=== PATIENT | female | born 1985 | race Caucasian/White ===

== ENCOUNTER 2019-03-12 14:49 | Emergency (ER) | payer SELFPAY ==
[2019-03-12 14:51] VITALS: BP 143/76; PULSE 92; RESP 12; TEMP 36.8; O2SAT 99
--- NOTE | 2019-03-12 15:39 | DI.RAD_ITS ---
EXAM: XR FOOT RT COMPLETE INDICATION: pain, injury. COMPARISON: No exams were available for comparison TECHNIQUE: 2D digital imaging was performed. FINDINGS: There is a comminuted intra-articular fracture at the base of the proximal phalanx of the 5th toe. T here is no significant displacement. There is adjacent soft tissue swelling. No additional fracture s are seen. IMPRESSION: Fracture of the proximal phalanx of the 5th toe.
--- NOTE | 2019-03-12 15:56 | DI.VRAD_ITS ---
PROCEDURE INFORMATION: Exam: XR Right Foot Complete Exam date and time: 03/12/2019 3:39 PM Age: 33 years old Clinical history: Right foot pain / injury TECHNIQUE: Imaging protocol: XR Right foot. Views: 3 or more views. COMPARISON: No relevant prior studies available. FINDINGS: Bones/joints: Closed, acute, essentially non-displaced fracture involving the base / proximal metadiaphyseal region of the right fifth proximal phalanx. Fracture extends into the right fifth MTP joint. No dislocation. No focal osseous lesion. Soft tissues: Soft tissue swelling of the right fifth toe and distal lateral right metatarsal region. No soft tissue radiopaque foreign body. IMPRESSION: 1. Closed, acute, essentially non-displaced fracture involving the base / proximal metadiaphyseal region of the right fifth proximal phalanx. Fracture extends into the right fifth MTP joint. 2. Soft tissue swelling of the right fifth toe and distal lateral right metatarsal region. Dictated and Authenticated by: Walt López MD. Ordering:EIVE Lemus MD
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
== END 2019-03-12 16:22 | disposition home or self-care (01) ==
PROVIDERS: Emergency Provider Physician Assistant; PCP Family Medicine
DX: S92.511A Displaced fracture of proximal phalanx of right lesser toe(s), initial encounter for closed fracture (principal); W50.0XXA Accidental hit or strike by another person, initial encounter
CPT/HCPCS: 28510; 73630; E0114

== ENCOUNTER 2019-06-08 13:29 | Emergency (ER) | payer SELFPAY ==
[2019-06-08 13:33] VITALS: BP 121/71; PULSE 88; RESP 18; TEMP 36.8; O2SAT 99
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
== END 2019-06-08 14:03 | disposition home or self-care (01) ==
PROVIDERS: Emergency Provider Registered Nurse Emergency; PCP Family Medicine
DX: S09.8XXA Other specified injuries of head, initial encounter (principal); Y04.2XXA Assault by strike against or bumped into by another person, initial encounter; R68.84 Jaw pain; Y99.0 Civilian activity done for income or pay
CPT/HCPCS: 99283

== ENCOUNTER 2019-11-10 02:21 | Outpatient (CLI) | payer SELFPAY ==
[2019-11-10 09:18] LABS: Calculated LDL 118 mg/dL (<100); Cholesterol 195 mg/dL (<200); HDL Cholesterol 37 mg/dL (40-60); Triglyceride 203 mg/dL (<150)
== END 2019-11-10 02:41 ==
PROVIDERS: PCP Family Medicine; Visit Provider Nurse Practitioner Family
DX: E87.2 Acidosis (principal); F41.9 Anxiety disorder, unspecified
CPT/HCPCS: 36415; 80061; 84443

== ENCOUNTER 2020-12-10 02:36 | Emergency (ER) | payer BC, SELFPAY ==
[2020-12-10] VITALS (29 sets, daily range): BP systolic 95–105; BP diastolic 50–66; PULSE 80–106; RESP 14–25; TEMP 36.6–37.3; O2SAT 97–98
--- NOTE | 2020-12-10 02:30 | RT.EKG_ITS ---
APPROVED REPORT Exam: Resting ECG Reason for Exam: nikita zaldivar Patient Location: E HR:82 bpm ECG Measurements Heart Rate 82 AXIS KS 171 P 41 QRSd 99 QRS 118 QT 367 T 24 QTc 429 Conclusion Sinus rhythm...normal P axis, V-rate 60- 99 Right axis deviation...QRS axis (111,269) Physician: no stemi, q wave in lead 3, no sinificant st elevation or depression
[2020-12-10] MEDS: Normal Saline 1,000 ML 1000 ML IV (02:59)
[2020-12-10] MEDS: Lactated Ringers 1,000 ML 1000 ML IV (03:10)
[2020-12-10 03:14] LABS: Abs Immature Grans 0.04 10^3/uL (0.0-0.06); Absolute Eosinophil Count 0.01 10^3/uL (0.0-0.7); Absolute Lymphocyte Count 1.28 10^3/uL (1.2-3.4); Absolute Monocyte Count 0.12 10^3/uL (0.1-0.8); Absolute Neutrophil Count 2.46 10^3/uL (1.2-6.7); Eosinophils % 0.3; HCT 34.7 % (36.0-46.0); HGB 11.7 g/dL (11.2-15.7); Lymphocytes % 32.7; MCH 31.6 pg (27.0-33.0); MCHC 33.7 % (32.0-36.0); MCV 93.8 fL (80-95); MPV 9.3 fL (8.0-11.0); Monocytes % 3.1; Neutrophils % 62.9; Nucleated RBC 0 %; Platelet Count 120 10^3/uL (130-400); RDW 11.5 % (11.7-14.6); RDW-SD 39.5 fL; WBC 3.91 10^3/uL (4.4-10.8)
[2020-12-10 03:30] LABS: INR 1.1 (0.9-1.1); PTT Activated 25.9 sec (21.0-27.5); Prothrombin Time 10.8 sec (9.3-11.0)
[2020-12-10 03:44] LABS: ALT 36 U/L (14-59); AST 28 U/L (15-37); Albumin 3.8 g/dL (3.4-5.0); Alkaline Phosphatase 62 U/L (46-116); Anion Gap 11.1 mmol/L (3-11); BUN 9 mg/dL (7-18); Bilirubin, Total 0.4 mg/dL (0.2-1.0); CO2 23.9 mmol/L (21.0-32.0); CREATININE 0.8 mg/dL (0.55-1.02); Calcium 8.3 mg/dL (8.5-10.1); Chloride 105 mmol/L (98-107); Glucose 148 mg/dL (74-106); Lipase 133 U/L (73-393); NT-proBNP 10 pg/mL (<300); Potassium 3.6 mmol/L (3.5-5.1); Sodium 140 mmol/L (136-145); TSH (W/Ref FT4) 0.63 uIU/mL (0.36-3.74); Total Protein 7.4 g/dL (6.4-8.2)
[2020-12-10 03:45] LABS: Troponin I < 0.05 ng/mL (<0.06)
--- NOTE | 2020-12-10 03:45 | DI.CT_ITS ---
Exam(s) CT HEAD WO EXAM: CT HEAD WO CLINICAL HISTORY: syncope, covid. TECHNIQUE: Imaging Protocol: Axial computed tomography images with coronal and sagittal reformatted images were created and reviewed COMPARISON: No exams were available for comparison FINDINGS: Ventricles and Extra axial spaces: Normal in size and morphology for the patient's age. Hemorrhage: None. Cerebral parenchyma: Normal. Midline shift: None. Brainstem/Cerebellum: Normal. Calvarium: Normal. Visualized Paranasal sinuses/Mastoids: Clear. Soft Tissues: Unremarkable. IMPRESSION: No acute intracranial process. RADIATION DOSE DELIVERED: 726.79mGy.cm Total DLP DATA REPOSITORY: All CT scans at this facility are submitted to the National Radiology Data Registry (NRDR) Dose Index Registry (DIR) with the [employer] ([employer]). RADIATION OPTIMIZATION: All CT scans at this facility use at least one of these dose optimization te chniques: automated exposure control; mA and/or kV adjustment per patient size (includes targeted exa ms where dose is matched to clinical indication); or iterative reconstruction.
[2020-12-10 03:53] LABS: D-Dimer 290 ng/mlFEU (<500)
[2020-12-10 03:56] LABS: Bilirubin Negative (Negative); Blood Negative (Negative); Clarity Sl Cloudy (Clear); Glucose Negative (Negative); Ketones 80 mg/dL (Negative); Leukocyte Esterase Negative (Negative); Nitrite Negative (Negative); Specific Gravity 1.025 (1.005-1.025); Urobilinogen 0.2 EU/dL (Up TO 0.2); pH 6.5 (5-8)
--- NOTE | 2020-12-10 04:00 | DI.RAD_ITS ---
Exam(s) XR PORTABLE CHEST AP EXAM: XR PORTABLE CHEST AP CLINICAL HISTORY: syncope, covid. TECHNIQUE: 2D digital imaging was performed. COMPARISON: No exams were available for comparison FINDINGS: Heart size is normal. The mediastinum is not widened. Right lung is clear. Small nodular infiltrate is evident in the lateral left lung base. No pleural effusions. IMPRESSION: Noncalcified nodular infiltrate in the left lung base. Appropriate follow-up recommended. DATA REPOSITORY: RADIATION DOSE DELIVERED: All CT scans at this facility use at least one of these dose optimization techniques: automated exposure control; mA and/or kV adjustment per patient size (includes targeted e xams where dose is matched to clinical indication); or iterative reconstruction.
--- NOTE | 2020-12-10 04:00 | ED.GENADUL_ITS ---
Discharge Plan Disposition Patient Disposition: HOME Condition: Improving Discharge Details Clinical Impression: COVID-19, Acute dehydration, Dizziness Primary Care Provider: Hoemro Dean ED Provider: Christopher Patel Home Meds and New Rx's Prescriptions: New ondansetron HCl [Zofran] 4 mg tablet 4 mg PO Q8H Qty: 12 RF: 0 meclizine 25 mg tablet 25 mg PO BID Qty: 20 RF: 0 Discharge Instructions Instructions: Dehydration (ED), Dizziness (ED) Additional Instructions: At this time your CAT scan is reassuring. There is no evidence of stroke. Your chest x-ray shows no evidence of pneumonia. Minimal bronchitis is noted from the COVID-19. You were severely dehydrated. Please continue to drink 10 to 12 cups of water, Gatorade, or Powerade daily. Please take the Zofran as needed for nausea. Please take the meclizine 1 pill twice daily as directed to help with the dizziness. Both of these prescriptions [facility] If you notice any worsening of your symptoms, or any new symptoms such as vomiting, diarrhea, fever, chills, shortness of breath, chest pain, numbness, weakness, or fainting , please return immediately to the emergency department for reevaluation. Please follow up with your primary care provider as soon as possible for reassessment and reevaluation. As always, it was a pleasure participating in your medical care today. Referrals: Homero Dean [Primary Care Provider] - Discharge Data Discharge Date/Time-TO BE ENTERED AT DEPARTURE: 12/10/20 05:45 Medical Decision Making This is a 35-year-old female with no significant past medical history who presents today for evaluation of syncope, lightheadedness, and feeling ill. Patient has been symptomatic with fever, chills, for the last week, she tested positive for Covid. All the other family members in her house are also sick. She denies any excessive vomiting or diarrhea but does admit to nausea. She states that she has been drinking fluids at home. She denies any chest pain, cough, or shortness of breath. She denies any vision changes, room spinning sensation, or neck pain. She denies any family history of PE or blood clots, cardiac problems, or cardiac dysrhythmias. No other complaints at this time. No other modifying factors. This evening when she did fall/syncopized, she did not hit her head. Her significant other was able to catch her. She came to moments after. No seizure history. She has not received a Covid vaccine. Physical exam demonstrates notable dry mucous membranes. No signs of trauma. Nontender abdomen. Lung sounds are clear. Initial blood pressure was in the 60s to 70s systolic. Neurologic exam normal. Patient symptoms concerning for notable dehydration causing her syncope. However because of her current active Covid infection I am concerned for potential PE, or intercranial abnormality causing the syncope in addition to the dehydration. We will get a proBNP to evaluate for heart strain, D-dimer to help in the differentiation/rule out of PE. Day EKG, hydrate with a liter of normal saline a liter of lactated Ringer's, monitor closely and reassess. 4:17 AM D-dimer negative, EKG stable/unremarkable. proBNP normal suggesting no signs of heart strain. Patient has been rehydrated with 2 L and blood pressure has normalized. Still waiting on imaging results this time. 6 AM On reassessment patient is feeling much better. Dizziness is notably improved. Patient feels well. Vital signs stabilized. No signs of significant hemodynamic instability, focal neurologic deficit. CT scan of the head is negative for acute process, chest x-ray shows mild bronchitis. Suspect continued dehydration with mild peripheral vertigo as a cause of her symptoms secondary to COVID-19. Will discharge with Zofran and meclizine for home use. Discussed red flags which to return. At this time no clinical evidence of stroke. I have extensively reviewed the treatment plan and discharge instructions with the patient. I have addressed all patient concerns at this time. The patient was made aware of what symptoms to monitor for that would warrant a return to the emergency department. Discussed the plan with the patient, they demonstrate verbal understanding and agreement with our assessment and plan at this time. The documentation in this chart was dictated using [employer] dictation software. Please excuse any dictation errors. FINDINGS: Brain: Mild volume loss No hemorrhage. Unremarkable white matter. No mass effect. Cerebral ventricles: No ventriculomegaly. Paranasal sinuses: Minimal mucosal thickening in the left maxillary sinus. No f luid levels. Mastoid air cells: Visualized mastoid air cells are well aerated. Bones/joints: Unremarkable. No acute fracture. Soft tissues: Unremarkable. IMPRESSION: No acute intracranial hemorrhage noted Thank you for allowing us to participate in the care of your patient. Dictated and Authenticated by: Migel Lawson MD 12/10/2020 4:59 AM Eastern Time ([place] & [place]) FINDINGS: Lungs: Mild chronic interstitial prominence. Mild peribronchial thickening in the lower lobes cannot be completely excluded. No consolidation. Pleural spaces: Unremarkable. No pleural effusion. No pneumothorax. Heart/Mediastinum: Unremarkable. No cardiomegaly. Bones/joints: Unremarkable. IMPRESSION: Mild bronchitis cannot be completely excluded. No focal consolidation Thank you for allowing us to participate in the care of your patient. Dictated and Authenticated by: Migel Lawson MD 12/10/2020 5:00 AM Eastern Time ([place] & [place] HPI General Date/Time Provider Initiated Documentation: 12/10/20 02:42 . HPI Narrative: This is a 35-year-old female with no significant past medical history who presents today for evaluation of syncope, lightheadedness, and feeling ill. Patient has been symptomatic with fever, chills, for the last week, she tested positive for Covid. All the other family members in her house are also sick. She denies any excessive vomiting or diarrhea but does admit to nausea. She states that she has been drinking fluids at home. She denies any chest pain, cough, or shortness of breath. She denies any vision changes, room spinning sensation, or neck pain. She denies any family history of PE or blood clots, cardiac problems, or cardiac dysrhythmias. No other complaints at this time. No other modifying factors. This evening when she did fall/syncopized, she did not hit her head. Her significant other was able to catch her. She came to moments after. No seizure history. She has not received a Covid vaccine. Related Data Home Medications Medication Instructions Recorded Confirmed meclizine 25 mg PO BID #20 tab 12/10/20 ondansetron HCl [Zofran] 4 mg PO Q8H #12 tab 12/10/20 Previous Rx's Medication Instructions Recorded meclizine 25 mg PO BID #20 tab 12/10/20 ondansetron HCl [Zofran] 4 mg PO Q8H #12 tab 12/10/20 Allergies Allergy/AdvReac Type Severity Reaction Status Date / Time Penicillins Allergy Hives Unverified 12/10/20 02:56 Sulfa (Sulfonamide AdvReac Severe Diarrhea Unverified 12/10/20 02:56 Antibiotics) General Stated Complaint: Dizzy/Sync NEENA: 3 Review of Systems All systems reviewed & are unremarkable except as noted in HPI and below [facility] Medical History COVID-19 pos at [facility] Social History Smoking/Tobacco Use Status: Never Smoking risk assessment performed?: Yes Alcohol Intake: never Substance use type: does not use Current gender identity: female Do you feel safe at home: Yes Do you feel safe in your relationship?: Yes Exam Narrative Exam Narrative: 1.Const: Well-nourished, Well-developed, appearing stated age 2.Eyes: PERRL, no conjunctival injection, and symmetrical lids. Mild unidirectional horizontal nystagmus. No vertical or rotatory 3.ENT: Atraumatic external nose and ears. Notably dry MM. Neck: Symmetric, trachea midline, No thyromegaly. 4.CVS: +S1/S2, No murmurs or gallops. Peripheral pulses 2+ and equal in all extremities. Brisk capillary refill in all extremities. 5.RESP: Unlabored respiratory effort. Clear to auscultation bilaterally. No wheezes rales or rhonchi 6.GI: Soft, Nontender/Nondistended, No hepatosplenomegaly. No guarding or rebound. 7.MSK: Normocephalic/Atraumatic, Extremities w/o deformity or ttp No cyanosis or clubbing, Normal movement of all extremities 8.Skin: Warm, Dry. No rashes or lesions. 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 Sensation grossly intact, no focal neurologic deficits. All 6 cardinal planes of vision are fully intact. No evidence of rotatory or vertical nystagmus. The patient demonstrated a normal [id number]-[id number]-[id number], good dexterity. There was no evidence of dysdiadochokinesia. Patient was able to ambulate without difficulty. There was no wide-based gait. Sensation was intact bilaterally as well as muscle strength bilaterally for all extremities. Patient was able to verbalize butter cup with no slurring, or m iss pronunciation. 10.Psych: (AAO) x3. Appropriate mood and affect Course Vital Signs Vital signs: Vital Signs Temperature 36.6 C 12/10/20 02:40 Pulse 82 12/10/20 02:40 Respiratory Rate 16 12/10/20 02:40 Blood Pressure 95/54 L 12/10/20 02:40 Pulse Oximetry 98 12/10/20 02:40 Temperature 36.6 C 12/10/20 02:40 Pulse 86 12/10/20 03:31 Pulse 106 H 12/10/20 03:40 Respiratory Rate 22 12/10/20 03:40 Respiratory Effort Non-Labored 12/10/20 03:13 Respiratory Depth Normal 12/10/20 03:13 Respiratory Pattern Normal 12/10/20 03:13 Blood Pressure 96/60 L 12/10/20 03:31 Blood Pressure Mean 68 12/10/20 03:31 Pulse Oximetry 98 12/10/20 02:40 Pain Level 0 12/10/20 02:40 Lab/Test Results Lab/Test Results: Laboratory Tests Range/Units 12/10/20 12/10/20 12/10/20 03:00 03:00 03:00 WBC (4.4-10.8) 10^3/uL 3.91 L RBC (3.93-5.22) 10^6/uL 3.70 L Hgb (11.2-15.7) g/dL 11.7 Hct (36.0-46.0) % 34.7 L MCV (80-95) fL 93.8 MCH (27.0-33.0) pg 31.6 MCHC (32.0-36.0) % 33.7 RDW (11.7-14.6) % 11.5 L Plt Count (130-400) 10^3/uL 120 L MPV (8.0-11.0) fL 9.3 Immature Gran % 1.0 Neutrophils % 62.9 Lymphocytes % 32.7 Monocytes % 3.1 Eosinophils % 0.3 Basophils % 0.0 Nucleated RBC % % 0 Absolute Neutrophils (1.2-6.7) 10^3/uL 2.46 Absolute Lymphocytes (1.2-3.4) 10^3/uL 1.28 Absolute Monocytes (0.1-0.8) 10^3/uL 0.12 Absolute Eosinophils (0.0-0.7) 10^3/uL 0.01 Absolute Basophils (0.0-0.2) 10^3/uL 0.00 PT (9.3-11.0) sec 10.8 INR (0.9-1.1) 1.1 APTT (21.0-27.5) sec 25.9 D-Dimer (<500) ng/mlFEU 290 Sodium (136-145) mmol/L 140 Potassium (3.5-5.1) mmol/L 3.6 Chloride (98-107) mmol/L 105 Carbon Dioxide (21.0-32.0) mmol/L 23.9 Anion Gap (3-11) mmol/L 11.1 H BUN (7-18) mg/dL 9 Creatinine (0.55-1.02) mg/dL 0.8 Estimated GFR/1.73 m2 (mL/min/1.73m2) >= 60.00 Glucose (74-106) mg/dL 148 H Calcium (8.5-10.1) mg/dL 8.3 L Total Bilirubin (0.2-1.0) mg/dL 0.4 AST (15-37) U/L 28 ALT (14-59) U/L 36 Alkaline Phosphatase (46-116) U/L 62 Troponin I (<0.06) ng/mL < 0.05 NT-Pro-B Natriuret Pep (<300) pg/mL 10 Total Protein (6.4-8.2) g/dL 7.4 Albumin (3.4-5.0) g/dL 3.8 Lipase (73-393) U/L 133 TSH (0.36-3.74) uIU/mL 0.63 POC- Test(urine) Negative
[2020-12-10 04:07] LABS: Bacteria Moderate HPF (Negative); C & S Indicated? No/Sq. Contamination; Casts Negative LPF (Negative); Crystals Negative HPF (Negative); Epithelial Cells Many HPF (Negative); Mucus Trace (Negative); RBC 0-2 HPF (0-2)
--- NOTE | 2020-12-10 04:59 | DI.VRAD_ITS ---
PROCEDURE INFORMATION: Exam: CT Head Without Contrast Exam date and time: 12/10/2020 4:01 AM Age: 35 years old Clinical indication: Syncope and collapse; Patient HX: Syncope, covid TECHNIQUE: Imaging protocol: Computed tomography of the head without contrast. Radiation optimization: All CT scans at this facility use at least one of these dose optimization techniques: automated exposure control; mA and/or kV adjustment per patient size (includes targeted exams where dose is matched to clinical indication); or iterative reconstruction. COMPARISON: No relevant prior studies available. FINDINGS: Brain: Mild volume loss No hemorrhage. Unremarkable white matter. No mass effect. Cerebral ventricles: No ventriculomegaly. Paranasal sinuses: Minimal mucosal thickening in the left maxillary sinus. No fluid levels. Mastoid air cells: Visualized mastoid air cells are well aerated. Bones/joints: Unremarkable. No acute fracture. Soft tissues: Unremarkable. IMPRESSION: No acute intracranial hemorrhage noted Dictated and Authenticated by: Migel Lawson MD. Ordering:BRAD White MD
--- NOTE | 2020-12-10 05:00 | DI.VRAD_ITS ---
PROCEDURE INFORMATION: Exam: XR Chest Exam date and time: 12/10/2020 4:01 AM Age: 35 years old Clinical indication: Cough and other: Syncope, covid TECHNIQUE: Imaging protocol: XR of the chest. Views: 1 view. COMPARISON: No relevant prior studies available. FINDINGS: Lungs: Mild chronic interstitial prominence. Mild peribronchial thickening in the lower lobes cannot be completely excluded. No consolidation. Pleural spaces: Unremarkable. No pleural effusion. No pneumothorax. Heart/Mediastinum: Unremarkable. No cardiomegaly. Bones/joints: Unremarkable. IMPRESSION: Mild bronchitis cannot be completely excluded. No focal consolidation Dictated and Authenticated by: Migel Lawson MD. Ordering:BRAD White MD
[2020-12-10] MEDS: Meclizine 25 MG TAB PO (05:26)
== END 2020-12-10 05:45 | disposition home or self-care (01) ==
PROVIDERS: Emergency Provider Student in an Organized Health Care Education/Training Program; PCP Family Medicine
DX: U07.1 COVID-19 (principal); E86.0 Dehydration; R55 Syncope and collapse; I95.9 Hypotension, unspecified; J20.8 Acute bronchitis due to other specified organisms; R06.9 Unspecified abnormalities of breathing
CPT/HCPCS: 36415; 80053; 81025; 83690; 93005; 96360; 99285; 70450; 71045; 81003; 81015; 83880; 84443; 84484; 85025; 85379; 85610; 85730; 93010

== ENCOUNTER 2020-12-10 19:00 | Emergency (ER) | payer BC, SELFPAY ==
[2020-12-10 19:05] VITALS: BP 116/72; PULSE 86; RESP 18; TEMP 37.7; O2SAT 97
[2020-12-10 19:11] VITALS: RESP 16
[2020-12-10 19:13] VITALS: BP 100/68; BP 110/63; BP 94/64; PULSE 87; PULSE 90; PULSE 95
--- NOTE | 2020-12-10 19:43 | ED.GENADUL_ITS ---
Discharge Plan Disposition Patient Disposition: HOME Condition: Stable Discharge Details Clinical Impression: COVID-19 Primary Care Provider: Homero Dean ED Provider: Gissel Gómez Home Meds and New Rx's Prescriptions: Continued ondansetron HCl [Zofran] 4 mg tablet 4 mg PO Q8H Qty: 12 RF: 0 meclizine 25 mg tablet 25 mg PO BID Qty: 20 RF: 0 Discharge Instructions Instructions: Viral Syndrome (ED) Additional Instructions: continue supportive care, push fluids to stay well hydrated. acetaminophen and or ibuprofen as directed for pain or fever continue meclizine as directed continue zofran as directed continue to monitor oxygen saturation and return for sats maintained less than 94% Referrals: Homero Dean [Primary Care Provider] - Medical Decision Making patient presents for evaluation of ongoing dizziness having taken one dose of meclizine prior to arrival. hemodynamically stable and oxygenating in high 90's on room air. orthostatic vital signs checked and unremarkable. she is tolerating good po fluids. she is stable for discharge to home to continue supportive care Medical Records Medical records reviewed: Yes I reviewed the patient's medical records. HPI General Mode of arrival: ambulatory . Limitations to Documentation: no limitations . Information obtained by: patient . HPI Narrative: patient returns for evaluation of ongoing dizziness, did not take a meclizine until just prior to arrival. states she been drinking fluids well, still with dry cough, no shortness of breath worsening Related Data Home Medications Medication Instructions Recorded Confirmed meclizine 25 mg PO BID #20 tab 12/10/20 12/10/20 ondansetron HCl [Zofran] 4 mg PO Q8H #12 tab 12/10/20 12/10/20 Previous Rx's Medication Instructions Recorded meclizine 25 mg PO BID #20 tab 12/10/20 ondansetron HCl [Zofran] 4 mg PO Q8H #12 tab 12/10/20 Allergies Allergy/AdvReac Type Severity Reaction Status Date / Time Penicillins Allergy Hives Unverified 12/10/20 19:09 Sulfa (Sulfonamide AdvReac Severe Diarrhea Unverified 12/10/20 19:09 Antibiotics) General Stated Complaint: Dizzy/Sync NEENA: 3 PFSH Medical History COVID-19 pos at [facility] Social History Smoking/Tobacco Use Status: Never Smoking risk assessment performed?: Yes Alcohol Intake: never Substance use type: does not use Current gender identity: female Do you feel safe at home: Yes Do you feel safe in your relationship?: Yes Exam Const General: cooperative, healthy appearing, comfortable and ill appearing acutely (mildly) Nutritional Appearance: average body habitus Orientation: alert, awake and oriented x3 HENMT Head: normal to inspection, normocephalic and atraumatic Mouth: oral mucosae normal Eyes EOM: No nystagmus Resp Effort & Inspection: normal respiratory effort and able to speak in complete sentences Cardio Rate: regular rate Rhythm: regular rhythm GI Inspection: normal to inspection Skin General skin exam: no rashes or lesions noted and other (pink warm dry and well perfused) Neuro General: patient alert and patient awake Cranial Nerves: no nystagmus Cognition: normal cognition Speech: speech normal Gait: normal gait Course Vital Signs Vital signs: Vital Signs Temperature 37.7 C H 12/10/20 19:05 Pulse 86 12/10/20 19:05 Respiratory Rate 18 12/10/20 19:05 Blood Pressure 116/72 12/10/20 19:05 Pulse Oximetry 97 12/10/20 19:05 Temperature 37.7 C H 12/10/20 19:05 Temperature Source Oral 12/10/20 19:05 Pulse 87 12/10/20 19:13 Respiratory Rate 16 12/10/20 19:11 Respiratory Effort Non-Labored 12/10/20 19:11 Respiratory Pattern Normal 12/10/20 19:11 Blood Pressure 110/63 12/10/20 19:13 Pulse Oximetry 97 12/10/20 19:05 Pain Level 0 12/10/20 19:05
[2020-12-10 19:56] VITALS: BP 101/65; PULSE 863; RESP 18; O2SAT 98
== END 2020-12-10 20:00 | disposition home or self-care (01) ==
PROVIDERS: Emergency Provider Nurse Practitioner Acute Care; PCP Family Medicine
DX: U07.1 COVID-19 (principal); R42 Dizziness and giddiness
CPT/HCPCS: 99281; 99283

== ENCOUNTER 2022-02-28 16:56 | Outpatient (REF) | payer BC, SELFPAY ==
[2022-03-02 15:14] LABS: COVID-19 RT-PCR UVMMC Result Negative (Negative)
== END 2022-02-28 16:57 | disposition home or self-care (01) ==
LOC: LBN 16:56
PROVIDERS: PCP Family Medicine; Visit Provider Physician Assistant Medical
DX: Z20.822 Contact with and (suspected) exposure to COVID-19 (principal)
CPT/HCPCS: U0003

== ENCOUNTER 2022-07-17 03:06 | Outpatient (CLI) | payer BC, SELFPAY ==
[2022-07-17 07:30] LABS: Abs Immature Grans 0.02 10^3/uL (0.0-0.06); Absolute Basophil Count 0.02 10^3/uL (0.0-0.2); Absolute Eosinophil Count 0.18 10^3/uL (0.0-0.7); Absolute Lymphocyte Count 2.75 10^3/uL (1.2-3.4); Absolute Neutrophil Count 2.82 10^3/uL (1.2-6.7); Basophils % 0.3; Eosinophils % 2.9; HGB 12.8 g/dL (11.2-15.7); Immature Grans % 0.3; Lymphocytes % 44.4; MCH 31.4 pg (27.0-33.0); MCHC 34.6 % (32.0-36.0); MCV 91 fL (80-95); MPV 9.1 fL (8.0-11.0); Monocytes % 6.5; Neutrophils % 45.6; Platelet Count 220 10^3/uL (130-400); RBC 4.08 10^6/uL (3.93-5.22); RDW 12.1 % (11.7-14.6); RDW-SD 39.9 fL; WBC 6.19 10^3/uL (4.4-10.8)
[2022-07-17 07:33] LABS: ESR 5 mm/hr (0-20)
[2022-07-17 07:46] LABS: Hemoglobin A1C 5.3 % (<5.7)
[2022-07-17 08:41] LABS: Anion Gap 11.4 mmol/L (3-11); BUN 13 mg/dL (7-18); CO2 25.6 mmol/L (21.0-32.0); CREATININE 0.8 mg/dL (0.55-1.02); Calcium 9.2 mg/dL (8.5-10.1); Calculated LDL 149 mg/dL (<100); Chloride 104 mmol/L (98-107); Cholesterol 251 mg/dL (<200); Estimated GFR 96.66 (mL/min/1.73m2); Glucose 102 mg/dL (74-106); HDL Cholesterol 51 mg/dL (40-60); Potassium 3.7 mmol/L (3.5-5.1); Sodium 141 mmol/L (136-145); TSH (W/Ref FT4) 0.69 uIU/mL (0.36-3.74); Triglyceride 257 mg/dL (<150)
[2022-07-17 20:56] LABS: Thyroglobulin Antibody <15 U/mL (<=60); Thyroperoxidase Antibody <28 U/mL (<=60)
[2022-07-20 11:31] LABS: Lyme Ab w Rflx to Lyme Confirm Negative (Negative)
[2022-07-20 14:01] LABS: ANA Interpretation Negative (Negative)
[2022-07-20 15:34] LABS: Anaplasma phagocytophilum Negative (Negative); B. miyamotoi PCR Negative (Negative); Babesia divergens/MO-1 Negative (Negative); Babesia duncani Negative (Negative); Babesia microti Negative (Negative); Ehrlichia chaffeensis Negative (Negative); Ehrlichia ewingii/canis Negative (Negative); Ehrlichia muris eauclairensis Negative (Negative)
== END 2022-07-17 03:07 | disposition home or self-care (01) ==
PROVIDERS: PCP Nurse Practitioner Family; Visit Provider Nurse Practitioner Family
DX: E03.9 Hypothyroidism, unspecified (principal); E78.5 Hyperlipidemia, unspecified; F41.1 Generalized anxiety disorder; M25.50 Pain in unspecified joint; Z13.1 Encounter for screening for diabetes mellitus
CPT/HCPCS: 36415; 80048; 80061; 85652; 86141; 86376; 87798; 83036; 84443; 85025; 86038; 86618

== ENCOUNTER 2022-12-04 02:46 | Outpatient (CLI) | payer BC, SELFPAY ==
[2022-12-04 08:49] LABS: Abs Immature Grans 0.02 10^3/uL (0.0-0.06); Absolute Basophil Count 0.02 10^3/uL (0.0-0.2); Absolute Eosinophil Count 0.11 10^3/uL (0.0-0.7); Absolute Lymphocyte Count 2.99 10^3/uL (1.2-3.4); Absolute Monocyte Count 0.38 10^3/uL (0.1-0.8); Absolute Neutrophil Count 2.64 10^3/uL (1.2-6.7); Basophils % 0.3; Eosinophils % 1.8; Immature Grans % 0.3; Lymphocytes % 48.5; MCH 31.8 pg (27.0-33.0); MCHC 35.1 % (32.0-36.0); MCV 91 fL (80-95); MPV 8.8 fL (8.0-11.0); Monocytes % 6.2; Neutrophils % 42.9; Platelet Count 229 10^3/uL (130-400); RBC 4.09 10^6/uL (3.93-5.22); RDW 11.9 % (11.7-14.6); RDW-SD 38.7 fL; WBC 6.16 10^3/uL (4.4-10.8)
[2022-12-04 09:31] LABS: ALT 19 U/L (14-59); AST 12 U/L (15-37); Albumin 4.2 g/dL (3.4-5.0); Alkaline Phosphatase 69 U/L (46-116); Amylase 61 U/L (25-115); Anion Gap 11.3 mmol/L (3-11); BUN 10 mg/dL (7-18); Bilirubin, Total 0.5 mg/dL (0.2-1.0); CO2 23.7 mmol/L (21.0-32.0); CREATININE 0.9 mg/dL (0.55-1.02); Calcium 9.5 mg/dL (8.5-10.1); Chloride 106 mmol/L (98-107); Estimated GFR 83.92 (mL/min/1.73m2); Glucose 121 mg/dL (74-106); Lipase 28 U/L (16-77); Potassium 3.9 mmol/L (3.5-5.1); Sodium 141 mmol/L (136-145); Total Protein 7.8 g/dL (6.4-8.2)
== END 2022-12-04 02:47 | disposition home or self-care (01) ==
PROVIDERS: PCP Nurse Practitioner Family; Visit Provider Nurse Practitioner Family
DX: R10.13 Epigastric pain (principal); F41.1 Generalized anxiety disorder; G47.00 Insomnia, unspecified; E66.8 Other obesity; E78.5 Hyperlipidemia, unspecified
CPT/HCPCS: 36415; 80053; 83690; 82150; 85025

== ENCOUNTER 2023-04-01 15:24 | Emergency (ER) | payer BC, SELFPAY ==
[2023-04-01] VITALS (55 sets, daily range): BP systolic 107–159; BP diastolic 64–95; PULSE 74–133; RESP 8–24; TEMP 36.8; O2SAT 96–100
--- NOTE | 2023-04-01 15:15 | RT.EKG_ITS ---
APPROVED REPORT Exam: Resting ECG Reason for Exam: irregular heart rate Patient Location: E HR:116 bpm ECG Measurements Heart Rate 116 AXIS MO 157 P 28 QRSd 96 QRS 117 QT 336 T 4 QTc 468 Conclusion Sinus tachycardia 116 right axis no acute changes
--- NOTE | 2023-04-01 15:43 | ED.GENADUL_ITS ---
Discharge Plan Discharge Details Chief Complaint: Palpitatns Clinical Impression: Heart palpitations, Hypokalemia Primary Care Provider: Harmony Cortez ED Provider: Winifred Olmstead Home Meds and New Rx's Prescriptions: No Action triamcinolone acetonide 0.1 % cream 1 applic topical BID Qty: 80 0RF escitalopram oxalate [Lexapro] 10 mg tablet 10 mg PO DAILY Qty: 90 0RF Mirena 21 mcg/24 hours (8 yrs) 52 mg intrauterine device 1 device intrauterine ONCE Rx Instructions: as a single dose lorazepam 1 mg tablet 1 mg PO DAILY PRN (Reason: anxiety) Qty: 20 0RF Linzess 290 mcg capsule 290 mcg PO DAILY Qty: 90 0RF omeprazole 20 mg capsule,delayed release(DR/EC) 20 mg PO BID Qty: 180 3RF Medical Decision Making Emergent evaluation of palpitations. Initial differential includes dehydration, anemia, tacky dysrhythmia, electrolyte derangement. Patient does have a history of anxiety attacks, but states that this does not feel like her typical attack. She took lorazepam yesterday without relief. Her EKG demonstrates sinus tachycardia. She has no risk factors for DVT or PE. Will get a D-dimer and additional blood work. Will give IV fluids and reassess. 1640: Labwork reviewed. CBC unremarkable. No leukocytosis, or anemia. She has some mild hypokalemia on her CMP. She was given a dose of oral KCl. Thyroid function within normal limits. Cardiac enzymes and D-dimer are all negative. 1645: Observing the patient on telemetry monitoring, her heart rate went up into the 150s. By looking at the monitor, it was concerning for possible SVT. We attempted to quickly get an EKG. The EKG is being read by the computer as sinus tachycardia, however there are no apparent P waves, there may be P waves hidden within the QRS. This is increases my suspicion for SVT or AVNRT. Possible flutter with block. Definitely tachy dysrhythmia patient became highly symptomatic at that time. [place] dizzy, nauseated and lightheaded. Briefly discussed with the hospitalist here. We have no cardiology coverage at this time. He is requesting transfer for cardiology evaluation. At this time I will send the EKGs to [facility] for review by their malt specifications control assistant and recommendations. Final disposition pending cardiology evaluation, signed out to oncoming provider. Medical Records Medical records reviewed: Yes I reviewed the patient's medical records. Lab Data Lab results reviewed: Yes I reviewed the patient's lab results. ECG Data Attestation: I personally reviewed and interpreted this ECG (s) as follows: Prior ECG tracings: not available for review Interpretation: Sinus tachycardia, 116, right axis, no acute ST segment changes HPI General Date/Time Provider Initiated Documentation: 04/01/23 15:42 . Limitations to Documentation: no limitations . Information obtained by: patient . HPI Narrative: 38-year-old female with past medical history of panic disorder, PTSD, presents for evaluation of palpitations. She reports onset yesterday. She states that she has been feeling very fatigued, tired. Feeling off. She states that yesterday her heart was racing. She states that it did not feel like a typical panic attack. She did take a lorazepam without significant improvement in her symptoms. She reports that today she felt so tired that she had to go home from work. She denies any fever, cough, chest pain or shortness of breath. She has a Mirena IUD, but no other hormonal therapy, does not smoke. Mom had a pulmonary embolism without diagnosed etiology. She denies any alcohol use. Reports 5 mg THC at bedtime. Related Data Home Medications Medication Instructions Recorded Confirmed levonorgestrel 21 mcg/24 hours (8 1 device intrauterine ONCE 06/26/22 04/01/23 yrs) 52 mg intrauterine device (Mirena) lorazepam 1 mg tablet 1 mg PO DAILY PRN anxiety #20 tabs 11/30/22 04/01/23 linaclotide 290 mcg capsule 290 mcg PO DAILY #90 caps 01/22/23 04/01/23 (Linzess) omeprazole 20 mg capsule,delayed 20 mg PO BID #180 caps 02/03/23 04/01/23 release escitalopram oxalate 10 mg tablet 10 mg PO DAILY #90 tabs 03/25/23 04/01/23 (Lexapro) triamcinolone acetonide 0.1 % 1 applic topical BID rash #80 grams 03/25/23 04/01/23 topical cream Previous Rx's Medication Instructions Recorded lorazepam 1 mg tablet 1 mg PO DAILY PRN anxiety #20 tabs 11/30/22 linaclotide 290 mcg capsule 290 mcg PO DAILY #90 caps 01/22/23 (Linzess) omeprazole 20 mg capsule,delayed 20 mg PO BID #180 caps 02/03/23 release escitalopram oxalate 10 mg tablet 10 mg PO DAILY #90 tabs 03/25/23 (Lexapro) triamcinolone acetonide 0.1 % 1 applic topical BID rash #80 grams 03/25/23 topical cream Allergies Allergy/AdvReac Type Severity Reaction Status Date / Time Cephalosporins Allergy Unknown Unverified 04/01/23 15:29 ciprofloxacin [From Cipro] Allergy Unknown Unverified 04/01/23 15:29 Penicillins Allergy Hives Unverified 04/01/23 15:29 Sulfa (Sulfonamide AdvReac Severe Diarrhea Unverified 04/01/23 15:29 Antibiotics) General Stated Complaint: Palpitatns NEENA: 3 PFSH All Active Problems (Updated 04/01/23 @ 16:39 by Winifred Olmstead MD) Hypokalemia (Acute) Heart palpitations (Acute) BRCA2 positive (Chronic) Generalized anxiety disorder with panic attacks (Chronic) PTSD (post-traumatic stress disorder) (Chronic) Insomnia (Chronic) Hyperlipidemia (Chronic) IBS (irritable bowel syndrome) (Chronic) GERD (gastroesophageal reflux disease) (Chronic) Hiatal hernia (Chronic) IUD surveillance (Chronic) Mirena IUD 03/15/23 Polyarthralgia (Chronic) Obesity (BMI 30-39.9) (Chronic) Medical History Bochdalek hernia Herpes Abnormal uterine bleeding COVID-19 Surgical History History of bilateral tubal ligation Hx laparoscopic cholecystectomy Hx of esophagogastroduodenoscopy Hx of section Hx of colonoscopy (~06/03/20) H/O bilateral mastectomy (06/23/21) Family History Mother Depression Father , 58 Diabetes Pancreatic cancer Maternal Grandfather , 72 Diabetes Paternal Grandfather Prostate cancer Maternal Grandmother , 84 No problems noted. Paternal Grandmother , 54 Heart disease Myocardial infarction Lupus (systemic lupus erythematosus) Sister BRCA2 positive Daughter No problems noted. Daughter No problems noted. Daughter No problems noted. Son No problems noted. Social History Smoking/Tobacco Use Status: Never Second Hand Exposure: Yes Smoking risk assessment performed?: Yes Alcohol Intake: current Alcohol Intake frequency: a few times a month Alcohol type: beer Drug use: Daily Substance use type: marijuana Caregiver/Support person: No Household members: spouse and children Housing: house Communication Needs: None Do you need help understanding health information?: Rarely Pets and animals: Yes Pets and animals: dog(s) Sexually active: Yes Do you think of yourself as: straight/heterosexual Current gender identity: female What is your relationship status?: How often do you talk on the phone with friends or family?: three or more times per week How often do you get together with friends or relatives?: once per week How often do you attend religion or restorationist services?: decline to answer Do you belong to any clubs or organized social groups?: no Panel score (0-1 are the most socially isolated patients): 2 What type of physical activity do you participate in: none Frequency: does not exercise Ericka/Rastafari: None Special ericka needs: No Seatbelt use: sometimes Helmet use: Yes Helmet use: sometimes Do you feel safe at home: Yes Do you feel safe in your relationship?: Yes Female Reproductive History Menstrual control method: progestin IUCD Exam Narrative Exam Narrative: Review of Systems: All systems reviewed & are unremarkable except as noted in HPI and below: CONSTITUTIONAL: Alert and oriented Well-developed, mildly anxious HEENT: NCAT EYES: PERRL, no conjunctival injection EARS: no external abnormality NOSE nares patent MOUTH Moist MM NECK: Symmetric, trachea midline, No thyromegaly THROAT oropharynx clear CVS: Tachycardic , No murmurs or gallops. Peripheral pulses 2+ and equal in all extremities Brisk capillary refill in all extremities. No peripheral edema RESP: Unlabored respiratory effort, Clear to auscultation bilaterally No wheezes rales or rhonchi GI: Soft, Nontender, Nondistended, No organomegaly MSK: Extremities with full range of motion, no deformity or TTP SKIN: Warm, Dry. No rashes or lesions. NEURO: No focal neurologic deficits. museum technician II-XII grossly intact Sensation grossly intact Normal strength throughout PSYCH: Tearful tearful Course Vital Signs Vital signs: Vital Signs Temperature 36.8 C 04/01/23 15:27 Pulse 121 H 04/01/23 15:27 Respiratory Rate 18 04/01/23 15:27 Blood Pressure 159/73 H 04/01/23 15:27 Pulse Oximetry 100 04/01/23 15:27 Temperature 36.8 C 04/01/23 15:27 Temperature Source Skin 04/01/23 15:27 Pulse 121 H 04/01/23 15:27 Respiratory Rate 18 04/01/23 15:27 Respiratory Effort Normal, Non-Labored 04/01/23 15:30 Blood Pressure 159/73 H 04/01/23 15:27 Blood Pressure Position Sitting 04/01/23 15:27 Pulse Oximetry 100 04/01/23 15:27 Oxygen Delivery Method Room Air 04/01/23 15:27 Oxygen Flow Rate 0 04/01/23 15:27 Pain Level 0 04/01/23 15:27 Sign Out Sign Out Data: Sign Out Comment: Otherwise healthy 38-year-old female presenting with palpitations. Onset of symptoms yesterday. Palpitations associated with lightheadedness, dizziness and nausea. Not consistent with prior panic attacks. Did not improve with oral lorazepam taken at home. Lab work concerning for mild hypokalemia, oral dose given. Heart rate keeps elevating into the 150s. Concern for tacky dysrhythmia of AVNRT or SVT. Pending plan: - cardi[place] consult with [facility] [place] likely transfer unless cards has solid recs and hospitalist here feels comfortable Last updated by Winifred Olmstead MD at 04/01/23 17:11
[2023-04-01] MEDS: Normal Saline 1,000 ML 1000 ML IV (15:50)
[2023-04-01 16:03] LABS: Abs Immature Grans 0.02 10^3/uL (0.0-0.06); Absolute Basophil Count 0.03 10^3/uL (0.0-0.2); Absolute Eosinophil Count 0.14 10^3/uL (0.0-0.7); Absolute Lymphocyte Count 3.82 10^3/uL (1.2-3.4); Absolute Monocyte Count 0.46 10^3/uL (0.1-0.8); Absolute Neutrophil Count 3.41 10^3/uL (1.2-6.7); Basophils % 0.4; Eosinophils % 1.8; HGB 13.5 g/dL (11.2-15.7); Immature Grans % 0.3; Lymphocytes % 48.5; MCHC 34.6 % (32.0-36.0); MCV 90 fL (80-95); MPV 9.1 fL (8.0-11.0); Monocytes % 5.8; Neutrophils % 43.2; Platelet Count 283 10^3/uL (130-400); RBC 4.35 10^6/uL (3.93-5.22); RDW 11.7 % (11.7-14.6); RDW-SD 38.1 fL; WBC 7.88 10^3/uL (4.4-10.8)
[2023-04-01 16:30] LABS: ALT 20 U/L (14-59); AST 14 U/L (15-37); Albumin 4.2 g/dL (3.4-5.0); Alkaline Phosphatase 63 U/L (46-116); Anion Gap 10.3 mmol/L (3-11); BUN 15 mg/dL (7-18); Bilirubin, Total 0.4 mg/dL (0.2-1.0); CO2 25.7 mmol/L (21.0-32.0); CREATININE 0.8 mg/dL (0.55-1.02); Calcium 9.3 mg/dL (8.5-10.1); Chloride 104 mmol/L (98-107); Estimated GFR 96.06 (mL/min/1.73m2); Glucose 126 mg/dL (74-106); NT-proBNP 14 pg/mL (<300); Potassium 3.3 mmol/L (3.5-5.1); Sodium 140 mmol/L (136-145); TSH (W/Ref FT4) 0.53 uIU/mL (0.36-3.74); Total Protein 8.2 g/dL (6.4-8.2); Troponin I < 50 ng/L (<or=60)
[2023-04-01] MEDS: Potassium Chloride 20 MEQ TABCR PO (16:38)
[2023-04-01 16:40] LABS: D-Dimer 286 ng/mlFEU (<500)
--- NOTE | 2023-04-01 16:45 | RT.EKG_ITS ---
APPROVED REPORT Exam: Resting ECG Reason for Exam: tachy Patient Location: E HR:103 bpm ECG Measurements Heart Rate 103 AXIS GA 186 P 35 QRSd 93 QRS 104 QT 354 T 9 QTc 463 Conclusion Sinus tachycardia 103
--- NOTE | 2023-04-01 16:45 | RT.EKG_ITS ---
APPROVED REPORT Exam: Resting ECG Reason for Exam: tachy Patient Location: E HR:137 bpm ECG Measurements Heart Rate 137 AXIS MA 122 P 58 QRSd 100 QRS 121 QT 295 T -6 QTc 447 Conclusion tachy 137 narrow complex AVNRT v SVT? changed from prior
[2023-04-01 17:22] LABS: *AMPHETAMINES SCREEN URINE Negative (Negative); *BARBITURATES SCREEN URINE Negative (Negative); *BENZODIAZEPINES SCREEN URINE Negative (Negative); Cannabinoids THC Positive (Negative); Cocaine Screen,Urine Negative (Negative); METHADONE URINE SCREEN Negative (Negative); OPIATES URINE SCREEN Negative (Negative)
[2023-04-01 17:23] LABS: Tricyclic Antidepressants Negative (Negative)
--- NOTE | 2023-04-01 17:30 | W.EDPROG ---
Date of service: 04/01/23 Time of Service: 17:31 Medical Decision Making 38-year-old female signed out to me who presented with symptomatic tachycardia as high as 150s, failure to resolve with anxiolytic. Feels dizzy and nauseous and just lethargic while her heart is pounding. She is intermittently increasing to the 150s, persistently in the 120s here in the emergency department. Discussed with attending who signed out to me while [facility] cardiology consult and possible transfer is pending-likely at minimum needs overnight observation on telemetry for possible unstable tachycardia of AVNRT versus SVT, we do not have cardiology capability currently and have no way of getting her heart monitor. If there is no capacity at any facilities with the EP and cardiology and they have solid recommendations for disposition I will speak with our hospitalist for possible overnight ops on telemetry as long as they can get EP monitoring in the next 24 to 48 hours. Reviewed labs which shows negative troponin, negative D-dimer, no elevation of BNP only a mild hypokalemia which was repleted by oral supplements by prior provider. There is no leukocytosis and no pneumonia-no clear secondary cause for this tachycardia at this time. Spoke with [facility] Industrial Ecology Technician Dr. Castro @ 1935 - sees sinus tachycardia on faxed EKGs, recommends tele OBS, 5mg IV push metoprolol and starting outpatient on lowest dose with PCP follow-up, recommends against EP consult for this. I discussed this with the patient and her , re-assured that this was sinus tach- she responded very well to a 5mg bolus of IV metoprolol with rate control to 70s- it was noted that when provider began talking about cardiac rhythms etc- the patient was getting visibly anxious and her heart rate would rise nearly in sync with discussion over high heart rates and possible diagnoses- likely anxiety playing a factor. Patient preferred not to be observed overnight, and was observed after metoprolol administration for ~60 mins with no arrhythmia and no symptoms. Patients preference was to go home with strict return criteria for any uncontrolled tachycardia- patient has not had chest pain throughout the stay- [place]. Patient will diligently seek Holter monitor by contacting PCP tomorrow, I did discuss option of propanolol to treat anxiety & heart rate to talk to her doctor about and provided 2 weeks of 2.5mg metoprolol PO by outpatient Rx. Medical Records Medical records reviewed: Yes I reviewed the patient's medical records. Lab Data Lab results reviewed: Yes I reviewed the patient's lab results. Labs: Laboratory Tests Range/Units 04/01/23 04/01/23 15:38 16:30 WBC (4.4-10.8) 10^3/uL 7.88 RBC (3.93-5.22) 10^6/uL 4.35 Hgb (11.2-15.7) g/dL 13.5 Hct (36.0-46.0) % 39.0 MCV (80-95) fL 90 MCH (27.0-33.0) pg 31.0 MCHC (32.0-36.0) % 34.6 RDW (11.7-14.6) % 11.7 Plt Count (130-400) 10^3/uL 283 MPV (8.0-11.0) fL 9.1 Immature Gran % 0.3 Neutrophils % 43.2 Lymphocytes % 48.5 Monocytes % 5.8 Eosinophils % 1.8 Basophils % 0.4 Nucleated RBC % (0.0-0.3) % 0.0 Absolute Neutrophils (1.2-6.7) 10^3/uL 3.41 Absolute Lymphocytes (1.2-3.4) 10^3/uL 3.82 H Absolute Monocytes (0.1-0.8) 10^3/uL 0.46 Absolute Eosinophils (0.0-0.7) 10^3/uL 0.14 Absolute Basophils (0.0-0.2) 10^3/uL 0.03 D-Dimer (<500) ng/mlFEU 286 Sodium (136-145) mmol/L 140 Potassium (3.5-5.1) mmol/L 3.3 L Chloride (98-107) mmol/L 104 Carbon Dioxide (21.0-32.0) mmol/L 25.7 Anion Gap (3-11) mmol/L 10.3 BUN (7-18) mg/dL 15 Creatinine (0.55-1.02) mg/dL 0.8 Est GFR (CKD-EPI 2020) (mL/min/1.73m2) 96.06 Glucose (74-106) mg/dL 126 H Calcium (8.5-10.1) mg/dL 9.3 Total Bilirubin (0.2-1.0) mg/dL 0.4 AST (15-37) U/L 14 L ALT (14-59) U/L 20 Alkaline Phosphatase (46-116) U/L 63 Troponin I (<or=60) ng/L < 50 NT-Pro-B Natriuret Pep (<300) pg/mL 14 Total Protein (6.4-8.2) g/dL 8.2 Albumin (3.4-5.0) g/dL 4.2 TSH (0.36-3.74) uIU/mL 0.53 Urine Opiates Screen (Negative) Negative Urine Methadone Screen (Negative) Negative Ur Barbiturates Screen (Negative) Negative Ur Tricyclics Screen (Negative) Negative Ur Amphetamines Screen (Negative) Negative U Benzodiazepines Scrn (Negative) Negative Urine Cocaine Screen (Negative) Negative Ur THC Screen (Negative) Positive A Sign Out Sign Out Data: Sign Out Comment: Otherwise healthy 38-year-old female presenting with palpitations. Onset of symptoms yesterday. Palpitations associated with lightheadedness, dizziness and nausea. Not consistent with prior panic attacks. Did not improve with oral lorazepam taken at home. Lab work concerning for mild hypokalemia, oral dose given. Heart rate keeps elevating into the 150s. Concern for tacky dysrhythmia of AVNRT or SVT. Pending plan: - cardiology consult with [facility] - likely transfer unless cards has solid recs and hospitalist here feels comfortable Last updated by Winifred Olmstead MD at 04/01/23 17:11 Discharge Plan Disposition Patient Disposition: Home Condition: Stable Discharge Details Clinical Impression: Heart palpitations, Hypokalemia Primary Care Provider: Harmony Cortez ED Provider: Christopher Aggarwal Home Meds and New Rx's Prescriptions: New metoprolol succinate 25 mg tablet extended release 24 hr 12.5 mg PO DAILY 14 Days Qty: 7 0RF Continued triamcinolone acetonide 0.1 % cream 1 applic topical BID Qty: 80 0RF escitalopram oxalate [Lexapro] 10 mg tablet 10 mg PO DAILY Qty: 90 0RF Mirena 21 mcg/24 hours (8 yrs) 52 mg intrauterine device 1 device intrauterine ONCE Rx Instructions: as a single dose lorazepam 1 mg tablet 1 mg PO DAILY PRN (Reason: anxiety) Qty: 20 0RF Linzess 290 mcg capsule 290 mcg PO DAILY Qty: 90 0RF omeprazole 20 mg capsule,delayed release(DR/EC) 20 mg PO BID Qty: 180 3RF Discharge Instructions Instructions: Metoprolol (By mouth), Heart Palpitations (ED), Hypokalemia (ED) Additional Instructions: You were seen in the emergency department for your dizziness and tachycardia, I think this is related to your anxiety, your cardiac workup is negative, your blood work shows no likely blood clot in your lungs, there was a mild hypokalemia, research a high potassium diet and this should normalize with normal nutrition. Your heart rate was almost in sync with discussing medical terminology and possibility of observation and I think this is likely anxiety related. You responded well to metoprolol, I have sent a prescription for extended release metoprolol 1/2 tablet/day for 14 days while you arrange follow-up with your primary care provider, I recommend that you call them in the morning to discuss getting a Holter monitor, please discuss with them the possibility of treating your anxiety with propranolol which should help with tachycardia as well. Please return to the ER at once for any symptomatic tachycardia, dizziness, feelings of near fainting, chest pain, shortness of breath, sweating. Referrals: [facility] [Provider Group] Harmony Cortez NP [Primary Care Provider] -
[2023-04-01] MEDS: Metoprolol 5 MG/5 ML VIAL IVP (20:05)
[2023-04-01] MEDS: Metoprolol 12.5 MG TAB PO (21:14)
== END 2023-04-01 21:17 | disposition home or self-care (01) ==
PROVIDERS: Emergency Medicine; Emergency Provider Physician Assistant; PCP Nurse Practitioner Family
DX: F41.9 Anxiety disorder, unspecified (principal); E87.6 Hypokalemia; Z79.899 Other long term (current) drug therapy; R00.0 Tachycardia, unspecified; Z88.0 Allergy status to penicillin; Z88.2 Allergy status to sulfonamides; Z88.1 Allergy status to other antibiotic agents
CPT/HCPCS: 00123; 36415; 80053; 80307; 93005; 96361; 96374; 99284; 83880; 84443; 84484; 85025; 85379; 93010; 99285; J3490

== ENCOUNTER 2023-04-16 08:29 | Outpatient (RCR) | payer BC, SELFPAY ==
--- NOTE | 2023-04-16 08:30 | HOLTER_ITS ---
APPROVED REPORT Exam Type: HOLTER MONITOR APPLICATION Reason for Test: Palpitations, abnl EKG Patient Location: O Conclusion 1.The underlying rhythm is sinus, rate range 61-116,average 82 bpm. 2.Few unifocal PVC's,no Vtach 3.Few PAC's,no SVT 4.No pauces.
== END 2023-04-18 23:59 | disposition home or self-care (01) ==
LOC: CARDOPNVT 08:29
PROVIDERS: PCP Nurse Practitioner Family; Visit Provider Family Medicine
DX: R00.2 Palpitations (principal)
CPT/HCPCS: 93225

== ENCOUNTER 2023-04-21 17:16 | Outpatient (RCR) | payer SELFPAY | END 2023-05-19 23:59 | disposition home or self-care (01) | LOC: CARDOPNVT 17:16 | PROVIDERS: PCP Nurse Practitioner Family; Visit Provider Internal Medicine Cardiovascular Disease | DX: R00.2 Palpitations (principal) | CPT/HCPCS: 93226 ==

== ENCOUNTER 2023-08-08 14:25 | Emergency (ER) | payer BC, SELFPAY ==
[2023-08-08 14:31] VITALS: BP 123/81; PULSE 100; RESP 16; TEMP 37.1; O2SAT 99
--- NOTE | 2023-08-08 14:45 | W.ED.GENAD ---
Discharge Plan Disposition Patient Disposition: Home Condition: Stable Discharge Details Chief Complaint: RashLesion Clinical Impression: Rash Primary Care Provider: Harmony Cortez ED Provider: Maurizio Finch Home Meds and New Rx's Prescriptions: No Action triamcinolone acetonide 0.1 % cream 1 applic topical BID Qty: 80 0RF bupropion HCl 150 mg tablet extended release 24 hr 150 mg PO DAILY Qty: 30 0RF Patient Comments: started 1 week ago Mirena 21 mcg/24 hours (8 yrs) 52 mg intrauterine device 1 device intrauterine ONCE Rx Instructions: as a single dose hydroxyzine HCl 25 mg tablet 25 mg PO TID PRN (Reason: panic attack(s)) Qty: 60 0RF omeprazole 20 mg capsule,delayed release(DR/EC) 20 mg PO BID Qty: 180 3RF lorazepam 1 mg tablet 1 mg PO DAILY PRN (Reason: anxiety) Qty: 20 0RF paroxetine HCl 20 mg tablet 20 mg PO DAILY Qty: 90 3RF Discharge Instructions Instructions: Acute Rash (ED) HPI General Date/Time Provider Initiated Documentation: 08/08/23 14:28. HPI Narrative: 38-year-old female presents with 1 day of total body rash maculopapular no involvement of mouth or genitalia. Of note patient believes she has influenza as her son tested positive recently, and she has been feeling tired and feverish. Denies headache neck pain nausea vomiting or other systemic signs of illness. Started Wellbutrin within the last week. Related Data Home Medications Medication Instructions Recorded Confirmed levonorgestrel 21 mcg/24 hours (8 1 device intrauterine ONCE 06/26/22 08/08/23 yrs) 52 mg intrauterine device (Mirena) omeprazole 20 mg capsule,delayed 20 mg PO BID #180 caps 02/03/23 08/08/23 release triamcinolone acetonide 0.1 % 1 applic topical BID rash #80 grams 03/25/23 08/08/23 topical cream hydroxyzine HCl 25 mg tablet 25 mg PO TID PRN panic attack(s) 05/28/23 08/08/23 #60 tabs lorazepam 1 mg tablet 1 mg PO DAILY PRN anxiety #20 tabs 06/18/23 08/08/23 paroxetine HCl 20 mg tablet 20 mg PO DAILY #90 tabs 07/21/23 08/08/23 bupropion HCl 150 mg 24 hr tablet, 150 mg PO DAILY #30 tabs 07/28/23 08/08/23 extended release Previous Rx's Medication Instructions Recorded omeprazole 20 mg capsule,delayed 20 mg PO BID #180 caps 02/03/23 release triamcinolone acetonide 0.1 % 1 applic topical BID rash #80 grams 03/25/23 topical cream hydroxyzine HCl 25 mg tablet 25 mg PO TID PRN panic attack(s) 05/28/23 #60 tabs lorazepam 1 mg tablet 1 mg PO DAILY PRN anxiety #20 tabs 06/18/23 paroxetine HCl 20 mg tablet 20 mg PO DAILY #90 tabs 07/21/23 bupropion HCl 150 mg 24 hr tablet, 150 mg PO DAILY #30 tabs 07/28/23 extended release Allergies Allergy/AdvReac Type Severity Reaction Status Date / Time Cephalosporins Allergy Unknown GI Verified 08/08/23 14:29 ciprofloxacin [From Cipro] Allergy Unknown GI Verified 08/08/23 14:29 Penicillins Allergy Hives Verified 08/08/23 14:29 Sulfa (Sulfonamide AdvReac Severe Diarrhea Verified 08/08/23 14:29 Antibiotics) General Stated Complaint: RashLesion NEENA: 3 Review of Systems Narrative: Review of Systems Constitutional: negative Eyes: negative ENT: negative Cardiovascular: negative Respiratory: negative Gastrointestinal: negative : negative Musculoskeletal: negative Skin: Rash Neurologic: negative Psych: negative Exam Narrative Exam Narrative: Physical Examination General: alert, awake, cooperative, resting comfortably, no acute distress HEENT: normocephalic, atraumatic; PERRL, EOM intact, conjunctiva normal; no nasal discharge; moist mucous membranes, oral and pharyngeal mucosa normal, tolerating secretions Neck: supple, trachea midline; full ROM Chest: normal to inspection Respiratory: normal respiratory effort, speaking in full sentences, clear to auscultation, no wheezing, rales or rhonchi Cardiac: regular rate, regular rhythm, S1S2 intact, no murmurs rubs or gallops GI: abdomen soft, non-tender, non-distended; no palpable mass or hepatosplenomegaly Skin: Diffuse maculopapular rash involving neck chest back arms and legs as well as abdomen, no vesicles no pustules, no petechia no purpura no mucosal involvement Neuro: AAOx3, normal speech, moving all extremities Psych: Appropriate mood and affect Course Vital Signs Vital signs: Vital Signs Temperature 37.1 C 08/08/23 14:31 Pulse 100 H 08/08/23 14:31 Respiratory Rate 16 08/08/23 14:31 Blood Pressure 123/81 08/08/23 14:31 Pulse Oximetry 99 08/08/23 14:31 Temperature 37.1 C 08/08/23 14:31 Temperature Source Temporal Artery Scan 08/08/23 14:31 Pulse 100 H 08/08/23 14:31 Respiratory Rate 16 08/08/23 14:31 Respiratory Effort Normal, Non-Labored 08/08/23 14:33 Blood Pressure 123/81 08/08/23 14:31 Blood Pressure Position Sitting 08/08/23 14:31 Pulse Oximetry 99 08/08/23 14:31 Oxygen Delivery Method Room Air 08/08/23 14:31 Oxygen Flow Rate 0 08/08/23 14:31 Pain Level 0 08/08/23 14:31 Medical Decision Making 38-year-old female presents with diffuse maculopapular rash over the last day in the setting of likely influenza exposure and new medication initiated over the last week. No mucosal involvement. Patient hemodynamically stable. Consider viral exanthem versus mild drug reaction. No evidence of Patel-Farooq's or TEN. Trial of dexamethasone. Home care instructions and return precautions given Quality:SDOH Health Related Social Needs: No Data to Display PFSH All Active Problems (Updated 08/08/23 @ 14:54 by Maurizio Finch MD) Rash (Acute) Palpitations (Acute) BRCA2 positive (Chronic) bilatateral mastectomy with implants RH Generalized anxiety disorder with panic attacks (Chronic) PTSD (post-traumatic stress disorder) (Chronic) Insomnia (Chronic) Hyperlipidemia (Chronic) IBS (irritable bowel syndrome) (Chronic) GERD (gastroesophageal reflux disease) (Chronic) Hiatal hernia (Chronic) IUD surveillance (Chronic) Mirena IUD 03/15/23 Polyarthralgia (Chronic) Obesity (BMI 30-39.9) (Chronic) Medical History Bochdalek hernia Herpes Abnormal uterine bleeding COVID-19 Surgical History History of bilateral tubal ligation Hx laparoscopic cholecystectomy Hx of esophagogastroduodenoscopy Hx of section Hx of colonoscopy (~06/03/20) H/O bilateral mastectomy (06/23/21) Family History Mother Depression Father , 58 Diabetes Pancreatic cancer Maternal Grandfather , 72 Diabetes Paternal Grandfather Prostate cancer Atrial fibrillation Maternal Grandmother , 84 No problems noted. Paternal Grandmother , 54 Heart disease Myocardial infarction Lupus (systemic lupus erythematosus) Sister BRCA2 positive Daughter No problems noted. Daughter No problems noted. Daughter No problems noted. Son No problems noted. Social History Smoking/Tobacco Use Status: Never Second Hand Exposure: Yes Smoking risk assessment performed?: Yes Alcohol Intake: current Alcohol Intake frequency: a few times a month Alcohol type: beer Drug use: Daily Substance use type: marijuana Caregiver/Support person: No Household members: spouse and children Housing: house Communication Needs: None Do you need help understanding health information?: Rarely Pets and animals: Yes Pets and animals: dog(s) Sexually active: Yes Do you think of yourself as: straight/heterosexual Current gender identity: female What is your relationship status?: How often do you talk on the phone with friends or family?: three or more times per week How often do you get together with friends or relatives?: once per week How often do you attend pentecostal or buddhist services?: decline to answer Do you belong to any clubs or organized social groups?: no Panel score (0-1 are the most socially isolated patients): 2 What type of physical activity do you participate in: none Frequency: does not exercise Ericka/Synagogue: None Special ericka needs: No Seatbelt use: sometimes Helmet use: Yes Helmet use: sometimes Do you feel safe at home: Yes Do you feel safe in your relationship?: Yes Female Reproductive History Menstrual control method: progestin IUCD
[2023-08-08] MEDS: Dexamethasone 10 MG/ML VIAL PO (14:55)
== END 2023-08-08 15:09 | disposition home or self-care (01) ==
LOC: ER 15:16
PROVIDERS: Emergency Provider Emergency Medicine; PCP Nurse Practitioner Family
DX: R21 Rash and other nonspecific skin eruption (principal)
CPT/HCPCS: 99283; J1100

== ENCOUNTER 2023-11-08 14:05 | Outpatient (CLI) | payer BC, SELFPAY ==
--- NOTE | 2023-11-08 14:00 | RT.EKG_ITS ---
APPROVED REPORT Exam: Resting ECG Reason for Exam: left chest pressure Patient Location: O HR:95 bpm ECG Measurements Heart Rate 95 AXIS WI 184 P 21 QRSd 103 QRS 102 QT 373 T 12 QTc 469 Conclusion Sinus rhythm...normal P axis, V-rate 50- 99 Vertical axis
== END 2023-11-08 14:06 | disposition home or self-care (01) ==
LOC: DI.CM 14:06
PROVIDERS: PCP Nurse Practitioner Family; Visit Provider Nurse Practitioner Family
DX: R07.89 Other chest pain (principal); M25.512 Pain in left shoulder; R00.2 Palpitations; R10.13 Epigastric pain
CPT/HCPCS: 93010

== ENCOUNTER → 2023-11-12 00:37 | Outpatient (CLI) | payer BC, SELFPAY ==
--- OUTSIDE RECORDS SUMMARY | 2023-11-12 00:39 | XMS_ITS | Clinical Summary ---
Author Organization [place] [address] Care Team Providers Care Metal Patternmaker Apprentice Name Role Phone Lizbethstacey Harmony GOLD Primary Care Provider Allergies Active Allergy Reactions Criticality Noted Date Comments Penicillins Rash Promethazine 10/09/2010 Sulfa (Sulfonamide Antibiotics) Nausea Only Medications Medication Sig Dispensed Refills Start Date End Date Status polyethylene glycol (MIRALAX) 17 gram packet 17 GRAM = 1 Packet(s), PO, Once daily 06/26/2009 Active linaclotide (Linzess) 145 mcg Capsule Take 145 mcg by mouth daily. Active levonorgestreL (MIRENA) 20 mcg/24 hours (6 yrs) 52 mg IUD 1 each by Intrauterine route Continuous (Device). . Active sertraline (Zoloft) 50 mg Tablet TAKE ONE TABLET BY MOUTH EVERY DAY 07/04/2020 Active diphenhydrAMINE HCL (ZzzQuiL) 50 mg/30 mL Liquid Take by mouth. Active UNABLE TO FIND Med Name: CBD capsule Active Active Problems Problem Noted Date Diagnosed Date Family history of pulmonary embolism 08/11/2020 BRCA2 gene mutation positive in female Overview (06/19/2020): Added automatically from request for surgery [id number] Family history of BRCA2 gene positive 05/16/2020 Overview (05/16/2020): Father Family history of pancreatic cancer 05/16/2020 Overview (05/16/2020): Father (BRCA2+) Paternal aunt BRCA2 gene mutation positive 05/15/2020 Abdominal pain 10/09/2010 Hiatal hernia 10/08/2010 Encounters Date Type Department Care Team Description 11/09/2023 8:01 AM EDT - 11/09/2023 11:47 AM EDT Emergency Emergency Department [facility] [place] [address] Chest pain, unspecified type Discharge Disposition: Home 11/09/2023 Travel from Last 3 Months Family History Medical History Relation Comments Pancreatic Cancer Father BRCA2 mutation Pancreatic Cancer Paternal Aunt Prostate Cancer Paternal Grandfather Breast Cancer Neg Hx Relation Status Comments Father Paternal Aunt Paternal Grandfather Social History Tobacco Use Types Packs/Day Years Used Date Smoking Tobacco: Never Smokeless Tobacco: Never Alcohol Use Standard Drinks/Week Comments Not Currently 0 (1 standard drink = 0.6 oz pur e alcohol) DH IPV Inpatient Questions Answer Date Recorded Does Anyone Try to Keep You From Having Contact with Others or Doing Things Outside Your Home? no 11/09/2023 Feels Threatened by Someone no 10/18 Feels Unsafe at Home or Work/School no 11/09/2023 Physical Signs of Abuse Present Not on file 11/09/2023 Sex and Gender Information Value Date Recorded Sex Assigned at Not on file Gender Identity Not on file Sexual Orientation Not on file Last Filed Vital Signs Vital Sign Reading Time Taken Comments Blood Pressure 111/78 11/09/2023 11:45 AM EDT Pulse 84 11/09/2023 11:45 AM EDT Temperature 37.5 ??C (99.5 ??F) 11/09/2023 8:09 AM ED T Respiratory Rate 17 11/09/2023 11:45 AM EDT Oxygen Saturation 99% 11/09/2023 11:45 AM EDT Inhaled Oxygen Concentration - - Weight 81.6 kg (180 lb) 11/09/2023 8:09 AM EDT Height 157.5 cm (5' 2) 11/09/2023 8:09 AM EDT Body Mass Index 32.92 11/09/2023 8:09 AM EDT Plan of Treatment Upcoming Encounters Date Type Department Care Team (Late st Contact Info) Description 11/30/2023 1:40 PM EDT Office Visit Dermatology at [facility] [address] [place] [id number] Francisca Chandler MD [facility] [address] SAS[place] [address] Health Maintenance Due Date Last Done Comments HIV screen 2002 Hepatitis C Screening 2002 Lipid Screening 2002 Hepatitis B vaccine (0-59 yrs) (1) 2003 Tdap adult 2003 Tetanus vaccine 2003 HPV test 2014 PAP Smear 2014 Covid-19 Vaccine ( season) 2022 Influenza (Flu) vaccine (1 o f 1 - Influenza standard series) 12/19/2023 Procedures Procedure Name Priority Date/Time Associated Diagnosis Comments URINALYSIS WITH REFLEX CULTURE STAT 11/09/2023 9:35 AM EDT HC TROPONIN T STAT 11/09/2023 9:28 AM EDT GOLD TUBE HOLD STAT 11/09/2023 8:30 AM EDT BLUE TUBE HOLD STAT 11/09/2023 8:30 AM EDT DIFFERENTIAL, AUTOMATED STAT 11/09/2023 8:30 AM EDT HEMOGRAM STAT 11/09/2023 8:30 AM EDT HC TROPONIN T STAT 11/09/2023 8:30 AM EDT HC LIPASE STAT 11/09/2023 8:30 AM EDT COMPREHENSIVE METABOLIC PANEL (NON-FASTING) STAT 11/09/2023 8:30 AM EDT HC CBC,PLT & AUTO DIFF STAT 8:30 AM EDT EKG 12-LEAD STAT 11/09/2023 8:10 AM EDT from Last 3 Months Results * (ABNORMAL) Urinalysis with reflex Culture (11/09/2023 9:35 AM EDT) Glucose UA Negative Negative mg/dL [facility] Protein UA Negative Negative mg/dL [facility] Bilirubin UA Negative Negative mg/dL [facility] Comment: Clinical correlation required for positive Urine Bilirubin results as false positive may occur with some drugs and drug related products. If a false positive is suspected a serum total bilirubin should be considered if clinically indicated. Urobilinogen UA Normal Normal mg/dL [facility] pH UA 8.5(H) 5.0 - 8.0 [facility] Blood UA Negative Negative mg/dL [facility] Ketones UA Negative Negative mg/dL [facility] Nitrite UA Negative Negative [facility] Leukocytes UA Negative Negative [facility] Appearance UA Clear Clear [facility] Spec Reddick UA 1.013 1.005 - 1.030 [facility] Color UA Yellow Yellow [facility] Culture Reflexed No [facility] Clean Catch Urine 11/09/2023 9:35 AM EDT 11/09/2023 9:46 AM EDT Narrative Resulting Agency Comment Spec In Lab Nazanin Ruano DO URINE ORDER KANNAN [facility] [place] [address] * Troponin (11/09/2023 9:28 AM EDT) Only the most recent of2 resultswithin the time period is included. Troponin-T HS <6 <=14 ng/L [facility] Comment: This patient's troponin T concentration was determined using the Reema 5th Generation troponin T assay. The 99th percentile for Troponin T for this test is 14 ng/L for females, and 22 ng/L for males. According to the fourth universal definition of myocardial infarction, the term acute myocardial infarction should be used when there is acute myocardial injury with clinical evidence of acute myocardial ischemia and with detection of a rise and/or fall of cardiac troponin values with at least one value above the 99th percentile and at least one of the following: - Symptoms of myocardial ischemia; - New ischemic ECG changes; - Development of pathological Q waves; - Imaging evidence of new loss of viable myocardium or new regional wall motion abnormality in a pattern consistent with an ischemic etiology; - Identification of a coronary thrombus by angiography or autopsy (not for type 2 or 3 MIs) Serial measurement of troponin and the change in troponin concentration over time (delta) is crucial for the diagnosis of acute myocardial infarction. Guidance on the interpretation of the new 5th Generation Troponin T values and the delta troponin value can be found in the [facility] Test Catalog Troponin - [facility] Test Catalog Reference: Fourth [place] Definition of Myocardial Infarction. Journal of the [place] College [employer] 2018;72:9649-7403 Blood 11/09/2023 9:28 AM EDT 11/09/2023 9:47 AM EDT Narrative Resulting Agency Comment Spec In Lab Nazanin Ruano DO CHEMISTRY O RDERABLES [facility] [place] [address] * (ABNORMAL) Hemogram (11/09/2023 8:30 AM EDT) WBC 4.9 4.0 - 9.5 x10(3)/[facility] RBC 4.07 4.00 - 5.21 x10(6)/[facility] Hemoglobin 13.1 11.7 - 15.5 g/dL [facility] Hematocrit 37.2 35.7 - 45.8 % [facility] MCV 91.4 82.6 - 94.4 fL [facility] MCH 32.2(H) 27.1 - 32.0 pg [facility] MCHC 35.2(H) 31.7 - 35.0 g/dL [facility] Platelets 247 145 - 357 x10(3)/[facility] RDWSD 39.9 37.0 - 46.0 [facility] RDWCV 11.9 11.5 - 14.1 % [facility] MPV 9.2 7.6 - 12.9 [facility] nRBC % Auto 0.0 % [facility] nRBC Abs Auto 0.000 0.000 - 0.000 x10(3)/[facility] Blood 11/09/2023 8:30 AM EDT 11/09/2023 8:41 AM EDT Narrative Resulting Agency Comment Spec In Lab Juan Jose SIMON HEMATOLOGY ORDERABLE S Performing Organization Address City/State/[facility] Co de Phone Number [facility] [place] [address] * Differential, Automated (11/09/2023 8:30 AM EDT) Neutrophils % 55.3 % [facility] Neutr Abs (ANC) 2.70 1.70 - 6.10 x10(3)/[facility] Lymphocytes % 35.7 % [facility] Lymphocytes Abs 1.7 0.9 - 3.2 x10(3)/[facility] Monocytes % 6.8 % [facility] Monocyte Abs 0.3 0.3 - 0.9 x10(3)/[facility] Eosinophils % 1.4 % [facility] Eosinophils Abs 0.1 0.0 - 0.4 x10(3)/[facility] Basophils % 0.4 % [facility] Basophils Abs 0.0 0.0 - 0.1 x10(3)/[facility] Immature Gran % 0.40 % [facility] Comment: Immature granulocytes(IG's)percentage and absolute count will include metamyelocytes, myelocytes, and promyelocytes. Blood smears from CBCs yielding IG's will be scanned manually for concordance. If this scan disagrees with the automated IG or if promyelocytes are noted, a manual differential will be performed. Darcy Gran Abs 0.02 0.00 - 0.04 x10(3)/mcL [facility] Blood 11/09/2023 8:30 AM EDT 11/09/2023 8:41 AM EDT Narrative Resulting Agency Comment Spec In Lab Juan Jose SIMON HEMATOLOGY ORDERABLE S Performing Organization Address City/[facility]/ZIP Co de Phone Number [facility] [place] [address] * Gold Tube HOLD (11/09/2023 8:30 AM EDT) Gold Hold Sample in lab. [facility] Blood Venous Draw / Unknown 11/09/2023 8:30 AM EDT 11/09/2023 8:45 AM EDT Juan Jose SIMON CHEMISTRY ORDERABLES Performing Organization Address City/[facility]/ZIP Co de Phone Number [facility] [place] [address] * Blue Tube HOLD (11/09/2023 8:30 AM EDT) Blue Hold Sample in lab. [facility] Blood Venous Draw / Unknown 11/09/2023 8:30 AM EDT 11/09/2023 8:45 AM EDT Juan Jose SIMON HEMATOLOGY ORDERABLE S Performing Organization Address City/[facility]/ZIP Co de Phone Number [facility] [place] [address] * Lipase (11/09/2023 8:30 AM EDT) Lipase 26 0 - 60 unit/L [facility] Blood 11/09/2023 8:30 AM EDT 11/09/2023 8:41 AM EDT Narrative Resulting Agency Comment Spec In Lab Nazanin Ruano DO CHEMISTRY O RDERABLES [facility] [place] [address] * Comprehensive metabolic panel (non-fasting) (11/09/2023 8:30 AM EDT) Glucose Lvl 104 65 - 199 mg/dL [facility] Comment:Diabetes: >=200 mg/d L plus symptoms BUN 10 8 - 18 mg/dL [facility] Creatinine 0.80 0.70 - 1.20 mg/dL [facility] Sodium 142 135 - 145 mmol/L [facility] Potassium 4.0 3.5 - 5.0 mmol/L [facility] Comment: Please note: ??Patients with WBC >100,000 may have falsely elevated Potassium levels. ??For accurate Potassium quantification in these patients send serum separator tube (gold top) for subsequent determinations. ??Contact the Clinical Chemistry Laboratory if there are any questions. Chloride 107 98 - 107 mmol/L [facility] CO2 22 22 - 31 mmol/L [facility] Anion Gap 13 5 - 15 mmol/L [facility] Calcium 9.7 8.5 - 10.5 mg/dL [facility] Total Protein 7.6 6.1 - 8.0 g/dL [facility] Albumin 4.7 3.2 - 5.2 g/dL [facility] AST 16 0 - 30 unit/L [facility] ALT 12 0 - 30 unit/L [facility] Alk Phos 64 35 - 105 unit/L [facility] Total Bilirubin 0.3 0.2 - 1.3 mg/dL [facility] Estimated GFR 96 >=60 mL/min/1. 73 m?? [facility] Comment: This patient's estimated GFR was calculated using the 2020 CKD-EPI equation. The estimated GFR can vary from the measured GFR by up to 30% in the absence of rapidly changing kidney function. Assessment of the estimated GFR is not appropriate when creatinine concentrations are rapidly changing. For clinical situations in which a more precise estimate of GFR is necessary, consider alternative methods of GFR estimation such as a 24-hour urine creatinine clearance. Assignment of CKD stage 1-5 for patients with an eGFR near the transition point between stages may be based on clinical assessment of muscle mass and symptoms in addition to eGFR. Blood 11/09/2023 8:30 AM EDT 11/09/2023 8:41 AM EDT Narrative Resulting Agency Comment Spec In Lab Nazanin Ruano DO CHEMISTRY O RDERABLES Performing Organization Address City/[facility]/ZIP Co de Phone Number [facility] [place] [phone] * EKG 12 Lead (11/09/2023 8:10 AM EDT) Ventricular rate 101 BPM MUSE SYSTEM Atrial Rate 101 BPM MUSE SYSTEM P-R Interval 162 ms MUSE SYSTEM QRS Duration 92 ms MUSE SYSTEM Q-T Interval 366 ms MUSE SYSTEM QTC Calculated (Bezet) 474 ms MUSE SYSTEM Calculated P [place] 34 degrees MUSE SYSTEM Calculated R [place] 141 degrees MUSE SYSTEM Calculated T [place] 42 degrees MUSE SYSTEM INTERPRETATION Sinus tachycardia Right axis deviation Abnormal ECG When compared with ECG of 04-JAN-2023 19:16, No significant change was found Confirmed by MD Charlie, Jensen ([id number]) on 11/09/2023 2:17:37 PM MUSE SYSTEM 11/09/2023 8:10 AM EDT 11/09/2023 2:17 PM EDT Nazanin Ruano DO ECG ORDERAB LES Performing Organization Address City/[facility]/ZIP Co de Phone Number MUSE SYSTEM from Last 3 Months Care Teams Metal Patternmaker Apprentice Relationship Specialty Start Date End Date Harmony Cortez APRN [address] [place], [place] [phone] PCP - General Family Medicine 06/29/22
--- OUTSIDE RECORDS SUMMARY | 2023-11-12 00:39 | XMS_ITS | Encounter Summary ---
Author Organization [facility] Address [facility] Janiya [place] [address] Care Team Providers Care Control Systems Designer Name Role Phone Harmony Cortez APRN Primary Care Provider [phone] Encounter Details Date Type Department Care Team (Late st Contact Info) Description 01/04/2023 [place] [address] Denzel Fisher, [facility] [place] [place] [address] Social History Tobacco Use Types Packs/Day Years Used Date Smoking Tobacco: Never Smokeless Tobacco: Never Alcohol Use Standard Drinks/Week Comments Not Currently 0 (1 standard drink = 0.6 oz pur e alcohol) Sex and Gender Information Value Date Recorded Sex Assigned at Not on file Gender Identity Not on file Sexual Orientation Not on file documented as of this encounter Plan of Treatment Upcoming Encounters Date Type Department Care Team (Late st Contact Info) Description 11/30/2023 1:40 PM EDT Office Visit Dermatology at [facility] [address] [place] [address] [facility] [place] [address] documented as of this encounter Visit Diagnoses Not on filedocumented in this encounter Care Teams Control Systems Designer Relationship Specialty Start Date End Date Harmony Cortez APRN [facility] [address] [place] [address] PCP - General Family Medicine 06/29/22 documented as of this encounter
--- OUTSIDE RECORDS SUMMARY | 2023-11-12 00:39 | XMS_ITS | Encounter Summary ---
Author Organization Replaced By [facility] [place] [address] Care Team Providers Care Improvement Auditor Name Role Phone Harmony Cortez APRN Primary Care Provider [phone] Reason for Referral * Consultation (Routine) - Closed Specialty Diagnoses / Procedures Referred By Contcaleb t Referred To Contact Dermatology Diagnoses Genetic susceptibility to other malignant neoplasm Harmony Cortez APRN [address] [place] [address] [facility] Dermatology [address] [place] [address] Referral ID Status Reason Start Date Expiration Date V isits Requested Visits Authorized [id number] Closed Consult, Test & Treat PCP Updated and/or Approved 06/29/2022 06/29/2023 6 6 Encounter Details Date Type Department Care Team (Late st Contact Info) Description 06/29/2022 Transcribe Orders eDH Incoming Referrals [phone] Harmony Cortez APRN [address] [place] [address] Genetic susceptibility to other malignant neoplasm Social History Tobacco Use Types Packs/Day Years [...] 1:40 PM EDT Office Visit Dermatology at [facility] [address] [place] [address] Francisca Chandler MD [facility] [address] [address] Scheduled Referrals Name Type Priority Associated Diagnoses Orde r Schedule Referral to Dermatology Outpatient Referral Routine Genetic susceptibility to other malignant neoplasm Ordered: 06/29/2022 documented as of this encounter Visit Diagnoses Diagnosis Genetic susceptibility to other malignant neoplasm documented in this encounter Care Teams Improvement Auditor Relationship Specialty Start Date End Date Harmony Cortez APRN [address] [place] [address] PCP - General Family Medicine 06/29/22 documented as of this encounter
--- OUTSIDE RECORDS SUMMARY | 2023-11-12 00:39 | XMS_ITS | Encounter Summary ---
[place] [address] Care Team Providers Care Bead Wire Insulator Name Role Phone Harmony Cortez APRN Primary Care Provider [phone] Reason for Visit * Reason Comments Abdominal Pain Encounter Details Date Type Department Care Team (Late st Contact Info) Description 01/04/2023 3:59 PM EDT - 01/04/2023 8:02 PM EDT Emergency [place] [address] Epigastric pain Discharge Disposition: Home Social History Tobacco Use Types Packs/Day Years Used Date Smoking Tobacco: Never Smokeless Tobacco: Never Alcohol Use Standard Drinks/Week Comments Not Currently 0 (1 standard drink = 0.6 oz pur e alcohol) Sex and Gender Information Value Date Recorded Sex Assigned at Not on file Gender Identity Not on file Sexual Orientation Not on file documented as of this encounter Last Filed Vital Signs Vital Sign Reading Time Taken Comments Blood Pressure 122/84 01/04/2023 5:30 PM EDT Pulse 93 01/04/2023 1:57 PM EDT Temperature 36.6 ??C (97.9 ??F) 01/04/2023 1:55 PM ED T Respiratory Rate 16 01/04/2023 1:55 PM EDT Oxygen Saturation 100% 01/04/2023 1:55 PM EDT Inhaled Oxygen Concentration - - Weight 78.5 kg (173 lb) 01/04/2023 1:55 PM EDT Height - - Body Mass Index 31.36 08/14/2020 8:39 AM EDT documented in this encounter Discharge Instructions * Discharge Instructions* Ino Rodriguez APRN - 01/04/2023 7:31 PM EDT You were seen in the emergency room for evaluation of your abdominal pain. Lab work and CT imaging of your abdomen and pelvis was unremarkable. EKG was normal. Please follow-up with your primary careprovider and data officer for further evaluation and management. Please return to the ED immediately for any new or worsening symptoms * Attachments The following attachments cannot be sent through Care Everywhere. * Abdominal Pain (Nicaraguan) documented in this encounter Medications at Time of Discharge Medication Sig Dispensed Refills Start Date End Date diphenhydrAMINE HCL (ZzzQuiL) 50 mg/30 mL Liquid Take by mouth. UNABLE TO FIND Med Name: CBD capsule sertraline (Zoloft) 50 mg Tablet TAKE ONE TABLET BY MOUTH EVERY DAY 07/04/2020 linaclotide (Linzess) 145 mcg Capsule Take 145 mcg by mouth daily. levonorgestreL (MIRENA) 20 mcg/24 hours (6 yrs) 52 mg IUD 1 each by Intrauterine route Continuous (Device). . polyethylene glycol (MIRALAX) 17 gram packet 17 GRAM = 1 Packet(s), PO, Once daily 06/26/2009 documented as of this encounter ED Notes * Salena Dumas RN - 01/04/2023 8:02 PM EDT Pt alert and oriented. Pt discharge instructions read and pt verbalizes understanding, pt questionsanswered. Pt denies any further needs. IV taken out, intact. Pt declined d/c vitals. Pt ambulated to waiting room with steady gait. * Ino Rodriguez APRN - 01/04/2023 4:23 PM EDT ED Provider Note HPI: Tori Escobar is a 37 y.o. female with no significant medical history presents ED AOx4 and ambulatory complaining of right upper quadrant/epigastric abdominal pain that has been intermittent over the past month. Patient does have a strong family history of pancreatic cancer and was advised tocome to the emergency room for further evaluation and management. Patient describes her pain as dull without any aggravating or alleviating factors. Patient denies any fevers, chills, body aches, nausea, vomiting, etc. The patient states she was seen by her primary care provider started her on episode which she has been taking without relief. History obtained from patient ROS as per HPI Vitals: ED Triage Vitals [01/04/23 1355] BP: (!) 160/98 Heart Rate: (!) 110 Resp: 16 Temp: 36.6 ??C (97.9 ??F) Temp src: Temporal SpO2: 100 % O2 Device: RA O2 Flow Rate (L/min): n/a Physical Exam Vitals and nursing note reviewed. Constitutional: General: She is not in acute distress. Appearance: Normal appearance. She is normal weight. She is not ill-appearing, toxic-appearing or diaphoretic. HENT: Head: Normocephalic and atraumatic. Right Ear: External ear normal. Left Ear: External ear normal. Nose: Nose normal. No congestion or rhinorrhea. Mouth/Throat: Mouth: Mucous membranes are moist. Pharynx: Oropharynx is clear. Eyes: Extraocular Movements: Extraocular movements intact. Conjunctiva/sclera: Conjunctivae normal. Pupils: Pupils are equal, round, and reactive to light. Cardiovascular: Rate and Rhythm: Normal rate and regular rhythm. Pulses: Normal pulses. Radial pulses are 2+ on the right side and 2+ on the left side. Heart sounds: Normal heart sounds. No murmur heard. No friction rub. No gallop. Pulmonary: Effort: Pulmonary effort is normal. No respiratory distress. Breath sounds: Normal breath sounds. No wheezing or rhonchi. Abdominal: General: Abdomen is protuberant. There is no distension or abdominal bruit. Palpations: Abdomen is soft. There is no hepatomegaly or splenomegaly. Tenderness: There is no abdominal tenderness. There is no right CVA tenderness, left CVA tenderness, guarding or rebound. Musculoskeletal: General: No swelling, tenderness, deformity or signs of injury. Normal range of motion. Cervical back: Normal range of motion. Skin: General: Skin is warm and dry. Capillary Refill: Capillary refill takes less than 2 seconds. Neurological: General: No focal deficit present. Mental Status: She is alert and oriented to person, place, and time. GCS: GCS eye subscore is 4. GCS verbal subscore is 5. GCS motor subscore is 6. Psychiatric: Mood and Affect: Mood normal. Behavior: Behavior normal. Thought Content: Thought content normal. Judgment: Judgment normal. CT Abdomen & Pelvis w Contrast (Results Pending) ED Course as of 01/04/231931Jan 04, 2023 162 CBC unremarkable 163 CMP unremarkable Lipase unremarkable 1900 CT abdomen pelvis shows 1. No CT evidence of acute pancreatitis. No pancreatic mass or ductal dilation identified. 2. No acute intra-abdominal process. 1928 Indication for EKG is epigastric pain EKG shows normal sinus rhythm at a rate of [address] elevations or depression seen. All levels normal. Normal axis. 1929 Discussed all findings in detail with patient. Emphasized the importance of patient following up with her primary care provider and data officer for further outpatient evaluation and management. Instructed the patient to return to the ED immediately for any new or worsening symptoms. Patient verbalized understanding of all discharge instructions and follow up information. Patient has no questions at this time and agrees with discharge plan home. Patient will be discharged home ambulatory in stable condition. Procedures Assessment and Plan: 37 y.o. female with no significant medical history presents ED AOx4 and ambulatory complaining of right upper quadrant/epigastric abdominal pain that has been intermittent over the past month. Patient does have a strong family history of pancreatic cancer and was advised to come to the emergency room for further evaluation and management. Patient describes her pain as dull without any aggravatingor alleviating factors. Patient denies any fevers, chills, body aches, nausea, vomiting, etc. The patient states she was seen by her primary care provider started her on episode which she has been taking without relief. Physical exam benign Lab work benign CT abdomen pelvis shows 1. No CT evidence of acute pancreatitis. No pancreatic mass or ductal dilation identified. 2. No acute intra-abdominal process. EKG unremarkable Discussed all findings in detail with patient. Emphasized the importance of patient following up with her primary care provider and data officer for further outpatient evaluation and management. Instructed the patient to return to the ED immediately for any new or worsening symptoms. Patient verbalized understanding of all discharge instructions and follow up information. Patient has no questions at this time and agrees with discharge plan home. Patient will be discharged home ambulatory in stable condition. Did this case involve critical care? No The visit findings, diagnosis, and care plan were discussed with the patient. The diagnosis and care plans discussions were outlined in the discharge instructions. The patient expressed understanding of the details of the visit, the return precautions and that she should return to the ER at any time for worsening symptoms, new symptoms, or other concerns. she agrees with thefollow- up plan. Disclaimer: Parts of this note has been produced using voice recognition software and may inherently contain errors in manager product management. Some sounds may be transcribed incorrectly by the voice recognition software and therefore the reader is urged to use caution when interpreting this document. Ino Rodriguez APRN 01/04/231931 * Mike Sanford PA - 01/04/2023 1:55 PM EDT Emergency department triage note - Patient is a 37-year-old female who comes to the emergency department with right upper quadrant abdominal pain intermittently for the past month. Has been screened for pancreatic cancer by the [facility] because of significant family history. Was in contact with them and they recommend she come the emergency department for evaluation. Has some intermittent nausea but no vomiting. Middle-age female in no distress in triage Afeb 110-93 160/98 100% Resp nad Neuro a&o Psych anxious Patient 37-year-old female comes emerged part with intermittent episodes of right upper quadrant pain for the past month. She has a significant family history of pancreatic cancer. We will get some basic blood work, urinalysis, test, CT of the abdomen and evaluation in the main ED Mike Sanford PA 01/04/23 1400 documented in this encounter Plan of Treatment Upcoming Encounters Date Type Department Care Team (Late st Contact Info) Description 11/30/2023 1:40 PM EDT Office Visit Dermatology at [facility] [address] [facility] [place] [address] Francisca Chandler MD [facility] [address] [place] [address] documented as of this encounter Procedures Procedure Name Priority Date/Time Associated Diagnosis Comments EKG 12-LEAD STAT 01/04/2023 7:[address] ABDOMEN AND PELVIS W CONTRAST STAT 01/04/2023 6:35 PM EDT POCT URINE STAT 01/04/2023 6:13 PM EDT URINALYSIS WITH REFLEX CULTURE STAT 01/04/2023 6:06 PM EDT HEMOGRAM STAT 01/04/2023 3:20 PM EDT DIFFERENTIAL, AUTOMATED STAT 01/04/2023 3:20 PM EDT GOLD TUBE HOLD STAT 01/04/2023 3:20 PM EDT HC CBC,PLT & AUTO DIFF STAT 3:20 PM EDT HC LIPASE STAT 01/04/2023 3:20 PM EDT COMPREHENSIVE METABOLIC PANEL (NON-FASTING) STAT 01/04/2023 3:20 PM EDT documented in this encounter Results * EKG 12 Lead (01/04/2023 7:16 PM EDT) Ventricular rate 92 BPM MUSE SYSTEM Atrial Rate 92 BPM MUSE SYSTEM P-R Interval 168 ms MUSE SYSTEM QRS Duration 94 ms MUSE SYSTEM Q-T Interval 366 ms MUSE SYSTEM QTC Calculated (Bezet) 452 ms MUSE SYSTEM Calculated P [place] 26 degrees MUSE SYSTEM Calculated R [place] 85 degrees MUSE SYSTEM Calculated T [place] 14 degrees MUSE SYSTEM INTERPRETATION Normal sinus rhythm Normal ECG No previous ECGs available Confirmed by MD Charlie, Jensen ([id number]) on 01/05/2023 7:56:22 AM MUSE SYSTEM 01/04/2023 7:16 PM EDT 01/05/2023 7:56 AM EDT Ino Rodriguez PARK RANGER ECG ORDERABLES MUSE SYSTEM * CT Abdomen & Pelvis w Contrast (01/04/2023 6:35 PM EDT) Anatomical Region Laterality Modality Abdomen, Pelvis Computed Tomogra phy Impressions 01/04/2023 6:55 PM EDT 1. ??No CT evidence of acute pancreatitis. No pancreatic mass or ductal dilation identified. 2. ??No acute intra-abdominal process. Thank you for letting us participate in the care of this patient. ??If you are a health care provider and have any questions regarding this report, please contact the number below. ??For patients who have questions please contact the health daycare manager that requested your imaging first. ? Electronically signed by: Blu Dalal MD, [facility] ??([phone]), at 01/04/2023 6:55 PM Narrative 01/04/2023 6:55 PM EDT EXAMINATION: CT ABDOMEN AND PELVIS W CONTRAST CLINICAL HISTORY: Abdominal pain, acute, nonlocalized Upper abdominal pain, intermittent nausea, significant family history of pancreatic cancer TECHNIQUE: Helical CT of the abdomen and pelvis following the intravenous administration of contrast. Administered 100.0 ml of OMNIPAQUE 350.00 mg/ml. Oral contrast was administered. COMPARISON: CT abdomen pelvis 08/23/2020 FINDINGS: Lower chest: Tiny fat-containing right-sided Bochdalek hernia. Lung bases otherwise clear. Evidence of bilateral mastectomies and breast reconstruction. Liver: Normal size and attenuation without lesions. Bile ducts: Nondilated. Gallbladder: No calcified gallstones. Normal caliber wall. Pancreas: Normal attenuation. No lesion or ductal dilation. No peripancreatic inflammatory change. Spleen: Normal. Adrenals: Normal. Kidneys: Normal. Urinary Bladder: Normal. Vasculature: No abdominal aortic aneurysm. Lymph Nodes: No enlarged lymph nodes. Bowel: Nondilated, no wall thickening. ??Normal appendix. Peritoneum and retroperitoneum: No free fluid. No pneumoperitoneum. No loculated fluid collection or mesenteric inflammation. Abdominal wall: No hernia. Numerous surgical clips in the ventral abdominal wall consistent with prior surgery. Reproductive organs: IUD appears appropriately positioned within the uterus. No adnexal cyst/mass. Osseous structures: T11 vertebral body hemangioma. Smaller lucency in the left aspect of T10, unchanged also likely small hemangioma. No fracture or suspicious appearing osseous lesion. Procedure Note Blu Dalal MD - 01/04/2023 EXAMINATION: CT ABDOMEN AND PELVIS W CONTRAST CLINICAL HISTORY: Abdominal pain, acute, nonlocalized Upper abdominal pain, intermittent nausea, significant family history of pancreatic cancer TECHNIQUE: Helical CT of the abdomen and pelvis following theintravenous administration of contrast. Administered 100.0 ml of OMNIPAQUE 350.00mg/ml. Oral contrast was administered. COMPARISON: CT abdomen pelvis 08/23/2020 FINDINGS: Lower chest: Tiny fat-containing right-sided Bochdalek hernia. Lungbases otherwise clear. Evidence of bilateral mastectomies and breastreconstruction. Liver: Normal size and attenuation without lesions. Bile ducts: Nondilated. Gallbladder: No calcified gallstones. Normal caliber wall. Pancreas: Normal attenuation. No lesion or ductal dilation. Noperipancreatic inflammatory change. Spleen: Normal. Adrenals: Normal. Kidneys: Normal. Urinary Bladder: Normal. Vasculature: No abdominal aortic aneurysm. Lymph Nodes: No enlarged lymph nodes. Bowel: Nondilated, no wall thickening. Normal appendix. Peritoneum and retroperitoneum: No free fluid. No pneumoperitoneum. Noloculated fluid collection or mesenteric inflammation. Abdominal wall: No hernia. Numerous surgical clips in the ventralabdominal wall consistent with prior surgery. Reproductive organs: IUD appears appropriately positioned within theuterus. No adnexal cyst/mass. Osseous structures: T11 vertebral body hemangioma. Smaller lucency in theleft aspect of T10, unchanged also likely small hemangioma. No fracture orsuspicious appearing osseous lesion. IMPRESSION 1. No CT evidence of acute pancreatitis. No pancreatic mass or ductaldilation identified. 2. No acute intra-abdominal process. Thank you for letting us participate in the care of this patient. If youare a health care provider and have any questions regarding this report,please contact the number below. For patients who have questions please contactthe health daycare manager that requested your imaging first. Jensen Arroyo MD IMG CT ORDERABLES * POCT urine (01/04/2023 6:13 PM EDT) POC Urine HCG Negative Negative - Negative POC Control Internal Controls Acceptable Jensen Arroyo MD POINT OF CARE TEST O RDERABLES * (ABNORMAL) Urinalysis with reflex Culture (01/04/2023 6:06 PM EDT) Glucose UA Negative Negative mg/dL [facility] Protein UA Negative Negative mg/dL [facility] Bilirubin UA Negative Negative mg/dL [facility] Comment: Clinical correlation required for positive Urine Bilirubin results as false positive may occur with some drugs and drug related products. If a false positive is suspected a serum total bilirubin should be considered if clinically indicated. Urobilinogen UA Normal Normal mg/dL [facility] pH UA 6.0 5.0 - 8.0 [facility] Blood UA Negative Negative mg/dL [facility] Ketones UA 15(A) Negative mg/dL [facility] Nitrite UA Negative Negative [facility] Leukocytes UA Negative Negative [facility] Appearance UA Clear Clear [facility] Spec [place] UA 1.006 1.005 - 1.030 [facility] Color UA Yellow Yellow [facility] Culture Reflexed No [facility] Clean Catch Urine 01/04/2023 6:06 PM EDT 01/04/2023 6:25 PM EDT Narrative Resulting Agency Comment Spec In Lab Jensen Arroyo MD URINE ORDERABLES Performing Organization Address City/[facility]/ZIP Co de Phone Number [facility] [place] [address] * Gold Tube HOLD (01/04/2023 3:20 PM EDT) Gold Hold Sample in lab. [facility] Blood Venous Draw / Unknown 01/04/2023 3:20 PM EDT 01/04/2023 3:56 PM EDT Mike SIMON CHEMISTRY ORDERABLE S Performing Organization Address [facility] Co de Phone Number [facility] [place] [address] * Differential, Automated (01/04/2023 3:20 PM EDT) [facility] Neutrophils % 61.0 % [facility] Neutr Abs (ANC) 4.23 1.70 - 6.10 x10(3)/[facility] [place] [facility] Lymphocytes % 33.0 % [facility] Lymphocytes Abs 2.3 0.9 - 3.2 x10(3)/[facility] Monocytes % 5.0 % [facility] Monocyte Abs 0.4 0.3 - 0.9 x10(3)/[facility] Eosinophils % 0.6 % [facility] Eosinophils Abs 0.0 0.0 - 0.4 x10(3)/[facility] Basophils % 0.1 % [facility] Basophils Abs 0.0 0.0 - 0.1 x10(3)/[facility] Immature Gran % 0.30 % [facility] Comment: Immature granulocytes(IG's)percentage and absolute count will include metamyelocytes, myelocytes, and promyelocytes. Blood smears from CBCs yielding IG's will be scanned manually for concordance. If this scan disagrees with the automated IG or if promyelocytes are noted, a manual differential will be performed. Darcy Gran Abs 0.02 0.00 - 0.04 x10(3)/[facility] Blood 01/04/2023 3:20 PM EDT 01/04/2023 3:56 PM EDT Narrative Resulting Agency Comment Spec In Lab Mike SIMON HEMATOLOGY ORDERABL ES [facility] [place] [address] * Hemogram (01/04/2023 3:20 PM EDT) WBC 6.9 4.0 - 9.5 x10(3)/[facility] RBC 4.07 4.00 - 5.21 x10(6)/[facility] Hemoglobin 12.8 11.7 - 15.5 g/dL [facility] Hematocrit 36.7 35.7 - 45.8 % [facility] MCV 90.2 82.6 - 94.4 [facility] MCH 31.4 27.1 - 32.0 pg [facility] MCHC 34.9 31.7 - 35.0 g/dL [facility] Platelets 255 145 - 357 x10(3)/[facility] RDWSD 39.6 37.0 - 46.0 [facility] RDWCV 12.1 11.5 - 14.1 % [facility] MPV 9.5 7.6 - 12.9 [facility] nRBC % Auto 0.0 % [facility] nRBC Abs Auto 0.000 0.000 - 0.000 x10(3)/[facility] Blood 01/04/2023 3:20 PM EDT 01/04/2023 3:56 PM EDT Narrative Resulting Agency Comment Spec In Lab Mike SIMON HEMATOLOGY ORDERABL ES Performing Organization Address City/[facility]/ZIP Co de Phone Number [facility] [place] [address] * Lipase (01/04/2023 3:20 PM EDT) Lipase 32 0 - 60 unit/L [facility] Blood 01/04/2023 3:20 PM EDT 01/04/2023 3:56 PM EDT Narrative Resulting Agency Comment Spec In Lab Jensen Arroyo MD CHEMISTRY ORDERABLES Performing Organization Address [facility] Co de Phone Number [facility] [place] [address] * Comprehensive metabolic panel (non-fasting) (01/04/2023 3:20 PM EDT) Glucose Lvl 91 65 - 199 mg/dL [facility] Comment:Diabetes: >=200 mg/d L plus symptoms BUN 11 8 - 18 mg/dL [facility] Creatinine 0.74 0.70 - 1.20 mg/dL [facility] Sodium 138 135 - 145 mmol/L [facility] Potassium 3.6 3.5 - 5.0 mmol/L [facility] Comment: Please note: ??Patients with WBC >100,000 may have falsely elevated Potassium levels. ??For accurate Potassium quantification in these patients send serum separator tube (gold top) for subsequent determinations. ??Contact the Clinical Chemistry Laboratory if there are any questions. Chloride 102 98 - 107 mmol/L [facility] CO2 23 22 - 31 mmol/L [facility] Anion Gap 13 5 - 15 mmol/L [facility] Calcium 9.8 8.5 - 10.5 mg/dL [facility] Total Protein 8.0 6.1 - 8.0 g/dL [facility] Albumin 4.9 3.2 - 5.2 g/dL [facility] AST 11 0 - 30 unit/L [facility] ALT 10 0 - 30 unit/L [facility] Alk Phos 63 35 - 105 unit/L [facility] Total Bilirubin 0.6 0.2 - 1.3 mg/dL [facility] Estimated GFR 106 >=60 mL/min/1. 73 m?? [facility] Comment: This patient's estimated GFR was [...] and symptoms in addition to eGFR. Blood 01/04/2023 3:20 PM EDT 01/04/2023 3:56 PM EDT Narrative Resulting Agency Comment Spec In Lab Jensen Arroyo MD CHEMISTRY ORDERABLES [facility] [place] [address] documented in this encounter Visit Diagnoses Diagnosis Epigastric pain Abdominal pain, epigastric documented in this encounter Administered Medications Inactive Administered Medications - up to 3 most recent administrations Medication Order MAR Action Action Date Dose Rate Site iohexoL (Omnipaque) (350 mg/mL) solution 0-200 mL 0-200 mL, Intravenous, ONCE PRN, 1 dose, Starting on Wed01/04/23 at 1832, Until Wed01/04/23 at 1832, Per Protocol, Warning Vesicant/Irritant Medication , Radiology Contrast, Routine Given 01/04/2023 6:32 PM EDT 100 mLs iohexoL (Omnipaque) (350 mg/mL) solution 0-50 mL 0-50 mL, Oral, ONCE PRN, 1 dose, Starting on Wed01/04/23 at 1832, Until Wed01/04/23 at 1832, Per Protocol, Warning Vesicant/Irritant Medication , Radiology Contrast, Routine Given 01/04/2023 6:32 PM EDT 50 mLs ondansetron (pf) (Zofran) (2 mg/mL) injection 4 mg 4 mg, Intravenous, ONCE, 1 dose, On Wed01/04/23 at 1610, STAT Given 01/04/2023 6:16 PM EDT 4 mg documented in this encounter Active and Recently Administered Medications Times are shown in EDT. Scheduled Medication Order 01/02/2023 01/03/2023 01/04/2023 ondansetron (pf) (Zofran) (2 mg/mL) injection 4 mg (COMPLETED) 4 mg, Intravenous, ONCE, 1 dose, On Wed01/04/23 at 1610, STAT 1610 (Hold - Provide r: Chana Huston RN - Reason: Patient/family refused - Comment: Pt resquesting med to be given closer to CT.)1815 (Given - Provider: Chana Huston RN) PRN Medication Order 01/02/2023 01/03/2023 01/04/2023 iohexoL (Omnipaque) (350 mg/mL) solution 0-200 mL (COMPLETED) 0-200 mL, Intravenous, ONCE PRN, 1 dose, Starting on Wed01/04/23 at 1832, Until Wed01/04/23 at 1832, Per Protocol, Warning Vesicant/Irritant Medication , Radiology Contrast, Routine 1831 (Given - Provid er: Rosita Rahman) iohexoL (Omnipaque) (350 mg/mL) solution 0-50 mL (COMPLETED) 0-50 mL, Oral, ONCE PRN, 1 dose, Starting on Wed01/04/23 at 1832, Until Wed01/04/23 at 1832, Per Protocol, Warning Vesicant/Irritant Medication , Radiology Contrast, Routine 1831 (Given - Provid er: Rosita Rahman) documented in this encounter Care Teams Bead Wire Insulator Relationship Specialty Start Date End Date Diego GOLD Antunez [address] [place] [address] 1 [place] [address] PCP - General Family Medicine 06/29/22 documented as of this encounter
--- OUTSIDE RECORDS SUMMARY | 2023-11-12 00:39 | XMS_ITS | Encounter Summary ---
[place] [address] Care Team Providers Care Analytic Programmer Name Role Phone Lizbethstacey Harmony GOLD Primary Care Provider Reason for Visit * Reason Comments Chest Pain Encounter Details Date Type Department Care Team (Late st Contact Info) Description 11/09/2023 8:01 AM EDT - 11/09/2023 11:47 AM EDT [place] [address] Chest pain, unspecified type Discharge Disposition: Home Social History Tobacco Use Types Packs/Day Years Used Date Smoking Tobacco: Never Smokeless Tobacco: Never Alcohol Use Standard Drinks/Week Comments Not Currently 0 (1 standard drink = 0.6 oz pur e alcohol) [facility] Inpatient Questions Answer Date Recorded Does Anyone [...] Mass Index 32.92 11/09/2023 8:09 AM EDT documented in this encounter Discharge Instructions * Discharge Instructions* Juan Jose Kat PA - 11/09/2023 11:38 AM EDT You were seen in the emergency department for chest pain. Your evaluation here in the emergency department was overall reassuring. Your lab work and EKG did not show any obvious causes of your discomfort. Please follow-up with your primary care provider for further evaluation and care. Please have your stress test and echocardiogram as previously ordered. Return to the emergency department if you have worsening pain or any other questions or concerns. * Attachments The following attachments cannot be sent through Care Everywhere. * Chest Pain (Bermudian) documented in this encounter Medications at Time [...] as of this encounter ED Notes * Angela Davis RN - 11/09/2023 11:46 AM EDT Verbalized understanding of discharge instructions. Steady gait while leaving. IV removed. VSS. * Juan Jose Kat PA - 11/09/2023 8:05 AM EDT ED Provider Note HPI: Tori Escobar is a 38 y.o. female who presents to the Emergency Department with chest pain. Chest pain started 4 to 5 days ago. Chest discomfort is intermittent in nature and lasts 10 to 20 seconds. She describes it as a sharp, pressure that was initially in her left shoulder and is now midsternal and on the left side. Admits to some tingling in the tips of her left fingers. She also had some epigastric pain last week that radiating to her left shoulder blade with associated nausea. This pain was not relieved by antacids, but has since resolved. Denies any associated vomiting, fevers, chills, shortness of breath, difficulty breathing, lower extremity swelling. Patient reports being seen by her primary care provider yesterday and had an EKG that reportedly showed a fascicular block. ROS as per HPI Vitals: ED Triage Vitals BP: n/a Pulse: n/a Resp: n/a Temp: n/a Temp src: n/a SpO2: n/a O2 Device: n/a O2 Flow Rate (L/min): n/a Physical Exam Constitutional: Appears well-developed and well-nourished. No distress. Head: Normocephalic and atraumatic. Neck: Normal range of motion. Cardiovascular: Normal rate Pulmonary/Chest: Effort normal Musculoskeletal: Exhibits no edema or tenderness. Abd: mild epigastric pain with palpation Neurological: Alert and oriented Skin: Skin is warm and dry. ED Course: I have reviewed labs and imaging, images and available reports, and they are significant for: EKG independently reviewed: Sinus with no ischemic changes or significant arrhythmias unchanged from previous tracing. CBC: Unremarkable BMP: Unremarkable Troponin less than 6 x 2 LFTs: Unremarkable Lipase within normal limits UA unremarkable No orders to display Procedures MEDICAL DECISION MAKING: Chest pain of unclear etiology. Strongly considered acute coronary syndrome (ACS), however, the patient had atypical pain, a low risk factor profile, and no objective evidence of ischemia (non-ischemic EKG and normal cardiac biomarkers). As a result, ACS was felt to be veryunlikely. PE was thought to be highly unlikely given atypical symptoms, no risk factors, no lower extremity edema, no shortness of breath and oxygen saturation remained high throughout the visit. We also considered other life threatening causes of chest pain including, aortic dissection, pericarditis, pneumonia, and pneumothorax and also felt these were very unlikely due to the patients clinical presentation and thus did not warrant further investigation. As the patient is currently pain free without life threatening etiology identified despite careful consideration, discharge with close outpatient follow-up was deemed appropriate. ASSESSMENT: acute chest pain of uncertain etiology PLAN: I discussed the plan with the patient who expressed understanding and agreed to to comply. Advised her to follow-up with their primary care provider within 4-5 days. Also strongly advised to return to the ED immediately for recurrent/worsening chest pain, difficulty breathing, lightheadedness, syncope, or any other concerning acute medical complaint. The visit findings, diagnosis, and care plan were discussed with the patient. The diagnosis and care plans discussions were outlined in the discharge instructions. The patient expressed understanding of the details of the visit, the return precautions and that she should return to the ER at any time for worsening symptoms, new symptoms, or other concerns. she agrees with thefollow- up plan. Juan Jose Kat PA 11/09/23 1415 documented in this encounter Plan of Treatment Upcoming Encounters Date Type Department Care Team (Late st Contact Info) Description 11/30/2023 1:40 PM EDT Office Visit Dermatology at [address] [address] Francisca Chandler MD [facility] [place] [address] documented as of this encounter Procedures Procedure Name Priority Date/Time Associated Diagnosis Comments URINALYSIS WITH REFLEX CULTURE STAT 11/09/2023 9:35 AM EDT HC TROPONIN T STAT 11/09/2023 9:28 AM EDT HC TROPONIN T STAT 11/09/2023 8:30 AM EDT HEMOGRAM STAT 11/09/2023 8:30 AM EDT DIFFERENTIAL, AUTOMATED STAT 11/09/2023 8:30 AM EDT GOLD TUBE HOLD STAT 11/09/2023 8:30 AM EDT BLUE TUBE HOLD STAT 11/09/2023 8:30 AM EDT HC CBC,PLT & AUTO DIFF STAT 8:30 AM EDT HC LIPASE STAT 11/09/2023 8:30 AM EDT COMPREHENSIVE METABOLIC PANEL (NON-FASTING) STAT 11/09/2023 8:30 AM EDT EKG 12-LEAD STAT 11/09/2023 8:10 AM EDT documented in this encounter Results * (ABNORMAL) Urinalysis with reflex Culture (11/09/2023 9:35 AM EDT) Glucose UA Negative Negative mg/dL WHITE [...] indicated. Urobilinogen UA Normal Normal mg/dL [facility] pH UA 8.5(H) 5.0 - 8.0 [facility] Blood UA Negative Negative mg/dL [facility] Ketones UA Negative Negative mg/dL [facility] Nitrite UA Negative Negative [facility] Leukocytes UA Negative Negative [facility] Appearance UA Clear Clear [facility] Spec Brinson UA 1.013 1.005 - 1.030 [facility] Color UA Yellow Yellow [facility] Culture Reflexed No [facility] Clean Catch Urine 11/09/2023 9:35 AM EDT 11/09/2023 9:46 AM EDT Narrative Resulting Agency Comment Spec In Lab Nazanin Mcdonaldnson DO URINE ORDER KANNAN [facility] [place] [address] * Troponin (11/09/2023 9:28 AM EDT) Troponin-T HS <6 <=14 ng/L [facility] Comment: This patient's troponin T [...] troponin value can be found in the [facility] Test Catalog Troponin - [facility] Test Catalog Reference: Fourth [place] Definition of Myocardial Infarction. Journal of the [place] College [employer] 2018;72:9124-3047 Blood 11/09/2023 9:28 AM EDT 11/09/2023 9:47 AM EDT Narrative Resulting Agency Comment Spec In Lab Nazanin Ronna Ruano DO CHEMISTRY O RDERABLES Performing Organization Address City/[facility]/ZIP Co de Phone Number [facility] [place] [address] * Gold Tube HOLD (11/09/2023 8:30 AM EDT) Gold Hold Sample in lab. [facility] Blood Venous Draw / Unknown 11/09/2023 8:30 AM EDT 11/09/2023 8:45 AM EDT Juan Jose SIMON CHEMISTRY ORDERABLES Performing Organization Address City/[facility]/ZIP Co de Phone Number [facility] [place] [address] * Blue Tube HOLD (11/09/2023 8:30 AM EDT) Blue Hold Sample in lab. [facility] Blood Venous Draw / Unknown 11/09/2023 8:30 AM EDT 11/09/2023 8:45 AM EDT Juan Jose SIMON HEMATOLOGY ORDERABLE S Performing Organization Address City/[facility] Co de Phone Number [facility] [address] * Differential, Automated (11/09/2023 8:30 AM EDT) Neutrophils % 55.3 % [facility] Neutr Abs (ANC) 2.70 1.70 - 6.10 x10(3)/[facility] Lymphocytes % 35.7 % [facility] Lymphocytes Abs 1.7 0.9 - 3.2 x10(3)/[facility] Monocytes % 6.8 % [facility] Monocyte Abs 0.3 0.3 - 0.9 x10(3)/[facility] Eosinophils % 1.4 % [facility] Eosinophils Abs 0.1 0.0 - 0.4 x10(3)/[facility] Basophils % 0.4 % [facility] Basophils Abs 0.0 0.0 - 0.1 x10(3)/[facility] Immature Gran % 0.40 % [facility] Comment: Immature granulocytes(IG's)percentage and absolute count will include metamyelocytes, myelocytes, and promyelocytes. Blood smears from CBCs yielding IG's will be scanned manually for concordance. If this scan disagrees with the automated IG or if promyelocytes are noted, a manual differential will be performed. Darcy Gran Abs 0.02 0.00 - 0.04 x10(3)/[facility] Blood 11/09/2023 8:30 AM EDT 11/09/2023 8:41 AM EDT Narrative Resulting Agency Comment Spec In Lab Juan Jose SIMON HEMATOLOGY ORDERABLE S [facility] [place] [place] [address] * (ABNORMAL) Hemogram (11/09/2023 8:30 AM EDT) WBC 4.9 4.0 - 9.5 x10(3)/[facility] RBC 4.07 4.00 - 5.21 x10(6)/[facility] Hemoglobin 13.1 11.7 - 15.5 g/dL [facility] Hematocrit 37.2 35.7 - 45.8 % [facility] MCV 91.4 82.6 - 94.4 fL [facility] MCH 32.2(H) 27.1 - 32.0 pg [facility] MCHC 35.2(H) 31.7 - 35.0 g/dL [facility] Platelets 247 145 - 357 x10(3)/[facility] RDWSD 39.9 37.0 - 46.0 [facility] RDWCV 11.9 11.5 - 14.1 % [facility] MPV 9.2 7.6 - 12.9 [facility] nRBC % Auto 0.0 % [facility] nRBC Abs Auto 0.000 0.000 - 0.000 x10(3)/mcL [facility] Blood 11/09/2023 8:30 AM EDT 11/09/2023 8:41 AM EDT Narrative Resulting Agency Comment Spec In Lab Juan Jose SIMON HEMATOLOGY ORDERABLE S [facility] [place] [address] * Troponin (11/09/2023 8:30 AM EDT) Troponin-T HS <6 <=14 ng/L [facility] Comment: This patient's troponin T [...] troponin value can be found in the [facility] Test Catalog Troponin - [facility] Test Catalog Reference: Fourth [place] Definition of Myocardial Infarction. Journal of the [place] College [employer]iology 2018;72:9136-2477 Blood 11/09/2023 8:30 AM EDT 11/09/2023 8:41 AM EDT Narrative Resulting Agency Comment Spec In Lab Nazanin Ronna A Atchinson DO CHEMISTRY O RDERABLES [facility] [place] [address] * Lipase (11/09/2023 8:30 AM EDT) Lipase 26 0 - 60 unit/L [facility] Blood 11/09/2023 8:30 AM EDT 11/09/2023 8:41 AM EDT Narrative Resulting Agency Comment Spec In Lab Nazanin Ramirez Alden DO CHEMISTRY O RDERABLES Performing Organization Address [facility]/ZIP Co de Phone Number [facility] [place] [address] * Comprehensive metabolic panel (non-fasting) (11/09/2023 8:30 AM EDT) Pathologist [facility] Glucose Lvl 104 65 - 199 mg/dL [facility] Comment:Diabetes: >=200 mg/d L plus symptoms BUN 10 8 - 18 mg/dL [facility] Creatinine 0.80 0.70 - 1.20 mg/dL [facility] Sodium 142 135 - 145 mmol/L [facility] Potassium 4.0 3.5 - 5.0 mmol/L [facility] Comment: Please note: ??Patients with WBC >100,000 may have falsely elevated Potassium levels. ??For accurate Potassium quantification in these patients send serum separator tube (gold top) for subsequent determinations. ??Contact the Clinical Chemistry Laboratory if there are any questions. Chloride 107 98 - 107 mmol/L [facility] CO2 22 22 - 31 mmol/L [facility] Anion Gap 13 5 - 15 mmol/L [facility] Calcium 9.7 8.5 - 10.5 mg/dL [facility] Total Protein 7.6 6.1 - 8.0 g/dL [facility] Albumin 4.7 3.2 - 5.2 g/dL [facility] AST 16 0 - 30 unit/L [facility] ALT 12 0 - 30 unit/L [facility] Alk Phos 64 35 - 105 unit/L [facility] Total Bilirubin 0.3 0.2 - 1.3 mg/dL [facility] Estimated GFR 96 >=60 mL/min/1. 73 m?? [facility] [...] Lab Nazanin Ruano DO CHEMISTRY O RDERABLES [facility] [place] [address] * EKG 12 Lead (11/09/2023 8:10 AM EDT) Ventricular rate 101 BPM MUSE SYSTEM Atrial Rate 101 BPM MUSE SYSTEM P-R Interval 162 ms MUSE SYSTEM QRS Duration 92 ms MUSE SYSTEM Q-T Interval 366 ms MUSE SYSTEM QTC Calculated (Bezet) 474 ms MUSE SYSTEM Calculated P [place] 34 degrees MUSE SYSTEM Calculated R [place] 141 degrees MUSE SYSTEM Calculated T [place] 42 degrees MUSE SYSTEM INTERPRETATION Sinus tachycardia Right axis deviation Abnormal ECG When compared with ECG of 04-JAN-2023 19:16, No significant change was found Confirmed by MD Charlie, Jensen ([id number]) on 11/09/2023 2:17:37 PM MUSE SYSTEM 11/09/2023 8:10 AM EDT 11/09/2023 2:17 PM EDT Nazanin Ruano DO ECG ORDERAB LES [employer] SYSTEM documented in this encounter Visit Diagnoses Diagnosis Chest pain, unspecified type documented in this encounter Care Teams Analytic Programmer Relationship Specialty Start Date End Date Indy CortezGOLD soto [address] [place] [address] PCP - General Family Medicine 06/29/22 documented as of this encounter
--- OUTSIDE RECORDS SUMMARY | 2023-11-12 00:39 | XMS_ITS | Encounter Summary ---
Author Organization [facility] Address [facility] [place] [address] Care Team Providers Care Neuropsychology Service Director Name Role Phone Harmony Cortez APRN Primary Care Provider [phone] Encounter Details Date Type Department Care Team (Latest Contact Info) Description 11/09/2023 Travel Social History Tobacco Use Types Packs/Day Years Used Date Smoking Tobacco: Never Smokeless Tobacco: Never Alcohol Use Standard Drinks/Week Comments Not Currently 0 (1 standard drink = 0.6 oz pur e alcohol) IPV Inpatient Questions Answer Date Recorded Does [...] 1:40 PM EDT Office Visit Dermatology at [facility] [address] [place] [address] Francisca Chandler MD [facility] [address] [place] [address] documented as of this encounter Visit Diagnoses Not on filedocumented in this encounter Care Teams Neuropsychology Service Director Relationship Specialty Start Date End Date Harmony Cortez APRN [address] [place] [address] PCP - General Family Medicine 06/29/22 documented as of this encounter
--- OUTSIDE RECORDS SUMMARY | 2023-11-12 00:39 | XMS_ITS | Encounter Summary ---
Author Organization [facility] Address [facility] [place] [address] Care Team Providers Care Superintendent Construction Name Role Phone Harmony Cortez APRN Primary Care Provider [phone] Encounter Details Date Type Department Care Team (Late st Contact Info) Description 04/01/2023 External [place] [id number] Social History Tobacco Use Types Packs/Day Years [...] 1:40 PM EDT Office Visit Dermatology at [facility] [address] [place] [address] Francisca Chandler MD [facility] [address] [place] [address] documented as of this encounter Procedures Procedure Name Priority Date/Time Associated Diagnosis Comments ECG SCAN Routine 04/01/2023 5:16 PM EST documented in this encounter Results * Scan Doc: ECG (04/01/2023 5:16 PM EST) Historical Provider MD GAFFNEY MGR SCAN EX T ORDR/RSLT documented in this encounter Visit Diagnoses Not on filedocumented in this encounter Care Teams Superintendent Construction Relationship Specialty Start Date End Date Harmony Cortez APRN [address] [place], [place] [address]Y [facility] [address] [place] [address] PCP - General Family Medicine 06/29/22 documented as of this encounter
--- OUTSIDE RECORDS SUMMARY | 2023-11-12 00:39 | XMS_ITS | Encounter Summary ---
Author Organization [facility] Address [facility] [place] [address] Care Team Providers Care Stockroom Helper Name Role Phone Harmony Cortez TRAILER SECTIONS ASSEMBLER Primary Care Provider [phone] Encounter Details Date Type Department Care Team (Late st Contact Info) Description 04/01/2023 [place] [id number] Susana Castro MD [facility] [place] [address] Social History Tobacco Use Types Packs/Day Years Used Date Smoking Tobacco: Never Smokeless Tobacco: Never Alcohol Use Standard Drinks/Week Comments Not Currently 0 (1 standard drink = 0.6 oz pur e alcohol) Sex and Gender Information Value Date Recorded Sex Assigned at Not on file Gender Identity Not on file Sexual Orientation Not on file documented as of this encounter Miscellaneous Notes * Telephone Encounter - Susana Castro MD - 04/01/2023 5:44 PM EST Images from the original note were not included. Initial Contact Date: 04/01/23 Referring Provider: Leonidas Arredondo Patient Location: [facility] HPI: 38 F w/ no known medical history presents anxious with palpitations Presented in HR 130's now in 150's. Ddimer is neg, troponin normal, no pneumonia or white count, no UTI. Patient is feeling anxious. HR's are now in the 100's following benzodiazepine. EKG's show sinus tachycardia. Assessment: Recommend ongoing evaluation of underlying causes of sinus tachycardia. - consider giving IV fluids if appearing dehydrated - consider 5 mg IV Metoprolol push followed by Metoprolol tartrate 12.5 mg BID. Monitor on telemetry for rate and symptoms improvement. - if rate or rhythm changes please feel free to reach back out for further recommendations. Above recommendations were based on my discussion with OSH; I have not personally interviewed or examined this patient. Advised to call the transfer center back with any changes in the patient condition. Susana Castro MD [employer] documented in this encounter Plan of Treatment Upcoming Encounters Date Type Department Care Team (Late st Contact Info) Description 11/30/2023 1:40 PM EDT Office Visit Dermatology at [facility] [address] [place] [address] Francisca Chandler MD [facility] [place] [address] documented as of this encounter Visit Diagnoses Not on filedocumented in this encounter Care Teams Stockroom Helper Relationship Specialty Start Date End Date Harmony Cortez APRN [address] [place] [address] [address] [facility] [address] [place] [address] PCP - General Family Medicine 06/29/22 documented as of this encounter
--- OUTSIDE RECORDS SUMMARY | 2023-11-12 00:39 | XMS_ITS | Encounter Summary ---
Author Organization [facility] [place] [address] Care Team Providers Care Maintenance Associate Name Role Phone Anisha Neal MD Primary Care Provider [phone] Reason for Referral * Diagnostic Test (Routine) - Closed Specialty Diagnoses / Procedures Referred By Contac t Referred To Contact Radiology Diagnoses Encounter to discuss breast reconstruction Pre-op exam Procedures CT Angiogram Abdomen & Pelvis w Contrast (Generic) CT Angiogram Abdomen w Contrast Brady Freedman MD [facility] [place] [address] [facility] [place] [address] Referral ID Status Reason Start Date Expiration Date V isits Requested Visits Authorized [id number] Closed Specialty Service Requested 08/20/2020 11/18/2020 1 1 Encounter Details Date Type Department Care Team (Late st Contact Info) Description 08/14/2020 Orders [place] [address] Brady Freedman MD [facility] [place] [address] Encounter to discuss breast reconstruction; Pre-op exam Social History Tobacco Use Types Packs/Day Years [...] 1:40 PM EDT Office Visit Dermatology at [facility] [address] [place] [address] Francisca Chandler MD [facility] [place] [address] documented as of this encounter Results * CT Angiogram Abdomen & Pelvis w Contrast (Generic) (08/23/2020 4:40 PM EDT) Anatomical Region Laterality Modality Abdomen, Pelvis Computed Tomogra phy Addenda Addendum by Maria Teresa Crain MD on 09/02/2020 3:28 PM EDT --------ADDENDUM #1-------- I have been asked to create an addendum to this study for vascular findings of the abdominal wall. Fat-containing mildly distended umbilicus protrudes to the abdominal wall. The grid was created on the basis of the tiny fat diastases at the linea alba at the fascial abdominal wall. At the level of the skin, this corresponds to the umbilicus 1.3 cm to the right of the left fold of the fact that bulges at the umbilicus. Inferior epigastric artery origins are patent bilaterally. Right inferior epigastric artery penetrates the rectus sheath 0.6 cm caudal and 5.9 cm to the right of the umbilicus. Short branch pierces the fascia 0.6 cm caudal and 5.9 cm to the right of the umbilicus at the level of the artery penetration into the sheath. This has a 1.3 cm subfascial segment and penetrates the fascia extending into the subcutaneous right abdominal wall 0.6 cm caudal and 7.1 cm to the right of the umbilicus. The inferior epigastric artery bifurcates 1.9 cm cranial and 6.3 cm to the right of the umbilicus. Medial branch gas station manager penetrates the fascia 0.8 cm cranial and 4.1 cm to the right of the umbilicus. Lateral branch gas station manager penetrates the fascia 2.3 cm cranial and 7.1 cm to the right of the umbilicus. Left inferior epigastric artery penetrates the rectus sheath 0.4 cm caudal and 5.7 cm to the left of the umbilicus. The intramuscular segment bifurcates 1.3 cm cranial and 5.7 cm to the left of the umbilicus. The medial branch has a long intramuscular segment and gives rise to medial and lateral perforators. Medial gas station manager of the medial branch penetrates the fascia 4.9 cm cranial and 2.9 cm to the left of the umbilicus. Lateral gas station manager of the medial branch penetrates the fascia 2.5 cm cranial and 5.2 cm the left of the umbilicus. Lateral branch of the left inferior epigastric artery penetrates the fascia 2.7 cm cranial and 6.6 cm the left of the umbilicus. This is a 1.4 cm subfascial segment and subsequently penetrates the fascia 2.8 cm cranial and 8 cm the left of the umbilicus. Thank you for letting us participate in the care of this patient. ??If you are a health care provider and have any questions regarding this report, please contact the number below. ??For patients who have questions please contact the health cardiac care unit nurse that requested your imaging first. ? Electronically signed by: Maria Teresa Crain MD, [facility] ([phone]), at 09/02/2020 3:09 PM --------ORIGINAL REPORT -------- EXAMINATION: CT ANGIOGRAM ABDOMEN AND PELVIS W CONTRAST (GENERIC) CLINICAL HISTORY: Evaluate blood vessels of abdomen for NOE reconstuction TECHNIQUE: Helical CT angiogram of the abdomen and pelvis was performed following the intravenous administration of contrast. Administered 110.0 ml of OMNIPAQUE 350.00 mg/ml. Maximum intensity projection (MIP) were reformatted. Multiplanar images were reviewed and 3-D images were generated on an independent workstation. COMPARISON: None FINDINGS: VASCULAR FINDINGS Abdominal aorta: No stenosis or aneurysm. Normal Celiac: Widely patent. SMA: Widely patent. Right renal artery: Widely patent. Left renal artery: Widely patent. ANDRE: Widely patent. Right: Common iliac artery: Widely patent. External iliac artery: Widely patent. Internal iliac artery: Widely patent. Common femoral artery: Widely patent. Superficial femoral artery: The visualized aspects are widely patent. Profundus femoral artery: The visualized aspects are widely patent. Left: Common iliac artery: Widely patent. External iliac artery: Widely patent. Internal iliac artery: Widely patent. Common femoral artery: Widely patent. Superficial femoral artery: The visualized aspects are widely patent. Profundus femoral artery: The visualized aspects are widely patent. NON-VASCULAR FINDINGS Lower chest: Normal. Liver: Normal. Bile ducts: Nondilated. Gallbladder: Postcholecystectomy Pancreas: Normal attenuation without ductal dilatation. Spleen: Normal. Adrenals: Normal. Kidneys: Normal. Urinary Bladder: Normal. Lymph Nodes: No enlarged lymph nodes. Bowel: Nondilated, no wall thickening. ?? Peritoneum and mesentery: No ascites, free air, or loculated fluid collection. No mesenteric inflammation. Reproductive Organs: An IUD is noted Abdominal Wall: No hernia Osseous structures: No suspicious findings. IMPRESSION: Normal study Thank you for letting us participate in the care of this patient. ??If you are a health care provider and have any questions regarding this report, please contact the number below. ??For patients who have questions please contact the health cardiac care unit nurse that requested your imaging first. ? Impressions 08/24/2020 3:06 PM EDT Normal study Thank you for letting us participate in the care of this patient. ??If you are a health care provider and have any questions regarding this report, please contact the number below. ??For patients who have questions please contact the health cardiac care unit nurse that requested your imaging first. ? Narrative 08/24/2020 3:06 PM EDT EXAMINATION: CT ANGIOGRAM ABDOMEN AND PELVIS W CONTRAST (GENERIC) CLINICAL HISTORY: Evaluate blood vessels of abdomen for NOE reconstuction TECHNIQUE: Helical CT angiogram of the abdomen and pelvis was performed following the intravenous administration of contrast. Administered 110.0 ml of OMNIPAQUE 350.00 mg/ml. Maximum intensity projection (MIP) were reformatted. Multiplanar images were reviewed and 3-D images were generated on an independent workstation. COMPARISON: None FINDINGS: VASCULAR FINDINGS Abdominal aorta: No stenosis or aneurysm. Normal Celiac: Widely patent. SMA: Widely patent. Right renal artery: Widely patent. Left renal artery: Widely patent. ANDRE: Widely patent. Right: Common iliac artery: Widely patent. External iliac artery: Widely patent. Internal iliac artery: Widely patent. Common femoral artery: Widely patent. Superficial femoral artery: The visualized aspects are widely patent. Profundus femoral artery: The visualized aspects are widely patent. Left: Common iliac artery: Widely patent. External iliac artery: Widely patent. Internal iliac artery: Widely patent. Common femoral artery: Widely patent. Superficial femoral artery: The visualized aspects are widely patent. Profundus femoral artery: The visualized aspects are widely patent. NON-VASCULAR FINDINGS Lower chest: Normal. Liver: Normal. Bile ducts: Nondilated. Gallbladder: Postcholecystectomy Pancreas: Normal attenuation without ductal dilatation. Spleen: Normal. Adrenals: Normal. Kidneys: Normal. Urinary Bladder: Normal. Lymph Nodes: No enlarged lymph nodes. Bowel: Nondilated, no wall thickening. ?? Peritoneum and mesentery: No ascites, free air, or loculated fluid collection. No mesenteric inflammation. Reproductive Organs: An IUD is noted Abdominal Wall: No hernia Osseous structures: No suspicious findings. Procedure Note Fawad Gar MD / Maria Teresa Crain MD - 08/24/2020 EXAMINATION: CT ANGIOGRAM ABDOMEN AND PELVIS W CONTRAST (GENERIC) CLINICAL HISTORY: Evaluate blood vessels of abdomen for DIEPreconstuction TECHNIQUE: Helical CT angiogram of the abdomen and pelvis was performed following the intravenous administration of contrast. Administered 110.0ml of OMNIPAQUE 350.00 mg/ml. Maximum intensity projection (MIP) werereformatted. Multiplanar images were reviewed and 3-D images were generated on an[employer] workstation. COMPARISON: None FINDINGS: VASCULAR FINDINGS Abdominal aorta: No stenosis or aneurysm. Normal Celiac: Widely patent. SMA: Widely patent. Right renal artery: Widely patent. Left renal artery: Widely patent. ANDRE: Widely patent. Right: Common iliac artery: Widely patent. External iliac artery: Widely patent. Internal iliac artery: Widely patent. Common femoral artery: Widely patent. Superficial femoral artery: The visualized aspects are widely patent. Profundus femoral artery: The visualized aspects are widely patent. Left: Common iliac artery: Widely patent. External iliac artery: Widely patent. Internal iliac artery: Widely patent. Common femoral artery: Widely patent. Superficial femoral artery: The visualized aspects are widely patent. Profundus femoral artery: The visualized aspects are widely patent. NON-VASCULAR FINDINGS Lower chest: Normal. Liver: Normal. Bile ducts: Nondilated. Gallbladder: Postcholecystectomy Pancreas: Normal attenuation without ductal dilatation. Spleen: Normal. Adrenals: Normal. Kidneys: Normal. Urinary Bladder: Normal. Lymph Nodes: No enlarged lymph nodes. Bowel: Nondilated, no wall thickening. Peritoneum and mesentery: No ascites, free air, or loculated fluidcollection. No mesenteric inflammation. Reproductive Organs: An IUD is noted Abdominal Wall: No hernia Osseous structures: No suspicious findings. IMPRESSION Normal study Thank you for letting us participate in the care of this patient. If youare a health care provider and have any questions regarding this report,please contact the number below. For patients who have questions please contactthe health cardiac care unit nurse that requested your imaging first. Brady Freedman MD IMG CT ORDERABLES documented in this encounter Visit Diagnoses Diagnosis Encounter to discuss breast reconstruction Other specified counseling Pre-op exam Preoperative examination, unspecified Encounter to discuss breast reconstruction Other specified counseling Pre-op exam Preoperative examination, unspecified documented in this encounter Care Teams Maintenance Associate Relationship Specialty Start Date End Date Anisha Neal MD PCP - General Family Medicine 07/10/20 06/28/22 documented as of this encounter
--- OUTSIDE RECORDS SUMMARY | 2023-11-12 00:39 | XMS_ITS | Encounter Summary ---
Author Organization [facility] [place] [address] Care Team Providers Care Relay Repairer Name Role Phone Anisha Neal MD Primary Care Provider [phone] Reason for Referral * Diagnostic Test (Routine) - Closed Specialty Diagnoses / Procedures Referred By Jonny perez Referred To Contact Radiology Diagnoses Encounter to discuss breast reconstruction Pre-op exam Procedures CT Angiogram Abdomen & Pelvis w Contrast (Generic) CT Angiogram Abdomen w Contrast Brady Freedman MD [facility] [place] [address] [facility] [place] [address] Referral ID Status Reason Start Date Expiration Date V isits Requested Visits Authorized [id number] Closed Specialty Service Requested 08/20/2020 11/18/2020 1 1 Reason for Visit * Diagnostic Test (Routine) - Closed Specialty Diagnoses / Procedures Referred By Jonny perez Referred To Contact Radiology Diagnoses Encounter to discuss breast reconstruction Pre-op exam Procedures CT Angiogram Abdomen & Pelvis w Contrast (Generic) CT Angiogram Abdomen w Contrast Brady Freedman MD [facility] [place] [address] [facility] [place] [address] Referral ID Status Reason Start Date Expiration Date V isits Requested Visits Authorized [id number] Closed Specialty Service Requested 08/20/2020 11/18/2020 1 1 Encounter Details Date Type Department Care Team (Latest Contact Info) Description 08/23/2020 3:45 PM EDT - 08/23/2020 11:59 PM EDT Hospital [place] [address] Brady Freedman MD [facility] [place] [address] Encounter to discuss breast reconstruction; Pre-op exam Discharge Disposition: Home Social History Tobacco Use Types Packs/Day Years Used Date Smoking Tobacco: Never Smokeless Tobacco: Never Alcohol Use Standard Drinks/Week Comments Not Currently 0 (1 standard drink = 0.6 oz pur e alcohol) Sex and Gender Information Value Date Recorded Sex Assigned at Not on file Gender Identity Not on file Sexual Orientation Not on file documented as of this encounter Medications at Time of Discharge [...] daily 06/26/2009 documented as of this encounter Plan of Treatment Upcoming Encounters Date Type Department Care Team (Late st Contact Info) Description 11/30/2023 1:40 PM EDT Office Visit Dermatology at [facility] [address] [place] [address] Francisca Chandler MD [facility] DR [address] [place] [address] documented as of this encounter Procedures Procedure Name Priority Date/Time Associated Diagnosis Comments CT ANGIOGRAM ABDOMEN AND PELVIS W CONTRAST Routine 08/23/2020 4:40 PM EDT Encounter to discuss breast reconstruction Pre-op exam documented in this encounter Results * CT Angiogram Abdomen [...] the right of the umbilicus. Medial branch landscape manager penetrates the fascia 0.8 cm cranial and 4.1 cm to the right of the umbilicus. Lateral branch landscape manager penetrates the fascia 2.3 cm cranial [...] rise to medial and lateral perforators. Medial landscape manager of the medial branch penetrates the fascia 4.9 cm cranial and 2.9 cm to the left of the umbilicus. Lateral landscape manager of the medial branch penetrates the [...] who have questions please contact the health rn palliative care that requested your imaging first. ? --------ORIGINAL REPORT -------- EXAMINATION: CT ANGIOGRAM ABDOMEN [...] who have questions please contact the health rn palliative care that requested your imaging first. ? Impressions 08/24/2020 3:06 PM EDT Normal study Thank you for letting us participate in the care of this patient. ??If you are a health care provider and have any questions regarding this report, please contact the number below. ??For patients who have questions please contact the health rn palliative care that requested your imaging first. ? Narrative [...] reviewed and 3-D images were generated on anindependent workstation. COMPARISON: None FINDINGS: VASCULAR FINDINGS Abdominal [...] patients who have questions please contactthe health rn palliative care that requested your imaging first. Brady Freedman MD IMG CT ORDERABLES documented in this encounter Visit Diagnoses Diagnosis Encounter to discuss breast reconstruction Other specified counseling Pre-op exam Preoperative examination, unspecified documented in this encounter Administered Medications Inactive Administered Medications - up to 3 most recent administrations Medication Order MAR Action Action Date Dose Rate Site iohexoL (Omnipaque) (350 mg/mL) injection solution 0-200 mL 0-200 mL, Intravenous, ONCE PRN, 1 dose, Starting on Wed08/23/20 at 1617, Until Wed08/23/20 at 1617, Per Protocol, Warning Vesicant/Irritant Medication , Radiology Contrast, Routine Given 08/23/2020 4:17 PM EDT 110 mLs documented in this encounter Care Teams Relay Repairer Relationship Specialty Start Date End Date Anisha Neal MD PCP - General Family Medicine 07/10/20 06/28/22 documented as of this encounter
--- OUTSIDE RECORDS SUMMARY | 2023-11-12 00:40 | XMS_ITS | Encounter Summary ---
Author Organization [facility] Address [address] [place] [address] Care Team Providers Care Rope Coiling Machine Operator Name Role Phone None, Provider Primary Care Provider Unavailabl e Encounter Details Date Type Department Care Team (Late st Contact Info) Description 06/03/2020 Lab Requisition [facility] Pathology & Laboratory Medicine - [facility] [address] [place] [address] Nathan Wise MD [address] [place] [phone] Encounter for screening for malignant neoplasm of colon; Epigastric pain; Family history of malignant neoplasm of digestive organs; Irritable bowel syndrome with constipation Social History Tobacco Use Types Packs/Day Years Used Date Smoking Tobacco: Never Assessed Sex and Gender Information Value Date Recorded Sex Assigned at Not on file Gender Identity Not on file Sexual Orientation Not on file documented as of this encounter Plan of Treatment Not on file documented as of this encounter Procedures Procedure Name Priority Date/Time Associated Diagnosis Comments SURGICAL PATHOLOGY Today 06/03/2020 11 :53 EST Encounter for screening for malignant neoplasm of colon Epigastric pain Family history of malignant neoplasm of digestive organs Irritable bowel syndrome with constipation documented in this encounter Results * SURGICAL PATHOLOGY (06/03/2020 11:53 EST) Final Diagnosis A. COLON, RANDOM, BIOPSY: - Colonic mucosa with no significant diagnostic abnormalities. 06/04/2020 15:16 EST [facility] Attestation By the signature below, the attending physician certifies that they have 1) personally conducted a gross and/or microscopic examination of the described specimen(s), and/or personally interpreted the results of laboratory testing of the described specimen(s), and 2) personally rendered or confirmed the above diagnosis. 06/04/2020 15:16 [facility] at 1516 Clinical History Normal colon; clinical diagnosis code: Z12.11, K58.1, R10.13, Z80.0 06/04/2020 15:16 [facility] Gross Description A. Received in formalin labelled with proper patient identification (initials G, D) and random colon Bx are 4 whitaker-brown tissues (0.1 x 0.1 x 0.1 cm to 0.5 x 0.2 x 0.1 cm). Entirely submitted in A1. Please note the smallest tissue may not survive processing. ALFRED GOMEZ(ASCP) 06/04/2020 8:09 06/04/2020 15:16 [facility] Performing Lab [facility] 06/04/2020 15:16 [facility] Scanned Images 06/04/2020 15:16 [facility] Tissue ENTIRE COLON / Unknown 06/03/2020 11:53 EST 06/03/2020 22:19 EST Nathan Wise MD PATHOLOGY ORD ERABLES [facility] [address] [place] [phone] documented in this encounter Visit Diagnoses Diagnosis Encounter for screening for malignant neoplasm of colon Special screening for malignant neoplasms, colon Epigastric pain Abdominal pain, epigastric Family history of malignant neoplasm of digestive organs Irritable bowel syndrome with constipation Irritable bowel syndrome documented in this encounter Care Teams Rope Coiling Machine Operator Relationship Specialty Start Date End Date None, Provider PCP - General 06/03/20 documented as of this encounter
--- OUTSIDE RECORDS SUMMARY | 2023-11-12 00:40 | XMS_ITS | Encounter Summary ---
Author Organization [facility] [place] [address] Care Team Providers Care Black Top Spreader Machine Operator Name Role Phone Anisha Neal MD Primary Care Provider [phone] Encounter Details Date Type Department Care Team (Late st Contact Info) Description 07/16/2020 [place] [address] Brady Freedman MD [facility] [place] [address] Social History Tobacco Use Types Packs/Day Years [...] 1:40 PM EDT Office Visit Dermatology at [place] [address] [place] [address] Francisca Chandler MD [facility] [place] [address] documented as of this encounter Visit Diagnoses Not on filedocumented in this encounter Care Teams Black Top Spreader Machine Operator Relationship Specialty Start Date End Date Anisha Neal MD PCP - General Family Medicine 07/10/20 06/28/22 documented as of this encounter
--- OUTSIDE RECORDS SUMMARY | 2023-11-12 00:40 | XMS_ITS | Clinical Summary ---
Author Organization [facility] Address [address] [place] [address] Care Team Providers Care Air Valve Mechanic Name Role Phone None, Provider Primary Care Provider Unavailabl e Social History Tobacco Use Types Packs/Day Years Used Date Smoking Tobacco: Never Assessed Sex and Gender Information Value Date Recorded Sex Assigned at Not on file Gender Identity Not on file Sexual Orientation Not on file Plan of Treatment Health Maintenance Due Date Last Done Comments Hepatitis C Screen 1984 Hepatitis B Vaccine (1 of 3 - 19+ 3-dose series) 03/16 COVID-19 Vaccine ( season) 2022 Care Teams Air Valve Mechanic Relationship Specialty Start Date End Date None, Provider PCP - General 06/03/20
--- OUTSIDE RECORDS SUMMARY | 2023-11-12 00:40 | XMS_ITS | Encounter Summary ---
Author Organization [facility] Address [facility] [place] [address] Care Team Providers Care Liquid Natural Gas Plant Operator Name Role Phone Harriett Goldsmith APRN Primary Care Provid er Reason for Visit * Reason Comments Genetic Evaluation * Consultation (Routine) - Specialty Diagnoses / Procedures Referred By Jonny perez Referred To Contact Hematology and Oncology Diagnoses FATHER HAD PANCREATIC CANCER AND WAS GENE TESTED Sloan Hurd MD [address] [address] [place] [address] St Hem Onc Office [address] [place] [phone] Referral ID Status Reason Start Date Expiration Date V isits Requested Visits Authorized [id number] Consult, Test & Treat Connection Center PCP Updated and/or Approved 11/21/2019 11/20/2020 10 10 Encounter Details Date Type Department Care Team (Latest Contact Info) Description 03/07/2020 2:00 PM EST TH Visit (TeleHealth) [place] [address] Susi Mooney, [facility] HEMATOLOGY/[place] [address] FHx: BRCA2 gene positive; Family history of pancreatic cancer Social History Tobacco Use Types Packs/Day Years Used Date Smoking Tobacco: Never Alcohol Use Standard Drinks/Week Comments Not Asked 0 (1 standard drink = 0.6 oz pur e alcohol) Sex and Gender Information Value Date Recorded Sex Assigned at Not on file Gender Identity Not on file Sexual Orientation Not on file documented as of this encounter Progress Notes * Susi Mooney LGC - 03/07/2020 2:00 PM EST Tori Escobar was seen by HELEN Johnson in consultation at the request of Sloan Hurd to advise regarding possible heritable predisposition to cancer. I spent 30 minutes of this telehealth face to face video encounter with the patient gathering medical and family history and discussing the likelihood of a genetic predisposition to cancer and the option of genetic testing. Reason for referral/Chief complaint Family history of pancreatic cancers and BRCA2 mutation Medical history Cancer hx and treatment: no personal history of cancer. Has been having stomach issues and has a CTscan scheduled for next week. Current cancer screening: Had a mammogram in her 20's when she felt a lump in her armpit. This study was normal. Has not had any subsequent mammograms. Family History Problem Relation Age of Onset ??? Pancreatic Cancer Father 57 BRCA2 mutation ??? Pancreatic Cancer Paternal Aunt 43 ??? Prostate Cancer Paternal Grandfather Maternal ethnic background is not known. Paternal ethnic background is Urdu, , Moroccan, Guamanian. Genetic risk assessment Based on the known BRCA2 mutation in Tori's father, Tori has a 50% chance of also being a carrier. Genetic testing for the known c.7988A>T mutation is recommended. I was able to review the report from Tori's father's testing in 2018. He was tested with [employer]'s multi-Cancer and pancreatic cancer panels. In addition to the BRCA2 pathogenic mutation, he was also found to have variants of uncertain significance (VUS) in his CDH1 and RECQL4 genes. No other changes were detected in the other 80 genes analyzed. We briefly reviewed that mutations in the BRCA2 gene lead to an increased risk for breast, ovarian and prostate cancer, melanoma and in some families for pancreatic cancer. I was able to confirm that the specific variants found CDH1 c.2644G>A and RECQL4 c.971C>T arestill considered to be VUS. Tori would like to be tested for these as well so that if a reclassification is made she will be informed. She is aware that most VUS are eventually reclassified as benign variants. We discussed the Genetic Information Nondiscrimination Act (ARIS), a federal law prohibiting discrimination by health insurance companies and employers based on genetic information. ARIS does not apply to life insurance, disability insurance or long-term care insurance. More information about ARIS may be found at www.GinaHelp.org. We also discussed the option of broader panel testing although there is no indication of an increased risk for other cancer predispositions based on the family history. To avoid incidental findings, findings with limited knowledge, and to limit uncertain results, Tori opted for testing for the only the BRCA2 mutation and the variants of uncertain significance found in her father. Her blood sample was drawn and sent to [employer] [facility] [employer]. Testing will take up to 3 weeks. Tori will be contacted via telephone once her test results become available. If positive, we will offer a follow-up appointment. At that time, we will discuss withTori the implications that this test result may have for her, as well as her family members. We will also provide Tori with screening guidelines for cancer prevention and early detection, as well as answer any questions she may have. documented in this encounter Plan of Treatment Upcoming Encounters Date Type Department Care Team (Late st Contact Info) Description 11/30/2023 1:40 PM EDT Office Visit Dermatology at [facility] [address] [place] [address] Francisca Chandler MD [facility] [address] [place] [address] documented as of this encounter Visit Diagnoses Diagnosis FHx: BRCA2 gene positive Family history of genetic disease carrier Family history of pancreatic cancer Family history of malignant neoplasm of gastrointestinal tract documented in this encounter Care Teams Liquid Natural Gas Plant Operator Relationship Specialty Start Date End Date Harriett Goldsmith APRN [address] [place] [id number] PCP - General Family Medicine 11/23/19 07/09/20 documented as of this encounter
--- OUTSIDE RECORDS SUMMARY | 2023-11-12 00:40 | XMS_ITS | Encounter Summary ---
Author Organization [facility] Address [address] [place] [address] Care Team Providers Care Instrument And Control Technician Name Role Phone Unavailable Primary Care Provider Unavailabl e Encounter Details Date Type Department Care Team (Late st Contact Info) Description 07/21/[address] [facility] ([facility]) [address] [place], [place] [phone] Fawad Siddiqui MD [address] [place], [place] [phone] Social History Tobacco Use Types Packs/Day Years Used Date Smoking Tobacco: Never Assessed Sex and Gender Information Value Date Recorded Sex Assigned at Not on file Gender Identity Not on file Sexual Orientation Not on file documented as of this encounter Plan of Treatment Not on file documented as of this encounter Procedures Procedure Name Priority Date/Time Associated Diagnosis Comments SURGICAL PATHOLOGY Routine 07/21/2011 0:00 EDT documented in this encounter Results * SURGICAL PATHOLOGY (07/21/2011 0:00 EDT) Pathology Report: SURGICAL PATHOLOGY REPORT Reports generated via electronic interface contain original data; however they are lacking the format of the original report. Caution should be taken when reading/interpreti ng unformatted reports. Name: ? TORI ESCOBAR ? Accession #: ? [id number] ? : ? 1985 (Age: 26) ??F ? Collect Date: ? 07/21/2011 ? Location: ? [facility] ? Receive Date: ? 07/21/2011 ? Provider: FAWAD SIDDIQUI MD Copy to: ? Final Pathologic Diagnosis: A. ?Duodenum, 2nd portion, biopsy: 1. ?No specific pathologic features. B. ?Stomach, antrum, biopsy: 1. ?Gastric antral mucosa with mild chronic inflammation. C. ?Gastroesophageal junction, biopsy: ? 1. ?? Gastric antral-type mucosa with mild chronic inflammation. Document reviewed and electronically signed by: SADA CASTANO MD Report ??Date: 07/23/2011 16:34 By the signature above, the attending physician certifies that he/she has personally conducted a gross and/or microscopic examination of the described specimens and rendered or confirmed the above diagnosis. Specimen(s) Received: A. ?2nd portion B. ? Antrum C. ? EG junction Clinical History: ? Epigastric pain; clinical diagnosis code: 789.07 Gross Description: ? Received in formalin labelled Tori Escobar and 2nd portion is a light whitaker biopsy measuring 0.4 x 0.3 x 0.1 cm. ??The specimen is submitted intact as (A). Received in formalin labelled Tori Escobar and antrum is a 0.4 x 0.2 x 0.1 cm, light whitaker biopsy. ??The specimen is submitted intact as (B). Received in formalin labelled Tori Escobar and EG junction is a 0.6 x 0.1 x 0.1 cm, whitaker-brown biopsy. ??The specimen is submitted intact as (C). ??(Patrick Novak)/kassandra ?? End of Report [facility] 07/21/2011 07/21/2011 16: 43 EDT Fawad Siddiqui MD PATHOLOGY ORDERABLE S Performing Organization Address City/State/[facility] Co de Phone Number [facility] [address] [place] [address] documented in this encounter Visit Diagnoses Not on filedocumented in this encounter
--- OUTSIDE RECORDS SUMMARY | 2023-11-12 00:40 | XMS_ITS | Encounter Summary ---
Author Organization [facility] [place] [address] Care Team Providers Care Manufacturing Controller Name Role Phone Harriett Goldsmith APRN Primary Care Provid er Reason for Referral * Consultation (Urgent) - Closed Specialty Diagnoses / Procedures Referred By Contac t Referred To Contact Hematology and Oncology Diagnoses clotting Haley Wheeler MD [facility] [place] [address] [facility] Hem Onc [address] [place] [address] Referral ID Status Reason Start Date Expiration Date V isits Requested Visits Authorized [id number] Closed Consult, Test & Treat 07/08/2020 07/08/2021 1 1 Encounter Details Date Type Department Care Team (Latest Contact Info) Description 07/02/2020 4:15 PM EDT TH Visit (TeleHealth) [place] [address] Haley Wheeler MD [facility] [place] [address] BRCA2 gene mutation positive; Encounter to discuss breast reconstruction Social History Tobacco Use Types Packs/Day Years Used Date Smoking Tobacco: Never Smokeless Tobacco: Never Alcohol Use Standard Drinks/Week Comments Not Currently 0 (1 standard drink = 0.6 oz pur e alcohol) Sex and Gender Information Value Date Recorded Sex Assigned at Not on file Gender Identity Not on file Sexual Orientation Not on file documented as of this encounter Progress Notes * Haley Wheeler MD - 07/02/2020 4:15 PM EDT Plastic Surgery Telehealth Follow-up Note Haley Wheeler MD. PCP: Harriett Goldsmith APRN Requesting surgeon: Bhavna Mckeon APRN. CC: To discuss breast reconstruction HPI: Tori Escobar presents via telehealth today to finalize surgical planning. She is unaccompanied for today's visit. She reports that she is doing well. She has had a chance to think about things and is still torn whether she wants to proceed with implants or a NOE flap. She states that Dr. Miguel connected her with a couple of patients who previously had breast reconstruction surgery. She states that she spoke to two patients, one who had implant based reconstruction and another who had a NOE flap, however, both of the patients did not have surgery with Dr. Wheeler which was not very helpful to her. Examination: There were no vitals taken for this visit. General: On my examination today, Ms. Tori Escobar appears to be in good health. Her emotional outlook is positive and she asked appropriate questions throughout the visit. B-C cup breasts with Grade II ptosis bilaterally. Widened areola borders at approximately 6 cm bilaterally. Striae bilaterally extending onto the mid chest. No obvious masses in either breast or axilla. No nipple retraction or discharge. Patient has a Grade I-II abdominal pannus with enough soft tissue to construct breasts of a similarsize. Abdominal striae with extend to costal margins bilaterally. Slight bulging at base of umbilicus but no obvious hernia. Well-healed laparoscopic port incisions. Well healed pfannenstiel incision from prior . Patient has absence of sensation below the umbilical remnant. Exam not changed since last visit. Anatomic Breast Measurements: Right Left Ptosis Grade II Grade II Notch-nipple (cm) 25 cm 24 cm IMF to nipple (cm) 8 cm 8 cm Base Diameter (cm) 13 cm 13 cm Impression: Tori Escobar is a 35 y.o. patient who is BRCA positive and opting to pursue prophylactic mastectomies and reconstruction. She presents today via telehealth to finalize surgical planning. I informed the patient that she is a good candidate for either position and we discussed the pro's and con's of both approaches. After re-discussing the options in depth, she would like to proceed with NOE reconstruction. We re-discussed potential risks and complications which include but are not limited to: pain, bleeding, infection, scarring, asymmetry, hematoma, seroma, wound healing problems, poor cosmetic outcome, failure of procedure, change in sensation, possible DVT or PE, possible need for revision, damage to adjacent structures. Following this procedure she will need to anticipate a 3-4 day stay in the hospital, where she will be monitored in the ICU. Risks of a autologous reconstruction were re-explained in detail, that includes possible flap loss, in the instance that aclot is to form in the flap vessels there is possibility to correct this but may not be successful.Drains will be placed at the breasts and abdomen for 2-3 weeks or until meeting criteria for removal. Restrictions will be in place for 6-8 weeks that includes no vigorous exercise, no heavy lifting,no pushing, pulling, lifting more than 5 pounds, no chest engaging activities, moderate walking is e ncouraged. Tori is understanding of this plan and would like to move forward with coordinated surgery. Plan: Proceed with scheduled surgery on 07/24/2020. Surgical Grid: Surgeon: Jasmina Duration: 8-10 hours Timeframe: Coordinated Anticipate 3-5 overnight admission, including ICU stay Coordinated with: Dr. Miguel Procedure: Bilateral NOE flap, possible muscle sparing TRAM flap, possible FNG, possible partial rib resection, possible placement of mesh. CPT: NOE: 92398, 79181 Rib resection: 45082 FNG 89802 Mesh placement: 29720, 80568, 13287 Surgical site: Breast Side: Bilateral Anesthesia: General Follow up: 2 weeks after discharge with AEE Pre-auth needed for 2 weeks of post-op Lovenox PAT: Lab panel for blood clotting Covid Testing: Yes I, Marisol Gleason, have performed the documentation for this encounter in the presence of and acting as a scribe for HALEY WHEELER MD. I performed the services which were documented by the scribe, and I agree with the accuracy of the documentation in this encounter. HALEY WHEELER MD. DOCUMENTATION FOR TELEMEDICINE FOLLOW-UP This patient is under my care. I had a face to face encounter that meets the physician face to faceencounter requirements with this patient today, I performed the services in this encounter. HALEY PENNINGTON MD documented in this encounter Plan of Treatment Upcoming Encounters Date Type Department Care Team (Late st Contact Info) Description 11/30/2023 1:40 PM EDT Office Visit Dermatology at [address] [phone] Francisca Chandler MD [facility] [address] [place] [address] Scheduled Referrals Name Type Priority Associated Diagnoses Order Schedule Referral to Hematology and Oncology Outpatient Referral Routine BRCA2 gene mutation positive Ordered: 07/08/2020 documented as of this encounter Visit Diagnoses Diagnosis BRCA2 gene mutation positive Encounter to discuss breast reconstruction Other specified counseling documented in this encounter Care Teams Manufacturing Controller Relationship Specialty Start Date End Date Harriett Goldsmith APRN [address] [facility] [address] [place] [address] PCP - General Family Medicine 11/23/19 07/09/20 documented as of this encounter
--- OUTSIDE RECORDS SUMMARY | 2023-11-12 00:40 | XMS_ITS | Encounter Summary ---
Author Organization [facility] Address [address] [place] [address] Care Team Providers Care Ballet Dancer Name Role Phone Unavailable Primary Care Provider Unavailabl e Encounter Details Date Type Department Care Team (Late st Contact Info) Description 09/18/2009 Results Only [facility] ([facility]) [address], [place] [phone] Sloan Houston MD [address] [place] [address] Social History Tobacco Use Types Packs/Day Years Used Date Smoking Tobacco: Never Assessed Sex and Gender Information Value Date Recorded Sex Assigned at Not on file Gender Identity Not on file Sexual Orientation Not on file documented as of this encounter Plan of Treatment Not on file documented as of this encounter Procedures Procedure Name Priority Date/Time Associated Diagnosis Comments CYTOPATHOLOGY Routine 09/18/2009 0:00 EDT documented in this encounter Results * CYTOPATHOLOGY (09/18/2009 0:00 EDT) Pathology Report: CYTOPATHOLOGY REPORT ? Reports generated via electronic interface contain original data; ? however they are lacking the format of the original report. ? Caution should be taken when reading/interpreti ng unformatted reports. ? Name: ? TORI ESCOBAR ? Accession #: ? [id number] ? : ? 1985 (Age: 24) ??F ?Collect Date: ? 09/18/2009 ? Location: ? [facility] ? Receive Date: ? 09/20/2009 ? Provider: ?SLOAN HOUSTON MD ? Copy to: ? Specimen/Source: ?Pap Test, Cervix/Endocervix, ThinPrep Imaging System ? with manual evaluation ? Last Menstrual Period: ? 3/17/10 ? Menstrual/Pregnanc y Status: ? Other: ? HPVA - HPV testing requested if ASC-US on the current ThinPrep Pap test. ? SPECIMEN ADEQUACY ? Satisfactory for Evaluation ? - transformation zone component present ? GENERAL CATEGORIZATION ? Negative for Intraepithelial Lesion or Malignancy ? Document reviewed and electronically signed by: ? Caren Quintero, CT(ASCP)(IAC) ? Report Date: ??09/24/2009 16:08 ? End of Report ? [facility] 09/18/2009 09/20/2009 Sloan Houston MD PATHOLOGY ORDERABLES [facility] [address] [place] [address] documented in this encounter Visit Diagnoses Not on filedocumented in this encounter
--- OUTSIDE RECORDS SUMMARY | 2023-11-12 00:40 | XMS_ITS | Encounter Summary ---
Author Organization [facility] Address [facility] [place] [address] Care Team Providers Care Child Care Cook Name Role Phone SauravtiffanyHarriett barnett APRN Primary Care Provid er Reason for Visit * Reason Onset Date Comments Other 04/18/2020 Encounter Details Date Type Department Care Team (Late st Contact Info) Description 04/18/2020 Telephone Obstetrics [place] [address] Priyanka Brito MD [facility] OBSTETRICS [place] [address] Other Social History Tobacco Use Types Packs/Day Years [...] encounter Miscellaneous Notes * Telephone Encounter - Zora Whyte - 04/18/2020 10:24 AM EST Please sign. Going to local [facility] [place] documented in this encounter Plan of Treatment Upcoming Encounters Date Type Department Care Team (Late st Contact Info) Description 11/30/2023 1:40 PM EDT Office Visit Dermatology at [facility] [address] [place] [address] Francisca Chandler MD [facility] [place] [address] documented as of this encounter Visit Diagnoses Diagnosis BRCA2 positive- Primary Genetic susceptibility to malignant neoplasm of breast documented in this encounter Care Teams Child Care Cook Relationship Specialty Start Date End Date Harriett Goldsmith APRN [address] [facility] [address] [phone] PCP - General Family Medicine 11/23/19 07/09/20 documented as of this encounter
--- OUTSIDE RECORDS SUMMARY | 2023-11-12 00:40 | XMS_ITS | Encounter Summary ---
Author Organization [facility] Address [address] [place] [address] Care Team Providers Care Optical Fabricator Name Role Phone Denzel Mandel MD Primary Care Provider Unavailabl e Encounter Details Date Type Department Care Team (Late st Contact Info) Description 09/18/2011 Results Only [facility] ([facility]) [address] [place], [place] [phone] Fawad Siddiqui MD [address] [place] [phone] Social History Tobacco Use Types Packs/Day Years Used Date Smoking Tobacco: Never Assessed Sex and Gender Information Value Date Recorded Sex Assigned at Not on file Gender Identity Not on file Sexual Orientation Not on file documented as of this encounter Plan of Treatment Not on file documented as of this encounter Procedures Procedure Name Priority Date/Time Associated Diagnosis Comments SURGICAL PATHOLOGY Routine 09/18/2011 0:00 EDT documented in this encounter Results * SURGICAL PATHOLOGY (09/18/2011 0:00 EDT) Pathology Report: SURGICAL PATHOLOGY REPORT Reports generated via electronic interface contain original data; however they are lacking the format of the original report. Caution should be taken when reading/interpreti ng unformatted reports. Name: ? TORI ESCOBAR ? Accession #: ? [id number] ? : ? 1985 (Age: 26) ??F ? Collect Date: ? 09/18/2011 ? Location: ? [facility] ? Receive Date: ? 09/18/2011 ? Provider: FAWAD SIDDIQUI MD Copy to: [employer] FEED MIXER ? Final Pathologic Diagnosis: ? Gallbladder, cholecystectomy: - Mild chronic cholecystitis. Document reviewed and electronically signed by: ANGELIKA HAYES MD Report ??Date: 09/23/2011 10:21 By the signature above, the attending physician certifies that he/she has personally conducted a gross and/or microscopic examination of the described specimens and rendered or confirmed the above diagnosis. Specimen(s) Received: ? Gallbladder Clinical History: ? Biliary dyskinesia; clinical diagnosis code: 575.8 Gross Description: ? Received in formalin labelled Tori Escobar and James ??gallbladder is a clear plastic sleeve containing the product of a cholecystectomy, previously disrupted. ??The external surface is farley-whitaker and shiny. ??The specimen measures 4.8 cm in length by an average diameter of 1.6 cm. ??The cystic duct measures 0.3 cm in length by 0.4 cm in diameter. ??The cystic duct margin is inked black. There is no identified cystic duct lymph node. ??Upon removal of a surgical staple, the cystic duct is probe patent. ??The gallbladder wall is whitaker-pink and measures between 0.1 to 0.2 cm. ??The mucosa is green-whitaker and velvety. ??The gallbladder lumen contains a scant amount of green viscous bile, with no choleliths seen, either in the lumen or in the plastic sleeve. ??Chef'S Assistant sections are submitted in one cassette, including the cystic duct margin, inked black and en face, and two sections of gallbladder wall. ??(Dr. Shepherd)/dione End of Report [facility] 09/18/2011 09/18/2011 15: 20 EDT Fawad Siddiqui MD PATHOLOGY ORDERABLE S Performing Organization Address City/State/[facility] Co de Phone Number [facility] [address] [place] [address] documented in this encounter Visit Diagnoses Not on filedocumented in this encounter Care Teams Optical Fabricator Relationship Specialty Start Date End Date Denzel Mandel MD PCP - General 07/23/11 06/12/14 documented as of this encounter
--- OUTSIDE RECORDS SUMMARY | 2023-11-12 00:40 | XMS_ITS | Encounter Summary ---
Author Organization [facility] [place] [address] Care Team Providers Care Radio Station Engineer Name Role Phone Kristine Daily APRN Primary Care Provider + Encounter Details Date Type Department Care Team (Late st Contact Info) Description 10/08/2010 Abstract [place] [address] Veronika Thomas RN Social History Tobacco Use Types Packs/Day Years [...] 1:40 PM EDT Office Visit Dermatology at [facility] [address] [place] [address] Francisca Chandler MD [facility] DR [address] [place] [address] documented as of this encounter Visit Diagnoses Not on filedocumented in this encounter Care Teams Radio Station Engineer Relationship Specialty Start Date End Date Kristine Daily APRN PCP - General 03/11/10 11/22/19 documented as of this encounter
--- OUTSIDE RECORDS SUMMARY | 2023-11-12 00:40 | XMS_ITS | Encounter Summary ---
Author Organization [facility] Address [facility] [place] [address] Care Team Providers Care Child Care Associate Name Role Phone Harriett Goldsmith APRN Primary Care Provid er Reason for Visit * Consultation (Routine) - Closed Specialty Diagnoses / Procedures Referred By Contac t Referred To Contact Gastroenterology Diagnoses BRCA2 gene mutation positive in female Family history of pancreatic cancer Justin Vela MD [facility] [address] HEMATOLOGY/[place] [address] Danya Diez MD [facility] [place] [address] Referral ID Status Reason Start Date Expiration Date V isits Requested Visits Authorized [id number] Closed Consult, Test & Treat 04/17/2020 04/17/2021 1 1 Encounter Details Date Type Department Care Team (Late st Contact Info) Description 06/19/2020 1:00 PM EST Office Visit [place] [address] Danya Diez MD [facility] [place] [address] BRCA2 gene mutation positive in female; Family history of pancreatic cancer Social History [...] Sign Reading Time Taken Comments Blood Pressure 114/67 06/19/2020 1:00 PM EST Pulse 87 06/19/2020 1:00 PM EST Temperature - - Respiratory Rate - - Oxygen Saturation - - Inhaled Oxygen Concentration - - Weight 81 kg (178 lb 9.6 oz) 06/19/2020 1:00 PM EST Height 157.5 cm (5' 2) 06/19/2020 1:00 PM EST Body Mass Index 32.67 06/19/2020 1:00 PM EST documented in this encounter Progress Notes * Danya Diez MD - 06/19/2020 1:00 PM EST [facility] Ms. Tori Escobar is a 35 y.o. female who presents to the [facility] for consultation at the request of Dr. Justin Vela to discuss recent genetictesting that was positive for BRCA2 mutation. Here PCP was Harriett Goldsmith APRN but she hasleft the practice and the patient with transition to another provider in the same office. Patient Active Problem List Diagnosis Code ??? Hiatal hernia K44.9 ??? Abdominal pain R10.9 ??? BRCA2 gene mutation positive Z15.01, Z15.09 ??? Family history of BRCA2 gene positive Z84.81 ??? Family history of pancreatic cancer Z80.0 HISTORY OF PRESENT ILLNESS Tori was originally referred by lumber loader for genetic testing based on FH of pancreatic cancer. [employer]'s??BRCA2??analysis showed that??Tori??carries??the??pathogenic variant (mutation) in BRCA2, s pecifically??[id number] ([id number]). Her family history is notable for: Father diagnosed with pancreatic cancer age 57, age 58. Paternal aunt of pancreatic cancer age 45. Paternal uncles (3): two negative for BRCA2, 1 lost contact Paternal grandfather with prostate cancer, living. One sister, age 31. She has 4 children, age 16, 12, 10, and 6. Since receiving her diagnosis of BRCA2 mutation, she has been seen by sales clerk onc for screening and maymeet sooner to discuss prophylactic surgery. She has also met with breast oncology and plastic surgery for planning of prophylactic double mastecomtecy. Has had transvaginal US. She has had stomach issues most of her life. Previously would concepcion between constipation and diarrhea without a happy medium. Now, has mostly constipation and only diarrhea when anxious. Also epigastric pain. Had two episodes of intense abdominal pain for which she went to urgent care without any specific diagnosis. Colonoscopy 05/20/2020 due to change in bowel caliber (appeared square) - eliazar Had been seen by May Reilly for functional dyspepsia (FD) and IBS many years ago. FD used to beworse with caffeine, dairy, greasy foods. Now most foods can intermittently cause dyspepsia. S/p cholecystectomy due to chronic inflammation, symptoms did not change after. Passes a BM every few weeks. Sees Dr. Hi (GI) in [place]. She is currently on a trial of Miralax awaiting PA for Flori. Medication trials Antacids - no help Omprazole, Prilosec - helped a bit Stool softeners Miralax - no help Linzess - worked the best, felt the best, relieved epigastric pain Testing EGD x 2- can't remember date, thinks they were fine Colonoscopy 05/20/2020 due to change in bowel caliber (appeared square) - eliazar CT scan 2019 - ok Abdominal US - ok REVIEW OF SYSTEMS Notable for the gastrointestinal symptoms as described above. There has been no anorexia, fever, orunintended weight change; no red or painful eyes; no oral ulcers, chronic oral lesions, or chronic sore throat. There is no cough, shortness of breath, palpitations, or chest pain. There is no dysuria, urinary incontinence. No chronic joint pains or history of inflammatory arthritis. There is no recent skin rash. The patient denies psychiatric problems. There are no neurologic symptoms or easy bruising or bleeding. +lots of pancreatic cancer worry, worry about and dying since she was young PAST MEDICAL HISTORY: History reviewed. No pertinent past medical history. PAST SURGICAL HISTORY: Past Surgical History: Procedure Laterality Date ??? SECTION x 4 ??? CHOLECYSTECTOMY MEDICATIONS: Current Outpatient Medications Medication Sig Dispense Refill ??? levonorgestreL (MIRENA) 20 mcg/24 hours (6 yrs) 52 mg IUD 1 each by Intrauterine route Continuous (Device). . ??? linaclotide (Linzess) 145 mcg Capsule Take 145 mcg by mouth daily. ??? polyethylene glycol (MIRALAX) 17 gram packet 17 GRAM = 1 Packet(s), PO, Once daily (Patient nottaking: No sig reported) No current facility-administered medications for this visit. ALLERGIES/ADR Allergies Allergen Reactions ??? Penicillins Rash ??? Phenergan [Promethazine] ??? 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 Recently re-. Social History Tobacco Use ??? Smoking status: Never Smoker ??? Smokeless tobacco: Never Used Substance Use Topics ??? Alcohol use: Not Currently FAMILY HISTORY: family history includes Pancreatic Cancer (age of onset: 43) in her paternal aunt; Pancreatic Cancer (age of onset: 57) in her father; Prostate Cancer in her paternal grandfather. There is no family history of inflammatory bowel disease, celiac disease, or colorectal cancer. There is no history of liver disease. PHYSICAL EXAMINATION: Patient Vitals for the past 24 hrs: Pulse BP 06/19/20 1300 87 114/67 Wt Readings from Last 3 Encounters: 06/19/20 81 kg (178 lb 9.6 oz) 06/19/20 81 kg (178 lb 9.6 oz) 04/18/20 79 kg (174 lb 2.6 oz) Body mass index is 32.67 kg/m??. GEN: Healthy-appearing in no acute distress. Appears stated age. Cooperate and answers questions appropriately. Intermittently tearful and crying. SKIN: No rashes or abnormal lesions. NECK: No adenopathy and no thyromegaly. HEENT: PERRL, EOMI, CARD LACER and OP clear without ulceration or lesions. LUNGS: Clear to auscultation bilaterally. COR: Regular, normal S1 and S2 without murmurs ABD: Normal active bowel sounds. Soft and non-distended. No tenderness to deep palpation in all 4 quadrants. No organomegaly. EXT: No cyanosis, clubbing or edema. PSYCH: Appropriately anxious, good eye contact, normal interaction ADDITIONAL TESTING: Reviewed available labs, imaging and endoscopy results in [facility] as well as Scan Docs tab. IMPRESSION: Tori is a 35 y.o. female with no personal cancer history and 1 FDR and 1 SDR w/pancreatitic cancer and newly diagnosed BRCA2 mutation consistent with hereditary breast ovarian syndrome who I am seeing regarding pancreatic cancer screening. The lifetime risk of pancreatic cancer with BRCA2 mutation is estimated to be about 5-fold that over the population risk (5-6% absolute lifetime risk) and whether this risk increases dramatically by # of family members with pancreatic cancer is not well defined. We discussed that pancreatic cancer is rare and even with her potential elevated risk with her genetic mutation, her risk of pacnreatic cancer is still very low. We discussed that several modalities for pancreatic cancer have been studied with EUS and MRI having the highest sensitivity (84%) and specificity (97%). We also discussed lack of data supporting any screening approach in terms of frequency of intervals and data on changing clinical outcomes due to short preclinical window for pancreatic cancer as well as the CAPS screening protocol. I recommend EUS for screening now as well as yearly glucose testing to look for insulin resistance as an early sign of pancreatic malignancy. If thereis elevated glucose, this would prompt more immediate direct pancreatic visualization with EUS at that time. We discussed alternating yearly EUS and MRI. Patient is very anxious and would like more frequent screening every 6 months. I am happy to review results of EUS and order MRI for sometime later this year. After that, I would recommend spacing testing out to every 12 months or so based on current available guidance. Tori also indicated she would like to follow-up with me for management of her FD and IBS-C, which I am happy to do. RECOMMENDATIONS: 1. I would like you to come back for an endoscopic ultrasound to evaluate your pancreas. I have putin an order for this. 2. I will make recommendations to your primary care provider regarding future screening including the following: A) Yearly fasting blood glucose B) MRI pancreas within 1 year after EUS. C) Repeat EUS 1 year after MRI. D) Alternative MRI/EUS thereafter. 3. Low threshold for testing if non-specific GI symptoms develop outside of baseline FD and IBS-C, though may be difficult to decipher. Certainly new back pain or unexplained weight loss would be reasons for sooner testing. 4. Continue to avoid tobacco, excessive alcohol and maintain a healthy weight. 5. Return to see me in 6 months to discuss management of FD, IBS-C and plan next steps for panc cancer screening. If patient remains under my care for her other GI issues, I am happy to order her panc cancer screening tests. The patient was given my contact information and will call me with concerns or questions. Thank youvery much for allowing us to participate in Tori's care. We went 55 minutes of this 60 minutes visit in counseling around risks of pancreatic cancer and options for screening as well as limitations of available evidence. Danya Diez MD, MS Director, [facility] international broadcast music librarian Section of Gastroenterology [place] [address] documented in this encounter Plan of Treatment Upcoming Encounters Date Type Department Care Team (Late st Contact Info) Description 11/30/2023 1:40 PM EDT Office Visit Dermatology at [facility] [address] [place] [address] Francisca Chandler MD [facility] [address] [place] [address] Scheduled Orders Name Type Priority Associated Diagnoses Orde r Schedule ENDOSCOPY CASE REQUEST: UPPER EUS- ENDOSCOPIC ULTRASOUND Procedures Routine BRCA2 gene mutation positive in female Family history of pancreatic cancer Ordered: 06/19/2020 documented as of this encounter Visit Diagnoses Diagnosis BRCA2 gene mutation positive in female Family history of pancreatic cancer Family history of malignant neoplasm of gastrointestinal tract documented in this encounter Care Teams Child Care Associate Relationship Specialty Start Date End Date Harriett Goldsmith APRN [address] [facility] [address] [place] [address] PCP - General Family Medicine 11/23/19 07/09/20 documented as of this encounter
--- OUTSIDE RECORDS SUMMARY | 2023-11-12 00:40 | XMS_ITS | Encounter Summary ---
Author Organization [facility] Address [address] [place] [address] Care Team Providers Care Electrical Electronics Engineers Name Role Phone Denzel Mandel MD Primary Care Provider Unavailabl e Encounter Details Date Type Department Care Team (Late st Contact Info) Description 11/17/2011 Results Only [facility] - [facility] [address] [place], [place] [id number] Fawad Siddiqui MD [address] [place] [phone] Social History Tobacco Use Types Packs/Day [...] Date/Time Associated Diagnosis Comments SURGICAL PATHOLOGY Routine 11/17/2011 0:00 EDT documented in this encounter Results * SURGICAL PATHOLOGY (11/17/2011 0:00 EDT) Pathology Report: SURGICAL PATHOLOGY REPORT Reports generated via electronic interface contain original data; however they are lacking the format of the original report. Caution should be taken when reading/interpreti ng unformatted reports. Name: ? TORI ESCOBAR ? Accession #: ? [id number] ? : ? 1985 (Age: 26) ??F ? Collect Date: ? 11/17/2011 ? Location: ? [facility] ? Receive Date: ? 11/18/2011 ? Provider: FAWAD SIDDIQUI MD Copy to: [employer] ? Final Pathologic Diagnosis: A. ?Terminal ileum, biopsy: 1. ?Intestinal mucosa with no specific histopathologic diagnosis. 2. ? No characteristic features of active ileitis, inflammatory bowel disease, or dysplasia. B. ?Colon, hepatic flexure, biopsy: 1. ?Colonic mucosa with no specific histopathologic diagnosis. 2. ? No characteristic features of active colitis, inflammatory bowel disease, lymphocytic colitis, collagenous colitis, or dysplasia. C. ?Colon, splenic flexure, biopsy: 1. ?Colonic mucosa with no specific histopathologic diagnosis. 2. ? No characteristic features of active colitis, inflammatory bowel disease, lymphocytic colitis, collagenous colitis, or dysplasia. Document reviewed and electronically signed by: Gabo Ritter MD Report ??Date: 11/20/2011 15:36 By the signature above, the attending physician certifies that he/she has personally conducted a gross and/or microscopic examination of the described specimens and rendered or confirmed the above diagnosis. Specimen(s) Received: A. ?Terminal ileum B. ? Hepatic flexure C. ? Splenic flexure Clinical History: ? Change in bowels; clinical diagnosis code: ??787.99 Gross Description: ? Received in formalin labelled Tori Escobar and A ??terminal ileum is a light whitaker biopsy measuring 0.7 x 0.2 x 0.1 cm. ??The specimen is submitted intact as (A). ?? Received in formalin labelled Walsh, Tori and B ??hepatic flexure is a light whitaker biopsy measuring 0.2 x 0.2 x 0.1 cm. ??The specimen is entirely submitted as (B). Received in formalin labelled Walsh, Tori and C ??splenic flexure is a whitaker-white cylindrical biopsy measuring 0.6 x 0.1 x 0.1 cm. ??The specimen is entirely submitted as (C). ??(Lauren Novak)/mpl End of Report ROSIO FORTE 11/17/2011 11/18/2011 16: 18 EDT Fawad Siddiqui MD PATHOLOGY ORDERABLE S ROSIO FORTE [address] [place] [address] documented in this encounter Visit Diagnoses Not on filedocumented in this encounter Care Teams Electrical Electronics Engineers Relationship Specialty Start Date End Date Denzel Mandel MD PCP - General 07/23/11 06/12/14 documented as of this encounter
--- OUTSIDE RECORDS SUMMARY | 2023-11-12 00:40 | XMS_ITS | Encounter Summary ---
Author Organization [facility] [place] [address] Care Team Providers Care Chain Person Name Role Phone Anisha Neal MD Primary Care Provider [phone] Reason for Referral * Consultation (Routine) - Duplicate Referral Specialty Diagnoses / Procedures Referred By Contac t Referred To Contact Hematology and Oncology Diagnoses Family history of clotting disorder Brady Freedman MD [facility] [place] [address] [facility] On[facility] [address] [place] [address] Referral ID Status Reason Start Date Expiration Date Visits Requested Visits Authorized [id number] Duplicate Referral Consult, Test & Treat 07/18/2020 07/18/2021 1 1 Encounter Details Date Type Department Care Team (Late st Contact Info) Description 07/18/2020 Orders [place] [phone] Brady Freedman MD [facility] [place] [address] Pre-op testing; Blood clotting disorder; Family history of clotting disorder Social History Tobacco Use Types Packs/Day Years [...] 1:40 PM EDT Office Visit Dermatology at [facility] [address] [place] [address] Francisca Chandler MD [facility] [address] [place] [address] Scheduled Referrals Name Type Priority Associated Diagnoses Order Schedule Referral to Hematology and Oncology Outpatient Referral Routine Family history of clotting disorder Ordered: 07/18/2020 documented as of this encounter Visit Diagnoses Diagnosis Pre-op testing Preoperative examination, unspecified Blood clotting disorder Other and unspecified coagulation defects Family history of clotting disorder Family history of other blood disorders documented in this encounter Care Teams Chain Person Relationship Specialty Start Date End Date Anisha Neal MD PCP - General Family Medicine 07/10/20 06/28/22 documented as of this encounter
--- OUTSIDE RECORDS SUMMARY | 2023-11-12 00:40 | XMS_ITS | Encounter Summary ---
Author Organization [facility] Address [facility] Janiya [facility] [place] [address] Care Team Providers Care Elephant Tamer Name Role Phone Harriett Goldsmith APRN Primary Care Provid er Reason for Visit * Consultation (Routine) - Closed Specialty Diagnoses / Procedures Referred By Contac t Referred To Contact Hematology and Oncology Diagnoses BRCA2 gene mutation positive Family history of BRCA2 gene positive Bhavna Mckeon APRN [facility] [place] [address] Aminta Miguel MD [facility] [place] [address] Referral ID Status Reason Start Date Expiration Date V isits Requested Visits Authorized [id number] Closed Consult, Test & Treat 05/21/2020 05/21/2021 1 1 Encounter Details Date Type Department Care Team (Latest Contact Info) Description 06/26/2020 3:45 PM EST TH Visit (TeleHealth) [place] [address] Aminta Miguel MD [facility] [address] [facility] [place] [phone] At high risk for breast cancer Social History Tobacco Use Types Packs/Day [...] as of this encounter Progress Notes * Aminta Miguel MD - 06/26/2020 3:45 PM EST Patient ID: [email or web address] Escobar is a 35 y.o. female who is seen at the request of Rafael Vela MD to discuss possible prophylactic mastectomy in the setting of known high risk for breast cancer development. She is seen today via videotelehealth. Her and mother accompany her. ?? HPI: Tori underwent genetic testing after her father was diagnosed with pancreatic cancer and was found to have a brca mutation. This prompted Tori to test and her genetics confirmed a BRCA2 mutation. ?? Desree denies any skin changes, new breast masses, breast trauma, or prior breast surgery. No nipple discharge or pain in either breast. ??She denies any headaches or significant weight changes. ??Nonew chest pain or difficulty breathing. ??No new bony pain or tenderness.?? She has no new or concerning complaints of fatigue, cardiovascular, or respiratory symptoms. All other ROS are negative. She is struggling with the BRCA 2 diagnosis as she did not expect it. She has resigned herself to prophylactic mastectomy as she would like to reduce her risk of cancer development as much as possible ?? Breast Cancer Risk Factors: History Age at delivery of first child 19 yo Breast fed Yes Oral contraceptive use Yes Menarche Age 11-12 yo LMP IUD Hormone replacement therapy?? N/A Family history of breast cancer No Family history of ovarian cancer No Known genetic mutation 03/07/20 - Isabelle's BRCA2 Analysis showed a pathogenic variant (mutation) in BRCA2 Previous breast biopsy No Previous radiation to chest No ?? Family History ?? Problem (# of Occurrences) Relation (Name,Age of Onset) ?? Pancreatic Cancer (2) Father (57): BRCA2 mutation, Paternal Aunt (43) ?? Prostate Cancer (1) Paternal Grandfather ?? 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 She and her have decided theydo not wish to have any children. She has never smoked; ETOH - occasional. ?? Past Medical Hx: Generally well Past Surgical Hx: no personal or family issues with bleeding, or issues with anesthesia ?? Mother does have a clotting disorder- Tori is working to get more information on this. Physical Exam: General appearance: Alert, well-developed, well-nourished female in no acute distress. Deferred due to telehealth nature of the visit. Results: Last mammogram- , BIRADS Category 1 with heterogeneously dense breasts.?MRI pending. ?? Assessment: Tori is a 35 yo female with a known risk of breast cancer development. She has decided to pursue prophylactic mastectomy. We discussed skin and NAC sparing approach. From risk reduction perspective, she is a candidate for nipple preservation but given ptosis, she will discuss cosmetic outcome with Dr. Freedman if she opts to preserve the nipples. We then reviewed her options of implant based vs suzy reconstruction. Tori is struggling with this choice and I have offered to have her connect with women who have undergone each surgery. She is interested in speaking with them. I will ask BRITTANIE Sanchez, to connect her in a HIPAA compliant way. We spent 35 minutes discussing options, expected risk reduction (with low but finite risk of futurebreast cancer development), risks of surgery, expected recovery from each surgery. Tesfaye will consider her options and will call with any questions if they arise and/or to schedule. documented in this encounter Plan of Treatment Upcoming Encounters Date Type Department Care Team (Late st Contact Info) Description 11/30/2023 1:40 PM EDT Office Visit Dermatology at [facility] [address] [facility] [place] [address] Francisca Chandler MD [facility] [address] [place] [address] Scheduled Referrals Name Type Priority Associated Diagnoses Orde r Schedule Referral to General Surgery Outpatient Referral Routine BRCA2 gene mutation positive Family history of BRCA2 gene positive Ordered: 05/21/2020 documented as of this encounter Visit Diagnoses Diagnosis At high risk for breast cancer documented in this encounter Care Teams Elephant Tamer Relationship Specialty Start Date End Date Harriett Goldsmith APRN [address] [place] [address] [address] [place] [address] PCP - General Family Medicine 11/23/19 07/09/20 documented as of this encounter
--- OUTSIDE RECORDS SUMMARY | 2023-11-12 00:40 | XMS_ITS | Encounter Summary ---
Author Organization [facility] Address [facility] [place] [address] Care Team Providers Care District Ranger Name Role Phone SauravtiffanyMiranda barnettly James MALCOLM Primary Care Provid er Reason for Visit * Reason Onset Date Comments Results 04/01/2020 Encounter Details Date Type Department Care Team (Late st Contact Info) Description 04/01/2020 Telephone [place]emat[place] [address] Susi Mooney LGC [facility] HEMATOLOGY/[place] [address] Results Social History Tobacco Use Types Packs/Day Years Used Date Smoking Tobacco: Never Alcohol Use Standard Drinks/Week Comments Not Asked 0 (1 standard drink = 0.6 oz pur e alcohol) Sex and Gender Information Value Date Recorded Sex Assigned at Not on file Gender Identity Not on file Sexual Orientation Not on file documented as of this encounter Miscellaneous Notes * Telephone Encounter - Susi Mooney LGC - 04/01/2020 11:15 AM EST I left a message asking Tori to call me to review the results of her genetic testing. documented in this encounter Plan of Treatment Upcoming Encounters Date Type Department Care Team (Late st Contact Info) Description 11/30/2023 1:40 PM EDT Office Visit Dermatology at [facility] [address] [place] [address] Francisca Chandler MD [facility] [place] [address] documented as of this encounter Visit Diagnoses Not on filedocumented in this encounter Care Teams District Ranger Relationship Specialty Start Date End Date Harriett Goldsmith APRN [address] [facility] [address] [address] PCP - General Family Medicine 11/23/19 07/09/20 documented as of this encounter
--- OUTSIDE RECORDS SUMMARY | 2023-11-12 00:40 | XMS_ITS | Encounter Summary ---
Author Organization [facility] [place] [address] Care Team Providers Care Customer Program Specialist Name Role Phone Harriett Goldsmith APRN Primary Care Provid er Encounter Details Date Type Department Care Team (Late st Contact Info) Description 04/18/2020 Orders [place] [address] Bhavna Mckeon APRN [facility] [place] [address] BRCA positive Social History Tobacco Use Types Packs/Day Years [...] 1:40 PM EDT Office Visit Dermatology at [facility] [address] [place] [address] Francisca Chandler MD [facility] [place] [address] documented as of this encounter Results * Mammo Screening Cad and Mark Bilateral (05/20/2020 1:25 PM EST) Anatomical Region Laterality Modality Breast Bilateral Mammography Narrative 05/20/2020 1:35 PM EST BILATERAL MAMMOGRAPHY REASON FOR EXAM: Screening TECHNIQUE: CC and MLO views were obtained of each breast using standard 2-D mammography as well as 3-D tomosynthesis. Computer aided detection was used. There are no prior images for comparison. FINDINGS: ??The breasts are heterogeneously dense, which may obscure small masses. There are no suspicious microcalcifications, masses, or areas of distortion. CONCLUSION: No mammographic evidence of malignancy. RECOMMENDATION: Regular screening mammograms starting between age 40 and 50 reduces the risk of from breast cancer. All screening tests have both risks and benefits. These risks and benefits should be assessed for each individual patient through discussion with their provider to determine their preferred breast cancer screening schedule. Women should report any breast changes to a health care provider right away. Some women, because of their family history, a genetic tendency, or other factors, should be screened with annual breast MRI as well as with mammograms. (The number of women who fall into this category is very small). Patients and health care providers should discuss each patient? s history to decide if earlier screening and/or breast MRI are appropriate. Screening should continue as long as a woman is in good health and is expected to live 10 years or longer. Screening mammography may not detect 10-15% of breast cancers. A result letter has been sent to this patient by the [facility]. BIRADS CATEGORY 1: NEGATIVE Electronically signed by: ??FLORENCIO PLEITEZ MD Bhavna Mckeon APRN IMG MAMMO ORD ERABLES documented in this encounter Visit Diagnoses Diagnosis BRCA positive Genetic susceptibility to malignant neoplasm of breast BRCA positive Genetic susceptibility to malignant neoplasm of breast documented in this encounter Care Teams Customer Program Specialist Relationship Specialty Start Date End Date Harriett Goldsmith APRN [address] [address] PCP - General Family Medicine 11/23/19 07/09/20 documented as of this encounter
--- OUTSIDE RECORDS SUMMARY | 2023-11-12 00:40 | XMS_ITS | Encounter Summary ---
Author Organization [facility] Address [facility] [place] [address] Care Team Providers Care Media Sales Representative Name Role Phone KushaljeromeMiranda barnettly James MALCOLM Primary Care Provid er Encounter Details Date Type Department Care Team (Late st Contact Info) Description 05/22/2020 Telephone [place] [phone] Val Duran Social History Tobacco Use Types Packs/Day Years [...] encounter Miscellaneous Notes * Telephone Encounter - Val Duran - 05/22/2020 11:50 AM EST L/m for p/t to call back and schedule from referral. ? of who she should see in gen surg before plastics documented in this encounter Plan of Treatment Upcoming Encounters Date Type Department Care Team (Late st Contact Info) Description 11/30/2023 1:40 PM EDT Office Visit Dermatology at [facility] [address] [place] [address] Francisca Chandler MD [facility] [place] [address] documented as of this encounter Visit Diagnoses Not on filedocumented in this encounter Care Teams Media Sales Representative Relationship Specialty Start Date End Date Harriett Goldsmith APRN [address] [facility] [address] [place] [address] PCP - General Family Medicine 11/23/19 07/09/20 documented as of this encounter
--- OUTSIDE RECORDS SUMMARY | 2023-11-12 00:40 | XMS_ITS | Encounter Summary ---
Author Organization [facility] Address [facility] [place] [address] Care Team Providers Care Wood Scrap Handler Name Role Phone Harriett Goldsmith APRN Primary Care Provid er Encounter Details Date Type Department Care Team (Late st Contact Info) Description 03/02/2020 Notes Only [place] [address] Justin Vela MD [facility] DR HEMATOLOGY/[place] [address] Social History Tobacco Use Types Packs/Day Years Used Date Smoking Tobacco: Never Alcohol Use Standard Drinks/Week Comments Not Asked 0 (1 standard drink = 0.6 oz pur e alcohol) Sex and Gender Information Value Date Recorded Sex Assigned at Not on file Gender Identity Not on file Sexual Orientation Not on file documented as of this encounter Progress Notes * Justin Vela MD - 03/02/2020 1:32 PM EST I have reviewed the patient's record and given personal and/or family history of cancer she should be seen by genetic counselor. This is scheduled for next week. documented in this encounter Plan of Treatment Upcoming Encounters Date Type Department Care Team (Late st Contact Info) Description 11/30/2023 1:40 PM EDT Office Visit Dermatology at [facility] [address] [place] [address] Francisca Chandler MD [facility] [address] [address] documented as of this encounter Visit Diagnoses Not on filedocumented in this encounter Care Teams Wood Scrap Handler Relationship Specialty Start Date End Date Harriett Goldsmith APRN [address] [facility] [address] [address] PCP - General Family Medicine 11/23/19 07/09/20 documented as of this encounter
--- OUTSIDE RECORDS SUMMARY | 2023-11-12 00:40 | XMS_ITS | Encounter Summary ---
Author Organization [facility] [place] [address] Care Team Providers Care Field Reviewer Name Role Phone Anisha Neal MD Primary Care Provider [phone] Reason for Visit * Auth/Cert Specialty Diagnoses / Procedures Referred By Jonny perez Referred To Contact Diagnoses 35 yo F with BRCA2 gene mutation and two family members with pancreatic cancer (father age 57, aunt age 45) for pancreatic cancer screening Procedures PRO ENDOSCOPIC US EXAM, ESOPH UPPER EUS- ENDOSCOPIC ULTRASOUND Referral ID Status Reason Start Date Expiration Date Visits Re quested Visits Authorized [id number] 1 1 Encounter Details Date Type Department Care Team (Late st Contact Info) Description 07/24/2020 10:00 AM EDT - 07/24/2020 11:15 AM EDT [place] [address] Malik Sanders MD [facility] DR [place] [address] UPPER EUS- ENDOSCOPIC ULTRASOUND (WRVU 3.47) Social History Tobacco Use Types Packs/Day Years [...] Sign Reading Time Taken Comments Blood Pressure 123/87 07/24/2020 11:10 AM EDT Pulse 77 07/24/2020 9:22 AM EDT Temperature 36.5 ??C (97.7 ??F) 07/24/2020 9:22 AM ED T Respiratory Rate 16 07/24/2020 11:10 AM EDT Oxygen Saturation 98% 07/24/2020 11:10 AM EDT Inhaled Oxygen Concentration - - Weight 81 kg (178 lb 9.2 oz) 07/24/2020 9:22 AM EDT Height - - Body Mass Index 32.66 06/19/2020 1:00 PM EST documented in this encounter Discharge Instructions * Patient Instructions* Malik Sanders MD - 07/24/2020 11:07 AM EDT Please see Recommendations in the Provation procedure report which is documented in the procedural note in E-DH. * Attachments The following attachments cannot be sent through Care Everywhere. * Ultrasound: Endoscopic (Rectal): Post-op ([place] Citizen) documented in this encounter Medications at Time [...] daily 06/26/2009 documented as of this encounter H&P Notes * Malik Sanders MD - 07/24/2020 10:15 AM EDT Patient Name: Tori Escobar Patient Age: 35 y.o. Birthdate: 1985 Admit date: 07/24/2020 Attending Physician: Malik Sanders MD Gastroenterology and Hepatology Pre-Procedure History and Physical Exam Procedure: EUS: Indication: BRCA+, FHx of pancreatic cancer Patient Active Problem List Diagnosis Code ??? Hiatal hernia K44.9 ??? Abdominal pain R10.9 ??? BRCA2 gene mutation positive Z15.01, Z15.09 ??? Family history of BRCA2 gene positive Z84.81 ??? Family history of pancreatic cancer Z80.0 ??? BRCA2 gene mutation positive in female Z15.01, Z15.02, Z15.09 EXAM: HEENT: Airway examined, oropharynx clear Mallampati Score: III (soft palate, base of uvula visible) LUNGS: breathing comfortably on RA ABDOMEN: soft, NT/ND A/P Proceed with the planned endoscopic procedure. ASA 1 - Normal health patient Sedation Plan: anesthesia Risks and benefits of the procedure explained to the patient. Consent signed. documented in this encounter Miscellaneous Notes * Op Note - Malik Sanders MD - 07/24/2020 10:20 AM EDT [facility] Operative Note Patient Name: Tori Escobar : [id number] MR#: [id number] Case Date: 07/24/2020 Surgeon: Surgeon(s) and Role: * Malik Sanders MD - Primary * Pricila Murphy MD - Fellow Preoperative diagnosis: 35 yo F with BRCA2 gene mutation and two family members with pancreatic cancer (father age 57, aunt age 45) for pancreatic cancer screening Postoperative diagnosis: * No post-op diagnosis entered * Procedure(s) (LRB): UPPER EUS- ENDOSCOPIC ULTRASOUND (N/A) Anesthesia: MAC Full procedure note is documented under the Procedure section of eDH. documented in this encounter Plan of Treatment Upcoming Encounters Date Type Department Care Team (Late st Contact Info) Description 11/30/2023 1:40 PM EDT Office Visit Dermatology at [facility] [address] [place] [address] Francisca Chandler MD [facility] [address] [address] documented as of this encounter Procedures Procedure Name Priority Date/Time Associated Diagnosis Comments Endoscopic Us Exam, Tarik ([id number]) 07/24/2020 10:05 AM EDT BRCA2 gene mutation positive in female Family history of pancreatic cancer UPPER EUS-ENDOSCOPIC ULTRASOUND Routine 07/24/2020 9:55 AM EDT documented in this encounter Results * UPPER EUS-ENDOSCOPIC ULTRASOUND (07/24/2020 9:55 AM EDT) UPPER ENDOSCOPIC ULTRASOUND [facility] Endoscopy Procedure Date: 07/24/2020 9:55 AM ? Patient Name: Tori Escobar ? N: [id number] ? Date of : 1985 ? Age: 35 ? Order #: [id number] ? Instrument Name: GF-[id number] ? Procedure: ? Upper EUS Indications: ? BRCA +, Family history of pancreas ? cancer Providers: ? Malik Sanders MD, Pricila Murphy, ? India Crawley RN, Blu Keller ? Nash Referring : ?Harriett Goldsmith, Anisha Livingston Requesting Provider: Danya Diez MD Medicines: ? Monitored Anesthesia Care Complications: ? No immediate complications. Procedure: ? Pre-Anesthesia Assessment: ? - [place] Protocol: ? - Pre-procedure Verification: Prior ? to the procedure, the patient's ? identity was verified by full name, ? date of and medical record ? number. The patient's identity was ? verified on all pertinent medical ? records, including History and ? Physical, nursing assessment and ? pre-anesthesia assessment. Also prior ? to the procedure, a History and ? Physical was performed, and patient ? medications, allergies and ? sensitivities were reviewed. The ? patient's tolerance of previous ? anesthesia was reviewed. The risks ? and benefits of the procedure and the ? sedation options and risks were ? discussed with the patient. All ? questions were answered and informed ? consent was obtained. ? - Marking: The endoscopic procedure ? was visually marked on a patient ? wrist band delineating the patient ? name, proposed procedure and ? endoscopist's initials. ? - Time-Out: Prior to the start of the ? procedure, the patient's ? identification, proposed procedure, ? accurate signed consent, correctly ? labeled images and records, and need ? for prophylactic antibiotics were ? verified by the physician, the nurse, ? the perfect binder operator and the community service technician in ? the procedure room. ? The procedure, indications, benefits, ? risks and alternatives were explained ? to the patient. Specifically ? discussed were potential ? complications including, but not ? limited to, bleeding, perforation, ? infection, missing a cancer, and ? adverse medication reactions.The ? Endosonoscope was introduced through ? the mouth, and advanced to the second ? part of duodenum. The upper EUS was ? accomplished without difficulty. The ? patient tolerated the procedure well. ? Findings: ? ENDOSCOPIC FINDING: : ? The examined esophagus was normal. ? The entire examined stomach was normal. ? The examined duodenum was normal. ? ENDOSONOGRAPHIC FINDING: : ? The esophagus, stomach and duodenum were visualized ? endosonographically and were unremarkable. ? There was no sign of significant endosonographic ? abnormality in the entire pancreas. The pancreas was ? well visualized, no masses, no cysts, the pancreatic ? duct was well visualized from ampulla to tail, the ? pancreatic duct was thin in caliber, the pancreatic ? duct was regular in contour. ? There was no sign of significant endosonographic ? abnormality in the visualized portion of the liver. ? No masses and no cysts were identified. ? No lymphadenopathy seen. ? Moderate Sedation: ? Not applicable - See Anesthesia documentation Impression: ?- Normal endoscopic exam. ? - Normal endosonographic exam; ? specifically the pancreas was normal ? without ductal dilatation or mass. Recommendation: ?- Observe patient's clinical course. ? - Perform magnetic resonance imaging ? (MRI) with gadolinium in 1 year and ? consider repeat EUS in 2 years. ? - Follow-up in clinic with ? Rg. ? - The attending physician listed ? above was present for the entire ? procedure. ? Procedure Code(s): ?? --- Professional --- ? 17585, Esophagogastroduodenos copy, ? flexible, transoral; with endoscopic ? ultrasound examination, including the ? esophagus, stomach, and either the ? duodenum or a surgically altered ? stomach where the jejunum is examined ? distal to the anastomosis CPT copyright 2019 [employer]. All rights reserved. The codes documented in this report are preliminary and upon density control puncher review may be revised to meet current compliance requirements. Attending Participation: ? I was present and participated during the entire ? procedure, including non-laird portions. ? Malik Sanders MD 07/24/2020 10:59:59 AM This report has been signed electronically. Number of Addenda: 0 Note Initiated On: 07/24/2020 9:55 AM PROVATION 07/24/2020 9:55 AM EDT Harriett Goldsmith APRN GENERAL SURG ICAL ORDERABLES PROVATION documented in this encounter Visit Diagnoses Diagnosis BRCA2 gene mutation positive in female Family history of pancreatic cancer Family history of malignant neoplasm of gastrointestinal tract BRCA2 gene mutation positive in female Family history of pancreatic cancer Family history of malignant neoplasm of gastrointestinal tract documented in this encounter Admitting Diagnoses Diagnosis Family history of pancreatic cancer Family history of malignant neoplasm of gastrointestinal tract BRCA2 gene mutation positive in female documented in this encounter Administered Medications Inactive Administered Medications - up to 3 most recent administrations Medication Order MAR Action Action Date Dose Rate Site lactated ringers infusion 100 mL/hr, Intravenous, CONTINUOUS, Starting on Wed07/24/20 at 0945, Until Wed07/24/20 at 1110, Endoscopy (Day of Procedure) New Bag 07/24/2020 9:29 AM EDT 100 mL/hr 100 mL/hr documented in this encounter Active and Recently Administered Medications Times are shown in EDT. Continuous Medication Order 07/22/2020 07/23/2020 07/24/2020 lactated ringers infusion (CANCELED) 100 mL/hr, Intravenous, CONTINUOUS, Starting on Wed07/24/20 at 0945, Until Wed07/24/20 at 1110, Endoscopy (Day of Procedure) 0929 ([facility] ider: Jarad Scott RN) documented in this encounter Care Teams Field Reviewer Relationship Specialty Start Date End Date Anisha Neal MD PCP - General Family Medicine 07/10/20 06/28/22 documented as of this encounter
--- OUTSIDE RECORDS SUMMARY | 2023-11-12 00:40 | XMS_ITS | Encounter Summary ---
Author Organization [facility] Address [address] [place] [address] Care Team Providers Care Home Appliances Mechanic Name Role Phone Denzel Mandel MD Primary Care Provider Unavailabl e Encounter Details Date Type Department Care Team (Late st Contact Info) Description 08/17/2012 Results Only [facility] Laboratory Services - [facility] ([facility]) [address] [place], [place] [address] Sloan Houston MD [address] [place] [address] Social History Tobacco Use Types Packs/Day Years Used Date Smoking Tobacco: Never Assessed Sex and Gender Information Value Date Recorded Sex Assigned at Not on file Gender Identity Not on file Sexual Orientation Not on file documented as of this encounter Plan of Treatment Not on file documented as of this encounter Procedures Procedure Name Priority Date/Time Associated Diagnosis Comments PAP TEST- RESULT ONLY Routine 08/17/2012 0:00 EDT documented in this encounter Results * PAP TEST- RESULT ONLY (08/17/2012 0:00 EDT) Pathology Report: CYTOPATHOLOGY REPORT Reports generated via electronic interface contain original data; however they are lacking the format of the original report. Caution should be taken when reading/interpreti ng unformatted reports. Name: ? TORI ESCOBAR ? Accession #: ? [id number] : ? 1985 (Age: 27) ??F ?Collect Date: ? 08/17/2012 Location: ? [facility] ? Receive Date: ? 08/19/2012 Provider: ?SLOAN HOUSTON MD Copy to: ? Specimen/Source: ?Pap Test, Cervix/Endocervix, ThinPrep Imaging System with manual evaluation Last Menstrual Period: ? Hormonal/Contracep tive Status: ? Intrauterine device: Mirena ? SPECIMEN ADEQUACY ? Satisfactory for Evaluation - transformation zone component present GENERAL CATEGORIZATION ? Negative for Intraepithelial Lesion or Malignancy ? Document reviewed and electronically signed by: ? PRERNA oBnilla(ASCP) ? Report Date: ??08/24/2012 10:26 End of Report [facility] 08/17/2012 08/19/2012 Sloan Houston MD PATHOLOGY ORDERABLES Performing Organization Address City/State/[facility] Co de Phone Number [facility] [address] [place] [address] documented in this encounter Visit Diagnoses Not on filedocumented in this encounter Care Teams Home Appliances Mechanic Relationship Specialty Start Date End Date Denzel Mandel MD PCP - General 07/23/11 06/12/14 documented as of this encounter
--- OUTSIDE RECORDS SUMMARY | 2023-11-12 00:40 | XMS_ITS | Encounter Summary ---
Author Organization [facility] [place] [address] Care Team Providers Care Septic Tank Setter Name Role Phone Anisha Neal MD Primary Care Provider [phone] Reason for Visit * Reason Onset Date Comments Prior Authorization 07/16/2020 BRCA Outpati ent surgery coverage and auth - Pending scheduling Encounter Details Date Type Department Care Team (Late st Contact Info) Description 07/16/2020 Telephone [place] [address] Nany Dao Prior Authorization (BRCA Outpatient surgery coverage and auth - Pending scheduling) Social History Tobacco Use Types Packs/Day Years [...] encounter Miscellaneous Notes * Telephone Encounter - Nany Dao - 07/16/2020 2:33 PM EDT BRCA outpatient surgery coverage and authorization - Pending scheduling: I received a voicemail from Caren Hsu asking that I review coverage and authorization for outpatient surgery for double breast mastectomy and reconstruction for this BRCA patient. I called the patient and left voicemail that the only way to get an accurate review of the procedures and what needs authorization is to schedule the procedure at least 2 weeks out to allow for [employer] make a determination. I also e-mailed Caren to let her know I called the patient and asked that she schedule the surgery. I will follow the case to see if I receive call back from the patient or if the surgery is scheduled. * Telephone Encounter - Nany Dao Daria - 07/16/2020 2:32 PM EDT BRCA outpatient surgery coverage and authorization - Closed followup: Since it has been 30 days andBRCA surgery has not been scheduled, I am no longer following this case for authorization. When surgery is scheduled, I will allow the case to be processed by the traditional arrangement. documented in this encounter Plan of Treatment Upcoming Encounters Date Type Department Care Team (Late st Contact Info) Description 11/30/2023 1:40 PM EDT Office Visit Dermatology at [place] [address] [place] [address] Francisca Chandler MD [facility] [place] [address] documented as of this encounter Visit Diagnoses Not on filedocumented in this encounter Care Teams Septic Tank Setter Relationship Specialty Start Date End Date Anisha Neal MD PCP - General Family Medicine 07/10/20 06/28/22 documented as of this encounter
--- OUTSIDE RECORDS SUMMARY | 2023-11-12 00:40 | XMS_ITS | Encounter Summary ---
Author Organization [facility] Address [address] [facility] [place] [address] Care Team Providers Care Gear Hobber Set Up Operator Name Role Phone KushalHarriett luek GOLD Primary Care Provid er Encounter Details Date Type Department Care Team (Late st Contact Info) Description 07/01/2020 Notes [place] [address] Caren Hsu MSW Social History Tobacco Use Types Packs/Day Years Used Date Smoking Tobacco: Never Smokeless Tobacco: Never Alcohol Use Standard Drinks/Week Comments Not Currently 0 (1 standard drink = 0.6 oz pur e alcohol) Sex and Gender Information Value Date Recorded Sex Assigned at Not on file Gender Identity Not on file Sexual Orientation Not on file documented as of this encounter Progress Notes * Caren Hsu MSW - 07/01/2020 11:56 AM EDT CCM/SW contacted pt to give her the names and contact information for two pts who had breast reconstruction. Pt requested this information to help her with her plastic surgery decision making. I encouraged her to call me with any additional questions. P- CCM will be available to address pt's questions. documented in this encounter Plan of Treatment Upcoming Encounters Date Type Department Care Team (Late st Contact Info) Description 11/30/2023 1:40 PM EDT Office Visit Dermatology at [facility] [place] [address] [place] [address] Francisca Chandler MD [facility] [place] [address] documented as of this encounter Visit Diagnoses Not on filedocumented in this encounter Care Teams Gear Hobber Set Up Operator Relationship Specialty Start Date End Date Harriett Goldsmith APRN [address] [facility] [address] [place] [address] PCP - General Family Medicine 11/23/19 07/09/20 documented as of this encounter
--- OUTSIDE RECORDS SUMMARY | 2023-11-12 00:40 | XMS_ITS | Encounter Summary ---
Author Organization [facility] Address [address] [place] [address] Care Team Providers Care Flatlock Sewing Machine Operator Name Role Phone Unavailable Primary Care Provider Unavailabl e Encounter Details Date Type Department Care Team (Late st Contact Info) Description 09/19/2007 Results Only [facility] - [facility] [address] [place] [address] Sloan Houston MD [address] [place] [address] Social History Tobacco Use Types Packs/Day Years Used Date Smoking Tobacco: Never Assessed Sex and Gender Information Value Date Recorded Sex Assigned at Not on file Gender Identity Not on file Sexual Orientation Not on file documented as of this encounter Plan of Treatment Not on file documented as of this encounter Procedures Procedure Name Priority Date/Time Associated Diagnosis Comments CYTOPATHOLOGY Routine 09/19/2007 0:00 EDT documented in this encounter Results * CYTOPATHOLOGY (09/19/2007 0:00 EDT) Pathology Report: CYTOPATHOLOGY REPORT Reports generated via electronic interface contain original data; however they are lacking the format of the original report. Caution should be taken when reading/interpreti ng unformatted reports. Name: ? TORI ESCOBAR ? Accession #: ? [id number] : ? 1985 (Age: 22) ??F ?Collect Date: ? 09/19/2007 Location: ? [facility] ? Receive Date: ? 09/21/2007 Provider: ?SLOAN HOUSTON MD Copy to: ? Specimen/Source: ?ThinPrep Pap Test, Cervix/Endocervix, processed on [employer] ThinPrep Imaging System, with manual evaluation Last Menstrual Period: ? 08/12/07 Menstrual/Pregnanc y Status: ? Other: ? HPVA - HPV testing requested if ASC-US on the current ThinPrep Pap test. ? SPECIMEN ADEQUACY ? Satisfactory for Evaluation - transformation zone component present GENERAL CATEGORIZATION ? Negative for Intraepithelial Lesion or Malignancy ? Document reviewed and electronically signed by: ? PRERNA Zimmerman(ASCP) ? Report Date: ??09/22/2007 09:15 End of Report [facility]IO [facility] 09/19/2007 09/21/2007 Sloan Houston MD PATHOLOGY ORDERABLES Performing Organization Address City/State/[facility] Co de Phone Number [facility] [address] [place] [address] documented in this encounter Visit Diagnoses Not on filedocumented in this encounter
--- OUTSIDE RECORDS SUMMARY | 2023-11-12 00:40 | XMS_ITS | Encounter Summary ---
Author Organization [facility] Address [address] [place] [address] Care Team Providers Care It Security Analyst Name Role Phone Unavailable Primary Care Provider Unavailabl e Encounter Details Date Type Department Care Team (Late st Contact Info) Description 09/13/2007 Results Only [facility] [place] - [place] [address] [place] [address] Bobby Daily, TINA [address] [place] [address] Social History Tobacco Use Types Packs/Day Years Used Date Smoking Tobacco: Never Assessed Sex and Gender Information Value Date Recorded Sex Assigned at Not on file Gender Identity Not on file Sexual Orientation Not on file documented as of this encounter Plan of Treatment Not on file documented as of this encounter Procedures Procedure Name Priority Date/Time Associated Diagnosis Comments CYTOPATHOLOGY Routine 09/13/2007 0:00 EDT documented in this encounter Results * CYTOPATHOLOGY (09/13/2007 0:00 EDT) Pathology Report: CYTOPATHOLOGY REPORT Reports generated via electronic interface contain original data; however they are lacking the format of the original report. Caution should be taken when reading/interpreti ng unformatted reports. Name: ? LUIS M TORI ? Accession #: ? [id number] : ? 1985 (Age: 22) ??F ?Collect Date: ? 09/13/2007 Location: ? [facility] ? Receive Date: ? 09/15/2007 Provider: ?BOBBY DAILY RESERVATION AGENT Copy to: ? Specimen/Source: ?ThinPrep Pap Test, Cervix/Endocervix, processed on [employer] ThinPrep Imaging System, with manual evaluation Last Menstrual Period: ? 08/14/07 Menstrual/Pregnanc y Status: ? Hormonal/Contracep tive Status: ? Control Pills: Hx Other: ? HPVA - HPV testing requested if ASC-US on the current ThinPrep Pap test. ? SPECIMEN ADEQUACY ? Satisfactory for Evaluation - transformation zone component present GENERAL CATEGORIZATION ? Negative for Intraepithelial Lesion or Malignancy ? Document reviewed and electronically signed by: ? PRERNA Chavez(ASCP) ? Report Date: ??09/16/2007 13:49 End of Report ROSIO FORTE 09/13/2007 09/15/2007 Bobby Daily NP PATHOLOGY ORDERABLES [facility] [address] [place] [address] documented in this encounter Visit Diagnoses Not on filedocumented in this encounter
--- OUTSIDE RECORDS SUMMARY | 2023-11-12 00:40 | XMS_ITS | Encounter Summary ---
Author Organization [facility] [place] [address] Care Team Providers Care Truck Technician Name Role Phone Harriett Goldsmith APRN Primary Care Provid er Reason for Referral * Consultation (Routine) - Closed Specialty Diagnoses / Procedures Referred By Contac t Referred To Contact Gastroenterology Diagnoses BRCA2 gene mutation positive in female Family history of pancreatic cancer Justin Vela MD [facility] DR HEMATOLOGY/[place] [address] Danya Diez MD [facility] [place] [address] Referral ID Status Reason Start Date Expiration Date V isits Requested Visits Authorized [id number] Closed Consult, Test & Treat 04/17/2020 04/17/2021 1 1 * Consultation (Routine) - Closed Specialty Diagnoses / Procedures Referred By Contac t Referred To Contact Hematology and Oncology Diagnoses BRCA2 gene mutation positive in female Justin Vela MD [facility] HEMATOLOGY/[place] [address] [facility] [address] [place] [address] Referral ID Status Reason Start Date Expiration Date V isits Requested Visits Authorized [id number] Closed Consult, Test & Treat 04/17/2020 04/17/2021 1 1 * Consultation (Routine) - Closed Specialty Diagnoses / Procedures Referred By Jonny perez Referred To Contact Gynecology Oncology Diagnoses BRCA2 gene mutation positive in female Justin Vela MD [facility] HEMATOLOGY/[place] [address] [facility] [address] [place] [address] Referral ID Status Reason Start Date Expiration Date V isits Requested Visits Authorized [id number] Closed Consult, Test & Treat 04/17/2020 04/17/2021 1 1 Encounter Details Date Type Department Care Team (Latest Contact Info) Description 04/17/2020 11:00 AM EST TH Visit (TeleHealth) [place]ology [place] [id number] Justin Vela MD [facility] [address] [place]EMATOLOGY/[place] [address] BRCA2 gene mutation positive in female; Family [...] of this encounter Progress Notes * Justin Veal MD - 04/17/2020 11:00 AM EST Ms. Escobar christinead a telehealth video visit with me to receive results from genetic testing. I spent all of 25 minutes outlining the test result and its implications. A copy of a letter sent to the patient containing these results is provided below. Please be advised that [place] law requiresthat all health care workers respect the confidentiality of this information and not pass it along to other health care providers, insurance companies, or individuals without the written permission of the patient. The Familial Cancer Program welcomes any questions about these matters. Our phone number is: [phone]. On 03/07/2020, Tori underwent genetic testing for the known BRCA2 mutation previously detected in her father and for the variants of uncertain significance in the CDH1 and RECQL4 genes also detected in her father. Following are the results of this test. ?? Result: Isabelle's BRCA2 analysis showed that Tori carries the pathogenic variant (mutation) in BRCA2, specifically c.[id number] ([id number]). 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 ?? The CDH1 and RECQL4 variants of uncertain significance detected in her father were NOT detected in Tori. Interpretation: The most significant consequences of carrying a pathogenic variant in BRCA2 are increased risks forbreast cancer and ovarian cancer. For a carrier who has not had cancer, lifetime risk of breast cancer is approximately 40-85% compared to a ~12% lifetime risk for the general [place] population. Lifetimerisk of developing ovarian cancer is also significantly increased, 17-27%, compared to a ~2% lifetime risk seen in the general population. At this time, Tori's 10- year risk of developing breast and ovarian cancer is approximately 13% and 1.3%, respectively. Other cancers associated with BRCA2 mutations are prostate, pancreatic, and melanoma. It is important tokeep in mind that not all individuals who inherit a mutation in the BRCA2 gene will develop cancer. We reviewed how dominant inheritance runs thru families. With this type of inheritance you only need to inherit one copy of the altered gene to have an increased risk for cancer. Since we all have 2 copies of each gene, one from each parent, there is a 50% chance for each child of a parent who has the mutation to inherit the normal copy of the gene and not be at increased risk for the cancer running in the family. There is also a 50% chance for each child to inherit the altered copy of the geneand therefore be at increased risk for cancer. ? Tori's children each has a 50% (1/2) chance of having inherited the altered gene. They shouldbe offered genetic testing as adults. Her daughters should have testing before age 25 as that is the age when screening for breast cancer should begin in women who have inherited the BRCA2 mutation. Due to the issues of informed consent among minors, lack of proven surveillance and prevention strategies, and concerns about stigmatization and discrimination, we do not test minors (children under age 18). ?? Tori's sister has a 50% chance of having inherited the altered gene and should consider testing. If she decides not to be tested, she should follow recommendations for carriers assuming she is positive (see below), and her children could decide to be tested once adults. ?? This gene alteration was inherited from Tori's father. It is not clear which side of his family this was likely inherited from. Relatives on both sides of his family should consider testing. Any children of Tori's paternal aunt who had pancreatic cancer should consider testing. The children of her uncles who have had negative testing are not at risk for inheriting this mutation. Her other uncle has not had testing so far, and if he decides not to be tested, his children should still consider testing. ?? We are happy to see family members here for genetic counseling and testing. Our scheduling private secretary can be reached at [phone]. Family members can also go to the website of the National Society of Genetic Counselors at www.nsgc.org in order to find a cancer genetic counselor in their area. ?? We also briefly reviewed that there is a rare autosomal recessive, childhood- onset cancer syndrome,called Fanconi Anemia, that can occur if both partners are carriers of mutations in the BRCA2 gene.Symptoms of this condition including delayed growth and development, fatigue, shortness of breath and easy bruising typically appear at or early in childhood. For any individuals who test positive who are considering having children, genetic testing for BRCA2 mutations in their partners may be warranted. Reproductive options are available to those interested in preventing passing this condition to their future children. A consultation with a genetic counselor may be warranted for family members who have reproductive concerns. Screening Recommendations: Breast cancer screening and risk reducing options: ??? Clinical breast exams, every 6-12 months, starting at age 25. ??? Annual breast MRI screening with contrast, starting at age 25. o Ideally, this should be performed at a facility that has breast MRI directed biopsy capability such as the [facility] Radiology Department. ??? Annual mammograms, with consideration of tomosynthesis, in addition to breast MRI starting at age 30. ??? Tamoxifen has been shown to reduce the risk of breast cancer in women at increased risk due to a BRCA2 mutation. Tamoxifen, if used for approximately 5 years, reduces ones risk by about half (50%). This option could be further discussed with Tori's health care provider. ??? Prophylactic surgery to remove ones breasts (a bilateral mastectomy) may also be an option to consider, as it has been shown to significantly reduce the risk of breast cancer in women with BRCA2 mutations. A referral to the breast surgery group has been placed. The Comprehensive Breast Program will be able to coordinate the appointment and screening studies for Tori. Tori may reach the Comprehensive Breast Program by calling [phone]. Ovarian cancer risk management Ovarian cancer (and related serous cancers of the fallopian tube and peritoneum) are very difficultto detect early due to a lack of symptoms. Additionally, there are no reliable means to screen women to detect these cancers early, when there is a good chance for a cure. For this reason, surgical removal of the at-risk organs is recommended for BRCA2 mutation carriers. This is outlined below: ??? Risk reducing surgery to remove ones ovaries and fallopian tubes, a bilateral salpingo-oophorectomy, is recommended between the age of 35-45, or after childbearing is complete, as it has been shown to reduce the risk of ovarian, fallopian tube and breast cancer in carriers. Salpingectomy alone is not the standard of care for risk reduction, although clinical trials of interval salpingectomy and delayed oophorectomy are ongoing. The concern for risk-reducing salpingectomy alone is that womenare still at risk for developing ovarian cancer. In addition, in premenopausal women, oophorectomy likely reduces the risk of developing breast cancer but the magnitude is uncertain and may be gene-specific. ??? Short term use of hormone replacement therapy for treatment of surgical menopause after an oophorectomy is an option for BRCA2 carriers with no personal history of breast cancer. ??? Those who have not completed childbearing or who are not good surgical candidates, may considertransvaginal ultrasounds and a blood test called CA125, in addition to pelvic exams with their feeder driver. This could start between the ages of 30-35. It is important to note that the effectivenessof these modalities for screening for ovarian cancer has not been established and patients should not be falsely reassured by negative screening test results. ??? Young women in need of contraception should consider taking an oral contraceptive, as it has been shown to reduce the incidence of ovarian cancer in women at risk. The gynecological oncology group at [facility] may be reached at [phone] to schedule an appointment.A referral has been placed. Skin cancer screening ??? Annual, or more frequent, dermatologic exams, as recommended by Tori's magazine repairer Colon cancer screening ?? Baseline colorectal cancer screening starting at age 50 Pancreatic cancer screening Some families with mutations in BRCA2 also show an increased incidence of pancreatic cancer. The two main risk factors, in the general population, for pancreatic cancer are smoking and heavy drinking. Although there is no clear data on the risks of combining smoking and heavy drinking with being a BRCA2 carrier, this test result should be thought of as another good reason, among many others, for Tori not to engage in either activity. Family members, especially those who test positive, shouldalso be discouraged from smoking or drinking heavily. We discussed with Tori that there is no established screening; however, BRCA2 carriers with a family history of pancreatic cancer, which is the case for her since both her father and a paternal aunt had pancreatic cancer, can consider pancreatic cancer screening. Current expert opinion recommends consideration of pancreatic cancer screening in individuals with a BRCA2 mutation who have a family history of pancreatic cancer in a first or second degree relative (on the same side of the family as the mutation) and are either a) 50 years old, or b) 10 years younger than the earliest exocrine pancreatic cancer diagnosis in the family. Tori does meets this criteria. A referral to Dr. Smith, a inspector fuel hose at [facility] in [place] has been placed. She can discuss these screening options with Tori if she desires. Tori can schedule an appointment with her by reaching her private secretary at [phone]. Cancer screening FOR MEN ?? Breast self-exam training and education starting at age 35 y ?? Clinical breast exams every 12 months starting at age 35. ?? Consider baseline mammogram at age 40; annual mammogram if gynecomastia or parenchymal/glandularbreast density on baseline study. ?? Annual prostate cancer screening starting at age 40 for BRCA2 carriers. We provided Tori with information on an online support organization called [employer]: Facing Our Risk of Cancer Empowered which she may find helpful. In addition, the ClinicalTrials.gov website will have the most up-to-date information of clinical trials available to those who have a gene mutation. We also told Tori of an on-line interactive tool some women find helpful in considering the options for screening and preventative surgeries. That tool can be accessed at the following URL: http://brcatool.[facility]/ Finally, it can be difficult for people to predict how they will react to learning about the presence of an altered gene in their families and in themselves. A variety of feelings may occur after learning that one carries a gene mutation. Some individuals experience a sense of relief from knowing and understanding the underlying cause of the cancer in the family, or from finally knowing their personal cancer risk and gene status. Testing may bring up feelings about other relatives who had cancer. It is not uncommon to experience an increase in anxiety, or sleeplessness, as a result of worriesabout one's current and future health. One may also worry that other family members might have inherited the altered gene. For some, a consultation with a psychologist, long term care social worker, or psychiatristmay be helpful in dealing with feelings that may arise from genetic testing. If Tori would like a referral, we can help to try to recommend a therapist who is familiar with issues surrounding genetic conditions. documented in this encounter Plan of Treatment Upcoming Encounters Date Type Department Care Team (Late st Contact Info) Description 11/30/2023 1:40 PM EDT Office Visit Dermatology at [facility] [address] [place] [address] Francisca Chandler MD [facility] [address] [place] [address] Scheduled Referrals Name Type Priority Associated Diagnoses Order Schedule Referral to Gynecologic Oncology Outpatient Referral Routine BRCA2 gene mutation positive in female Ordered: 04/17/2020 Referral to General Surgery Outpatient Referral Routine BRCA2 gene mutation positive in female Ordered: 04/17/2020 Referral to Gastroenterology Outpatient Referral Routine BRCA2 gene mutation positive in female Family history of pancreatic cancer Ordered: 04/17/2020 documented as of this encounter Visit Diagnoses Diagnosis BRCA2 gene mutation positive in female Family history of pancreatic cancer Family history of malignant neoplasm of gastrointestinal tract documented in this encounter Care Teams Truck Technician Relationship Specialty Start Date End Date Harriett Goldsmith APRN [address] [facility] [address] [place] [address] PCP - General Family Medicine 11/23/19 07/09/20 documented as of this encounter
--- OUTSIDE RECORDS SUMMARY | 2023-11-12 00:40 | XMS_ITS | Encounter Summary ---
Author Organization [facility] Address [facility] [address] Care Team Providers Care Planisher Name Role Phone Kristine Daily APRN Primary Care Provider + Encounter Details Date Type Department Care Team (Late st Contact Info) Description 10/09/2010 12:22 PM EDT - 10/09/2010 11:59 PM EDT Hospital [place] [address] Abdominal pain Social History Tobacco Use Types Packs/Day Years [...] Sig Dispensed Refills Start Date End Date polyethylene glycol (MIRALAX) 17 gram packet 17 GRAM = 1 Packet(s), PO, Once daily 06/26/2009 Calcium Glycerophosphate (PRELIEF) 65 mg Tab 06/26/2009 04/18/20 20 esomeprazole (NEXIUM) 40 mg capsule 40 MG = 1 Capsule(s), PO, Once daily 06/26/2009 04/18/2020 CITALOPRAM HYDROBROMIDE (CELEXA ORAL) 06/26/2009 04/18/2020 documented as of this encounter Plan of Treatment Upcoming Encounters Date Type Department Care Team (Late st Contact Info) Description 11/30/2023 1:40 PM EDT Office Visit Dermatology at [facility] [address] [place] [address] Francisca Chandler MD [facility] [address] [place] [address] documented as of this encounter Procedures Procedure Name Priority Date/Time Associated Diagnosis Comments CT ABDOMEN AND PELVIS W CONTRAST Routine 10/09/2010 2:33 PM EDT Abdominal pain, unspecified site documented in this encounter Results * CT ABDOMEN & PELVIS WITH CONTRAST (10/09/2010 2:33 PM EDT) Anatomical Region Laterality Modality Abdomen, Pelvis Computed Tomogra phy 10/09/2010 2:33 PM EDT Impressions 10/10/2010 9:16 AM EDT IMPRESSION: 1. Nonobstructing small renal calcification on the right. ?? 2. Bilateral ovarian cysts. Narrative 10/10/2010 9:[address] OF THE ABDOMEN AND PELVIS WITH CONTRAST: CLINICAL: ??Abdominal pain. ?? TECHNIQUE: ??110 cc Omnipaque-350 utilized for an intravenously and orally enhanced CT of the abdomen and pelvis. ?? FINDINGS: ?? ABDOMEN: ??The liver, spleen, gallbladder, and pancreas are unremarkable. ??No biliary ductal dilatation or perihepatic fluid. ??An approximate 5 mm corticomedullary calcification is seen at the interpole region of the right kidney. ??It is nonobstructing. ??The left kidney is unremarkable. ??No evidence of renal collecting system obstruction bilaterally. ??No free fluid or free air. ?? No adenopathy. ??The bowel pattern is unremarkable, without evidence of dilatation or wall thickening. ?? PELVIS: ??An intrauterine device is noted. ??A 3.1 cm cyst is seen associated with the right ovary, and a 2.7 cm cyst is seen associated with the left ovary. ?? No pelvic free fluid or free air. ?? Procedure Note Fawad Gar MD - 10/10/2010 CT OF THE ABDOMEN AND PELVIS WITH CONTRAST: CLINICAL: Abdominal pain. TECHNIQUE: 110 cc Omnipaque-350 utilized for an intravenously and orally enhanced CT of the abdomen and pelvis. FINDINGS: ABDOMEN: The liver, spleen, gallbladder, and pancreas are unremarkable.No biliary ductal dilatation or perihepatic fluid. An approximate 5 mm corticomedullary calcification is seen at the interpole region of theright kidney. It is nonobstructing. The left kidney is unremarkable. Noevidence of renal collecting system obstruction bilaterally. No free fluid or freeair. No adenopathy. The bowel pattern is unremarkable, without evidence of dilatation or wall thickening. PELVIS: An intrauterine device is noted. A 3.1 cm cyst is seenassociated with the right ovary, and a 2.7 cm cyst is seen associated with the leftovary. No pelvic free fluid or free air. IMPRESSION IMPRESSION: 1. Nonobstructing small renal calcification on the right. 2. Bilateral ovarian cysts. Arnold Sofia MD IMG CT ORDERABLES documented in this encounter Visit Diagnoses Diagnosis Abdominal pain Abdominal pain, unspecified site documented in this encounter Administered Medications Inactive Administered Medications - up to 3 most recent administrations Medication Order MAR Action Action Date Dose Rate Site iohexol (OMNIPAQUE) 350 mg/mL injection 17,500 mg 17,500 mg (50 mL), Oral, ONCE PRN, 1 dose, Starting on Veda 10/09/10 at 1425, Until Veda 10/09/10 at 1230, Per Protocol, Routine Given 10/09/2010 12:30 PM EDT 17,500 mg iohexol (OMNIPAQUE) 350 mg/mL injection 38,500 mg 38,500 mg (110 mL), Intravenous, ONCE PRN, 1 dose, Starting on Veda 10/09/10 at 1425, Until Veda 10/09/10 at 1431, Per Protocol, Routine Given 10/09/2010 2:31 PM EDT 38,500 mg documented in this encounter Care Teams Planisher Relationship Specialty Start Date End Date Kristine Daily APRN PCP - General 03/11/10 11/22/19 documented as of this encounter
--- OUTSIDE RECORDS SUMMARY | 2023-11-12 00:40 | XMS_ITS | Encounter Summary ---
Author Organization [facility] Address [address] [place] [address] Care Team Providers Care Welding Robot Operator Name Role Phone Denzel Mandel MD Primary Care Provider Unavailabl e Encounter Details Date Type Department Care Team (Late st Contact Info) Description 06/12/2014 Results Only [facility] Services - [facility] ([facility]) [address], [place] [address] Sloan Houston MD [address] [place] [address] Social History Tobacco Use Types Packs/Day Years Used Date Smoking Tobacco: Never Assessed Sex and Gender Information Value Date Recorded Sex Assigned at Not on file Gender Identity Not on file Sexual Orientation Not on file documented as of this encounter Plan of Treatment Not on file documented as of this encounter Procedures Procedure Name Priority Date/Time Associated Diagnosis Comments SURGICAL PATHOLOGY Routine 06/12/2014 20 :17 EST documented in this encounter Results * SURGICAL PATHOLOGY (06/12/2014 20:17 EST) Pathology Report: SURGICAL PATHOLOGY REPORT Reports generated via electronic interface contain original data; however they are lacking the format of the original report. Caution should be taken when reading/interpret ing unformatted reports. Name: ? TORI ESCOBAR ? Accession #: ? [id number] ? : ? 1985 (Age: 29) ??F ? Collect Date: ? 06/12/2014 ? Location: ? [facility] ? Receive Date: ? 06/12/2014 ? Provider: SLOAN HOUSTON MD Copy to: ? Final Pathologic Diagnosis: A. ??FALLOPIAN TUBE, RIGHT, TUBAL LIGATION: - Complete cross sections obtained, no pathologic features. B. ??FALLOPIAN TUBE, LEFT, TUBAL LIGATION: - Complete cross sections obtained, no pathologic features. ?? Document reviewed and electronically signed by: AYDE AVELAR MD Report ??Date: 06/15/2014 12:37 By the signature above, the attending physician certifies that he/she has personally conducted a gross and/or microscopic examination of the described specimens and rendered or confirmed the above diagnosis. Specimen(s) Received: A. ??Portion of right fallopian tube B. ??Portion of left fallopian tube Clinical History: Desired sterilization; clinical diagnosis code: 654.21, V22.1, V25.2 Gross Description: A. ?Received in formalin labelled with proper patient identification (initials G, D) and portion of right fallopian tube is a tubular structure (1.9 cm in length and 0.5 cm in diameter). ??The serosal surface is pink-whitaker and glistening. ??Sectioning reveals a central pinpoint lumen. ??Two client support representative cross sections are submitted as A1. B. ?Received in formalin labelled with proper patient identification (initials G, D) and portion of left fallopian tube is a tubular structure (1.4 cm in length and 0.5 cm in diameter). ??The serosal surface is pink-whitaker and glistening. ??Sectioning reveals a central pinpoint lumen. ??Two client support representative cross sections are submitted as B1. Magaly Hsieh 06/13/2014 08:38 AM End of Report [facility] 06/12/2014 20:1 7 EST 06/12/2014 20:17 EST Sloan Houston MD PATHOLOGY ORDERABLES [facility] [address] [place] [address] documented in this encounter Visit Diagnoses Not on filedocumented in this encounter Care Teams Welding Robot Operator Relationship Specialty Start Date End Date Denzel Mandel MD PCP - General 07/23/11 06/12/14 documented as of this encounter
--- OUTSIDE RECORDS SUMMARY | 2023-11-12 00:40 | XMS_ITS | Encounter Summary ---
Author Organization [facility] [place] [address] Care Team Providers Care Packager Hand Name Role Phone Harriett Goldsmith APRN Primary Care Provid er Encounter Details Date Type Department Care Team (Late st Contact Info) Description 06/17/2020 [place] [phone] Peggy Santos Social History Tobacco Use Types Packs/Day Years [...] encounter Miscellaneous Notes * Telephone Encounter - Peggy Santos - 06/20/2020 4:49 PM EST Patient seen by Dr Diez 06/19/20 * Telephone Encounter - Peggy Santos - 06/17/2020 8:05 AM EST Left message informing patient that her appointment with Dr Diez 08/08/20 can be moved up if she would like to reschedule. Patient was asked to contact the office for rescheduling. documented in this encounter Plan of Treatment Upcoming Encounters Date Type Department Care Team (Late st Contact Info) Description 11/30/2023 1:40 PM EDT Office Visit Dermatology at [address] [place] [address] Francisca Chandler MD [facility] [address] [place] [address] documented as of this encounter Visit Diagnoses Not on filedocumented in this encounter Care Teams Packager Hand Relationship Specialty Start Date End Date Harriett Goldsmith APRN [address] [facility] [address] [place] [address] PCP - General Family Medicine 11/23/19 07/09/20 documented as of this encounter
--- OUTSIDE RECORDS SUMMARY | 2023-11-12 00:40 | XMS_ITS | Referral Summary ---
Author Organization [facility] Address [address] [place] [address] Care Team Providers Care Clinical Study Manager Name Role Phone None, Provider Primary Care Provider Unavailabl e Social History Tobacco Use Types Packs/Day Years Used Date Smoking Tobacco: Never Assessed Sex and Gender Information Value Date Recorded Sex Assigned at Not on file Gender Identity Not on file Sexual Orientation Not on file Plan of Treatment Not on file Care Teams Clinical Study Manager Relationship Specialty Start Date End Date None, Provider PCP - General 06/03/20
--- OUTSIDE RECORDS SUMMARY | 2023-11-12 00:40 | XMS_ITS | Encounter Summary ---
Author Organization [facility] [place] [address] Care Team Providers Care Open Pit Quarry Supervisor Name Role Phone Harriett Goldsmith APRN Primary Care Provid er Reason for Visit * Reason Comments Advice Only would like to discus s mastectomy and then reconstruction * Consultation (Routine) - Closed Specialty Diagnoses / Procedures Referred By Jonny perez Referred To Contact Plastic Surgery Diagnoses BRCA2 gene mutation positive Family history of BRCA2 gene positive Bhavna Mckeon APRN [facility] [place] [address] [facility] [address] [address] Referral ID Status Reason Start Date Expiration Date V isits Requested Visits Authorized [id number] Closed Specialty Service Requested 05/21/2020 05/21/2021 1 1 Encounter Details Date Type Department Care Team (Latest Contact Info) Description 06/19/2020 11:30 AM EST Office [place] [address] Haley Freedman MD [facility] [place] [address] BRCA2 gene mutation positive; Encounter [...] Sign Reading Time Taken Comments Blood Pressure - - Pulse - - Temperature - - Respiratory Rate - - Oxygen Saturation - - Inhaled Oxygen Concentration - - Weight 81 kg (178 lb 9.6 oz) 06/19/2020 11:17 AM EST Height 160 cm (5' 3) 06/19/2020 11:17 AM EST Body Mass Index 31.64 06/19/2020 11:17 AM EST documented in this encounter Patient Instructions * Patient Instructions* Jeanette Tapia RN - 06/19/2020 11:30 AM EST Preoperative Instructions You have been scheduled to have plastic surgery. The instructions below are specific to your procedure. If you are a smoker, we ask that you stop at least 2 months prior to your surgical date and remain nicotine free for at least a month after surgery. Smoking can impair healing and increase your chance of infection. One Month prior to Surgery Schedule a pre-operative physical with your primary care doctor Two Weeks prior to Surgery Do not take any Aspirin or aspirin containing products for the 2 weeks leading up to surgery. You may resume taking 48 hours after surgery. Do not take medications containing Ibuprofen. Do not take any anti-steroidal's such as Advil, Aleve, Celebrex, Daypro, Indocin, Midol, Motrin, Naproxen, Nuprinand Toradol. These medications increase your risk of bleeding. You may resume taking any of these medications 48 hours after surgery. Stop Vitamin E, Garlic supplements, Ginseng, Fish Oil tablets, Ginkgo and Caro's Wort and any other herbals. You may resume taking 48 hours after surgery. If you need medication for pain, you may take Tylenol or extra strength Tylenol during this two week period. One Week prior to Surgery Please call if you feel ill, have cold or fever, have a rash or breaks in the skin near your surgical site. Stay hydrated. Avoid alcohol and recreational drugs Three Days before Surgery Do not shave near your surgical site One Day before Surgery Breast Surgery - Wash your chest and underarms for several minutes the night before and the morningof surgery using an antibacterial soap (Dial or Lever 2000) or Hibiclens wash. The Same Day Surgery Team will call you the business day before your surgery to give you instructions specific to your procedure and your surgical time. Generally, you will be asked not to eat any solids after midnight. You are allowed clear liquids (water, ramsey enrico, apple juice, black coffee andplain tea) until 2 hours prior to your surgery. Day of Surgery A concrete mixer truck driver is required at time of discharge. If you are a Same Day procedure and do not have a driveryour surgery will be canceled. DO NOT wear any jewelry, makeup or artificial nails the day of surgery. DO NOT apply any lotions, powders or deodorants on or near the surgical site the day of surgery. Do wear comfortable, loose fitting clothes. Anesthesia will meet with you the morning of surgery. They will perform an assessment and review your history with you. [facility] has instituted the requirement of COVID-19 testing for all patient undergoingprocedures that require inpatient admission to the facility. A Nurse from the COVID-19 team will reach out to you to assist with the planning and implementation of a COVID-19 test prior to your surgical date. Contact Information: During regular office hours (Wednesday- Wednesday, non-holiday 8:00 am- 5:00 pm) For an appointment or insurance questions [phone] For questions pertaining to your surgical date [phone] For nursing related questions [phone] On weekends, holidays or after office hours: Call and ask the lift slab operator to page the Plastic Surgery Resident compensation analyst. documented in this encounter Progress Notes * Haley Freedman MD - 06/19/2020 11:30 AM EST Plastic Surgery Consultation Note Haley Freedman MD. PCP: Harriett Goldsmith APRN Requesting surgeon: Bhavna Mckeon APRN. CC: To discuss breast reconstruction HPI: Her breast surgeon requested this consultation for Tori Escobar, a 35 y.o. woman with breast cancer, to discuss options for breast reconstruction. She was unaccompanied by for today's visit. She has a family history of cancer and is BRCA positive. She has decided to proceed with a prophylactic bilateral mastectomy. She denies any chronic medical problems. She denies any complications with surgery and anesthesia. She denies any bleeding/clotting problems but reports that her mother has had problems with blood clots. She is a non-smoker. She has had a mammogram recently which was normal. The [employer] informational link on breast reconstruction was received: Yes And viewed: Yes If viewed, was the video helpful yes Her intitial preference is for prophylactic mastectomy and reconstruction. No past medical history on file. Past Surgical History: Procedure Laterality Date ??? SECTION x 3 Social History Socioeconomic History ??? Marital status: Spouse name: Not on file ??? Number of children: Not on file ??? Years of education: Not on file ??? Highest education level: Not on file Occupational History ??? Not on file Tobacco Use ??? Smoking status: Never Smoker ??? Smokeless tobacco: Never Used Substance and Sexual Activity ??? Alcohol use: Not on file ??? Drug use: Not on file ??? Sexual activity: Not on file Other Topics Concern ??? Not on file Social History Narrative ??? Not on file Social Determinants of Health Financial Resource Strain: ??? Difficulty of Paying Living Expenses: Not on file Food Insecurity: ??? Worried About Running Out of Food in the Last Year: Not on file ??? Ran Out of Food in the Last Year: Not on file Transportation Needs: ??? Lack of Transportation (Medical): Not on file ??? Lack of Transportation (Non-Medical): Not on file Physical Activity: ??? Days of Exercise per Week: Not on file ??? Minutes of Exercise per Session: Not on file Family History Problem Relation Age of Onset ??? Pancreatic Cancer Father 57 BRCA2 mutation ??? Pancreatic Cancer Paternal Aunt 43 ??? Prostate Cancer Paternal Grandfather ??? Breast Cancer Neg Hx ROS: HEENT, GI, /Renal, Psych, Card, Pulm, Endo, Heme, Immun, Neuro: negative Examination: Ht 160 cm (5' 3) Wt 81 kg (178 lb 9.6 oz) BMI 31.64 kg/m?? General: On my examination today, Ms. Tori [...] absence of sensation below the umbilical remnant. Anatomic Breast Measurements: Right Left Ptosis Grade II Grade II Notch-nipple (cm) 25 cm 24 cm IMF to nipple (cm) 8 cm 8 cm Base Diameter (cm) 13 cm 13 cm Impression: Tori Escobar is a 35 y.o. patient who is BRCA positive and opting to pursue prophylactic mastectomies and reconstruction. We discussed potential reconstruction options including both implant and autologous options including TRAM flaps, NOE, latissimus dorsi flaps and implants both immediate and two staged with tissue expanders and alloderm. I informed the patient that she is asuitable candidate for both implant based reconstruction and autologous reconstruction. In regards to autologous reconstruction, we focused on NOE reconstruction. I explained the nature??of the procedure that includes using tissue from her abdomen to her breast, possible rib resection,placement of mesh, resulting scars and required inpatient stay. I would plan to immediately reconstruct the breasts during the initial surgery with Dr. Miguel. We discussed potential risks and complications which include but are not limited to: pain, bleeding, infection, scarring, asymmetry, hematoma, seroma, wound healing problems, poor cosmetic outcome, failure of procedure, change in sensation,??possible DVT or PE,??possible need for revision, damage to adjacent structures.??Following this procedure she will need to anticipate a 3-4 day stay in the hospital, where she will be monitoredin the ICU. Risks of a autologous reconstruction was explained in detail, that includes possible flap loss, in the instance that a clot is to form in the flap vessels there is possibility to correct this but may not be successful. Drains will be placed??at the breasts and abdomen??for 2-3 weeks or until meeting criteria for removal. Restrictions will be in place for 6-8 weeks that includes no vigorous exercise, no heavy lifting, no pushing, pulling, lifting more than 5 pounds, no chest engagingactivities, moderate walking is encouraged.??I advised to the patient the importance of having a good support system in place as she will need assistance post operatively. ?? In regards to implant based reconstruction, we discussed the differences between saline and silicone implants. The specific risks that were reviewed included: capsular contracture, implant rupture/deflation, the possibility of additional surgeries with associated costs, skin waviness/rippling, bleeding, numbness, infection, scarring, delayed healing, asymmetry, and mammographic concerns. We also reviewed the scientific evidence indicating lack of increased risk for breast cancer and lack of a causal relationship with autoimmune disease. We discussed the options for: submuscular versus subglandular implants, the incision placement (inframammary, periareolar, axillary or umbilical) and the choice of implant (silicone??vs. saline and smooth vs. textured). We discussed that a saline implant can be placed through a smaller incision, but are not as natural feeling. There is a risk of ripplingwith saline implants. I explained that implants are placed slightly higher than normal because theywill descend over the first few months post-op. The longevity of implants were discussed and the potential need for replacement in the future. I explained that a breast MRI is recommend every 3-5 years to evaluate the implants. We discussed the nature of ALCL in regards to implants, especially textured implants. I explained that I do not use textured implants. The post-operative care and restrictions were discussed including 4-6 weeks off of vigorous activity, avoid wearing an under wire bra for 6 weeks, and approximately 2-4 weeks off of work. We discussed potential risks and complications which include but are not limited to: pain, bleeding, infection, scarring, asymmetry, hematoma, seroma, poor cosmetic outcome,??rupture of implant, change in nipple sensation, capsular contracture,??failure of procedure, possible need for revision, damage to adjacent structures. In regards to nipple position, I explained to the patient that due to the ptosis of her breasts, she would require either larger implants to raise the position of the nipple, a breast lift, or a FNG.I explained that the breast lift would need to be performed first and the mastectomies and reconstruction would take place in a second stage. Prior to her visit today she watched the [employer] informational link on breast reconstruction. I also provided her with a comprehensive packet of printed information includin. ASPS brochures and informed consent documents on breast reduction; TRAM and latissimus dorsi flap reconstruction; and implant reconstruction 2. Postoperative brochures on what to expect after either flap reconstruction, breast implantation and breast reduction 3. Brochures on medications that may increase the risk of bleeding after surgery and on the possible side effects or drug interactions with herbal or dietary supplements 4. Instructions on postmastectomy exercises; postoperative pain management; how to access to myD-H;and an ASPS brochure on making an informed decision 5. Recommended web sites including: www.surgery.med.[facility] www.ylfuncyktnyais695.com www.breastimplantsafety.org www.breasthealthonline.com 6. Brochure on the Section of Plastic Surgery's policy on cigarette smoking 7. My business card including contact information and information on how to access myD-H. The risks of these procedures were covered either in the Christina link , the informational materials and/or in our discussion. Risks covered included the following. General risks of surgery including reconstruction and mastectomy: Bleeding; delayed healing; asymmetry; tissue or flap loss; delayed inset or need for revision; immediate versus staged reconstructionof nipple-areolar complex. Free flap or NOE flap complications: Flap loss or failure, microvascular anastomotic complications, fat necrosis, hernia or bulge, pneumothorax, loss of umbilical remnant, need for revision. Reduction mammaplasty/Mastopexy complications: tissue or nipple loss; fat necrosis. Implant related complications: The specific risks of implants were reviewed and she was provided with an ASPS informed consent document, the IOM report summary on the safety of silicone implants and the [place] brochure: Silicone implants, making an informed decision. We reviewed the general risksof implant reconstruction including: upper pole fullness; asymmetry; implant rupture, migration, infection, or contracture; visible rippling or waviness from the implant; likely need for revision or further surgery in the future. She is leaning towards reconstruction. She will consider all the options provided to her, and will return to finalize her surgical plan once she has made an informed decision, and is ready to proceed. I will communicate this plan to Dr. Harriett Goldsmith APRN, and her general surgeon, Dr. Miguel. Plan: Follow-up: 07/02 via telehealth to finalize surgical planning. I, Marisol Gleason, have performed the documentation for this encounter in the presence of and acting as a scribe for HALEY FREEDMAN MD. I performed the services which were documented by the scribe, and I agree with the accuracy of the documentation in this encounter. HALEY FREEDMAN MD documented in this encounter Plan of Treatment Upcoming Encounters Date Type Department Care Team (Late st Contact Info) Description 11/30/2023 1:40 PM EDT Office Visit Dermatology at [facility] [address] [place] [address] Francisca Chandler MD [facility] [address] [place] [address] Scheduled Referrals Name Type Priority Associated Diagnoses Orde r Schedule Referral to Plastic Surgery Outpatient Referral Routine BRCA2 gene mutation positive Family history of BRCA2 gene positive Ordered: 05/21/2020 documented as of this encounter Visit Diagnoses Diagnosis BRCA2 gene mutation positive Encounter to discuss breast reconstruction Other specified counseling documented in this encounter Care Teams Open Pit Quarry Supervisor Relationship Specialty Start Date End Date Harirett Goldsmith APRN [address] [place] [address] [address] [place] [address] PCP - General Family Medicine 11/23/19 07/09/20 documented as of this encounter
--- OUTSIDE RECORDS SUMMARY | 2023-11-12 00:40 | XMS_ITS | Encounter Summary ---
Author Organization [facility] Address [facility] [place] [address] Care Team Providers Care Hospital Insurance Representative Name Role Phone Harriett Goldsmith APRN Primary Care Provid er Encounter Details Date Type Department Care Team (Latest Contact Info) Description 05/20/2020 12:56 PM EST - 05/20/2020 11:59 PM EST Hospital Encounter Mammography/[place] [address] Bhavna Mckeon APRN [facility] [place] [address] BRCA positive Discharge Disposition: Home Social History Tobacco Use [...] Sig Dispensed Refills Start Date End Date linaclotide (Linzess) 145 mcg Capsule Take 145 [...] 1:40 PM EDT Office Visit Dermatology at [facility] [address] [place] [phone] Francisca Chandler MD [facility] [place] [address] documented as of this encounter Procedures Procedure Name Priority Date/Time Associated Diagnosis Comments MAMMO SCREENING CAD AND JALEN BILATERAL Routine 05/20/2020 1:25 PM EST BRCA positive documented in this encounter Results * Mammo Screening Cad and Jalen Bilateral (05/20/2020 1:25 PM EST) Anatomical Region [...] breast documented in this encounter Care Teams Hospital Insurance Representative Relationship Specialty Start Date End Date Harriett Goldsmith APRN [address] [facility] [address] [place] [address] PCP - General Family Medicine 11/23/19 07/09/20 documented as of this encounter
--- OUTSIDE RECORDS SUMMARY | 2023-11-12 00:40 | XMS_ITS | Encounter Summary ---
Author Organization [facility] Address [facility] [place] [address] Care Team Providers Care Environmental Specialist Name Role Phone Harriett Goldsmith APRN Primary Care Provid er Encounter Details Date Type Department Care Team (Late st Contact Info) Description 07/08/2020 Notes [place] [phone] Caren Hsu MSW Social History Tobacco Use [...] Progress Notes * Caren Hsu MSW - 07/08/2020 11:59 PM EDT Pt was given the names and contact information for two pts who have had breast reconstruction and Dr. Freedman was their plastic surgeon. P [facility] will continue to provide support and resources to pt as needed. documented in this encounter Plan of Treatment Upcoming Encounters Date Type Department Care Team (Late st Contact Info) Description 11/30/2023 1:40 PM EDT Office Visit Dermatology at [facility] [address] [place] [address] Francisca Chandler MD [facility] [place] [address] documented as of this encounter Visit Diagnoses Not on filedocumented in this encounter Care Teams Environmental Specialist Relationship Specialty Start Date End Date Harriett Goldsmith APRN [address] [facility] [address] [place] [address] PCP - General Family Medicine 11/23/19 07/09/20 documented as of this encounter
--- OUTSIDE RECORDS SUMMARY | 2023-11-12 00:40 | XMS_ITS | Encounter Summary ---
[facility] Address [facility] [place] [address] Care Team Providers Care Retail Field Representative Name Role Phone Kristine Daily APRN Primary Care Provider + Reason for Visit * Reason Comments Hernia Encounter Details Date Type Department Care Team (Late st Contact Info) Description 10/09/2010 10:00 AM EDT Office [place] [address] Arnold Sofia MD [facility] [place] [address] Abdominal pain (Primary Dx) Discharge Disposition: Home Social History Tobacco Use [...] Sign Reading Time Taken Comments Blood Pressure 97/65 10/09/2010 9:57 AM EDT Pulse 78 10/09/2010 9:57 AM EDT Temperature 36.6 ??C (97.9 ??F) 10/09/2010 9:57 AM ED T Respiratory Rate 16 10/09/2010 9:57 AM EDT Oxygen Saturation 98% 10/09/2010 9:57 AM EDT Inhaled Oxygen Concentration - - Weight 84.2 kg (185 lb 11.2 oz) 10/09/2010 9:57 AM EDT Height 158.8 cm (5' 2.5) 10/09/2010 9:57 AM EDT Body Mass Index 33.42 10/09/2010 9:57 AM EDT documented in this encounter Progress Notes * Arnold Sofia MD - 10/09/2010 1:35 PM EDT Referring Provider: Kristine Daily N.P. Reason for Consult: Abdominal pain, rule out hernia. History of Present Illness: The patient is a very pleasant 25-year-old female with past medical history notable for x3 with the last one being 6 months ago as well as history of irritable bowel syndrome and anxiety disorder who presents to my clinic at the request of her PCP for evaluation of chronic abdominal pain. The patient gives an appropriate 6 month history of periumbilical pain, which began shortly after her last . She states the pain is relatively consent but worsens with increased activity. She states the pain is just to the right side of midline. She states the pain is somewhat improved from when it first began shortly after a but is still not completely improved. She states the pain as noted above is relatively constant but some days it going up quite significantly with any activity. She also states the pain is worse with constipation and relieved after taking MiraLAX. She denies any mass or bulge in the region. She has no other GI complaints to include diarrhea, nausea, vomiting, bright red blood per rectum, or melena. She is being followed by the GI service for irritable bowel syndrome. Otherwise on review of systems the patient states she feels quite well. She is denying any constitutional symptoms to include fevers, chills, malaise, and weight loss. She has no chest or respiratory issues. She is currently her 6-month old child. GI review is as noted above. All other reviews are noted within normal limits without issues. Past Medical History: Notable for herpes, lactose intolerance, irritable bowel syndrome, general anxiety disorder, fibrocystic breast disease, and hyperlipidemia. Past Surgical History: Status post x3. Medications: MiraLAX. Allergies: PENICILLIN and PHENERGAN. Social: She denies any alcohol or tobacco use. She has 3 children. On exam she is afebrile with normal vital signs. She is alert and oriented in no acute distress. Her sclerae are anicteric. Her lungs are clear to auscultation bilaterally. Heart is regular rhythm without murmur, gallop, or rub. Abdomen is soft, mildly obese, nondistended with 2 areas of focal tenderness one just to the right side of midline at the level of the umbilicus and one in the mid epigastrium. I am unable to palpate any fascial defect on Valsalva or cough. I am somewhat limited by her degree of discomfort. There are no obvious palpable masses. There are no overlying skin changes. Her extremities are without clubbing, cyanosis, or edema. Neurologically she is grossly intact in all 4 extremities to motor and sensory function. Assessment and Plan: A 25-year-old female with what sounds like chronic abdominal wall pain since her last . This is predominantly at the level of the umbilicus on the right side. On palpation I am unable to actually palpate a definitive defect but the area in this region is somewhat attenuated and a hernia could be, given her body habitus. She is obviously very concerned about this. I did try to reassure her that this did not represent cancer as her great fear was. There is a 50/50 chance that there is a possible hernia in this area but I am not convinced enough to proceed to the operating room but I recommended today an abdominal pelvic CT scan with contrast to further evaluate. This will better define the area of concern. If this should not be a hernia I am at somewhat of a loss to explain her symptoms as they seem to be more abdominal wall in nature as opposed to intraperineal. We will address this after the CT scan. She is scheduled for a CT scan I believe today and will follow up in my office in one week. I will call her on Wednesday with the CT scan results as she is quite anxious to hear about them. She is happy with this encounter. documented in this encounter Miscellaneous Notes * Miscellaneous - Matt Alejo - 10/14/2010 12:07 PM EDT documented in this encounter Plan of Treatment Upcoming Encounters Date Type Department Care Team (Late st Contact Info) Description 11/30/2023 1:40 PM EDT Office Visit Dermatology at [facility] [address] [place] [address] Francisca Chandler MD [facility] DR SASHA [place] [address] documented as of this encounter Visit Diagnoses Diagnosis Abdominal pain- Primary Abdominal pain, unspecified site documented in this encounter Care Teams Retail Field Representative Relationship Specialty Start Date End Date Kristine Daily, GOLD PCP - General 03/11/10 11/22/19 documented as of this encounter
--- OUTSIDE RECORDS SUMMARY | 2023-11-12 00:40 | XMS_ITS | Encounter Summary ---
Author Organization [facility] Address [facility] [place] [address] Care Team Providers Care Engineering Technologist Name Role Phone Anisha Neal MD Primary Care Provider [phone] Reason for Visit * Reason Comments Follow-up finalize surgical pl ans for breast recon Encounter Details Date Type Department Care Team (Latest Contact Info) Description 07/23/2020 11:45 AM EDT Office [place] [address] Haley Wheeler MD [facility] [place] [address] Encounter to discuss breast reconstruction Social History [...] Progress Notes * Haley Wheeler MD - 07/23/2020 11:45 AM EDT Plastic Surgery Follow-up Note Haley Wheeler MD PCP: Anisha Livingston MD Requesting surgeon: Bhavna Mckeon APRN. CC: To discuss breast reconstruction HPI: Tori Escobar presents today to finalize surgical planning. She is accompanied for today's visit. Arrives with a list of questions. Examination: General: On my examination today, Ms. Tori [...] opting to pursue prophylactic mastectomies and reconstruction. Arrives with a list of questions as follows, all questionswere answered to satisfaction: 1. Are there side effects of the mesh placed? I use a reabsorbable mesh that should be absorbed by the bodyafter 18 months. 2. Would you do any muscle repair of rectus diastasis? The placement of the mesh would be a prophylactic preventative for an abdominal bulge. We do repairany rents in the muscle from flap harvest primarily. 3. Will dog ears be revised in the future? Yes, post operatively this can be revised typically in 3-6 months as needed. We cannot determine ifthis will occur post operatively or not. 4. Is a breast lift also going to be completed? There is a possibility to tighten the breast pocket, she may require a revision to lift the breast after the initial surgery. 5. What type of incision would be used? This depends on the type of mastectomy, preference for size, and degree of ptosis pre-op.There is apossibility to proceed with a staged breast lift prior to mastectomy surgery to place the nipple where desired. This may slightly decrease the amount of time she would need in the subsequent reconstruction after mastectomy. 6. Is there a possibility of losing erogenous sensation? At the nipples yes, I have not had any complaints or noted any loss of clitoral sensation 7. Could the NOE flap be lost? Yes, there is an ~2% chance of losing the flap. 8. Notes she and her family has contemplated proceeding with an implant based reconstruction and would like more information on this. I explained that the lifespan of the implants have a possibility to be in place longer than 10 years and that due to the patient's age she may require implant exchanges in the future.To evaluate possible implant rupture imaging with a MRI would be needed to confirm and diagnose. We talked about thecurrent scientific evidence and lack of association between ruptured implants and systemic I explained that ALCL has been found to be associated with textured implants, assuring her that I do not usethis type of implant in my practice. The type of implants that would be used are mentor smooth round implants. 9. Post operatively would I be placed in a special garment? She would be placed in a surgical bra and if she would like she may be offered an abdominal binder. 10. Do I require pre operative imaging of blood vessels? She has had prior abdominal surgery in the past and I believe this would be helpful before we proceed with reconstruction. 11. What if the blood vessels were not viable intraoperatively? In this instance a tissue heel molder would be placed to maintain the space. 12. What is a seroma? A collection of body fluid, this is a possibility along with a collection of blood called a hematoma. To help with this fluid output drains will be placed until meeting criteria for removal. In rare cases there is a possibility that the seroma capsule would need to be surgically excised. We reviewed post operative photos of both autologous and implant based photos. Following our discussion I do feel that it is reasonable to have Tori to complete imaging pre operatively. We re-discussed potential risks and complications which include but are not limited to: pain, bleeding, infection, scarring, asymmetry, hematoma, seroma, hernia or bulge, wound healing problems (loss of skin, nipple, or umbilicus), poor cosmetic outcome, failure of procedure, change [...] may not be successful. Drains will be placed at the breasts and abdomen for 2-3 weeks or until meeting criteria for removal. Restrictions will be in place for 6-8 weeks that includes no vigorous exercise, no heavy lifting, no pushing, pulling, lifting more than 5 pounds, no chest engaging activities, moderate walking is encouraged. Tori is understanding of this plan and would like to move forward with coordinated surgery. Plan: Proceed with NOE surgery, patient wishes to schedule Hematology consult for family history of clotting disorder Complete CTA Surgical Grid: Surgeon: Jasmina Duration: 8-10 hours Timeframe: Coordinated Anticipate 3-5 overnight admission, including ICU stay Coordinated with: Dr. Miguel Procedure: Bilateral NOE flap, possible muscle sparing TRAM flap, possible FNG, possible partial rib resection, possible placement of mesh. CPT: NOE: 04557, 90287 Rib resection: 08097 FNG 36505 Mesh placement: 34355, 45821, 29325 Surgical site: Breast Side: Bilateral Anesthesia: General Follow up: 2 weeks after discharge with AEE Pre-auth needed for 2 weeks of post-op Lovenox PAT: Lab panel for blood clotting Covid Testing: Yes I, Val Duran, have preformed the documentation for this encounter in the presence of and acting as a scribe for HALEY WHEELER MD. documented in this encounter Plan of Treatment Upcoming Encounters Date Type Department Care Team (Late st Contact Info) Description 11/30/2023 1:40 PM EDT Office Visit Dermatology at [address] [place] [address] Francisca Chandler MD [facility] DR [facility] [place] [address] documented as of this encounter Visit Diagnoses Diagnosis Encounter to discuss breast reconstruction Other specified counseling documented in this encounter Care Teams Engineering Technologist Relationship Specialty Start Date End Date Anisha Neal MD PCP - General Family Medicine 07/10/20 06/28/22 documented as of this encounter
--- OUTSIDE RECORDS SUMMARY | 2023-11-12 00:40 | XMS_ITS | Encounter Summary ---
Author Organization [facility] Address [address] [place] [address] Care Team Providers Care Steam Fitter Helper Name Role Phone Unavailable Primary Care Provider Unavailabl e Encounter Details Date Type Department Care Team (Late st Contact Info) Description 09/07/2006 Results Only [facility] - [facility] [address] [place] [address] Bobby Daily, TINA [address] [place] [address] Social History Tobacco Use Types [...] Priority Date/Time Associated Diagnosis Comments CYTOPATHOLOGY Routine 09/07/2006 0:00 EDT documented in this encounter Results * CYTOPATHOLOGY (09/07/2006 0:00 EDT) Pathology Report: CYTOPATHOLOGY REPORT Reports generated via electronic interface contain original data; however they are lacking the format of the original report. Caution should be taken when reading/interpreti ng unformatted reports. Name: ? LUIS M TORI ? Accession #: ? [id number] : ? 1985 (Age: 21) ??F ?Collect Date: ? 09/07/2006 Location: ? [facility] ? Receive Date: ? 09/08/2006 Provider: ?BOBBY DAILY ESCALATOR MECHANIC Copy to: ? Specimen/Source: ?ThinPrep Pap Test, Cervix/Endocervix, processed on [email or web address] ThinPrep Imaging System, with manual evaluation Last Menstrual Period: ? Other: ? HPVA - HPV testing requested if ASC-US on the current ThinPrep Pap test. ? SPECIMEN ADEQUACY ? Satisfactory for Evaluation - transformation zone component present GENERAL CATEGORIZATION ? Negative for Intraepithelial Lesion or Malignancy ? Document reviewed and electronically signed by: ? Americo Hill, PRERNA(ASCP) ? Report Date: ??09/15/2006 08:27 End of Report ROSIO FORTE 09/07/2006 09/08/2006 Bobby Daily NP PATHOLOGY ORDERABLES Performing Organization Address City/State/[facility] Co de Phone Number ROSIO FORTE [address] [place] [address] documented in this encounter Visit Diagnoses Not on filedocumented in this encounter
--- OUTSIDE RECORDS SUMMARY | 2023-11-12 00:40 | XMS_ITS | Encounter Summary ---
Author Organization [facility] Address [address] [place] [address] Care Team Providers Care Tailer In Name Role Phone Denzel Mandel MD Primary Care Provider Unavailabl e Encounter Details Date Type Department Care Team (Latest Contact Info) Description 06/12/2014 10:26 EST - 06/12/2014 23:59 EST Hospital Encounter [address] [address] Unknown, Provider, Discharge Disposition: Home or Self Care Social History Tobacco Use Types Packs/Day Years Used Date Smoking Tobacco: Never Assessed Sex and Gender Information Value Date Recorded Sex Assigned at Not on file Gender Identity Not on file Sexual Orientation Not on file documented as of this encounter Discharge Disposition Disposition Code Departure Means Destination Home or Self Skilled Nursing documented in this encounter Plan of Treatment Not on file documented as of this encounter Visit Diagnoses Not on filedocumented in this encounter Care Teams Tailer In Relationship Specialty Start Date End Date Denzel Mandel MD PCP - General 07/23/11 06/12/14 documented as of this encounter
--- OUTSIDE RECORDS SUMMARY | 2023-11-12 00:40 | XMS_ITS | Encounter Summary ---
Author Organization [facility] [place] [address] Care Team Providers Care Manifest/Order Organizer Print Orders Name Role Phone Harriett Goldsmith APRN Primary Care Provid er Encounter Details Date Type Department Care Team (Late st Contact Info) Description 06/19/2020 Telephone [place] [phone] Nath[facility] Cisneros, [facility] Social History Tobacco Use Types Packs/Day Years [...] encounter Miscellaneous Notes * Telephone Encounter - Nathaly Cisneros - 06/19/2020 2:10 PM EST Tori Escobar [phone] Diagnosis/Indication: 1. Do you take any blood thinners or have you been diagnosed with a bleeding disorder that increases your risk of bleeding with procedures? No 2. Do you have a Pacemaker or Defibrillator device? No 3. Are you a diabetic? No 4. Do you have any Allergies to Eggs, Latex or Medications? Yes: in chart 5. Do you take any Oral Iron Supplements (Including multi-vitamins)? No 6. Do you have a history of three or more abdominal surgeries? Yes 7. Have you had a problem with sedation or anesthesia? No 8. Do you use a c-pap machine or oxygen tank? Neither 9. Do you take prescription narcotic pain medications, including suboxone or methodone? No 10. Do you have a preference regarding the gender of your provider? No Preference 11. Is there any other information you would like to us to note for the provider and nursing team who will perform your case? No 12. Say to patient: You must have a responsible republican who will drive you to your procedure, stay [place] for the entire duration of your procedure, and drive you home from your procedure? *Please Verify the height and weight, and adjust if height and/or weight have changed* Estimated body mass index is 32.67 kg/m?? as calculated from the following: Height as of an earlier encounter on 06/19/20: 157.5 cm (5' 2). Weight as of an earlier encounter on 06/19/20: 81 kg (178 lb 9.6 oz). *Delete if not needed* Height:5'2 Weight: 178 BMI: 32.67 Age:35 y.o. documented in this encounter Plan of Treatment Upcoming Encounters Date Type Department Care Team (Late st Contact Info) Description 11/30/2023 1:40 PM EDT Office Visit Dermatology at [facility] [address] [place] [address] Francisca Chandler MD [facility] DR [address] [address] documented as of this encounter Visit Diagnoses Not on filedocumented in this encounter Care Teams Manifest/Order Organizer Print Orders Relationship Specialty Start Date End Date Harriett Goldsmith APRN [phone] [id number] PCP - General Family Medicine 11/23/19 07/09/20 documented as of this encounter
--- OUTSIDE RECORDS SUMMARY | 2023-11-12 00:40 | XMS_ITS | Encounter Summary ---
Author Organization [facility] Address [facility] [place] [address] Care Team Providers Care Weigh Machine Operator Name Role Phone Harriett Goldsmith APRN Primary Care Provid er Reason for Referral * Consultation (Routine) - Closed Specialty Diagnoses / Procedures Referred By Contac t Referred To Contact Plastic Surgery Diagnoses BRCA2 gene mutation positive Family history of BRCA2 gene positive Bhavna Mckeon APRN [facility] [place] [address] [facility] [address] [place] [phone] Referral ID Status Reason Start Date Expiration Date V isits Requested Visits Authorized [id number] Closed Specialty Service Requested 05/21/2020 05/21/2021 1 1 * Consultation (Routine) - Closed Specialty Diagnoses / Procedures Referred By Contac t Referred To Contact Hematology and Oncology Diagnoses BRCA2 gene mutation positive Family history of BRCA2 gene positive Bhavna Mckeon APRN [facility] [place] [address] Aminta Miguel MD [facility] [place] [address] Referral ID Status Reason Start Date Expiration Date V isits Requested Visits Authorized [id number] Closed Consult, Test & Treat 05/21/2020 05/21/2021 1 1 Reason for Visit * Reason Comments Establish Care * Consultation (Routine) - Closed Specialty Diagnoses / Procedures Referred By Contcaleb t Referred To Contact Hematology and Oncology Diagnoses BRCA2 gene mutation positive in female Justin Vela MD [facility] [address] HEMATOLOGY/[place] [address] [facility] [address] [place] [address] Referral ID Status Reason Start Date Expiration Date V isits Requested Visits Authorized [id number] Closed Consult, Test & Treat 04/17/2020 04/17/2021 1 1 Encounter Details Date Type Department Care Team (Late st Contact Info) Description 05/20/2020 2:00 PM EST Office Visit General Surgery at [place] [phone] Bhavna Mckeon APRN [facility] [place] [address] Encounter for screening breast examination and discussion of breast self examination (Not by Mammogram); BRCA2 gene mutation positive; Family history of BRCA2 gene positive; Breast cancer screening, high risk patient (Not by Mammogram); Family history of pancreatic cancer Social History [...] as of this encounter Progress Notes * Bhavna Mckeon APRN - 05/20/2020 2:00 PM EST Images from the original note were not included. Patient ID: Tori Escobar is a 35 y.o. female who is seen at the request of Rafael Vela MD to discuss screening recommendations in light of a new finding of BRCA2 mutation. HPI: Tori underwent genetic testing after her father was diagnosed with pancreatic cancer and was found to be BRCA2+. Tori's results showed she also carries a pathogenic BRCA2 mutation. At today's visit, Esther denies any skin changes, new breast masses, breast trauma, or prior breastsurgery. No nipple discharge or pain in either breast. She denies any headaches or significant weight changes. No new chest pain or difficulty breathing. No new bony pain or tenderness. She has no new or concerning complaints of fatigue, cardiovascular, or respiratory symptoms. All other ROS are negative. She does not have a history of cystic breast tissue and has not had cysts aspirated or breast biopsies in the past. She does perform occasional self- breast exams. Breast Cancer Risk Factors: History Age at delivery of first child 19 yo Breast fed Yes Oral contraceptive use Yes Menarche Age 11-12 yo LMP IUD Hormone replacement therapy N/A Family history of breast cancer No Family history of ovarian cancer No Known genetic mutation 03/07/20 - Isabelle's BRCA2 Analysis showed a pathogenic variant (mutation) in BRCA2 Previous breast biopsy No Previous radiation to chest No Family History Problem (# of Occurrences) Relation (Name,Age of Onset) Pancreatic Cancer (2) Father (57): BRCA2 mutation, Paternal Aunt (43) Prostate Cancer (1) Paternal Grandfather Social Hx: 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 She and her are stillundecided if they are going to try to have children together. She has never smoked; ETOH - occasional. Past Medical Hx: Noncontributory. Past Surgical Hx: Noncontributory Physical Exam: General appearance: Alert, well-developed, well-nourished female in no acute distress. Skin: Warm and dry. Head: Normocephalic, atraumatic Neck: Soft and supple without masses or adenopathy. Cardiovascular: Normal rate, regular rhythm and normal heart sounds. No murmur heard. Pulmonary: Effort normal and breath sounds normal. No respiratory distress, cough, or wheezing. Breasts: Both breasts appear normal. No suspicious masses, tenderness, dimpling, erythema, or otherskin changes in either breast. No nipple discharge or other nipple changes. No palpable axillary lymph nodes bilaterally. The patient's breasts are generally symmetric. The nipples are everted with abifurcated nipple on the right. There are no skin changes or dimpling noted in either breast. She has dense fibroglandular tissue in the upper outer portion of both breasts with a fine nodular pattern over the surface. I feel no obvious discrete or dominant masses in either breast. Musculoskeletal: Full ROM in upper extremities without lymphedema. Neurological: Alert and oriented x 4. Mood is euthymic and appropriate to the situation. Results: Imaging performed (bilateral mammogram) at [facility] today shows no evidence of malignancy, BIRADS Category 1 with heterogeneously dense breasts. The results were reviewed with her at today's appointment. Assessment: Clinical breast exam nnotable for fibroglandular breast tissue without notable masses, skin changes, dimpling, or nipple discharge. Plan: 1. Encounter for screening breast examination and discussion of breast self examination (Not by Mammogram) 2. BRCA2 gene mutation positive 3. Family history of BRCA2 gene positive 4. Breast cancer screening, high risk patient (Not by Mammogram) 5. Family history of pancreatic cancer - MRI Breast wwo Contrast Bilat; Nov 2020 - Referral to General Surgery - Referral to Plastic Surgery High Risk Screening Recommendations: Breast cancer screening and risk reducing options: ?? Clinical breast exams, every 6-12 months, starting at age 25. ?? Annual breast MRI screening with contrast, starting at age 25. ? Ideally, this should be performed at a facility that has breast MRI directed biopsy capability such as the [facility] Radiology Department. ?? Annual mammograms, with consideration of tomosynthesis, in addition to breast MRI starting at age 30. ?? Tamoxifen has been shown to reduce the risk of breast cancer in women at increased risk due to aBRCA2 mutation. Tamoxifen, if used for approximately 5 years, reduces ones risk by about half (50%). ?? Prophylactic surgery to remove ones breasts (a bilateral mastectomy) may also be an option to consider, as it has been shown to significantly reduce the risk of breast cancer in women with BRCA2 mutations. ?? I have discussed my assessment and recommendations with Tori to include regular self-breast exams and semi-annual clinical breast exams. We discussed her lifetime of risk of developing breast cancer in light of her BRCA1/2 mutation status to be 60-80% compared to a 12% lifetime risk for the general [place] population. Recommended breast cancer screening includes annual mammography, breast MRI and clinical examinations every 6 months. Based on her risk status, her next bilateral screening mammogram is due in one year, or sooner if indicated. I will plan to see her for a clinical breast exam in six months at the time of her MRI. She will also contact me if she develops any new breast changes orconcerns prior to that appointment. She agrees to this plan. The most effective measure for breast cancer prevention would be bilateral risk- reducing mastectomies, with or without immediate implant or tissue reconstruction, which would reduce her risk of a subsequent breast cancer to nearly zero. She is interested in speaking with a breast and plastic surgeon to discuss her options and I am happy to place those referrals. We also discussed chemoprevention with the use of tamoxifen. Tamoxifen has been shown to reduce the risk of breast cancer in women at increased risk. Tamoxifen, if used for approximately 5 years, reduces ones risk by about half (50%).As Tori is undecided if she is done having children, she is not interested in this at this time. We discussed that the risk of ovarian cancer is higher in BRCA1 carriers at ~30 to 60% chance of ovarian cancer by age 70, compared to 27% for BRCA2 carriers. As with breast cancer, BRCA2 mutations are associated with later onset disease. She has already met with [facility] and has had a TVUS. Those results were reviewed with her today. Pancreatic cancer ? Some families with some mutations, including BRCA, also show an increased incidence of pancreaticcancer. The two main risk factors for pancreatic cancer, in the general population, are smoking andheavy drinking. Although there is no clear data on the risks of combining smoking and heavy drinking, this test result should be thought of as another good reason, among many others, to not engage ineither activity. Family members, especially those who test positive, should also be discouraged from smoking or drinking heavily. ? There is no established screening for pancreatic cancer. Current expert opinion only recommends screening for pancreatic cancer in BRCA carriers with a 1st or 2nd degree relative with pancreatic cancer. Screening should begin 5-10 years earlier than the age when the family member was diagnosed with pancreatic cancer. Tori has an appointment with Gastro in July. She also has heterogeneously dense breasts. I think that continuing breast cancer screening with 3-D mammography is appropriate. I discussed the pros and cons of breast MR screening. A small percentage of women, because of their family history, a genetic tendency, or other risk factors, benefit from breast MRI as well as mammography for screening. While the sensitivity of MR screening is greater than the sensitivity of mammography, this also increases the risk of false positive imaging leading to negative biopsies. She is interested in pursuing this. She does meet the ACS criteria for the useof breast MR, namely she has a greater than 20% lifetime risk of developing breast cancer, and the s ensitivity of mammography may be limited, so I think the use of breast MR for screening is reasonable. Routine recommendations discussed with the patient including importance of regular moderate intensity exercise, nutrition, decreasing cardiovascular risk, and optimizing weight. I then discussed nonpharmacologic measures that she can take to decrease her risk of developing breast cancer, to include the following: ?? Get at least 30 minutes of moderate intensity physical activity above normal activity on most days of the week to reduce the risk of chronic disease in adulthood. Walking is a good choice. You also may want to do other activities, such as running, swimming, cycling, or playing tennis or team sports. ?? Do strength training exercises at least twice a week to maintain muscle and bone health. ?? Drink alcohol in moderation, if at all. That means no more than 1 drink a day for women or 2 perday for men. ?? Make healthy eating choices: fruits and vegetables, lean protein, and healthy fats. Minimize simple carbohydrates, sugars, and processed foods. ?? Normal BMI < 25 for individuals under 65 years old; 22-30 for > 65 years old. ?? Be cautious about exposure risk, both what you put in and on your body (ie: artificial fragrances, artificial dyes, as well as certain ingredients in makeup, hair and body care, antiperspirant, laundry detergent, fabric softener, dryer sheets, etc.). The nations ban over 1,300 ingredients from personal care products. Unfortunately, the [place] only bans 30 products. Apps to help make healthier choices for personal care products are available at [employer] (Environmental Working Group) and [employer]. All questions were answered to the patient's satisfaction and they state understanding and agreement with today's treatment plan. They are encouraged to follow up sooner if they develop any new or concerning symptoms. Total time spent [id number] with this patient was 50 minutes with greater than 75% of the time spent in counseling, coordination of care, and discussion of treatment plan. Bhavna Mckeon APRN Surgical Oncology P [phone] F [phone] [facility] documented in this encounter Plan of Treatment Upcoming Encounters Date Type Department Care Team (Late st Contact Info) Description 11/30/2023 1:40 PM EDT Office Visit Dermatology at [facility] [address] [place] [address] Francisca Chandler MD [facility] [place] [address] Scheduled Referrals Name Type Priority Associated Diagnoses Orde r Schedule Referral to General Surgery Outpatient Referral Routine BRCA2 gene mutation positive Family history of BRCA2 gene positive Ordered: 05/21/2020 Referral to Plastic Surgery Outpatient Referral Routine BRCA2 gene mutation positive Family history of BRCA2 gene positive Ordered: 05/21/2020 documented as of this encounter Visit Diagnoses Diagnosis Encounter for screening breast examination and discussion of breast self examination (Not by Mammogram) BRCA2 gene mutation positive Family history of BRCA2 gene positive Family history of genetic disease carrier Breast cancer screening, high risk patient Screening mammogram for high-risk patient Family history of pancreatic cancer Family history of malignant neoplasm of gastrointestinal tract documented in this encounter Care Teams Weigh Machine Operator Relationship Specialty Start Date End Date Harriett Goldsmith APRN [address] [facility] [address] [place] [address] PCP - General Family Medicine 11/23/19 07/09/20 documented as of this encounter
--- OUTSIDE RECORDS SUMMARY | 2023-11-12 00:40 | XMS_ITS | Encounter Summary ---
Author Organization [facility] Address [facility] [place] [address] Care Team Providers Care Python Django Developer Name Role Phone KushaljeromeMiranda barnettly James MALCOLM Primary Care Provid er Reason for Visit * Reason Onset Date Comments Results 04/01/2020 BRCA2 mutation Encounter Details Date Type Department Care Team (Late st Contact Info) Description 04/01/2020 Telephone Hematology [place] [address] Susi Mooney [facility] HEMATOLOGY/[place] [address] Results (BRCA2 mutation) Social History Tobacco Use Types Packs/Day Years [...] Notes * Telephone Encounter - Susi Mooney [facility] - 04/01/2020 6:16 PM EST This test result was discussed with the patient by phone. A copy of the test results have been scanned in the medical record and sent to Tori. A summary of the results is provided below. Please beadvised that [place] law requires that all health care workers respect the confidentiality ofthis information and not pass it along to other health care providers, insurance companies, or individuals without the written permission of the patient. The Familial Cancer Program welcomes any questions about these matters. Our phone number is: [phone]. On 03/07/2020, Tori underwent genetic testing for the known BRCA2 mutation previously detected in her father and for the variants of uncertain significance in the CDH1 and RECQL4 genes also detected in her father. Following are the results of this test. Result: Isabelle's BRCA2 analysis showed that Tori carries the pathogenic variant (mutation) in BRCA2, specifically [id number] ([id number]). 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 The CDH1 and RECQL4 variants of uncertain significance detected in her father were NOT detected in Tori. Interpretation: The most significant consequences of carrying a pathogenic variant in BRCA2 are increased risks forbreast cancer and ovarian cancer. For a carrier who has not had cancer, lifetime risk of breast cancer is approximately 40-85% compared to a ~13% lifetime risk for the general [place] population. Lifetimerisk of developing ovarian cancer is also significantly increased, 17-27%, compared to a ~2% lifetime risk seen in the general population. At this time, Tori's 10 year risk of developing breast and ovarian cancer is approximately 13% and 1% respectively. Other cancers associated with BRCA mutations are prostate, pancreatic, and melanoma. Tori's father and paternal aunt both had pancreatic cancer. She was not aware of relatives with ovarian or breast cancer, although there are not many women in the family. It is important to keep in mind that not all individuals who inherit a mutation inthe BRCA2 gene will develop cancer. We briefly reviewed dominant inheritance. With this type of inheritance you only need to inherit one copy of the altered gene to have an increased risk for cancer. Since we all have 2 copies of each gene, one from each parent, there is a 50% chance for each child of a parent who has the mutation toinherit the normal copy of the gene and not be at increased risk for the cancer running in the family. There is also a 50% chance for each child to inherit the altered copy of the gene and therefore be at increased risk for cancer. ??? Tori's children each has a 50% (1/2) chance of having inherited the altered gene. They should be offered genetic testing as adults. Her daughters should have testing before age 25 as that is the age when screening for breast cancer should begin in women who have inherited the BRCA2 mutation.Due to the issues of informed consent among minors, lack of proven surveillance and prevention strategies, and concerns about stigmatization and discrimination, we do not test minors (children under age 18). ??? Tori's sister has a 50% chance of having inherited the altered gene and should consider testing. ??? This gene alteration was inherited from Tori's father. It is not clear which side of his family this was likely inherited from. Relatives on both sides of his family should consider testing. The son's of Tori's paternal aunt who had pancreatic cancer should consider testing. The children of her uncles who have had negative testing are not at risk for inheriting this mutation. Her other uncle has not had testing. If he decides not to be tested, his children should still consider testing. We are happy to see family members here for genetic counseling and testing. Our scheduling medical records secretary can be reached at [phone]. Family members can also go to the website of the National Society of Genetic Counselors at www.nsgc.org in order to find a cancer genetic counselor in their area. We also briefly reviewed that there is [...] members who have reproductive concerns. Screening Recommendations: General screening recommendations are included in the lab report sent to Tori and [facility]. Siobhan Smith, Familial Cancer Program medical records secretary will be contacting Tori to arrange for a follow-up phone consult with Dr. Justin Vela to discuss specific screening and medical management recommendations. Support Resources: Tori may find the online support organization called [employer]CE: Facing Our Risk of Cancer Empowered a helpful resource. This can be found at SCYFIX.org Learning of this positive result was difficult for Tori. A variety of feelings may occur after learning that one carries a gene mutation. Some individuals experience a sense of relief from knowingtheir personal cancer risk and gene status and learning what they can do to reduce their risk or detect cancer early. Testing may bring up feelings about other relatives who had cancer. It is not uncommon to experience an increase in anxiety, or sleeplessness, as a result of worries about one's current and future health. One may also worry that other family members might have inherited the altered gene. For some, a consultation with a psychologist, social media editor, or psychiatrist may be helpful in dealing with feelings that may arise from genetic testing. If Tori would like a referral, we can help to try to recommend a therapist who is familiar with issues surrounding genetic conditions. documented in this encounter Plan of Treatment Upcoming Encounters Date Type Department Care Team (Late st Contact Info) Description 11/30/2023 1:40 PM EDT Office Visit Dermatology at [facility] [address] [place] [address] Francisca Chandler MD [facility] DR [address] [address] documented as of this encounter Visit Diagnoses Not on filedocumented in this encounter Care Teams Python Django Developer Relationship Specialty Start Date End Date Harriett Goldsmith APRN [address] [address] PCP - General Family Medicine 11/23/19 07/09/20 documented as of this encounter
--- OUTSIDE RECORDS SUMMARY | 2023-11-12 00:40 | XMS_ITS | Encounter Summary ---
Author Organization [facility] Address [facility] [place] [address] Care Team Providers Care Mri Ct Tech Name Role Phone Harriett Goldsmith APRN Primary Care Provid er Encounter Details Date Type Department Care Team (Late st Contact Info) Description 04/18/2020 Orders Only Gynecology [place] [address] Priyanka Brito MD [facility] OBSTETRICS [place] [address] BRCA positive Social History Tobacco Use Types [...] 1:40 PM EDT Office Visit Dermatology at [address] [place] [address] Francisca Chandler MD [facility] [address] [place] [address] documented as of this encounter Results * Cancer Antigen 125 (04/18/2020 9:46 AM EST) CA 125 27.8 <=38.1 unit/mL [facility] Comment: CA 125 Reference Interval ??Postmenopausal: 6.2 to 31.5 U/mL. ??Premenopausal: 6.9 to 45.9 U/mL. ??Pre and Postmenopausal subjects combined: 6.4 to 38.1 U/mL. Blood specimen (specimen) 04/18/2020 9:46 AM EST 04/18/2020 9:51 AM EST Narrative Resulting Agency Comment Spec In Lab Priyanka Brito MD CHEMISTRY ORDERABLES [facility] [place] [address] documented in this encounter Visit Diagnoses Diagnosis BRCA positive Genetic susceptibility to malignant neoplasm of breast documented in this encounter Care Teams Mri Ct Tech Relationship Specialty Start Date End Date Harriett Goldsmith APRN [address] [address] PCP - General Family Medicine 11/23/19 07/09/20 documented as of this encounter
--- OUTSIDE RECORDS SUMMARY | 2023-11-12 00:40 | XMS_ITS | Encounter Summary ---
[place] [address] Care Team Providers Care Family Literacy Coordinator Name Role Phone Anisha Neal MD Primary Care Provider [phone] Reason for Visit * Auth/Cert Specialty Diagnoses [...] Expiration Date Visits Re quested Visits Authorized [id number] 1 1 Encounter Details Date Type Department Care Team (Late st Contact Info) Description 07/24/2020 10:05 AM EDT Anesthesia Event [place] [address] Kamron Frank MD [facility] [place] [address] Umair Reynoso CRNA [facility] [place] [address] Anesthesia Record Procedure Summary Procedure Name Responsible Anesthesiologist Anesthesia Start Time Anesthesia Stop Time UPPER EUS- ENDOSCOPIC ULTRASOUND (WRVU 3.47) (Trunk) Kamron Frank MD 07/24/20 1005 07/24/20 1037 Events Date Time Event Comment 07/24/2020 0958 1005 AN Verify 1005 Start 1005 An Start Data 1016 An Induction 1016 Anesthesia Ready 1034 an stop data 1037 Recovery or ICU Handoff Jana ent care was transferred to the destination unit staff after review of the patient's medical history, current anesthetic/surgical status and plan, according to the Provider Handoff Checklist. 1037 Stop Meds Name Total Propofol 80 mg Propofol INF 291.6 mg Ondansetron 4 mg Lactated Ringers 400 mL * Agents Name O2 Air N2O O2 Auxiliary Flowmeter 1 * Blood No blood administrations on file. Lines, Drains, and Airways Type Details Placement Removal (RETIRED) Peripheral IV Line - Single Lumen 07/24/20; 927; median cubital vein (antecubital fossa), right; [id number] catheter system; Anatomical Landmarks; 22 gauge; Uriah Pittman RN; distraction, intradermal injection, appears comfortable, tolerated well; no longer indicated, removed per policy/procedure; 07/24/20; 1109 07/24/20 09 by Jarad Scott RN 07/24/20 110 by Britni Turner RN documented in this encounter Social History Tobacco Use Types Packs/Day Years Used Date Smoking Tobacco: Never Smokeless Tobacco: Never Alcohol Use Standard Drinks/Week Comments Not Currently 0 (1 standard drink = 0.6 oz pur e alcohol) Sex and Gender Information Value Date Recorded Sex Assigned at Not on file Gender Identity Not on file Sexual Orientation Not on file documented as of this encounter OR Notes * Anesthesia Postprocedure Evaluation - Kamron Frank MD - 07/24/2020 11:41 AM EDT Department of Anesthesiology Post-procedure Note Patient: Tori Escobar Procedure Summary Date: 07/24/20 Room / Location: [facility] ENDO 2 / [facility] ENDOSCOPY Anesthesia Start: 1005 Anesthesia Stop: 1037 Procedure: UPPER EUS- ENDOSCOPIC ULTRASOUND (N/A Trunk) Diagnosis: BRCA2 gene mutation positive in female Family history of pancreatic cancer (35 yo F with BRCA2 gene mutation and two family members with pancreatic cancer (father age 57, aunt age 45) for pancreatic cancer screening) Surgeons: Malik Sanders MD Responsible Provider: Kamron Frank MD Anesthesia Type: MAC ASA Status: 2 All Anesthesia Providers: Anesthesiologist: Kamron Frank MD QA AUTOMATION ENGINEER: Umair Reynoso CRNA Vitals Value Taken Time BP 123/87 07/24/20 1110 Temp Pulse Resp 16 07/24/20 1110 SpO2 98 % 07/24/20 1110 Pain Level 0 07/24/20 1110 Patient Location: PACU[facility] Level of Consciousness: Awake and Alert Pain Management: Satisfactory Analgesia PONV: None Cardiovascular Status: At Baseline and Hemodynamically Stable Respiratory Status: At Baseline and Room Air Postoperative Fluid Status: Intravascular EUvolemia Possible Anesthetic Complications: NONE apparent at time of evaluation Final Primary Anesthesia Type: MAC (The anesthetic type performed was the same as planned.) Comments: Kamron Frank MD * Anesthesia Preprocedure Evaluation - Kamron Frank MD - 07/23/2020 8:34 PM EDT Pre-Anesthesia Evaluation for: Tori Escobar a 35 y.o. female. Procedure(s): UPPER EUS- ENDOSCOPIC ULTRASOUND Patient Active Problem List Diagnosis ??? BRCA2 gene mutation positive in female Added automatically from request for surgery [id number] ??? Family history of BRCA2 gene positive Father ??? Family history of pancreatic cancer Father (BRCA2+) Paternal aunt ??? BRCA2 gene mutation positive ??? Abdominal pain ??? Hiatal hernia No past medical history on file. Past Surgical History: Procedure Laterality Date ??? SECTION x 4 ??? CHOLECYSTECTOMY Social History Tobacco Use ??? Smoking status: Never Smoker ??? Smokeless tobacco: Never Used Substance Use Topics ??? Alcohol use: Not Currently Social History Substance and Sexual Activity Drug Use Not on file Allergies Allergen Reactions ??? Penicillins Rash ??? Phenergan [Promethazine] ??? Sulfa (Sulfonamide Antibiotics) Nausea Only Medications: MAR and/or home medications have been reviewed. Physical Exam: Preprocedure Vitals Current as of 07/23/202033 No BP, pulse, respiration, SpO2, or temperature recorded. Height: 157.5 cm (5' 2) (06/19/20) Weight: 81 kg (178 lb 9.6 oz) (06/19/20) BMI: 32.66 IBW: 50.1 kg (110 lb 7.8 oz) Airway Assessment: Mallampati: II TM distance: >3 FB Neck ROM: full Cardiovascular Assessment: Rhythm: regular Rate: normal Pulmonary Assessment: unlabored breathing Dental Assessment: - normal exam Misc Assessment: Patient is wearing No contact(s). IV access: Peripheral line Last Filed Perioperative Cognitive Screening None Anesthesia Plan: ASA 2 MAC, with a(n) intravenous induction Tori Escobar is a 35 y.o. BMI 32 female presenting for EUS for evaluation for pancreatic CA. Hx of BRCA mutation and strong family hx of pancreatic CA. Prior anesthetic hx: no prior anesthesia history on file Labs were reviewed Allergies: -- Penicillins -- Rash -- Phenergan (Promethazine) -- Sulfa (Sulfonamide Antibiotics) -- Nausea Only NPO Status: Appropriate Anesthetic Plan: GA with ETT Standard ASA monitoring Adequate IV access Kamron Frank MD PhD #[id number] Region - Other Informed Consent: Anesthetic plan and risks discussed with patient. Plan discussed with QA AUTOMATION ENGINEER. PAT Clinic Note documented in this encounter Plan of Treatment Upcoming Encounters Date Type Department Care Team (Late st Contact Info) Description 11/30/2023 1:40 PM EDT Office Visit Dermatology at [facility] [address] [place] [address] Francisca Chandler MD [facility] [place] [address] documented as of this encounter Visit Diagnoses Not on filedocumented in this encounter Administered Medications Inactive Administered Medications - up to 3 most recent administrations Medication Order MAR Action Action Date Dose Rate Site lactated ringers infusion Intravenous, CONTINUOUS PRN, Starting on Wed07/24/20 at 1005, Until Wed07/24/20 at 1037, Anesthesia Intra-op New Bag 07/24/2020 10:05 AM EDT ondansetron (pf) (Zofran) (2 mg/mL) injection Intravenous, PRN, Starting on Wed07/24/20 at 1009, Until Wed07/24/20 at 1037, Anesthesia Intra-op, Routine Given 07/24/2020 10:09 AM EDT 4 mg propofoL (Diprivan) 10 mg/mL bolus injection (Anesthesia) Intravenous, PRN, Starting on Wed07/24/20 at 1015, Until Wed07/24/20 at 1037, Anesthesia Intra-op Given 07/24/2020 10:15 AM EDT 80 mg propofoL (Diprivan) infusion Intravenous, CONTINUOUS PRN, Starting on Wed07/24/20 at 1016, Until Wed07/24/20 at 1037, Anesthesia Intra-op, Routine New Bag 07/24/2020 10:16 AM EDT 200 mcg/kg/min 97.2 mL/hr documented in this encounter Care Teams Family Literacy Coordinator Relationship Specialty Start Date End Date Anisha Neal MD PCP - General Family Medicine 07/10/20 06/28/22 documented as of this encounter
--- OUTSIDE RECORDS SUMMARY | 2023-11-12 00:40 | XMS_ITS | Encounter Summary ---
Author Organization [facility] Address [facility] [place] [address] Care Team Providers Care Logger All Round Name Role Phone Anisha Neal MD Primary Care Provider Reason for Visit * Reason Comments Follow-up * Consultation (Urgent) - Closed Specialty Diagnoses / Procedures Referred By Contac t Referred To Contact Hematology and Oncology Diagnoses clotting Brady Freedman MD [facility] [place] [address] [facility] [address] [place] [address] Referral ID Status Reason Start Date Expiration Date V isits Requested Visits Authorized [id number] Closed Consult, Test & Treat 07/08/2020 07/08/2021 1 1 Encounter Details Date Type Department Care Team (Late st Contact Info) Description 08/05/2020 10:30 AM EDT Office Visit Hematology [place] [address] Delicia Powell MD [facility] HEMATOLOGY/[place] [address] Family history of pulmonary embolism; Pre-op evaluation Social History Tobacco Use Types Packs/Day Years [...] Sign Reading Time Taken Comments Blood Pressure 116/65 08/05/2020 10:25 AM EDT Pulse 72 08/05/2020 10:25 AM EDT Temperature 37 ??C (98.6 ??F) 08/05/2020 10:25 AM EDT Respiratory Rate 22 08/05/2020 10:25 AM EDT Oxygen Saturation 100% 08/05/2020 10:25 AM EDT Inhaled Oxygen Concentration - - Weight 79 kg (174 lb 3.2 oz) 08/05/2020 10:25 AM EDT Height 158.2 cm (5' 2.28) 08/05/2020 10:25 AM E DT Body Mass Index 31.57 08/05/2020 10:25 AM EDT documented in this encounter Progress Notes * Delicia Powell MD - 08/05/2020 10:30 AM EDT Images from the original note were not included. [facility] [place] [address] THROMBOSIS CONSULTATION DATE OF VISIT 08/05/2020 Patient Tori Escobar 1985 REFERRING PHYSICIAN Brady Freedman MD PRIMARY CARE PHYSICIAN Anisha Livingston MD REASON FOR CONSULTATION Evaluation of thrombophilia in context of family history of pulmonary embolism & perioperative thromboprophylaxis around upcoming prophylactic mastectomy in the setting ofBRCA+ and breast re construction HISTORY OF THE PRESENT ILLNESS Tori Escobar is a 35 y.o. woman with family history of pulmonary embolism, strong family history of cancer, known BRCA2+ mutation who is seen in consultation at the request of Dr. Freedman for evaluation of thrombophilia and perioperative thromboprophylaxis around upcoming prophylactic mastectomy and breast re construction. The history is obtained from the patient, and I have reviewed extensive medical records provided by the referring physician and located in the electronic medical record to fill in gaps in the patient's recollection of events, treatments and outcomes. Her father of pancreatic cancer at 58 & her paternal aunt of pancreatic cancer at 45.Because of strong family history of cancer, genetic testing was initiated and she was found to haveBRCA positive mutation. She was seen by Dr. Miguel and also Dr. Freedman to discuss prophylacticmastectomy and breast re construction which she would like to proceed to reduce her risk of breast cancer. She was also seen by Dr. Brito, PRINTER APPRENTICE ONC to discuss future prophylactic bilateral salpingo-oophorectomy at this time. She discussed about timing of the procedure and recommended this to be done betweenthe ages of 40-50. In the meantime she will have a yearly annual exam for cancer surveillance. She met with GI and underwent upper endoscopy on 07/24/20 which was unrevealing. She was recommended to undergo MRI in 1 year and repeat EUS in 2 years. She is currently using Mirena IUD for contraception. She has used estrogen contaning OCP for at least 4 years and has switched to Mirena IUD since child . She has no personal history of DVT or PE. Her mother who accompanied her today has had a history of unprovoked pulmonary embolism. She gave me a permission during visit to look up her medical record. Her pulmonary embolism appeared to be unprovoked. Her mother was 46 years at that time and was not on estrogen containing OCP. However, she has had other clinical risk factors including tobacco use & venous insufficiency. Her thrombophilia testing was negative for inherited or acquired thrombophilia. She has remained on long-term warfarin to current date. THROMBOSIS RISK FACTORS Risk Factor Comment Obesity (BMI >30 kg/m2) V/A x Body mass index is 31.57 kg/m??. Diabetes V/A Current smoker V/A Estrogen or estrogen/progestin V/A V/A Inflammatory disease V/A Recent surgery (<3 months) V Recent hospitalization (<3 mo) V Recent travel (<3 mo) V Period of immobility V Documented thrombophilia V Accident/Trauma V/A Cancer or treatment for cancer V/A Blood transfusion V/A Central venous catheter V Family history (1st degree) V/A x Mother with unprovoked PE - negative thrombophilia Varicose veins/venous insuff. V Hypertension A Hyperlipidemia A Vascular disease A V: Risk factor for venous thrombosis; A: Risk factor for arterial thrombosis PAST MEDICAL HISTORY Patient Active Problem List Diagnosis Code ??? Hiatal hernia K44.9 ??? Abdominal pain R10.9 ??? BRCA2 gene mutation positive Z15.01, Z15.09 ??? Family history of BRCA2 gene positive Z84.81 ??? Family history of pancreatic cancer Z80.0 ??? BRCA2 gene mutation positive in female Z15.01, Z15.02, Z15.09 OPERATIVE PROCEDURES Past Surgical History: Procedure Laterality Date ??? SECTION x 4 ??? CHOLECYSTECTOMY ??? PRO ENDOSCOPIC US EXAM, ESOPH N/A 07/24/2020 UPPER EUS- ENDOSCOPIC ULTRASOUND performed by Malik Sanders MD at [facility] ENDOSCOPY OBSTETRIC HISTORY Estrogen combined OCP for 4 years total. Now on Mirena IUD MEDICATIONS Current Outpatient Medications on File Prior to Visit Medication Sig Dispense Refill ??? diphenhydrAMINE HCL (ZzzQuiL) 50 mg/30 mL Liquid Take by mouth. ??? UNABLE TO FIND Med Name: CBD capsule ??? sertraline (Zoloft) 50 mg Tablet TAKE ONE TABLET BY MOUTH EVERY DAY ??? linaclotide (Linzess) 145 mcg Capsule Take 145 mcg by mouth daily. ??? levonorgestreL (MIRENA) 20 mcg/24 hours (6 yrs) 52 mg IUD 1 each by Intrauterine route Continuous (Device). . ??? polyethylene glycol (MIRALAX) 17 gram packet 17 GRAM = 1 Packet(s), PO, Once daily (Patient nottaking: No sig reported) No current facility-administered medications on file prior to visit. ADVERSE DRUG REACTIONS Allergies as of 08/05/2020 - Review Complete 07/26/2020 Allergen Reaction Noted ??? Penicillins Rash ??? Phenergan [promethazine] 10/09/2010 ??? Sulfa (sulfonamide antibiotics) Nausea Only 04/18/2020 FAMILY HISTORY Father and paternal aunt of pancreatic cancer. Maternal grandfather with history of mesenteric ischemia at 72, also hx of aortic dissection. Mother with unprovoked PE - tobacco use+ venous insufficiency. 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 No tobacco Alcohol none REVIEW OF SYSTEMS Fevers/chills/sweats No Recent infections No Unexplained weight loss No Headache/lightheadedness/syncope No Sinus pain/pressure No Oral sores/lesions/bleeding No Sore throat/dysphagia No Nosebleeds No Cough/SOB/chest pain/heart racing No Nausea/vomiting/dyspepsia No Abdominal pain No Diarrhea/constipation Constipation Urinary pain, burning, incontinence No Hematuria No Vaginal discharge/bleeding No Skin rashes/ulcers No Back/joint pain/swelling No Leg swelling/pain/redness No Bruising/petechiae/bleeding/melena No Sensory/motor No Polydipsia/polyuria/heat/cold intol No Lumps/bumps/swollen glands No Other Negative except as above PHYSICAL EXAMINATION BP 116/65 (Patient Position: Sitting) Pulse 72 Temp 37 ??C (98.6 ??F) (Temporal) Resp 22 Ht158.2 cm (5' 2.28) Wt 79 kg (174 lb 3.2 oz) SpO2 100% BMI 31.57 kg/m?? GENERAL: Well-appearing, articulate white female. HEENT: Wearing mask NECK: Supple; BREASTS: Exam deferred. CHEST/LUNGS: Clear to auscultation No rales, rhonchi, wheezes. HEART: Regular rate and rhythm; no murmur, rub, gallop GASTROINTESTINAL: Abdomen soft, non-tender, GENITOURINARY: Exam deferred. EXTREMITIES: No clubbing, cyanosis or edema. No erythema, tenderness or palpable cords. No venous varicosities. No skin discoloration or hemosiderin deposits. MUSCULOSKELETAL: Spine nontender.No acutely inflamed joints. SKIN: No ecchymoses, petechiae, ulcers or rashes. LYMPH: Not examined NEUROLOGIC: Alert, oriented. Speech clear, coherent. No focal deficits noted. PSYCHIATRIC: Appropriate affect, no apparent distress. LABORATORY STUDIES None RADIOGRAPHIC STUDIES Mammogram 05/20/2020 REASON FOR EXAM: Screening ?? TECHNIQUE: CC and MLO views were obtained of each breast using standard 2-D mammography as well as 3-D tomosynthesis. Computer aided detection was used. There are no prior images for comparison. ?? FINDINGS: ??The breasts are heterogeneously dense, which may obscure small masses. There are no suspicious microcalcifications, masses, or areas of distortion. ?? CONCLUSION: No mammographic evidence of malignancy. EGD 07/24/2020 Impression: ?- Normal endoscopic exam. ?- Normal endosonographic exam; ?specifically the pancreas was normal ?without ductal dilatation or mass. Recommendation: ?- Observe patient's clinical course. ?- Perform magnetic resonance imaging ?(MRI) with gadolinium in 1 year and ?consider repeat EUS in 2 years. ?- Follow-up in clinic with ?Rg. ?- The attending physician listed ?above was present for the entire ?procedure. ? IMPRESSION Tori Escobar is a 35 y.o. woman with family history of pulmonary embolism & pancreatic cancer who is here for thrombophilia testing in context of family history of pulmonary embolism &perioperative thromboprophylaxis around upcoming prophylactic mastectomy and breast re constructionto prevent breast cancer in the setting of BRCA2+ status. Tori has no personal history of DVT or PE. Her mother was diagnosed with acute unprovoked pulmonary embolism in the past. Her thrombophilia testing was negative. Although her PE was appeared to beunprovoked, her mother has had clinical risk factors for VTE including tobacco use and venous insufficiency. Given negative thrombophilia testing on her mother, I see no indication to proceed with thrombophilia testing on Tori and the result won't change our management as well. I told her that I think that her risk for thrombosis is probably closer to normal general population without thrombophilia. Her only risk factor for VTE is her obesity BMI > 30 kg/m2. She uses Mirena IUD for contraception which is considered safe and is not associated with thrombosis risk. We discussed that surgery & hospitalization are associated with thrombosis risk. I recommend her to be on at least prophylactic dose of anticoagulant with low dose enoxaparin at 40 mg SQ once daily starting ~12 hours after surgery and once hemostasis is achieved and continue throughout hospitalstay. We discussed mechanical thromboprophylaxis including venodyne use in the hospital, wearing compression stocking & early ambulation. I reviewed other preventative strategies to prevent VTE including maintain good weight/activity, using pharmacologic thromboprophylaxis during high risk period such as trauma, surgery, period of immobility, getting up and walking during long car ride/long haul flight, staying up to date with cancerscreening. PLAN/RECOMMENDATIONS 1. No thrombophilia testing is indicated 2. For upcoming prophylactic mastectomy & breast re construction - Recommend standard thromboprophylaxis for her postoperative course during hospitalization - enoxaparin 40 mg SQ once daily starting ~12 hours post surgery or once surgical hemostasis is achieved & continue throughout hospitalization - mechanical thromboprophylaxis including compression stocking,venodyne, early ambulation 3. Continue Mirena IUD - this is considered safe without increased risk for thrombosis 4. Continue cancer surveillance per specialist - GI, PRINTER APPRENTICE/ONC Tori Escobar had the opportunity to ask questions and indicated that all her questions were answered to her satisfaction. While I won't schedule a routine follow-up, she knows that she can call our office to schedule follow-up as needed. Delicia Powell MD documented in this encounter Plan of Treatment Upcoming Encounters Date Type Department Care Team (Late st Contact Info) Description 11/30/2023 1:40 PM EDT Office Visit Dermatology at [facility] [address] [place] [address] Francisca Chandler MD [facility] [address] [place] [address] Scheduled Referrals Name Type Priority Associated Diagnoses Order Schedule Referral to Hematology and Oncology Outpatient Referral Routine BRCA2 gene mutation positive Ordered: 07/08/2020 documented as of this encounter Visit Diagnoses Diagnosis Family history of pulmonary embolism Family history of other cardiovascular diseases Pre-op evaluation Preoperative examination, unspecified documented in this encounter Care Teams Logger All Round Relationship Specialty Start Date End Date Anisha Neal MD PCP - General Family Medicine 07/10/20 06/28/22 documented as of this encounter
--- OUTSIDE RECORDS SUMMARY | 2023-11-12 00:40 | XMS_ITS | Encounter Summary ---
Author Organization [facility] Address [address] [place] [address] Care Team Providers Care Member Of The Legislative Council Name Role Phone None, Provider Primary Care Provider Unavailabl e Encounter Details Date Type Department Care Team (Late st Contact Info) Description 07/17/2022 Lab Requisition [facility] Pathology & Laboratory Medicine - [facility] [address] [place] [address] Outr Resulting Lab, Provider Social History Tobacco Use Types Packs/Day Years Used Date Smoking Tobacco: Never Assessed Sex and Gender Information Value Date Recorded Sex Assigned at Not on file Gender Identity Not on file Sexual Orientation Not on file documented as of this encounter Plan of Treatment Not on file documented as of this encounter Procedures Procedure Name Priority Date/Time Associated Diagnosis Comments HOLD SST Today 07/17/2022 7:08 EDT LYME AB Today 07/17/2022 7:08 EDT HIGH SENSITIVITY C-REACTIVE PROTEIN (CARDIOVASCULAR DISEASE) Today 07/17/2022 7:08 EDT ANTI NUCLEAR AB (LILLIAM), IFA Today 07/17/2022 7:08 EDT THYROID ANTIBODIES Today 07/17/2022 7: 08 EDT documented in this encounter Results * HOLD SST (07/17/2022 7:08 EDT) Hold Hold 07/17/2022 20:31 EDT [facility] Blood VENOUS BLOOD / Unknown 07/17/2022 7:08 EDT 07/17/2022 19:28 EDT Provider Outr Resulting Lab LAB INFO SER VICE AND SUPPORT & PHONE RESULT Performing Organization Address [facility] Co de Phone Number [facility] [address] [place] [address] * THYROID ANTIBODIES (07/17/2022 7:08 EDT) Pathologist [facility] Anti-Thyroglobulin <15 <=60 U/mL 2022 20:52 EDT [facility] Thyroperoxidase Ab <28 <=60 U/mL 2022 20:52 EDT [facility] Blood VENOUS BLOOD / Unknown 07/17/2022 7:08 EDT 07/17/2022 19:27 EDT Provider Outr Resulting Lab CHEMISTRY & BLOOD GAS ORDERABLES Performing Organization Address [facility]/ZIP Co de Phone Number [facility] [address] [place] [address] * LYME AB (07/17/2022 7:08 EDT) Pathologist [facility] Lyme Ab Negative Negative 07/20/2022 11:26 EDT [facility] Blood VENOUS BLOOD / Unknown 07/17/2022 7:08 EDT 07/17/2022 19:27 EDT Provider Outr Resulting Lab IMMUNOLOGY A ND SEROLOGY ORDERABLES Performing Organization Address [facility]/ZIP Co de Phone Number [facility] [address] [place] [address] * ANTI NUCLEAR AB (LILLIAM), IFA (07/17/2022 7:08 EDT) Pathologist [facility] LILLIAM Interpretation Negative Negative 2022 13:56 EDT [facility] Comment:No titer performed, LILLIAM Screen is negative. Blood VENOUS BLOOD / Unknown 07/17/2022 7:08 EDT 07/17/2022 19:27 EDT Narrative [facility] - 07/20/2022 13:56 EDT Results were obtained with the [employer] NOVA Lite HEp-2 LILLIAM Kit by indirect immunofluorescence. Provider Outr Resulting Lab IMMUNOLOGY A ND SEROLOGY ORDERABLES Performing Organization Address [facility] Co de Phone Number [facility] [address] [place] [address] * HIGH SENSITIVITY C-REACTIVE PROTEIN (CARDIOVASCULAR DISEASE) (07/17/2022 7:08 EDT) High Sensitivity CRP 1.30 See Note mg/L 07/17/2022 19:51 EDT [facility] Comment: Reference Range: ??Low Risk: ? <1.0 mg/L ??Average Risk: ?? 1.0 - 3.0 mg/L ??High Risk: ?>3.0 mg/L ??Indeterminate*: >10.0 mg/L ??*May be an indication of another source of inflammation or infection Blood VENOUS BLOOD / Unknown 07/17/2022 7:08 EDT 07/17/2022 19:27 EDT Provider Outr Resulting Lab CHEMISTRY & BLOOD GAS ORDERABLES Performing Organization Address [facility] Co de Phone Number [facility] [address] [place] [address] documented in this encounter Visit Diagnoses Not on filedocumented in this encounter Care Teams Member Of The Legislative Council Relationship Specialty Start Date End Date None, Provider PCP - General 06/03/20 documented as of this encounter
--- OUTSIDE RECORDS SUMMARY | 2023-11-12 00:40 | XMS_ITS | Encounter Summary ---
Author Organization [facility] Address [facility] [place] [address] Care Team Providers Care Tile Mason Name Role Phone Harriett Goldsmith APRN Primary Care Provid er Encounter Details Date Type Department Care Team (Late st Contact Info) Description 05/22/2020 Orders [place] [address] Alma Delia Olvera Social History Tobacco Use Types Packs/Day Years [...] [facility] [address] [place] [address] Francisca Chandler MD [facility] [address] [place] [address] documented as of this encounter Visit Diagnoses Not on filedocumented in this encounter Care Teams Tile Mason Relationship Specialty Start Date End Date Harriett Goldsmith APRN [address] [facility] [address] [place] [address] PCP - General Family Medicine 11/23/19 07/09/20 documented as of this encounter
--- OUTSIDE RECORDS SUMMARY | 2023-11-12 00:40 | XMS_ITS | Encounter Summary ---
Author Organization [facility] Address [facility] [place] [address] Care Team Providers Care Acid Concentrator Name Role Phone Harmony Cortez APRN Primary Care Provider [phone] Encounter Details Date Type Department Care Team (Late st Contact Info) Description 06/11/2009 Orders [place] [address] Homero Correa MD [facility] DR [place] [address] Social History Tobacco Use Types Packs/Day Years [...] 1:40 PM EDT Office Visit Dermatology at [facility] [address] [place] [address] Francisca Chandler MD [facility] [address] [place] [address] documented as of this encounter Procedures Procedure Name Priority Date/Time Associated Diagnosis Comments SURGICAL PATHOLOGY REPORT Routine 06/11/2009 2:58 PM EST documented in this encounter Results * Surgical Pathology Report (06/11/2009 2:58 PM EST) Surgical Pathology Report [id number] ? Location: 4T The signing pathologist has (i) examined the relevant preparation(s) for the specimen(s) and (ii) rendered or confirmed the diagnosis(es). . ?Pathology Surgical Pathology Final Report Clinical Information Specimen Submitted: A - Duodenal biopsies, duodenum/celiac /sprue B - stomach biopsies ? h pylori, ? gastritis, stomach Clinical History: Dyspepsia, ? celiac, ? sprue Clinical Diagnosis: Dyspepsia Gross Description A - Labeled/Fixativ e: Duodenal biopsy, ? celiac/sprue; formalin. Qty/Size/Weight : ?Four, averaging 0.3 x 0.3 x 0.2 cm. Tissue Description: ?? Soft, whitaker tissues. Sections/Proces sing: ??(T1) B - Labeled/Fixativ e: Stomach biopsies, ? H. pylori, ? gastritis; ?formalin. Qty/Size/Weight : ?Four, ranging from 0.2 cm to 0.4 cm in ?greatest dimension. Tissue Description: ?? Soft, whitaker tissues. Sections/Proces sing: ??(T1) ??vms/SNS Microscopic Description Slides reviewed, microscopic description not recorded. Diagnosis A. Duodenum, biopsy: Duodenal mucosa within normal limits, including preserved villous architecture. B. Stomach, biopsy: Gastric fundic gland mucosa within normal limits. ?Negative for H. pylori (Thiazine stain). CR-0 06/13/09 AAS 06/13/09 Verified by: ? Roxi Lee MD ?Pathologist ?(Electronic Signature) The attending pathologist whose signature appears on this report has reviewed all diagnostic slides and has edited the gross and/or microscopic portion of the report in rendering the final pathologic diagnosis. RAY SHAH 06/11/2009 2:58 PM EST Homero Faustin MD PATHOLOGY/CYTOLO GY ORDERABLES [facility] documented in this encounter Visit Diagnoses Not on filedocumented in this encounter Care Teams Acid Concentrator Relationship Specialty Start Date End Date Harmony Cortez APRN [address] [place] [address] PCP - General Family Medicine 06/29/22 documented as of this encounter
--- OUTSIDE RECORDS SUMMARY | 2023-11-12 00:40 | XMS_ITS | Encounter Summary ---
Author Organization [facility] Address [facility] [place] [address] Care Team Providers Care Recycle Worker Name Role Phone Harriett Goldsmith APRN Primary Care Provid er Reason for Visit * Reason Comments Established BRCA2 * Consultation (Routine) - Closed Specialty Diagnoses / Procedures Referred By Jonny perez Referred To Contact Gynecology Oncology Diagnoses BRCA2 gene mutation positive in female Justin Vela MD [facility] DR HEMATOLOGY/[place] [address] [facility] Video Tape Duplicator [address] [place] [phone] Referral ID Status Reason Start Date Expiration Date V isits Requested Visits Authorized [id number] Closed Consult, Test & Treat 04/17/2020 04/17/2021 1 1 Encounter Details Date Type Department Care Team (Late st Contact Info) Description 04/18/2020 8:00 AM EST Office Visit [place] [address] Priyanka Brito MD [facility] OBSTETRICS [place] [address] BRCA positive; Periumbilical abdominal pain; Family history of pancreatic cancer; Family planning advice; S/P tubal ligation; Chronic constipation; IUD (intrauterine device) in place Social History Tobacco Use Types Packs/Day Years [...] Sign Reading Time Taken Comments Blood Pressure 114/69 04/18/2020 8:03 AM EST Pulse 79 04/18/2020 8:03 AM EST Temperature 37.1 ??C (98.7 ??F) 04/18/2020 8:03 AM ES T Respiratory Rate 16 04/18/2020 8:03 AM EST Oxygen Saturation 100% 04/18/2020 8:03 AM EST Inhaled Oxygen Concentration - - Weight 79 kg (174 lb 2.6 oz) 04/18/2020 8:03 AM EST Height 152 cm (4' 11.84) 04/18/2020 8:03 AM EST Body Mass Index 34.19 04/18/2020 8:03 AM EST documented in this encounter Progress Notes * Priyanka Brito MD - 04/18/2020 8:00 AM EST GYNECOLOGIC ONCOLOGY NEW PATIENT CONSULTATION Date: 04/18/2020 Name: Tori Escobar : 1985 CSN: [id number] Patient Care Team: Patient Care Team: Harriett Goldsmith APRN as PCP - General (Family Medicine) Radha Valles POLICY WRITER Dr Rafael Vela, Genetics Program ASSESSMENT/PLAN Assessment BRCA2 mutation Family planning advice fam hist pancreatic cancer C/S x 3 S/p BTL Chronic constipation Abdominal pain IUD in place - CA 125 ordered today - SHANDA referral today - Breast cancer screening, gave patient names of breast surgeons - TVS with her POLICY WRITER We had a lengthy conversation with patient regarding significance of her BRCA diagnosis and the risk of gynecologic cancers including : ovary, tube and peritoneal cancers. We reviewed the lifetime risk and typical age of onset, presentation and outcome of these cancers. We then reviewed in detail the risk reducing options and the associated risks, benefits and alternatives. We discussed surveillance with transvaginal U/S and CA 125 every 6 months and some of the limitations of these modalities in early detection. We further discussed chemoprevention with OCP which patient has used in there past. Lastly we discussed risk reducing surgery with removal of the tubes and ovaries and the rationale for this procedure as well as the data regarding its efficacy. We further discussed the consideration of a concomitant hysterectomy and the rationale for this procedure as well as the risks and side effects of this procedure. The patient was encouraged to prioritize a bilateral salpingo- oophorectomy at this time. We reviewed the anticipated surgical approach with a laparoscope with the possible need to convert to a laparotomy and the length of surgery, length of stay and anticipated recovery of each of these procedures. We reviewed the specific issues regarding 1) finding of occult cancer at the time of risk-reducing bilateral salpngo-oophorectomy (RRSO)and the possible need for complete staging, possible necessitating an additional surgery and subsequent chemotherapy. 2) The subsequent small risk of primary peritoneal carcinoma despite RRSO and ourrecommendations for annual gynecologic exams every 12 months. We discussed the optimal timing of this procedure given the attendant side effects including menopausal symptoms, bone loss, vaginal dryness, possible increased lifetime risk of dementia and cardiovascular disease. We recommend strong consideration of RRSO between the ages of 40-50. We also discussed the impact of risk reducing salpingo oophorectomy on breast cancer reduction up to 50%. Given thepatient's family history we further recommend ongoing evaluation with her step down specialist to devise the best screening plan for her strong family history of pancreatic cancer. We reviewed some lifestyle interventions and possible medications to treat menopausal symptoms and the need for monitorin g of bone health. We discussed HRT and the risk, benefits and alternatives to its use and the need for both estrogen and progestins if the patient's uterus remains intact. The patient is very happy with her Mirena IUD and we discussed that she could continue to rely upon this is a source of progestins if she chooses to use estrogen replacement therapy after risk reducing bilateral salpingo-oophorectomy in the future. D/w the patient possible role of salpingectomy as risk reducing procedure. D/w the patient risks, benefits and alternatives and rationale and lack of definitive data to show risk reduction at this point. We also discussed that salpingectomy should be considered a bridging procedure to eventual bilateral oophorectomy and a second surgical procedure based upon current data. The patient is interested in pursuing additional children with a new partner and we therefore had an extensive conversation regarding the role of BRCA mutation and fecundity and most recent data to suggest possibly decreased ovarian reserve. Given that the patient is status post a tubal ligation wealso discussed options to pursue expanding her family which would likely require either tubal reversal or in vitro fertilization. The patient will discuss further with her partner and consider a consultation with placement officer. The patient's history of chronic constipation and abdominal pain is currently well managed on her diet and medication regimen. Return to Clinic: annual visit for genetic susceptibility to breast and ovarian cancer FULL NOTE CHIEF COMPLAINT BRCA2 mutatiion fam hist pancreatic cancer HISTORY OF PRESENT ILLNESS Tori Escobar is a 35 y.o. old para 4 woman, seen at the request of Dr Justin Vela in consultation for recommendations evaluation and assessment regarding her primary diagnosis of BRCA2 mutation. Father was diagnosed with pancreatic cancer and last year. On??03/07/2020,??Tori??underwent genetic testing for the known BRCA2 mutation previously detected in her father and for the variants of uncertain significance in the CDH1 and RECQL4 genes also detected in her father for a notable family history of pancreatic cancers and BRCA2 mutation 1. Patient describes chronic stomach pain for which she has had work-up including imaging studies. 2. History of a lump in her axilla for which she had evaluation with a mammogram that was normal. 3. History of bilateral ovarian cysts. The patient has had a history of a CAT scan performed in 2010 for this issue. Patient notes upper abdominal pain, multiple times a week. Patient sees Dr Bright ([facility]) jose for chronic constipation. Doing better with bowel movement every couple days. Patient adjusts dose accordingly for bowel movement. At baseline patient ewould not vickers ve bowel movement for week at a time. Performance Status: 0 Oncology History She denies abnormal vaginal bleeding, discharge or unusual pelvic pain, no dysuria, frequency or hematuria. no trouble urinating, blood in urine, pain with urination, urinary incontinence Review of Systems Review of Systems Pertinent positives and negatives noted in HPI. All others reviewed and negative. Health Care Maintenance LMP: no menses 5.5 years Last Pap: 2019 Dr Hurd POLICY WRITER Last Mammogram: in Last Colorectal Screen: endoscopy twice and colonoscopy within 5 years IMAGING AND LAB REVIEW I personally reviewed labs/radiology reports/pathology tests and other supporting records as part of my consultation today with the patient. CT [facility] 2010 PELVIS: An intrauterine device is noted. A 3.1 cm cyst is seen associated with the right ovary, and a 2.7 cm cyst is seen associated with the left ovary. No pelvic free fluid or free air. IMPRESSION IMPRESSION: 1. Nonobstructing small renal calcification on the right. 2. Bilateral ovarian cysts. PAST HISTORY Past Medical History Patient Active Problem List Diagnosis Code ??? Hiatal hernia K44.9 ??? Abdominal pain R10.9 Past Surgical History Past Surgical History: Procedure Laterality Date ??? SECTION x 3 x 1 BTL Past TECHNOLOGY AUDITOR History Menstrual History: 11 Dysplasia History: none Hotflashes:none Sexually active: yes new partner who has not had children but not interested in having children with him, s/p BTL control: Mirena IUD 5.5 years, OCP 6 years as teen Allergies Reviewed with patient Social History Tobacco: none Alcohol: occasionally Employment: [employer] Marital Status: Living Situation with 4 children ages 6-15 Family History family history includes Pancreatic Cancer (age of onset: 43) in her paternal aunt; Pancreatic Cancer (age of onset: 57) in her father; Prostate Cancer in her paternal grandfather. CURRENT MEDICATIONS Current Outpatient Medications Medication Sig Dispense Refill ??? linaclotide (Linzess) 145 mcg Capsule Take 145 mcg by mouth daily. ??? polyethylene glycol (MIRALAX) 17 gram packet 17 GRAM = 1 Packet(s), PO, Once daily (Patient nottaking: No sig reported) No current facility-administered medications for this visit. PHYSICAL EXAM Patient Vitals for the past 24 hrs: Temp Pulse Resp BP SpO2 04/18/20 0803 37.1 ??C (98.7 ??F) 79 16 114/69 100 % BP 114/69 (Patient Position: Sitting) Pulse 79 Temp 37.1 ??C (98.7 ??F) (Temporal) Resp 16 Ht 152 cm (4' 11.84) Wt 79 kg (174 lb 2.6 oz) SpO2 100% BMI 34.19 kg/m?? Body mass index is 34.19 kg/m??. Exam: GENERAL: Well-appearing, female in no acute distress. HENT: Moist mucous membranes. No adenopathy. NECK: NO masses of thyroid or assymetry. LIZA SURVEY: NO masses or asymmetry or tenderness. CARDIOVASCULAR: Chest expands symmetrically without any labored breathing. BREASTS: No masses, adenopathy or asymmetry AXILLA: No masses or adnoepathy ABDOMEN: Soft, nontender, nondistended. No HSM, tenderness or ascites. No masses or rebound. EXTREMITIES: Warm, well perfused. No edema. Well healed low transverse scar noted. SKIN: NO rashes or excoriations NEURO: CN 2-12 grossly intact and the patient responds to questions appropriately in Georgian. PELVIC EXAM: Vulva: Normal female external genitalia. Normal urethra. Vagina: Normal pink mucosa. No discharge. Cervix: No lesions, non-tender. IUD string in place Uterus: Mobile, non-tender. Adnexa: No palpable masses. Rectal: Rectovaginal septum smooth. No masses. Normal rectal tone. Genetic Testing 03/08 nvitae's??BRCA2??analysis showed that??Tori??carries??the??pathogenic variant (mutation) in BRCA2, specifically??[id number] ([id number]). 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 ?? The CDH1 and RECQL4 variants of uncertain significance detected in her father were NOT detected in Tori. Advance Directives Reviewed with patient not reviewed with patient ASSESSMENT/PLAN I have reviewed old records and notes from [facility] and Care Everywhere, as appropriate, in summarizing the patient's prior relevant history to make my assessment and to formalize my recommended plan of care. See full assessment and plan summary at top of note. Signed, Priyanka Brito MD 04/18/2020 * Erma Conrad LNA - 04/18/2020 8:00 AM EST Examination chaperoned by SRIDEVI GOMEZ. documented in this encounter Plan of Treatment Upcoming Encounters Date Type Department Care Team (Late st Contact Info) Description 11/30/2023 1:40 PM EDT Office Visit Dermatology at [facility] [address] [place] [address] Francisca Chandler MD [facility] [address] [place] [address] documented as of this encounter Procedures Procedure Name Priority Date/Time Associated Diagnosis Comments HC CANCER ANTIGEN 125 Routine 04/18/2020 9:46 AM EST BRCA positive documented in this encounter Results * Cancer Antigen 125 (04/18/2020 9:46 AM EST) CA 125 27.8 <=38.1 unit/mL [facility] Comment: CA 125 Reference Interval ??Postmenopausal: 6.2 to 31.5 U/mL. ??Premenopausal: 6.9 to 45.9 U/mL. ??Pre and Postmenopausal subjects combined: 6.4 to 38.1 U/mL. Blood specimen (specimen) 04/18/2020 9:46 AM EST 04/18/2020 9:51 AM EST Narrative Resulting Agency Comment Spec In Lab Priyanka Brito MD CHEMISTRY ORDERABLES [facility] [place] [address] documented in this encounter Visit Diagnoses Diagnosis BRCA positive Genetic susceptibility to malignant neoplasm of breast Periumbilical abdominal pain Abdominal pain, periumbilic Family history of pancreatic cancer Family history of malignant neoplasm of gastrointestinal tract Family planning advice Other general counseling and advice for contraceptive management S/P tubal ligation Tubal ligation status Chronic constipation Unspecified constipation IUD (intrauterine device) in place Presence of intrauterine contraceptive device documented in this encounter Care Teams Recycle Worker Relationship Specialty Start Date End Date Harriett Goldsmith APRN [address] [facility] [address] [place] [address] PCP - General Family Medicine 11/23/19 07/09/20 documented as of this encounter
--- OUTSIDE RECORDS SUMMARY | 2023-11-12 00:40 | XMS_ITS | Encounter Summary ---
Author Organization [facility] Address [address] [place] [address] Care Team Providers Care Digital Imager Name Role Phone None, Provider Primary Care Provider Unavailabl e Encounter Details Date Type Department Care Team (Late st Contact Info) Description 03/01/2022 Lab Requisition [facility] Pathology & Laboratory Medicine - [facility] [address] [place] [address] Outr Resulting Lab, Provider Social History Tobacco [...] Procedure Name Priority Date/Time Associated Diagnosis Comments ZZCOVID-19 TEST [facility] LAB PCR Today 02/28/2022 11:30 EST COVID-19 TESTING Routine 02/28/2022 11:3 0 EST documented in this encounter Results * COVID-19 TEST [facility] LAB PCR (02/28/2022 11:30 EST) Swab 02/28/2022 11:3 0 EST 03/01/2022 17:29 EST Provider Outr Resulting Lab MICROBIOLOGY - GENERAL ORDERABLES [facility] [address] [place] [address] * COVID-19 TESTING (02/28/2022 11:30 EST) COVID-19 rt-PCR Result Negative Negative 03/02/2022 15:09 EST [facility] Comment: This test has not been FDA cleared or approved. This test has been authorized by FDA under an EUA for use by authorized laboratories. This test has been authorized only for detection of nucleic acid from 2019-nCoV, not for any other viruses or pathogens. This test is only authorized for the duration of the declaration that circumstances exist justifying the authorization of emergency use of in vitro diagnostic tests for detection and/or diagnosis of 2019-nCoV under section 564(b)(1) of Act, 21 U.S.C ?? 360bbb-3(b) (1), unless the authorization is terminated or revoked sooner. Negative results do not preclude 2019-nCoV infection and should not be used as the sole basis for treatment or other patient management decisions. Negative results must be combined with clinical observations, patient history, and epidemiological information. Testing was performed using the flaca SARS-CoV-2 assay ([employer] on the Flaca 6800 System Performing Lab Flaca 6800 [facility] Lab 03/02/2022 15:09 EST [facility] Swab 02/28/2022 11:3 0 EST 03/01/2022 17:29 EST Provider Outr Resulting Lab MICROBIOLOGY - GENERAL ORDERABLES Performing Organization Address City/State/[facility] Co de Phone Number [facility] [address] [place] [address] documented in this encounter Visit Diagnoses Not on filedocumented in this encounter Care Teams Digital Imager Relationship Specialty Start Date End Date None, Provider PCP - General 06/03/20 documented as of this encounter
--- OUTSIDE RECORDS SUMMARY | 2023-11-12 00:40 | XMS_ITS | Encounter Summary ---
Author Organization [facility] [place] [address] Care Team Providers Care Pick And Shovel Man Name Role Phone Anisha Neal MD Primary Care Provider Reason for Visit * Auth/Cert Specialty Diagnoses [...] Expiration Date Visits Re quested Visits Authorized [id number] 1 1 Encounter Details Date Type Department Care Team (Latest Contact Info) Description 07/24/2020 8:57 AM EDT - 07/24/2020 11:27 AM EDT Hospital En[place] [address] Malik Sanders MD [facility] [address] [place] [address] BRCA2 gene mutation positive in female Discharge Disposition: Home Social History Tobacco Use [...] Care Everywhere. * Ultrasound: Endoscopic (Rectal): Post-op (Guyanese) documented in this encounter Medications at Time [...] Sanders MD - 07/24/2020 10:20 AM EDT [facility] Operative Note Patient Name: Tori Escobar : [id number] MR#: [id number] Case Date: 07/24/2020 Surgeon: Surgeon(s) and Role: [...] 1:40 PM EDT Office Visit Dermatology at [facility] [address] [place] [address] Francisca Chandler MD [facility] [address] [place] [address] [phone] (work) documented as of this encounter Procedures Procedure Name Priority Date/Time Associated Diagnosis Comments Endoscopic Us Exam, Tarik ([id number]) 07/24/2020 10:05 AM EDT BRCA2 gene mutation positive in female Family history of pancreatic cancer UPPER EUS-ENDOSCOPIC ULTRASOUND Routine 07/24/2020 9:55 AM EDT documented in this encounter Results * UPPER EUS-ENDOSCOPIC ULTRASOUND (07/24/2020 9:55 AM EDT) UPPER ENDOSCOPIC ULTRASOUND [facility] Endoscopy Procedure Date: 07/24/2020 9:55 AM ? Patient Name: Tori Escobar ? N: [id number] ? Date of : 1985 ? Age: 35 ? Order #: [id number] ? Instrument Name: GF-UE [id number] ? Procedure: ? Upper EUS Indications: ? BRCA +, Family history of pancreas ? cancer Providers: ? Malik Sanders MD, Pricila Murphy, ? India Crawley RN, Blu Keller ? Nash Referring : ?Harriett Goldsmith, Anisha Livingston Requesting Provider: Danya Diez MD Medicines: ? Monitored Anesthesia Care Complications: ? No immediate complications. Procedure: ? Pre-Anesthesia Assessment: ? - [place] Protocol: ? - Pre-procedure Verification: Prior ? [...] by the physician, the nurse, ? the mine superintendent and the dialysis patient care technician in ? the procedure room. ? [...] years. ? - Follow-up in clinic with . ? Rg. ? - The attending physician listed ? above was present for the entire ? procedure. ? Procedure Code(s): ?? --- Professional --- ? 71065, Esophagogastroduodenos copy, ? flexible, transoral; with endoscopic ? ultrasound examination, including the ? esophagus, stomach, and either the ? duodenum or a surgically altered ? stomach where the jejunum is examined ? distal to the anastomosis CPT copyright 2019 [employer]. All rights reserved. The codes documented in this report are preliminary and upon insurance account manager review may be revised to meet current [...] Wed07/24/20 at 1110, Endoscopy (Day of Procedure) 928 (New Bag - Prov ider: Jarad Scott RN) documented in this encounter Care Teams Pick And Shovel Man Relationship Specialty Start Date End Date Anisha Neal MD PCP - General Family Medicine 07/10/20 06/28/22 documented as of this encounter
--- OUTSIDE RECORDS SUMMARY | 2023-11-12 00:41 | XMS_ITS | Encounter Summary ---
Author Organization [facility] Address [address] [place] [address] Care Team Providers Care Accounts Receivable Administrator Name Role Phone Unavailable Primary Care Provider Unavailabl e Encounter Details Date Type Department Care Team (Late st Contact Info) Description 10/31/2004 Results Only [facility] [address] [place] [address] Adrienne Giles MD [address] [place] [address] [place] [address] Social History Tobacco Use Types Packs/Day Years Used Date Smoking Tobacco: Never Assessed Sex and Gender Information Value Date Recorded Sex Assigned at Not on file Gender Identity Not on file Sexual Orientation Not on file documented as of this encounter Plan of Treatment Not on file documented as of this encounter Procedures Procedure Name Priority Date/Time Associated Diagnosis Comments CYTOPATHOLOGY Routine 10/31/2004 0:00 EDT documented in this encounter Results * CYTOPATHOLOGY (10/31/2004 0:00 EDT) Pathology Report: CYTOPATHOLOGY REPORT Reports generated via electronic interface contain original data; however they are lacking the format of the original report. Caution should be taken when reading/interpreti ng unformatted reports. Name: ? TORI ESCOBAR ? Accession #: ? [id number] : ? 1985 (Age: 19) ??F ?Collect Date: ? 10/31/2004 Location: ? [facility] ? Receive Date: ? 11/04/2004 Provider: ?ADRIENNE GILES MD Copy to: ? Specimen/Source: ?ThinPrep Pap Test, Cervix/Endocervix, processed on [employer] ThinPrep Imaging System, with manual evaluation Last Menstrual Period: ? 10/06/04 Menstrual/Pregnanc y Status: ? Post Other: ? HPVA - HPV testing requested if ASC-US on the current ThinPrep Pap test. ? SPECIMEN ADEQUACY ? Satisfactory for Evaluation - transformation zone component present GENERAL CATEGORIZATION ? Negative for Intraepithelial Lesion or Malignancy ? Document reviewed and electronically signed by: ? Susi Mares, SCT(ASCP) ? Report Date: ??11/12/2004 09:19 End of Report [facility] 10/31/2004 11/04/2004 Adrienne Giles MD PATHOLOGY ORDERABLES [facility] [address] [place] [address] documented in this encounter Visit Diagnoses Not on filedocumented in this encounter
--- OUTSIDE RECORDS SUMMARY | 2023-11-12 00:41 | XMS_ITS | Encounter Summary ---
Author Organization [facility] Address [address] [place] [address] Care Team Providers Care Soldering Machine Operator Name Role Phone Unavailable Primary Care Provider Unavailabl e Encounter Details Date Type Department Care Team (Late st Contact Info) Description 08/14/2005 Results Only [facility] - [facility] [address] [place] [address] Bobby Daily, TINA [address] [place] [id number] Social History Tobacco Use Types Packs/Day Years Used Date Smoking Tobacco: Never Assessed Sex and Gender Information Value Date Recorded Sex Assigned at Not on file Gender Identity Not on file Sexual Orientation Not on file documented as of this encounter Plan of Treatment Not on file documented as of this encounter Procedures Procedure Name Priority Date/Time Associated Diagnosis Comments CYTOPATHOLOGY Routine 08/14/2005 0:00 EDT documented in this encounter Results * CYTOPATHOLOGY (08/14/2005 0:00 EDT) Pathology Report: CYTOPATHOLOGY REPORT Reports generated via electronic interface contain original data; however they are lacking the format of the original report. Caution should be taken when reading/interpreti ng unformatted reports. Name: ? LUIS M TORI ? Accession #: ? [id number] : ? 1985 (Age: 20) ??F ?Collect Date: ? 08/14/2005 Location: ? [facility] ? Receive Date: ? 08/18/2005 Provider: ?BOBBY DAILY DIRECTOR OF ENROLLMENT Copy to: ? Specimen/Source: ?ThinPrep Pap Test, Cervix/Endocervix, processed on [employer] ThinPrep Imaging System, with manual evaluation Last Menstrual Period: ? 08/04/05 Hormonal/Contracep tive Status: ? Yes: Ortho Evra Patch Other: ? HPVA - HPV testing requested if ASC-US on the current ThinPrep Pap test. ? SPECIMEN ADEQUACY ? Satisfactory for Evaluation - transformation zone component present GENERAL CATEGORIZATION ? Negative for Intraepithelial Lesion or Malignancy ? Document reviewed and electronically signed by: ? CLAUS Linares(ASCP) ? Report Date: ??08/19/2005 13:32 End of Report ROSIO FORTE 08/14/2005 08/18/2005 Bobby Daily NP PATHOLOGY ORDERABLES [facility] [address] [place] [address] documented in this encounter Visit Diagnoses Not on filedocumented in this encounter
--- OUTSIDE RECORDS SUMMARY | 2023-11-12 00:41 | XMS_ITS | Encounter Summary ---
Author Organization [facility] Address [address] [place] [address] Care Team Providers Care Labor Economics Professor Name Role Phone Unavailable Primary Care Provider Unavailabl e Encounter Details Date Type Department Care Team (Late st Contact Info) Description 07/24/2002 Results Only *[facility]enterology - [place] [address] [place] [address] Blu Camargo MD Social History Tobacco Use Types Packs/Day Years Used Date Smoking Tobacco: Never Assessed Sex and Gender Information Value Date Recorded Sex Assigned at Not on file Gender Identity Not on file Sexual Orientation Not on file documented as of this encounter Plan of Treatment Not on file documented as of this encounter Procedures Procedure Name Priority Date/Time Associated Diagnosis Comments ANTI GLIADIN AB Routine 07/24/2002 9:33 EDT IBC Routine 07/24/2002 9:33 EDT ENDOMYSIAL ANTIBODY, SERUM Routine 07/24/2002 9:33 EDT TISSUE TRANSGLUTAMINASE ANTIBODY, IGA Routine 07/24/2002 9:33 EDT COMPLETE BLOOD COUNT AND DIFFERENTIAL Routine 07/24/2002 9:33 EDT TSH Routine 07/24/2002 9:33 EDT IRON Routine 07/24/2002 9:33 EDT FERRITIN Routine 07/24/2002 9:33 EDT COMPREHENSIVE METABOLIC PANEL (CMP) Routine 07/24/2002 9:33 EDT documented in this encounter Results * TTG AB, IGA, S REFLEX ORDER ONLY (07/24/2002 9:33 EDT) Tissue Transglutaminase Ab, IGA 6.4Unit: U(Note) -- EXPECTED VALUES -- ? (Ref Range) <20 (Negative) ? 20-30 (Weakly positive) ? >30 (Positive) ? TEST PERFORMED OR REFERRED BY [facility] ? [address] ? [place] [address] ? Experimental Technician: ? Delroy Benton M.D. ? [facility] 07/24/2002 9:33 EDT 07/24/2002 9:34 EDT Blu Camargo MD IMMUNOLOGY AND SEROL OGY ORDERABLES [facility] [address] [place] [address] * TSH (07/24/2002 9:33 EDT) TSH 0.97 0.35 - 5.50 uIU/ml [facility] 07/24/2002 9:33 EDT 07/24/2002 9:34 EDT Blu Camargo MD CHEMISTRY & BLOOD GA S ORDERABLES Performing Organization Address [facility] de Phone Number [facility] [address] [place] [address] * IRON (07/24/2002 9:33 EDT) Pathologist [facility] Iron 86 60 - 180 ug/dl [facility] 07/24/2002 9:33 EDT 07/24/2002 9:34 EDT Blu Camargo MD CHEMISTRY & BLOOD GA S ORDERABLES Performing Organization Address [facility] de Phone Number [facility] [address] [place] [address] * IBC (07/24/2002 9:33 EDT) [facility] TIBC 380 225 - 425 ug/dl [email or web address] 07/24/2002 9:33 EDT 07/24/2002 9:34 EDT Blu Camargo MD CHEMISTRY & BLOOD GA S ORDERABLES Performing Organization Address [facility] de Phone Number [facility] [address] [place] [address] * ANTI GLIADIN AB (07/24/2002 9:33 EDT) [facility] Gliadin IgG Ab 13Unit: EU(Note) -- EXPECTED VALUES -- ? (Ref Range) <25 (Negative) ? 25-50 (Weak Positive) ? >50 (Positive) ? TEST PERFORMED OR REFERRED BY [facility] ? [address] ? [place] [address] ? Experimental Technician: ? Delroy A. Chetan, M.D. ? [facility] Gliadin IgA Ab 20Unit: EU(Note) -- EXPECTED VALUES -- ? (Ref Range) <25 (Negative) ? 25-50 (Weak Positive) ? >50 (Positive) ? TEST PERFORMED OR REFERRED BY [facility] ? [address] ? [place] [address] ? Experimental Technician: ? Delroy Benton M.D. ? [facility] 07/24/2002 9:33 EDT 07/24/2002 9:34 EDT Blu Camargo MD HISTORICAL LAB FOR S Q LOAD Performing Organization Address [facility] de Phone Number [facility] [address] [place] [address] * FERRITIN (07/24/2002 9:33 EDT) Ferritin 37 8 - 151 ng/ml [facility] 07/24/2002 9:33 EDT 07/24/2002 9:34 EDT Blu Camargo MD CHEMISTRY & BLOOD GA S ORDERABLES Performing Organization Address [facility] de Phone Number [facility] [address] [place] [id number] * ENDOMYSIAL ANTIBODY, SERUM (07/24/2002 9:33 EDT) Endomysial Antibodies Negative(Note) -- EXPECTED VALUES -- ? Negative ? TEST PERFORMED OR REFERRED BY [facility] ? [address] ? [place] [address] ? Experimental Technician: ? Delroy Benton M.D. ? [facility] 07/24/2002 9:33 EDT 07/24/2002 9:34 EDT Blu Camargo MD IMMUNOLOGY AND EDNA ORTA ORDERABLES [facility] [address] [place] [address] * COMPREHENSIVE METABOLIC PANEL (CMP) (07/24/2002 9:33 EDT) Potassium 4.2 3.5 - 5.0 mEq/L [facility] Sodium 140 136 - 145 mEq/L [facility] Chloride 106 96 - 110 mEq/L [facility] CO2 25 24 - 30 mEq/L [facility] Total Alkaline Phosphatase 52 38 - 126 U/L [facility] Bilirubin, Total 0.2 0.2 - 1.3 mg/dl [facility] AST 20 8 - 50 U/L [facility] ALT 18 15 - 75 U/L [facility] Albumin 4.3 3.0 - 5.5 g/dl [facility] Total Protein 7.2 6.0 - 8.5 g/dl [facility] Creatinine 0.7 0.7 - 1.5 mg/dl [facility] BUN 10 10 - 26 mg/dl [facility] Calcium 9.8 8.5 - 10.5 mg/dl [facility] Calculated Calcium 9.9 8.5 - 10.5 mg/dl [facility] Glucose, Serum 71 70 - 110 mg/dl [facility] Albumin/Globulin Ratio 1.5 [facility] 07/24/2002 9:33 EDT 07/24/2002 9:34 EDT Blu Camargo MD CHEMISTRY & BLOOD GA S ORDERABLES [facility] [address] [place] [address] * HEMAGRAM AND DIFFERENTIAL (07/24/2002 9:33 EDT) WBC 5.10 4.0 - 12.4 K/cmm [facility] RBC 4.05 3.86 - 5.04 M/cmm [facility] Hemoglobin 12.9 11.6 - 15.2 gm/dl [facility] HCT 36.7 34.9 - 44.4 % [facility] MCV 90 81 - 98 fl [facility] MCH 31.9 26.7 - 33.3 pg [facility] MCHC 35.2 32.1 - 35.9 gm/dl [facility] PLT 240 141 - 320 K/cmm [facility] RDW-CV 12.6 11.7 - 14.6 % [facility] % Neutrophils 51.8 45.5 - 79.7 % [facility] % Lymphocytes 38.8 15.0 - 46.8 % [facility] % Monocytes 6.3 1.8 - 12.0 % [facility] % Eosinophils 1.9 0.6 - 6.9 % [facility] % Basophils 1.2 0.2 - 1.4 % [facility] ABS Neutrophils 2.65 2.20 - 8.85 K/cmm [facility] ABS Lymphs 1.98 1.09 - 3.30 K/cmm [facility] ABS Monocytes 0.32 0.1 - 0.8 K/cmm [facility] ABS Eosinophils 0.09 0.03 - 0.61 K/cmm [facility] ABS Basophils 0.06 0.01 - 0.11 K/cmm [facility] Type of Diff: Automated [facility] 07/24/2002 9:33 EDT 07/24/2002 9:34 EDT Blu Camargo MD PACKAGES & DNA PROBE ORDERABLES Performing Organization Address City/State/[facility] Co de Phone Number [facility] [address] [address] documented in this encounter Visit Diagnoses Not on filedocumented in this encounter
--- OUTSIDE RECORDS SUMMARY | 2023-11-12 00:41 | XMS_ITS | Encounter Summary ---
Author Organization [facility] Address [address] [place] [address] Care Team Providers Care Cuff Runner Name Role Phone Unavailable Primary Care Provider Unavailabl e Encounter Details Date Type Department Care Team (Late st Contact Info) Description 07/24/2002 13:19 EDT Hospital Encounter [facility] - Other [address] [place] [address] Blu Camargo MD Unknown, Provider, Social History Tobacco Use Types Packs/Day Years [...]
--- NOTE | 2023-11-12 07:30 | DI.US_ITS ---
Exam(s) US ABDOMEN EXAM: US ABDOMEN CLINICAL HISTORY: epigastric pain with palpation,R10.13 TECHNIQUE: Ultrasound abdomen performed using standard protocol. COMPARISON: US US ABDOMEN LIMITED from 12/18/2022 FINDINGS: ABDOMINAL AORTA AND IVC: Visualized portions normal caliber. PANCREAS: Normal where visualized. LIVER: Normal. Hepatopetal flow in the Portal Vein. The liver measures 16.4 cm long. No hepatic mass is identified. GALLBLADDER:Status post cholecystectomy. BILIARY SYSTEM: No intrahepatic biliary ductal dilation. KIDNEYS: Kidneys are symmetric in size. No evidence of renal calculi. No evidence of hydronephrosis. No renal mass or cyst identified. SPLEEN: Not enlarged. ASCITES: None seen. IMPRESSION: Status post cholecystectomy. Otherwise unremarkable examination. DATA REPOSITORY:
--- NOTE | 2023-11-12 07:30 | DI.RAD_ITS ---
Exam(s) XR SHOULDER LT COMPLETE 2+V EXAM: XR SHOULDER LT COMPLETE 2+V CLINICAL HISTORY: Left shoulder/chest pain,R07.89. TECHNIQUE: 2D digital imaging was performed of the left shoulder. Five images were obtained. AP, G rashey, Y-view and axillary views were obtained. COMPARISON: No exams were available for comparison FINDINGS: BONES: No acute fracture is present. No bony destructive lesion is seen. JOINTS: No dislocation present. SOFT TISSUE: There are surgical clips in the soft tissues. IMPRESSION: No acute abnormality. DATA REPOSITORY: RADIATION DOSE DELIVERED:
== END ==
PROVIDERS: PCP Nurse Practitioner Family; Visit Provider Nurse Practitioner Family
DX: R10.13 Epigastric pain (principal); M25.512 Pain in left shoulder; R07.89 Other chest pain; Z90.49 Acquired absence of other specified parts of digestive tract
CPT/HCPCS: 73030; 76700

== ENCOUNTER 2023-12-09 09:32 | Emergency (ER) | payer BC, SELFPAY ==
[2023-12-09 09:40] VITALS: BP 138/83; PULSE 77; RESP 16; TEMP 36.4; O2SAT 99
--- NOTE | 2023-12-09 10:15 | DI.CT_ITS ---
Exam(s) CT BRAIN NECK CTA EXAM: CT BRAIN NECK CTA CLINICAL HISTORY: R sided facial numbness, occipital pain. TECHNIQUE: Imaging Protocol: Axial CT angiography was performed with multi-slice acquisition and mu lti-planar and MIP reconstructions. CONTRAST MATERIAL: Intravenous: Omnipaque 350 Contrast volume:70 ml COMPARISON: CT CT HEAD WO from 12/10/2020 FINDINGS: CT Head W/O and W contrast: Ventricles and Extra axial spaces: Normal in size and morphology for the patient's age. Hemorrhage: None. Cerebral parenchyma: No evidence of acute infarct or mass. Midline shift: None. Brainstem/Cerebellum: No acute findings.. Calvarium: Normal. Visualized Paranasal sinuses/Mastoids: Clear. Soft Tissues: Unremarkable. Enhancement: Normal. CTA Brain W: Internal Carotid Arteries: Petrous: Normal. Cavernous: Normal. Cerebral: Normal. Middle Cerebral Arteries: Right: No aneurysm, occlusion or significant stenosis. Left: No aneurysm, occlusion or significant stenosis. Anterior Cerebral Arteries: Right: No aneurysm, occlusion or significant stenosis. Left: No aneurysm, occlusion or significant stenosis. Posterior cerebral Arteries: Right: No aneurysm, occlusion or significant stenosis. Left: No aneurysm, occlusion or significant stenosis. Vertebral Arteries: Right: No aneurysm, occlusion or significant stenosis. Left: No aneurysm, occlusion or significant stenosis. Basilar Artery: No aneurysm, occlusion or significant stenosis. CTA Neck W: Common Carotid: Right: No dissection, occlusion or significant stenosis. Left: No dissection, occlusion or significant stenosis. External Carotid: Right: No dissection, occlusion or significant stenosis. Left: No dissection, occlusion or significant stenosis. Internal Carotid: Right: No dissection, occlusion or significant stenosis. Left: No dissection, occlusion or significant stenosis. Vertebral Artery: Right: No dissection, occlusion or significant stenosis. Left: No dissection, occlusion or significant stenosis. Lung Apices: No acute findings. Bones: No acute abnormality. Soft Tissues: Normal. IMPRESSION: 1. CTA brain: Normal CTA examination of the [place] of [place]. 2. Head CT: Unremarkable CT Head. 3. CTA neck: Normal CTA examination of the neck. RADIATION DOSE DELIVERED: Total DLP DATA REPOSITORY: All CT scans at this facility are submitted to the National Radiology Data Registry (NRDR) Dose Index Registry (DIR) with the [employer] (ACR). RADIATION OPTIMIZATION: All CT scans at this facility use at least one of these dose optimization te chniques: automated exposure control; mA and/or kV adjustment per patient size (includes targeted exa ms where dose is matched to clinical indication); or iterative reconstruction.
--- NOTE | 2023-12-09 10:26 | ED.GENADUL_ITS ---
Discharge Plan Disposition Patient Disposition: Home Condition: Stable Discharge Details Clinical Impression: Zoster Primary Care Provider: Harmony Cortez ED Provider: Christopher Aggarwal Home Meds and New Rx's Prescriptions: New valacyclovir 1 gram tablet 1,000 mg PO TID 7 Days Qty: 21 0RF prednisone 20 mg tablet 40 mg PO DAILY 7 Days Qty: 14 0RF No Action Mirena 21 mcg/24 hours (8 yrs) 52 mg intrauterine device 1 device intrauterine ONCE Rx Instructions: as a single dose lorazepam 1 mg tablet 1 mg PO DAILY PRN (Reason: anxiety) Qty: 20 0RF bupropion HCl 300 mg tablet extended release 24 hr 300 mg PO DAILY Qty: 90 3RF Patient Comments: started 1 week ago omeprazole 20 mg capsule,delayed release(DR/EC) 20 mg PO BID Qty: 180 3RF valacyclovir 500 mg tablet 500 mg PO DAILY PRN Patient Comments: TAKE ONE TABLET BY MOUTH TWICE A DAY FOR 5 DAYS Discharge Instructions Instructions: Prednisone, Valacyclovir, Shingles Additional Instructions: You were seen in the emergency department for your facial pain and numbness with severe stabbing head pain, you have a lesion on your right lip that is concerning for possible herpetic lesion like shingles or zoster, there is no other lesions but I think we should begin empiric treatment for this with valacyclovir and prednisone, the prednisone would help with a possible trigeminal neuralgia as well. Your CTA of your head and neck was negative for any acute abnormality, your labs are all completely within normal limits, tick and Lyme panel is pending at this time. Please continue with your primary care appointment and seek a possible referral to neurology. Please use therapeutic dosing of Tylenol (acetamenophen) & Advil (ibuprofen) in an alternating fashion as follows: Take 1000mg of Tylenol every 6 hours without missing doses- that is 4 times per day. Nursing Home in between the Tylenol dosings, take 400-600mg of Advil also on a 6 hour schedule, that is also 4 times per day. The daily maximum dosing of Tylenol is 4000mg, and the daily maximum dosing of Advil is 2400mg. This is safe to do for weeks. Please note that some common cold medications & prescription pain medications may contain acetamenophen and you need to read OTC drug labels and factor that in to maximum daily dosings. Take the prescribed valacyclovir and prednisone as directed. Please return for any new onset of facial paralysis, disseminated rash, fever, confusion, altered mentation or slurred speech or weakness to 1 side your body. Referrals: [facility] [Provider Group] Harmony Cortez NP [Primary Care Provider] - Discharge Data Discharge Date/Time-TO BE ENTERED AT DEPARTURE: 12/09/23 12:55 HPI General Date/Time Provider Initiated Documentation: 12/09/23 09:44 . HPI Narrative: 38 year-old male presents to ED today by POV/ambulating with a chief complaint of R sided headache, occipital and facial pain/tingling/numbness with onset since last Wednesday for brief seconds, but has been constant today. Quality described as sharp shooting pains and R sided facial numbness/tingling, no radiation to lesions, ear pain, loss of hearing, visual changes, chest pain or shortness of breath, fever, diffuse rash, patient questions a right upper lobe lesion forming. Severity is described as severe. Palliating factors include nothing specific. Provoking factors include nothing specific. Events leading up to the incident/Associated Symptoms: Patient Dors is history of HSV and chickenpox as a child. Patient not anticoagulated. Related Data Home Medications ?Medication ?Instructions ?Recorded ?Confirmed levonorgestrel 21 mcg/24 hr (up to 1 device intrauterine ONCE 06/26/22 12/10/23 8 years) 52 mg intrauterine device (Mirena) lorazepam 1 mg tablet 1 mg PO DAILY PRN anxiety #20 tabs 06/18/23 12/10/23 bupropion HCl 300 mg 24 hr tablet, 300 mg PO DAILY #90 tabs 11/10/23 12/10/23 extended release omeprazole 20 mg capsule,delayed 20 mg PO BID #180 caps 11/11/23 12/10/23 release prednisone 20 mg tablet 40 mg (2 x 20 mg) PO DAILY 7 days 12/09/23 12/10/23 #14 tabs valacyclovir 1 gram tablet 1,000 mg PO TID zoster 7 days #21 12/09/23 12/10/23 tabs valacyclovir 500 mg tablet 500 mg PO DAILY PRN 12/09/23 12/10/23 Previous Rx's ?Medication ?Instructions ?Recorded lorazepam 1 mg tablet 1 mg PO DAILY PRN anxiety #20 tabs 03/01/24 bupropion HCl 300 mg 24 hr tablet, 300 mg PO DAILY #90 tabs 11/10/23 extended release omeprazole 20 mg capsule,delayed 20 mg PO BID #180 caps 11/11/23 release prednisone 20 mg tablet 40 mg (2 x 20 mg) PO DAILY 7 days 12/09/23 #14 tabs valacyclovir 1 gram tablet 1,000 mg PO TID zoster 7 days #21 12/09/23 tabs Allergies Allergy/AdvReac Type Severity Reaction Status Date / Time Cephalosporins Allergy Unknown GI Verified 12/10/23 09:22 ciprofloxacin (From Cipro) Allergy Unknown GI Verified 12/10/23 09:22 Penicillins Allergy Hives Verified 12/10/23 09:22 Sulfa (Sulfonamide AdvReac Severe Diarrhea Verified 12/10/23 09:22 Antibiotics) General Stated Complaint: Headache NEENA: 3 Review of Systems All systems reviewed & are unremarkable except as noted in HPI and below Exam Narrative Exam Narrative: GENERAL APPEARANCE: Well-nourished, non-toxic, awake and alert, atraumatic, no acute distress. SKIN: Warm, pink, dry, intact, without rashes/lesions/ulcerations. HEAD: Normocephalic, atraumatic, normal hair distribution for gender/age. EYES: Normal conjunctiva, no exudates on lids/lashes. ENT: Nares patent, no circumoral cyanosis, no facial swelling, vesicular early l esion on R upper lip possible HSZ vs VZV, no R ear vesicles, no mastoid bogginess, no scalp lesions NECK: Supple, trachea midline, painless cervical ROM. LUNGS/CHEST: Non-labored respirations, normal A/P diameter, symmetrical expansion, no chest wall deformity HEART (CV/PV): Regular rate, no peripheral edema, no JVD. ABDOMEN: Soft, non-distended, no guarding. MSK: Normal ROM, no swelling/deformity to bilateral UEs or LEs, moving all extremities without weakness, no cyanosis, spine midline without tenderness, normal curvature. NEURO: Mental Status AAOx4 - alert to person, place, time, events No facial droop, no forehead involvement, endorses sensory deficit R face Motor: No focal weakness - strength 5/5 in bilateral UEs and LEs, proximal and distal, symmetric. Sensory: sensation intact to light touch globally. Gait normal: patient ambulated without ataxia into ED room. PSYCH: euthymic, cooperative, pleasant, appropriate speech Course Vital Signs Vital signs: Vital Signs Temperature 36.4 C 12/09/23 09:40 Pulse 77 12/09/23 09:40 Respiratory Rate 16 12/09/23 09:40 Blood Pressure 138/83 12/09/23 09:40 Pulse Oximetry 99 12/09/23 09:40 Temperature 36.4 C 12/09/23 09:40 Temperature Source Temporal Artery Scan 12/09/23 09:40 Pulse 77 12/09/23 09:40 Respiratory Rate 16 12/09/23 09:40 Respiratory Effort Normal 12/09/23 09:46 Blood Pressure 138/83 12/09/23 09:40 Pulse Oximetry 99 12/09/23 09:40 Pain Level 0 12/09/23 09:40 Medical Decision Making This dictation utilizes [id number] dictation software and may contain unedited grammatical errors. 38 year-old male presents to ED today by POV/ambulating with a chief complaint of R sided headache, occipital and facial pain/tingling/numbness with onset since last Wednesday for brief seconds, but has been constant today. Quality described as sharp shooting pains and R sided facial numbness/tingling, no radiation to lesions, ear pain, loss of hearing, visual changes, chest pain or shortness of breath, fever, diffuse rash, patient questions a right upper lobe lesion forming. Severity is described as severe. Palliating factors include nothing specific. Provoking factors include nothing specific. Events leading up to the incident/Associated Symptoms: Patient Dors is history of HSV and chickenpox as a child. Patients' medical history: HSV, history of chickenpox as a child, PTSD, hyperlipidemia, polyarthralgia. Family and social history: Noncontributory. Pertinent exam findings / vital signs include benign cardiopulmonary exam, neuro is intact save for sensory deficit on the right side of the face, no focal motor weakness, vision grossly intact, there is a small vesicle on the right upper lip question of HSV versus early zoster. Differential / pathologies of concern include zoster, trigeminal neuralgia, Holley Frazier syndrome, HSV, unlikely ophthalmic involvement at this time, less likely CVA Diagnostic studies of: -CBC, CMP, CRP/ESR, tick and Lyme panel, CTA brain and neck. -CBC is benign, inflammatory markers negative, CMP shows no abnormality, tick panel pending, CT negative for any acute Interventions of: -Rx for valtrex & prednisone empirically. ED Course/Assessment/Plan: 38-year-old female presents with right-sided facial numbness onset and brief seconds since Wednesday but developing into a constant pain in the occipital area radiating around to the front of the face, has a vesicular eruption on her right upper lip that appears to get worse during the ED visit today, due to this fact I am treating empirically for zoster or HSV, CTA rules out stroke, tick and Lyme panel is pending, otherwise there is no acute emergent laboratory abnormalities, I did family life counselor the patient on taking the medicines as directed and returning for any worsening with facial paralysis vision changes, severe increase in eye pain. Findings not consistent with stroke, vasculitis, migraine syndrome. Disposition of Zoster. Patient verbalized understanding of the plan and return to ED criteria and engaged in shared decision making. Medical Records Medical records reviewed: Yes I reviewed the patient's medical records. Imaging Data Radiologic Study: Attestation: I personally reviewed and interpreted this imaging study as follows: Imaging: CT Scan Radiologist's impression: EXAM: CT BRAIN NECK CTA CLINICAL HISTORY: R sided facial numbness, occipital pain. TECHNIQUE: Imaging Protocol: Axial CT angiography was performed with multi- slice acquisition and multi-planar and MIP reconstructions. CONTRAST MATERIAL: Intravenous: Omnipaque 350 Contrast volume:70 ml COMPARISON: CT CT HEAD WO from 12/10/2020 FINDINGS: CT Head W/O and W contrast: Ventricles and Extra axial spaces: Normal in size and morphology for the patient's age. Hemorrhage: None. Cerebral parenchyma: No evidence of acute infarct or mass. Midline shift: None. Brainstem/Cerebellum: No acute findings.. Calvarium: Normal. Visualized Paranasal sinuses/Mastoids: Clear. Soft Tissues: Unremarkable. Enhancement: Normal. CTA Brain W: Internal Carotid Arteries: Petrous: Normal. Cavernous: Normal. Cerebral: Normal. Middle Cerebral Arteries: Right: No aneurysm, occlusion or significant stenosis. Left: No aneurysm, occlusion or significant stenosis. Anterior Cerebral Arteries: Right: No aneurysm, occlusion or significant stenosis. Left: No aneurysm, occlusion or significant stenosis. Posterior cerebral Arteries: Right: No aneurysm, occlusion or significant stenosis. Left: No aneurysm, occlusion or significant stenosis. Vertebral Arteries: Right: No aneurysm, occlusion or significant stenosis. Left: No aneurysm, occlusion or significant stenosis. Basilar Artery: No aneurysm, occlusion or significant stenosis. CTA Neck W: Common Carotid: Right: No dissection, occlusion or significant stenosis. Left: No dissection, occlusion or significant stenosis. External Carotid: Right: No dissection, occlusion or significant stenosis. Left: No dissection, occlusion or significant stenosis. Internal Carotid: Right: No dissection, occlusion or significant stenosis. Left: No dissection, occlusion or significant stenosis. Vertebral Artery: Right: No dissection, occlusion or significant stenosis. Left: No dissection, occlusion or significant stenosis. Lung Apices: No acute findings. Bones: No acute abnormality. Soft Tissues: Normal. IMPRESSION: 1. CTA brain: Normal CTA examination of the [place]. 2. Head CT: Unremarkable CT Head. 3. CTA neck: Normal CTA examination of the neck. Lab Data Lab results reviewed: Yes I reviewed the patient's lab results. Labs: Laboratory Tests Range/Units 12/09/23 10:40 WBC (4.4-10.8) 10^3/uL 5.45 RBC (3.93-5.22) 10^6/uL 4.16 Hgb (11.2-15.7) g/dL 13.3 Hct (36.0-46.0) % 38.7 MCV (80-95) fL 93 MCH (27.0-33.0) pg 32.0 MCHC (32.0-36.0) % 34.4 RDW (11.7-14.6) % 11.9 Plt Count (130-400) 10^3/uL 231 MPV (8.0-11.0) fL 9.0 Immature Gran % % 0.4 Neutrophils % % 48.0 Lymphocytes % % 43.7 Monocytes % % 5.7 Eosinophils % % 1.8 Basophils % % 0.4 Nucleated RBC % (0.0-0.3) % 0.0 Absolute Neutrophils (1.2-6.7) 10^3/uL 2.62 Absolute Lymphocytes (1.2-3.4) 10^3/uL 2.38 Absolute Monocytes (0.1-0.8) 10^3/uL 0.31 Absolute Eosinophils (0.0-0.7) 10^3/uL 0.10 Absolute Basophils (0.0-0.2) 10^3/uL 0.02 ESR (0-20) mm/hr 3 Sodium (136-145) mmol/L 138 Potassium (3.5-5.1) mmol/L 4.0 Chloride (98-107) mmol/L 103 Carbon Dioxide (21.0-32.0) mmol/L 25.6 Anion Gap (3-11) mmol/L 9.4 BUN (7-18) mg/dL 13 Creatinine (0.55-1.02) mg/dL 0.8 Est GFR (CKD-EPI 2020) (mL/min/1.73m2) 96.06 Glucose (74-106) mg/dL 97 Calcium (8.5-10.1) mg/dL 9.6 Total Bilirubin (0.2-1.0) mg/dL 0.48 AST (15-37) U/L 16 ALT (14-59) U/L 17 Alkaline Phosphatase (46-116) U/L 63 C-Reactive Protein (<or=0.5) mg/dL < 0.50 Total Protein (6.4-8.2) g/dL 8.2 Albumin (3.4-5.0) g/dL 4.5 Lyme Disease Antibody (Negative) Negative Quality:SDOH Health Related Social Needs: No Data to Display PFSH All Active Problems (Updated 12/10/23 @ 09:52 by Harmony Cortez NP) BRCA2 positive (Chronic) Followed by [facility] Generalized anxiety disorder with panic attacks (Chronic) PTSD (post-traumatic stress disorder) (Chronic) Insomnia (Chronic) Hyperlipidemia (Chronic) IBS (irritable bowel syndrome) (Chronic) GERD (gastroesophageal reflux disease) (Chronic) Hiatal hernia (Chronic) IUD surveillance (Chronic) Mirena IUD 03/15/23 Polyarthralgia (Chronic) Obesity (BMI 30-39.9) (Chronic) Medical History Bochdalek hernia Herpes Abnormal uterine bleeding COVID-19 Surgical History History of bilateral tubal ligation Hx laparoscopic cholecystectomy Hx of esophagogastroduodenoscopy Hx of section Hx of colonoscopy (~06/03/20) H/O bilateral mastectomy (06/23/21) Family History Mother Depression Father , 58 Diabetes Pancreatic cancer Maternal Grandfather , 72 Diabetes Paternal Grandfather Prostate cancer Atrial fibrillation Maternal Grandmother , 84 No problems noted. Paternal Grandmother , 54 Heart disease Myocardial infarction Lupus (systemic lupus erythematosus) Sister BRCA2 positive Daughter No problems noted. Daughter No problems noted. Daughter No problems noted. Son No problems noted. Social History Smoking/Tobacco Use Status: Never Second Hand Exposure: Yes Smoking risk assessment performed?: Yes Alcohol Intake: current Alcohol Intake frequency: a few times a month Alcohol type: beer Drug use: Daily Substance use type: marijuana Caregiver/Support person: No Household members: spouse and children Housing: house Communication Needs: None Do you need help understanding health information?: Rarely Pets and animals: Yes Pets and animals: dog(s) Sexually active: Yes Do you think of yourself as: straight/heterosexual Current gender identity: female What is your relationship status?: How often do you talk on the phone with friends or family?: three or more times per week How often do you get together with friends or relatives?: once per week How often do you attend caodaism or adventism services?: decline to answer Do you belong to any clubs or organized social groups?: no Panel score (0-1 are the most socially isolated patients): 2 What type of physical activity do you participate in: none Frequency: does not exercise Ericka/Cheondoism: None Special ericka needs: No Seatbelt use: sometimes Helmet use: Yes Helmet use: sometimes Do you feel safe at home: Yes Do you feel safe in your relationship?: Yes Female Reproductive History Menstrual control method: progestin IUCD
[2023-12-09 10:49] LABS: Abs Immature Grans 0.02 10^3/uL (0.0-0.06); Absolute Basophil Count 0.02 10^3/uL (0.0-0.2); Absolute Lymphocyte Count 2.38 10^3/uL (1.2-3.4); Absolute Monocyte Count 0.31 10^3/uL (0.1-0.8); Absolute Neutrophil Count 2.62 10^3/uL (1.2-6.7); Basophils % 0.4 %; Eosinophils % 1.8 %; HCT 38.7 % (36.0-46.0); HGB 13.3 g/dL (11.2-15.7); Immature Grans % 0.4 %; Lymphocytes % 43.7 %; MCHC 34.4 % (32.0-36.0); MCV 93 fL (80-95); Monocytes % 5.7 %; Platelet Count 231 10^3/uL (130-400); RBC 4.16 10^6/uL (3.93-5.22); RDW 11.9 % (11.7-14.6); RDW-SD 40.1 fL; WBC 5.45 10^3/uL (4.4-10.8)
[2023-12-09 10:52] LABS: ESR 3 mm/hr (0-20)
[2023-12-09 11:04] LABS: ALT 17 U/L (14-59); AST 16 U/L (15-37); Albumin 4.5 g/dL (3.4-5.0); Alkaline Phosphatase 63 U/L (46-116); Anion Gap 9.4 mmol/L (3-11); BUN 13 mg/dL (7-18); Bilirubin, Total 0.48 mg/dL (0.2-1.0); CO2 25.6 mmol/L (21.0-32.0); CREATININE 0.8 mg/dL (0.55-1.02); Calcium 9.6 mg/dL (8.5-10.1); Chloride 103 mmol/L (98-107); Estimated GFR 96.06 (mL/min/1.73m2); Glucose 97 mg/dL (74-106); Sodium 138 mmol/L (136-145); Total Protein 8.2 g/dL (6.4-8.2)
[2023-12-09 11:05] LABS: C-Reactive Protein < 0.50 mg/dL (<or=0.5)
[2023-12-09] MEDS: SUMAtriptan 25 MG TAB PO (11:26)
[2023-12-09] MEDS: Ketorolac 15 MG/ML VIAL IVP (11:26)
[2023-12-09] MEDS: Normal Saline 1,000 ML 1000 ML IV (11:26)
[2023-12-09] MEDS: Dexamethasone 10 MG/ML VIAL IVP (11:26)
[2023-12-09] MEDS: ACETAMINOPHEN 1,000 MG/100 ML BTL 400 MG IVPB (11:26)
[2023-12-09] MEDS: Omnipaque 350 MG/ML 100 ML BTL 70 ML IJ (11:34)
--- OUTSIDE RECORDS SUMMARY | 2023-12-09 11:37 | XMS_ITS | Encounter Summary ---
Author Organization [facility] [place] [address] Care Team Providers Care Molybdenum Steamer Operator Name Role Phone Harriett Goldsmith APRN Primary Care Provid er Encounter Details Date Type Department Care Team (Late st Contact Info) Description 05/22/2020 Telephone [place] [id number] Val Duran Social History Tobacco Use Types [...] on filedocumented in this encounter Care Teams Molybdenum Steamer Operator Relationship Specialty Start Date End Date Harriett Goldsmith APRN [address] [place] [address] PCP - General Family Medicine 11/23/19 07/09/20 documented as of this encounter
--- OUTSIDE RECORDS SUMMARY | 2023-12-09 11:37 | XMS_ITS | Encounter Summary ---
Author Organization [facility] [place] [address] Care Team Providers Care Glass Washer And Carrier Name Role Phone Anisha Neal MD Primary Care Provider [phone] Reason for Referral * Diagnostic Test (Routine) - Closed Specialty Diagnoses / Procedures Referred By Contac t Referred To Contact Radiology Diagnoses Encounter to discuss breast reconstruction Pre-op exam Procedures CT Angiogram Abdomen & Pelvis w Contrast (Generic) CT Angiogram Abdomen w Contrast Brady Freedman MD [facility] [place] [address] [facility] [place] [address] Referral ID Status Reason Start Date Expiration Date V isits Requested Visits Authorized [id number] Closed Specialty Service Requested 08/20/2020 11/18/2020 1 1 Encounter Details Date Type Department Care Team (Late st Contact Info) Description 08/14/2020 Orders [place] [address] Brady Freedman MD [facility] [place] [address] Encounter to discuss breast reconstruction; [...] on file documented as of this encounter Results * [...] the right of the umbilicus. Medial branch farm equipment technician penetrates the fascia 0.8 cm cranial and 4.1 cm to the right of the umbilicus. Lateral branch farm equipment technician penetrates the fascia 2.3 cm cranial and [...] rise to medial and lateral perforators. Medial farm equipment technician of the medial branch penetrates the fascia 4.9 cm cranial and 2.9 cm to the left of the umbilicus. Lateral farm equipment technician of the medial branch penetrates the fascia [...] who have questions please contact the health home care physical therapist that requested your imaging first. ? Electronically signed by: Maria Teresa Crain MD, [facility] ([phone]), at 09/02/2020 3:09 PM --------ORIGINAL REPORT -------- [...] who have questions please contact the health home care physical therapist that requested your imaging first. ? Electronically signed by: Fawad Gar MD, [facility] ([phone]), at 08/24/2020 3:06 PM Impressions 08/24/2020 3:06 PM EDT Normal study Thank you for letting us participate in the care of this patient. ??If you are a health care provider and have any questions regarding this report, please contact the number below. ??For patients who have questions please contact the health home care physical therapist that requested your imaging first. ? Electronically signed by: Fawad Gar MD, [facility] ([phone]), at 08/24/2020 3:06 PM Narrative 08/24/2020 3:06 PM EDT EXAMINATION: CT [...] reviewed and 3-D images were generated on an[employer] workstation. COMPARISON: None FINDINGS: VASCULAR FINDINGS Abdominal [...] patients who have questions please contactthe health home care physical therapist that requested your imaging first. Electronically signed by: Fawad Gar MD, [facility]([phone]), at 08/24/2020 3:06 PM Brady Freedman MD IMG CT ORDERABLES documented in this encounter Visit Diagnoses Diagnosis Encounter to discuss breast reconstruction Other specified counseling Pre-op exam Preoperative examination, unspecified Encounter to discuss breast reconstruction Other specified counseling Pre-op exam Preoperative examination, unspecified documented in this encounter Care Teams Glass Washer And Carrier Relationship Specialty Start Date End Date Anisha Neal MD PCP - General Family Medicine 07/10/20 06/28/22 documented as of this encounter
--- OUTSIDE RECORDS SUMMARY | 2023-12-09 11:37 | XMS_ITS | Encounter Summary ---
Author Organization [facility] Address [facility] [place] [address] Care Team Providers Care Dry Starch Operator Name Role Phone Harriett Goldsmith APRN Primary Care Provid er Reason for Visit * Reason Comments Established BRCA2 * Consultation (Routine) - Closed Specialty Diagnoses / Procedures Referred By Jonny perez Referred To Contact Gynecology Oncology Diagnoses BRCA2 gene mutation positive in female Justin Vela MD [facility] DR HEMATOLOGY/[place] [address] [facility] [address] [place] [address] Referral ID Status Reason Start Date Expiration Date V isits Requested Visits Authorized [id number] Closed Consult, Test & Treat 04/17/2020 04/17/2021 1 1 Encounter Details Date Type Department Care Team (Late st Contact Info) Description 04/18/2020 8:00 AM EST Office Visit Gynecology [place] [address] Priyanka Brito MD [facility] OBSTETRICS [place] [address] BRCA positive; Periumbilical abdominal pain; [...] 04/18/2020 Name: Tori Escobar : 1985 CSN: [id number] Patient Care Team: Patient Care Team: Harriett Goldsmith APRN as PCP - General (Family Medicine) Radha Valles NEWS LIBRARY DIRECTOR Dr Rafael Vela, Genetics Program ASSESSMENT/PLAN Assessment BRCA2 mutation Family planning advice fam hist pancreatic cancer C/S x 3 S/p BTL Chronic constipation Abdominal pain IUD in place - CA 125 ordered today - SHANDA referral today - Breast cancer screening, gave patient names of breast surgeons - TVS with her NEWS LIBRARY DIRECTOR We had a lengthy conversation with patient [...] we further recommend ongoing evaluation with her continuous mining machine company miner to devise the best screening plan for [...] her partner and consider a consultation with research and development scientist. The patient's history of chronic constipation and [...] 5.5 years Last Pap: 2019 Dr Hurd NEWS LIBRARY DIRECTOR Last Mammogram: in Last Colorectal Screen: endoscopy twice and colonoscopy within 5 years IMAGING AND LAB REVIEW I personally reviewed labs/radiology reports/pathology tests and other supporting records as part of my consultation today with the patient. CT [facility] 2010 PELVIS: An intrauterine device is noted. [...] SECTION x 3 x 1 BTL Past TELESALES SUPERVISOR History Menstrual History: 11 Dysplasia History: none [...] NECK: NO masses of thyroid or assymetry. LZIA SURVEY: NO masses or asymmetry or tenderness. [...] the patient responds to questions appropriately in American. PELVIC EXAM: Vulva: Normal female external genitalia. Normal urethra. Vagina: Normal pink mucosa. No discharge. Cervix: No lesions, non-tender. IUD string in place Uterus: Mobile, non-tender. Adnexa: No palpable masses. Rectal: Rectovaginal septum smooth. No masses. Normal rectal tone. Genetic Testing 03/08 nvitae's??BRCA2??analysis showed that??Tori??carries??the??pathogenic variant (mutation) in BRCA2, specifically??[id number] ([id number]). ??This is the same mutation previously detected [...] AM EST) CA 125 27.8 <=38.1 unit/mL [facility] Comment: CA 125 Reference Interval ??Postmenopausal: 6.2 to 31.5 U/mL. ??Premenopausal: 6.9 to 45.9 U/mL. ??Pre and Postmenopausal subjects combined: 6.4 to 38.1 U/mL. Blood specimen (specimen) 04/18/2020 9:46 AM EST 04/18/2020 9:51 AM EST Narrative Resulting Agency Comment Spec In Lab Priyanka Brito MD CHEMISTRY ORDERABLES [facility] [place] [address] documented in this encounter Visit Diagnoses Diagnosis [...] device documented in this encounter Care Teams Dry Starch Operator Relationship Specialty Start Date End Date Harriett Goldsmith APRN [address] [address] PCP - General Family Medicine 11/23/19 07/09/20 documented as of this encounter
--- OUTSIDE RECORDS SUMMARY | 2023-12-09 11:37 | XMS_ITS | Encounter Summary ---
Author Organization [facility] [place] [address] Care Team Providers Care Lithopone Charger Name Role Phone Harriett Goldsmith APRN Primary Care Provid er Encounter Details Date Type Department Care Team ([facility] st Contact Info) Description 07/01/2020 Notes [place] [address] Caren Hsu MSW Social History Tobacco Use [...] on filedocumented in this encounter Care Teams Lithopone Charger Relationship Specialty Start Date End Date Harriett Goldsmith APRN [address] [facility] [address] [place] [address] PCP - General Family Medicine 11/23/19 07/09/20 documented as of this encounter
--- OUTSIDE RECORDS SUMMARY | 2023-12-09 11:37 | XMS_ITS | Encounter Summary ---
Author Organization [facility] [place] [address] Care Team Providers Care Pulpwood Contractor Name Role Phone Harriett Goldsmith APRN Primary Care Provid er Encounter Details Date Type Department Care Team (Late st Contact Info) Description 04/18/2020 Orders Only [place] [address] Bhavna Mckeon APRN [facility] [address] BRCA positive Social History Tobacco Use Types [...] breast documented in this encounter Care Teams Pulpwood Contractor Relationship Specialty Start Date End Date Harriett Goldsmith APRN [address] [facility] [address] [place] [address] PCP - General Family Medicine 11/23/19 07/09/20 documented as of this encounter
--- OUTSIDE RECORDS SUMMARY | 2023-12-09 11:37 | XMS_ITS | Encounter Summary ---
[place] [address] Care Team Providers Care Mortgage Manager Name Role Phone Harmony Cortez APRN Primary Care Provider Encounter Details Date Type Department Care Team (Late st Contact Info) Description 01/04/2023 [place] [address] Denzel Fisher, [facility] [place] [address] Social History Tobacco Use Types Packs/Day Years [...] on filedocumented in this encounter Care Teams Mortgage Manager Relationship Specialty Start Date End Date Harmony Cortez APRN [address] [place] [address] PCP - General Family Medicine 06/29/22 documented as of this encounter
--- OUTSIDE RECORDS SUMMARY | 2023-12-09 11:37 | XMS_ITS | Encounter Summary ---
Author Organization [facility] [place] [address] Care Team Providers Care Account Auditor Name Role Phone Harmony Cortez APRN Primary Care Provider Encounter Details Date Type Department Care Team (Late st Contact Info) Description 04/01/2023 [place] [address] Social History Tobacco Use Types Packs/Day Years [...] 5:16 PM EST) Historical Provider MD GAFFNEY MGMariana SCAN EX T ORDR/RSLT documented in this encounter Visit Diagnoses Not on filedocumented in this encounter Care Teams Account Auditor Relationship Specialty Start Date End Date Harmony Cortez APRN [address] [place] [address] PCP - General Family Medicine 06/29/22 documented as of this encounter
--- OUTSIDE RECORDS SUMMARY | 2023-12-09 11:37 | XMS_ITS | Encounter Summary ---
Author Organization [facility] Address [facility] [place] [address] Care Team Providers Care Cylinder Sander Operator Name Role Phone Harriett Goldsmith APRN Primary Care Provid er Reason for Visit * Reason Onset Date Comments Other 04/18/2020 Encounter Details Date Type Department Care Team (Late st Contact Info) Description 04/18/2020 Telephone Obstetrics [place] [address] Priyanka Brito MD [facility] OBSTETRICS [place] [address] Other Social History Tobacco Use Types Packs/Day [...] AM EST Please sign. Going to local [facility] [place] documented in this encounter Plan of Treatment Not on file documented as of this encounter Visit Diagnoses Diagnosis BRCA2 positive- Primary Genetic susceptibility to malignant neoplasm of breast documented in this encounter Care Teams Cylinder Sander Operator Relationship Specialty Start Date End Date Harriett Goldsmith APRN [facility] [address] [place] [address] PCP - General Family Medicine 11/23/19 07/09/20 documented as of this encounter
--- OUTSIDE RECORDS SUMMARY | 2023-12-09 11:37 | XMS_ITS | Encounter Summary ---
Author Organization [facility] Address [facility] [place] [address] Care Team Providers Care Fence Erector Name Role Phone Harriett Goldsmith APRN Primary Care Provid er Encounter Details Date Type Department Care Team (Late st Contact Info) Description 04/18/2020 Orders Only [place] [address] Priyanka Brito MD [facility] OBSTETRICS [place] [address] BRCA positive Social History Tobacco Use Types [...] AM EST) CA 125 27.8 <=38.1 unit/mL [facility] Comment: CA 125 Reference Interval ??Postmenopausal: 6.2 to 31.5 U/mL. ??Premenopausal: 6.9 to 45.9 U/mL. ??Pre and Postmenopausal subjects combined: 6.4 to 38.1 U/mL. Blood specimen (specimen) 04/18/2020 9:46 AM EST 04/18/2020 9:51 AM EST Narrative Resulting Agency Comment Spec In Lab Priyanka Brito MD CHEMISTRY ORDERABLES [facility] [place] [address] documented in this encounter Visit Diagnoses Diagnosis BRCA positive Genetic susceptibility to malignant neoplasm of breast documented in this encounter Care Teams Fence Erector Relationship Specialty Start Date End Date Harriett Goldsmith APRN [address] [facility] [address] [place] [address] PCP - General Family Medicine 11/23/19 07/09/20 documented as of this encounter
--- OUTSIDE RECORDS SUMMARY | 2023-12-09 11:37 | XMS_ITS | Encounter Summary ---
Author Organization [facility] Address [facility] [place] [address] Care Team Providers Care Lithograph Press Feeder Name Role Phone Harriett Goldsmith APRN Primary Care Provid er Encounter Details Date Type Department Care Team (Late st Contact Info) Description 07/08/2020 Notes [place] [address] Caren Hsu MSW Social History Tobacco Use [...] Dr. Freedman was their plastic surgeon. P [facility] will continue to provide support and resources to pt as needed. documented in this encounter Plan of Treatment Not on file documented as of this encounter Visit Diagnoses Not on filedocumented in this encounter Care Teams Lithograph Press Feeder Relationship Specialty Start Date End Date Harriett Goldsmith APRN [address] [place] [address] [address] [place] [address] PCP - General Family Medicine 11/23/19 07/09/20 documented as of this encounter
--- OUTSIDE RECORDS SUMMARY | 2023-12-09 11:37 | XMS_ITS | Encounter Summary ---
Author Organization [facility] [place] [address] Care Team Providers Care Insurance Biller Name Role Phone Anisha Neal MD Primary Care Provider [phone] Reason for Visit * Reason Onset Date Comments Prior Authorization 07/16/2020 BRCA Outpati ent surgery coverage and auth - Pending scheduling Encounter Details Date Type Department Care Team (Late st Contact Info) Description 07/16/2020 [place] [address] Nany Dao Prior Authorization (BRCA Outpatient surgery [...] scheduled. * Telephone Encounter - Nany Dao - 07/16/2020 2:32 PM EDT BRCA outpatient [...] on filedocumented in this encounter Care Teams Insurance Biller Relationship Specialty Start Date End Date Anisha Neal MD PCP - General Family Medicine 07/10/20 06/28/22 documented as of this encounter
--- OUTSIDE RECORDS SUMMARY | 2023-12-09 11:37 | XMS_ITS | Encounter Summary ---
[place] [address] Care Team Providers Care Counsellors Name Role Phone Lizbethstacey Harmony GOLD Primary Care Provider Reason for Visit * Reason Comments Chest Pain Encounter Details Date Type Department Care Team (Late st Contact Info) Description 11/09/2023 8:01 AM EDT - 11/09/2023 11:47 AM [place] [address] Chest pain, unspecified type Discharge Disposition: Home Social History Tobacco Use Types Packs/Day Years Used Date Smoking Tobacco: Never Smokeless Tobacco: Never Alcohol Use Standard Drinks/Week Comments Not Currently 0 (1 standard drink = 0.6 oz pur e alcohol) [facility] Inpatient Questions Answer Date Recorded [...] sent through Care Everywhere. * Chest Pain (Lebanese) documented in this encounter Medications at Time [...] TUBE HOLD STAT 11/09/2023 8:30 AM EDT CBC (WITH DIFF) STAT 11/09/2023 8:30 AM EDT LIPASE STAT 11/09/2023 8:30 AM EDT COMPREHENSIVE METABOLIC PANEL STAT 11/09/2023 8:30 AM EDT EKG 12-LEAD STAT 11/09/2023 8:10 AM EDT documented in this encounter Results * (ABNORMAL) Urinalysis with reflex Culture (11/09/2023 9:35 AM EDT) Glucose, Urine Dipstick Negative Negative mg/dL [facility] Protein, Urine Dipstick Negative Negative mg/dL [facility] Bilirubin, Urine Dipstick Negative Negative mg/dL [facility] Comment: Clinical correlation required for positive Urine Bilirubin results as false positive may occur with some drugs and drug related products. If a false positive is suspected a serum total bilirubin should be considered if clinically indicated. Urobilinogen, Urine Dipstick Normal Normal mg/dL [facility] pH, Urn (dipstick) 8.5(H) 5.0 - 8.0 [facility] Blood, Urine Dipstick Negative Negative mg/dL [facility] Ketone, Urine Dipstick Negative Negative mg/dL [facility] Nitrite, Urine Dipstick Negative Negative [facility] Leukocytes, Urine Dipstick Negative Negative [facility] Appearance, Urine Dipstick Clear Clear [facility] Specific [place] Urine Automated 1.013 1.005 - 1.030 [facility] Color, Urine Dipstick Yellow Yellow [facility] Reflex to Culture No [facility] Clean Catch Urine 11/09/2023 9:35 AM EDT 11/09/2023 9:46 AM EDT Narrative Resulting Agency Comment Spec In Lab Nazanin Ruano DO URINE ORDER KANNAN [facility] [place] [address] * Troponin (11/09/2023 9:28 AM EDT) Troponin-T, High Sensitivity <6 <=14 ng/L [facility] Comment: This patient's troponin T [...] troponin value can be found in the [facility] Test Catalog Troponin - [facility] Test Catalog Reference: Fourth [place] Definition of Myocardial Infarction. Journal of the [place] College of Cardiology 2018;72:2215-0941 Blood 11/09/2023 9:28 AM EDT 11/09/2023 9:47 AM EDT Narrative Resulting Agency Comment Spec In Lab Nazanin Ruano DO CHEMISTRY O RDERABLES [facility] [place] [address] * Gold Tube HOLD (11/09/2023 8:30 AM EDT) Gold Hold Sample in lab. [facility] Blood Venous Draw / Unknown 11/09/2023 8:30 AM EDT 11/09/2023 8:45 AM EDT Juan Jose SIMON CHEMISTRY ORDERABLES Performing Organization Address City/[facility] Co de Phone Number [facility] [place] [address] * Blue Tube HOLD (11/09/2023 8:30 AM EDT) [facility] Blue Hold Sample in lab. [facility] Blood Venous Draw / Unknown 11/09/2023 8:30 AM EDT 11/09/2023 8:45 AM EDT Juan Jose SIMON HEMATOLOGY ORDERABLE S Performing Organization Address [facility] de Phone Number [facility] [place] [address] * Differential, Automated (11/09/2023 8:30 AM EDT) [facility] Neutrophil % 55.3 % [facility] Neutrophil Absolute 2.70 1.70 - 6.10 x10(3)/[facility] Lymph % 35.7 % [facility] Lymphocytes Abs 1.7 0.9 - 3.2 x10(3)/[facility] Monocyte % 6.8 % [facility] Monocyte Abs 0.3 0.3 - 0.9 x10(3)/[facility] Eos % 1.4 % [facility] Eosinophils Abs 0.1 0.0 - 0.4 x10(3)/[facility] Basophil % 0.4 % [facility] Baso Absolute 0.0 0.0 - 0.1 x10(3)/[facility] Immature Gran % 0.40 % [facility] Comment: Immature granulocytes(IG's)percentage and absolute count will include metamyelocytes, myelocytes, and promyelocytes. Blood smears from CBCs yielding IG's will be scanned manually for concordance. If this scan disagrees with the automated IG or if promyelocytes are noted, a manual differential will be performed. Immature Gran Absolute 0.02 0.00 - 0.04 x10(3)/[facility] Blood 11/09/2023 8:30 AM EDT 11/09/2023 8:41 AM EDT Narrative Resulting Agency Comment Spec In Lab Juan Jose SIMON HEMATOLOGY ORDERABLE S [facility] [place] [address] * (ABNORMAL) Hemogram (11/09/2023 8:30 AM EDT) White Blood Cell 4.9 4.0 - 9.5 x10(3)/[facility] Red Blood Cell 4.07 4.00 - 5.21 x10(6)/[facility] Hemoglobin 13.1 11.7 - 15.5 g/dL [facility] Hematocrit 37.2 35.7 - 45.8 % [facility] Mean Cell Volume 91.4 82.6 - 94.4 fL [facility] Mean Cell Hemoglobin 32.2(H) 27.1 - 32.0 pg [facility] Mean Cell Hemoglobin Concentration 35.2(H) 31.7 - 35.0 g/dL [facility] Platelet 247 145 - 357 x10(3)/[facility] RDW Standard Deviation 39.9 37.0 - 46.0 [facility] RDW coefficient of variation 11.9 11.5 - 14.1 % [facility] Mean Platelet Volume 9.2 7.6 - 12.9 [facility] NRBC% auto 0.0 % [facility] NRBC Absolute 0.000 0.000 - 0.000 x10(3)/[facility] Blood 11/09/2023 8:30 AM EDT 11/09/2023 8:41 AM EDT Narrative Resulting Agency Comment Spec In Lab Juan Jose SIMON HEMATOLOGY ORDERABLE S Performing Organization Address City/[facility]/ZIP Co de Phone Number [facility] [place] [address] * Troponin (11/09/2023 8:30 AM EDT) Troponin-T, High Sensitivity <6 <=14 ng/L [facility] Comment: This patient's troponin T [...] troponin value can be found in the [facility] Test Catalog Troponin - [facility] Test Catalog Reference: Fourth [place] Definition of Myocardial Infarction. Journal of the [place] College [employer] Cardiology 2018;72:4701-3670 Blood 11/09/2023 8:30 AM EDT 11/09/2023 8:41 AM EDT Narrative Resulting Agency Comment Spec In Lab Nazanin Ruano DO CHEMISTRY O RDERABLES Performing Organization Address City/[facility]/ZIP Co de Phone Number [facility] [place] [address] * Lipase (11/09/2023 8:30 AM EDT) Lipase 26 0 - 60 unit/L [facility] Blood 11/09/2023 8:30 AM EDT 11/09/2023 8:41 AM EDT Narrative Resulting Agency Comment Spec In Lab Nazanin Ruano DO CHEMISTRY O RDERABLES [facility] [place] [address] * Comprehensive metabolic panel (non-fasting) (11/09/2023 8:30 AM EDT) Glucose 104 65 - 199 mg/dL [facility] Comment:Diabetes: >=200 mg/d L plus symptoms Blood Urea Nitrogen 10 8 - 18 mg/dL [facility] Creatinine 0.80 0.70 - 1.20 mg/dL [facility] Sodium 142 135 - 145 mmol/L [facility] Potassium 4.0 3.5 - 5.0 mmol/L [facility] Comment: Please note: ??Patients with WBC >100,000 may have falsely elevated Potassium levels. ??For accurate Potassium quantification in these patients send serum separator tube (gold top) for subsequent determinations. ??Contact the Clinical Chemistry Laboratory if there are any questions. Chloride 107 98 - 107 mmol/L [facility] Carbon Dioxide 22 22 - 31 mmol/L [facility] Anion Gap 13 5 - 15 mmol/L [facility] Calcium 9.7 8.5 - 10.5 mg/dL [facility] Protein, Total 7.6 6.1 - 8.0 g/dL [facility] Albumin 4.7 3.2 - 5.2 g/dL [facility] Aspartate Aminotransferase 16 0 - 30 unit/L [facility] Alanine Aminotransferase 12 0 - 30 unit/L [facility] Alkaline Phosphatase 64 35 - 105 unit/L [facility] Bilirubin, Total 0.3 0.2 - 1.3 mg/dL [facility] Est Glomerular Filtration Rate 96 >=60 mL/min/1. 73 m?? [facility] Comment: This patient's estimated GFR [...] DO CHEMISTRY O RDERABLES Performing Organization Address City/[facility] Co de Phone Number [facility] [place] [phone] * EKG 12 Lead (11/09/2023 8:10 AM EDT) Ventricular rate 101 BPM MUSE SYSTEM Atrial Rate 101 BPM MUSE SYSTEM P-R Interval 162 ms MUSE SYSTEM QRS Duration 92 ms MUSE SYSTEM Q-T Interval 366 ms MUSE SYSTEM QTC Calculated (Bezet) 474 ms MUSE SYSTEM Calculated P [place] 34 degrees MUSE SYSTEM Calculated R [place] 141 degrees MUSE SYSTEM Calculated T [place] 42 degrees MUSE SYSTEM INTERPRETATION Sinus tachycardia Right axis deviation Abnormal ECG When compared with ECG of 04-JAN-2023 19:16, No significant change was found Confirmed by MD Charlie, Jensen ([id number]) on 11/09/2023 2:17:37 PM MUSE SYSTEM 11/09/2023 8:10 AM EDT 11/09/2023 2:17 PM EDT Nazanin Ruano DO ECG ORDERAB LES MUSE SYSTEM documented in this encounter Visit Diagnoses Diagnosis Chest pain, unspecified type documented in this encounter Care Teams Counsellors Relationship Specialty Start Date End Date Diego GOLD Antunez [address] [facility] [address] [place] [address] PCP - General Family Medicine 06/29/22 documented as of this encounter
--- OUTSIDE RECORDS SUMMARY | 2023-12-09 11:37 | XMS_ITS | Encounter Summary ---
[place] [address] Care Team Providers Care Sound Editor Name Role Phone Harmony Cortez APRN Primary Care Provider Reason for Visit * Reason Comments Abdominal Pain Encounter Details Date Type Department Care Team (Late st Contact Info) Description 01/04/2023 3:59 PM EDT - 01/04/2023 8:02 PM EDT [place] [address] Epigastric pain Discharge Disposition: Home Social History [...] Please follow-up with your primary careprovider and campus aide for further evaluation and management. Please return to the ED immediately for any new or worsening symptoms * Attachments The following attachments cannot be sent through Care Everywhere. * Abdominal Pain (South African) documented in this encounter Medications at Time [...] up with her primary care provider and campus aide for further outpatient evaluation and management. Instructed [...] up with her primary care provider and campus aide for further outpatient evaluation and management. Instructed [...] software and may inherently contain errors in workers' compensation magistrate. Some sounds may be transcribed incorrectly by [...] been screened for pancreatic cancer by the [facility] because of significant family history. Was [...] TUBE HOLD STAT 01/04/2023 3:20 PM EDT CBC (WITH DIFF) STAT 01/04/2023 3:20 PM EDT LIPASE STAT 01/04/2023 3:20 PM EDT COMPREHENSIVE METABOLIC PANEL STAT 01/04/2023 3:20 PM EDT documented in this encounter Results * EKG 12 Lead (01/04/2023 7:16 PM EDT) Ventricular rate 92 BPM MUSE SYSTEM Atrial Rate 92 BPM MUSE SYSTEM P-R Interval 168 ms MUSE SYSTEM QRS Duration 94 ms MUSE SYSTEM Q-T Interval 366 ms MUSE SYSTEM QTC Calculated (Bezet) 452 ms MUSE SYSTEM Calculated P [place] 26 degrees MUSE SYSTEM Calculated R [place] 85 degrees MUSE SYSTEM Calculated T [place] 14 degrees MUSE SYSTEM INTERPRETATION Normal sinus rhythm Normal ECG No previous ECGs available Confirmed by MD Charlie, Jensen ([id number]) on 01/05/2023 7:56:22 AM MUSE SYSTEM 01/04/2023 7:16 PM EDT 01/05/2023 7:56 AM EDT Ino M Jennifer MALCOLM ECG ORDERABLES MUSE SYSTEM * CT Abdomen [...] who have questions please contact the health care center manager that requested your imaging first. ? Narrative 01/04/2023 6:55 PM EDT EXAMINATION: CT [...] patients who have questions please contactthe health care center manager that requested your imaging first. Jensen Arroyo MD IMG CT ORDERABLES * POCT urine (01/04/2023 6:13 PM EDT) POC Urine HCG Negative Negative - Negative POC Control Internal Controls Acceptable Jensen Arroyo MD POINT OF CARE TEST O RDERABLES * (ABNORMAL) Urinalysis with reflex Culture (01/04/2023 6:06 PM EDT) Glucose, Urine Dipstick Negative Negative mg/dL [facility] Protein, Urine Dipstick Negative Negative mg/dL [facility] Bilirubin, Urine Dipstick Negative Negative mg/dL [facility] Comment: Clinical correlation required for positive Urine Bilirubin results as false positive may occur with some drugs and drug related products. If a false positive is suspected a serum total bilirubin should be considered if clinically indicated. Urobilinogen, Urine Dipstick Normal Normal mg/dL [facility] pH, Urn (dipstick) 6.0 5.0 - 8.0 [facility] Blood, Urine Dipstick Negative Negative mg/dL [facility] Ketone, Urine Dipstick 15(A) Negative mg/dL [facility] Nitrite, Urine Dipstick Negative Negative [facility] Leukocytes, Urine Dipstick Negative Negative mcL [facility] Appearance, Urine Dipstick Clear Clear [facility] Specific [place] Urine Automated 1.006 1.005 - 1.030 [facility] Color, Urine Dipstick Yellow Yellow [facility] Reflex to Culture No [facility] Clean Catch Urine 01/04/2023 6:06 PM EDT 01/04/2023 6:25 PM EDT Narrative Resulting Agency Comment Spec In Lab Jensen Arroyo MD URINE ORDERABLES [facility] [place] [address] * Gold Tube HOLD (01/04/2023 3:20 PM EDT) Gold Hold Sample in lab. [facility] Blood Venous Draw / Unknown 01/04/2023 3:20 PM EDT 01/04/2023 3:56 PM EDT Mike SIMON CHEMISTRY ORDERABLE S [facility] [place] [address] * Differential, Automated (01/04/2023 3:20 PM EDT) Neutrophil % 61.0 % [facility] Neutrophil Absolute 4.23 1.70 - 6.10 x10(3)/[facility] Lymph % 33.0 % [facility] Lymphocytes Abs 2.3 0.9 - 3.2 x10(3)/[facility] Monocyte % 5.0 % [facility] Monocyte Abs 0.4 0.3 - 0.9 x10(3)/[facility] Eos % 0.6 % [facility] Eosinophils Abs 0.0 0.0 - 0.4 x10(3)/[facility] Basophil % 0.1 % [facility] Baso Absolute 0.0 0.0 - 0.1 x10(3)/[facility] Immature Gran % 0.30 % [facility] Comment: Immature granulocytes(IG's)percentage and absolute count will include metamyelocytes, myelocytes, and promyelocytes. Blood smears from CBCs yielding IG's will be scanned manually for concordance. If this scan disagrees with the automated IG or if promyelocytes are noted, a manual differential will be performed. Immature Gran Absolute 0.02 0.00 - 0.04 x10(3)/[facility] Blood 01/04/2023 3:20 PM EDT 01/04/2023 3:56 PM EDT Narrative Resulting Agency Comment Spec In Lab Mike SIMON HEMATOLOGY ORDERABL ES Performing Organization Address [facility]/ZIP Co de Phone Number [facility] [place] [address] * Hemogram (01/04/2023 3:20 PM EDT) White Blood Cell 6.9 4.0 - 9.5 x10(3)/[facility] Red Blood Cell 4.07 4.00 - 5.21 x10(6)/[facility] Hemoglobin 12.8 11.7 - 15.5 g/dL [facility] Hematocrit 36.7 35.7 - 45.8 % [facility] Mean Cell Volume 90.2 82.6 - 94.4 fL [facility] Mean Cell Hemoglobin 31.4 27.1 - 32.0 pg [facility] Mean Cell Hemoglobin Concentration 34.9 31.7 - 35.0 g/dL [facility] Platelet 255 145 - 357 x10(3)/[facility] RDW Standard Deviation 39.6 37.0 - 46.0 fL [facility] RDW coefficient of variation 12.1 11.5 - 14.1 % [facility] Mean Platelet Volume 9.5 7.6 - 12.9 fL [facility] NRBC% auto 0.0 % [facility] NRBC Absolute 0.000 0.000 - 0.000 x10(3)/[facility] Blood 01/04/2023 3:20 PM EDT 01/04/2023 3:56 PM EDT Narrative Resulting Agency Comment Spec In Lab Mike SIMON HEMATOLOGY ORDERABL ES Performing Organization Address City/[facility] Co de Phone Number [facility] [place] [address] * Lipase (01/04/2023 3:20 PM EDT) Lipase 32 0 - 60 unit/L [facility] Blood 01/04/2023 3:20 PM EDT 01/04/2023 3:56 PM EDT Narrative Resulting Agency Comment Spec In Lab Jensen Arroyo MD CHEMISTRY ORDERABLES Performing Organization Address City/[facility]/ZIP Co de Phone Number [facility] [place] [address] * Comprehensive metabolic panel (non-fasting) (01/04/2023 3:20 PM EDT) Glucose 91 65 - 199 mg/dL [facility] Comment:Diabetes: >=200 mg/d L plus symptoms Blood Urea Nitrogen 11 8 - 18 mg/dL [facility] Creatinine 0.74 0.70 - 1.20 mg/dL [facility] Sodium 138 135 - 145 mmol/L [facility] Potassium 3.6 3.5 - 5.0 mmol/L [facility] Comment: Please note: ??Patients with WBC >100,000 may have falsely elevated Potassium levels. ??For accurate Potassium quantification in these patients send serum separator tube (gold top) for subsequent determinations. ??Contact the Clinical Chemistry Laboratory if there are any questions. Chloride 102 98 - 107 mmol/L [facility] Carbon Dioxide 23 22 - 31 mmol/L [facility] Anion Gap 13 5 - 15 mmol/L [facility] Calcium 9.8 8.5 - 10.5 mg/dL [facility] Protein, Total 8.0 6.1 - 8.0 g/dL [facility] Albumin 4.9 3.2 - 5.2 g/dL [facility] Aspartate Aminotransferase 11 0 - 30 unit/L [facility] Alanine Aminotransferase 10 0 - 30 unit/L [facility] Alkaline Phosphatase 63 35 - 105 unit/L [facility] Bilirubin, Total 0.6 0.2 - 1.3 mg/dL [facility] Est Glomerular Filtration Rate 106 >=60 mL/min/1. 73 m?? [facility] Comment: This patient's estimated [...] In Lab Jensen Arroyo MD CHEMISTRY ORDERABLES [facility] [place] [address] documented in this encounter Visit Diagnoses Diagnosis [...] on Wed01/04/23 at 1832, Until Wed01/04/23 at 183, Per Protocol, Warning Vesicant/Irritant Medication , Radiology Contrast, Routine 1831 (Given - Provid er: Rosita Rahman) iohexoL (Omnipaque) (350 mg/mL) solution 0-50 mL (COMPLETED) 0-50 mL, Oral, ONCE PRN, 1 dose, Starting on Wed01/04/23 at 1832, Until Wed01/04/23 at 183, Per Protocol, Warning Vesicant/Irritant Medication , Radiology Contrast, Routine 1831 (Given - Provid er: Rosita Rahman) documented in this encounter Care Teams Sound Editor Relationship Specialty Start Date End Date Harmony Cortez, [address] [place] [address] PCP - General Family Medicine 06/29/22 documented as of this encounter
--- OUTSIDE RECORDS SUMMARY | 2023-12-09 11:37 | XMS_ITS | Clinical Summary ---
Author Organization [facility] Address [facility] [place] [address] Care Team Providers Care Data Software Engineer Name Role Phone Lizbethstacey Harmony GOLD Primary [...] (06/19/2020): Added automatically from request for surgery [id number] Family history of BRCA2 gene positive 05/16/2020 Overview (05/16/2020): Father Family history of pancreatic cancer 05/16/2020 Overview (05/16/2020): Father (BRCA2+) Paternal aunt BRCA2 gene mutation positive 05/15/2020 Abdominal pain 10/09/2010 Hiatal hernia 10/08/2010 Encounters Date Type Department Care Team Description 11/30/2023 1:40 PM EDT Office Visit Dermatology at [address] [place] [address] Francisca Chandler MD Lentigines; Sebaceous hyperplasia 11/30/2023 Travel 11/09/2023 8:01 AM EDT - 11/09/2023 11:47 AM EDT Emergency Emergency Department [facility] [place] [address] Chest pain, unspecified type Discharge Disposition: Home [...] 11/09/2023 8:09 AM EDT Plan of Treatment Health Maintenance Due Date Last Done Comments HIV screen 2002 Hepatitis C Screening 2002 Lipid Screening 2002 Hepatitis B vaccine (0-59 yrs) (1) 2003 Tdap adult 2003 Tetanus vaccine 2003 HPV test 2014 PAP Smear 2014 Covid-19 Vaccine ( - 2022-24 season) 2022 Influenza (Flu) vaccine (1 o [...] TROPONIN T STAT 11/09/2023 8:30 AM EDT LIPASE STAT 11/09/2023 8:30 AM EDT COMPREHENSIVE METABOLIC PANEL STAT 11/09/2023 8:30 AM EDT CBC (WITH DIFF) STAT 11/09/2023 8:30 AM EDT EKG 12-LEAD STAT 11/09/2023 8:10 AM EDT from Last 3 Months Results * (ABNORMAL) Urinalysis with reflex Culture (11/09/2023 9:35 AM EDT) Glucose, Urine Dipstick Negative Negative mg/dL [facility] Protein, Urine Dipstick Negative Negative mg/dL [facility] Bilirubin, Urine Dipstick Negative Negative mg/dL [facility] Comment: Clinical correlation required for positive Urine Bilirubin results as false positive may occur with some drugs and drug related products. If a false positive is suspected a serum total bilirubin should be considered if clinically indicated. Urobilinogen, Urine Dipstick Normal Normal mg/dL [facility] pH, Urn (dipstick) 8.5(H) 5.0 - 8.0 [facility] Blood, Urine Dipstick Negative Negative mg/dL [facility] Ketone, Urine Dipstick Negative Negative mg/dL [facility] Nitrite, Urine Dipstick Negative Negative [facility] Leukocytes, Urine Dipstick Negative Negative [facility] Appearance, Urine Dipstick Clear Clear [facility] Specific [place] Urine Automated 1.013 1.005 - 1.030 [facility] Color, Urine Dipstick Yellow Yellow [facility] Reflex to Culture No [facility] Clean Catch Urine 11/09/2023 9:35 AM EDT 11/09/2023 9:46 AM EDT Narrative Resulting Agency Comment Spec In Lab Nazanin Ruano DO URINE ORDER KANNAN [facility] [place] [address] * Troponin (11/09/2023 9:28 AM EDT) Only the most recent of2 resultswithin the time period is included. Troponin-T, High Sensitivity <6 <=14 ng/L [facility] Comment: This patient's troponin T [...] troponin value can be found in the [facility] Laboratory Test Catalog Troponin - [facility] Test Catalog Reference: Fourth [place] Definition of Myocardial Infarction. Journal of the [place] College of Cardiology 2018;72:1380-7216 Blood 11/09/2023 9:28 AM EDT 11/09/2023 9:47 AM EDT Narrative Resulting Agency Comment Spec In Lab Nazanin Ruano DO CHEMISTRY O RDERABLES [facility] [place] [address] * (ABNORMAL) Hemogram (11/09/2023 8:30 AM EDT) White Blood Cell 4.9 4.0 - 9.5 x10(3)/mc L [facility] Red Blood Cell 4.07 4.00 - 5.21 x10(6)/mc L [facility] Hemoglobin 13.1 11.7 - 15.5 g/dL [facility] Hematocrit 37.2 35.7 - 45.8 % [facility] Mean Cell Volume 91.4 82.6 - 94.4 fL [facility] Mean Cell Hemoglobin 32.2(H) 27.1 - 32.0 pg [facility] Mean Cell Hemoglobin Concentration 35.2(H) 31.7 - 35.0 g/dL [facility] Platelet 247 145 - 357 x10(3)/mc L [facility] RDW Standard Deviation 39.9 37.0 - 46.0 fL [facility] RDW coefficient of variation 11.9 11.5 - 14.1 % [facility] Mean Platelet Volume 9.2 7.6 - 12.9 fL [facility] NRBC% auto 0.0 % [facility] NRBC Absolute 0.000 0.000 - 0.000 x10(3)/ L [facility] Blood 11/09/2023 8:30 AM EDT 11/09/2023 8:41 AM EDT Narrative Resulting Agency Comment Spec In Lab Juan Jose SIMON HEMATOLOGY ORDERABLE S Performing Organization Address City/State/[facility] Co de Phone Number [facility] [place] [address] * Differential, Automated (11/09/2023 8:30 AM EDT) Neutrophil % 55.3 % [facility] Neutrophil Absolute 2.70 1.70 - 6.10 x10(3)/[facility] Lymph % 35.7 % [facility] Lymphocytes Abs 1.7 0.9 - 3.2 x10(3)/[facility] Monocyte % 6.8 % [facility] Monocyte Abs 0.3 0.3 - 0.9 x10(3)/[facility] Eos % 1.4 % [facility] Eosinophils Abs 0.1 0.0 - 0.4 x10(3)/[facility] Basophil % 0.4 % [facility] Baso Absolute 0.0 0.0 - 0.1 x10(3)/[facility] Immature Gran % 0.40 % [facility] Comment: Immature granulocytes(IG's)percentage and absolute count will include metamyelocytes, myelocytes, and promyelocytes. Blood smears from CBCs yielding IG's will be scanned manually for concordance. If this scan disagrees with the automated IG or if promyelocytes are noted, a manual differential will be performed. Immature Gran Absolute 0.02 0.00 - 0.04 x10(3)/mcL [facility] Blood 11/09/2023 8:30 AM EDT 11/09/2023 8:41 AM EDT Narrative Resulting Agency Comment Spec In Lab Juan Jose SIMON HEMATOLOGY ORDERABLE S Performing Organization Address [facility]/ZIP Co de Phone Number [facility] [place] [address] * Gold Tube HOLD (11/09/2023 8:30 AM EDT) Gold Hold Sample in lab. [facility] Blood Venous Draw / Unknown 11/09/2023 8:30 AM EDT 11/09/2023 8:45 AM EDT Juan Jose SIMON CHEMISTRY ORDERABLES Performing Organization Address [facility] Co de Phone Number [facility] [place] [address] * Blue Tube HOLD (11/09/2023 8:30 AM EDT) Blue Hold Sample in lab. [facility] Blood Venous Draw / Unknown 11/09/2023 8:30 AM EDT 11/09/2023 8:45 AM EDT Juan Jose SIMON HEMATOLOGY ORDERABLE S Performing Organization Address [facility] Co de Phone Number [facility] [place] [address] * Lipase (11/09/2023 8:30 AM EDT) Lipase 26 0 - 60 unit/L [facility] Blood 11/09/2023 8:30 AM EDT 11/09/2023 8:41 AM EDT Narrative Resulting Agency Comment Spec In Lab Nazanin Ruano DO CHEMISTRY O RDERABLES [facility] [place] [address] * Comprehensive metabolic panel (non-fasting) (11/09/2023 8:30 AM EDT) Glucose 104 65 - 199 mg/dL [facility] Comment:Diabetes: >=200 mg/d L plus symptoms Blood Urea Nitrogen 10 8 - 18 mg/dL [facility] Creatinine 0.80 0.70 - 1.20 mg/dL [facility] Sodium 142 135 - 145 mmol/L [facility] Potassium 4.0 3.5 - 5.0 mmol/L [facility] Comment: Please note: ??Patients with WBC >100,000 may have falsely elevated Potassium levels. ??For accurate Potassium quantification in these patients send serum separator tube (gold top) for subsequent determinations. ??Contact the Clinical Chemistry Laboratory if there are any questions. Chloride 107 98 - 107 mmol/L [facility] Carbon Dioxide 22 22 - 31 mmol/L [facility] Anion Gap 13 5 - 15 mmol/L [facility] Calcium 9.7 8.5 - 10.5 mg/dL [facility] Protein, Total 7.6 6.1 - 8.0 g/dL [facility] Albumin 4.7 3.2 - 5.2 g/dL [facility] Aspartate Aminotransferase 16 0 - 30 unit/L [facility] Alanine Aminotransferase 12 0 - 30 unit/L [facility] Alkaline Phosphatase 64 35 - 105 unit/L [facility] Bilirubin, Total 0.3 0.2 - 1.3 mg/dL [facility] Est Glomerular Filtration Rate 96 >=60 mL/min/1. 73 m?? [facility] Comment: This patient's estimated GFR [...] DO CHEMISTRY O RDERABLES Performing Organization Address City/[facility]/ZIP Co de Phone Number [facility] [place] [address] * EKG 12 Lead (11/09/2023 8:10 AM EDT) Ventricular rate 101 BPM MUSE SYSTEM Atrial Rate 101 BPM MUSE SYSTEM P-R Interval 162 ms MUSE SYSTEM QRS Duration 92 ms MUSE SYSTEM Q-T Interval 366 ms MUSE SYSTEM QTC Calculated (Bezet) 474 ms MUSE SYSTEM Calculated P [place] 34 degrees MUSE SYSTEM Calculated R [place] 141 degrees MUSE SYSTEM Calculated T [place] 42 degrees MUSE SYSTEM INTERPRETATION Sinus tachycardia Right axis deviation Abnormal ECG When compared with ECG of 04-JAN-2023 19:16, No significant change was found Confirmed by MD Charlie, Jensen ([id number]) on 11/09/2023 2:17:37 PM MUSE SYSTEM 11/09/2023 8:10 AM EDT 11/09/2023 2:17 PM EDT Nazanin Ruano DO ECG ORDERAB LES Performing Organization Address City/[facility]/ZIP Co de Phone Number MUSE SYSTEM from Last 3 Months Care Teams Data Software Engineer Relationship Specialty Start Date End Date Harmony Cortez APRN [address] [place], [place] [address] PCP - General Family Medicine 06/29/22
--- OUTSIDE RECORDS SUMMARY | 2023-12-09 11:37 | XMS_ITS | Encounter Summary ---
Author Organization [facility] Address [facility] [place] [address] Care Team Providers Care Computer Systems Integrator Name Role Phone Anisha Neal MD Primary Care Provider [phone] Reason for Visit * Reason Comments Follow-up finalize surgical pl ans for breast recon Encounter Details Date Type Department Care Team (Latest Contact Info) Description 07/23/2020 11:45 AM EDT Office [place] [address] Haley Wheeler MD [facility] [place] [address] Encounter to discuss breast reconstruction Social History [...] viable intraoperatively? In this instance a tissue specialty finishing utility person would be placed to maintain the space. [...] resection, possible placement of mesh. CPT: NOE: 73767, 64309 Rib resection: [id number] FNG [id number] Mesh placement: [id number], [id number], [id number] Surgical site: Breast Side: Bilateral Anesthesia: General Follow up: 2 weeks after discharge with AEE Pre-auth needed for 2 weeks of post-op Lovenox PAT: Lab panel for blood clotting Covid Testing: Nissa I, Val Duran, have preformed the documentation for this encounter in the presence of and acting as a scribe for HALEY WHEELER MD. documented in this encounter Plan of Treatment Not on file documented as of this encounter Visit Diagnoses Diagnosis Encounter to discuss breast reconstruction Other specified counseling documented in this encounter Care Teams Computer Systems Integrator Relationship Specialty Start Date End Date Anisha Neal MD PCP - General Family Medicine 07/10/20 06/28/22 documented as of this encounter
--- OUTSIDE RECORDS SUMMARY | 2023-12-09 11:37 | XMS_ITS | Encounter Summary ---
Author Organization [facility] [place] [address] Care Team Providers Care Dedicated Intermodal Truck Driver Name Role Phone Harriett Goldsmith APRN Primary Care Provid er Encounter Details Date Type Department Care Team (Late st Contact Info) Description 06/19/2020 Telephone [place] [phone] N[facility] Cisneros[facility] Social History Tobacco Use Types Packs/Day [...] - 06/19/2020 2:10 PM EST Tori Escobar [id number] Diagnosis/Indication: 1. Do you take any blood [...] to patient: You must have a responsible constitution party who will drive you to your procedure, [...] on filedocumented in this encounter Care Teams Dedicated Intermodal Truck Driver Relationship Specialty Start Date End Date Harriett Goldsmith APRN [address] [facility] [address] [place] [address] PCP - General Family Medicine 11/23/19 07/09/20 documented as of this encounter
--- OUTSIDE RECORDS SUMMARY | 2023-12-09 11:37 | XMS_ITS | Encounter Summary ---
[facility] [place] [address] Care Team Providers Care Hyperbaric Welder Diver Name Role Phone Harriett Goldsmith APRN Primary Care Provid er Encounter Details Date Type Department Care Team (Late st Contact Info) Description 06/17/2020 Telephone [place] [phone] Peggy Santos Social History Tobacco Use Types [...] on filedocumented in this encounter Care Teams Hyperbaric Welder Diver Relationship Specialty Start Date End Date Harriett Goldsmith APRN [address] [address] PCP - General Family Medicine 11/23/19 07/09/20 documented as of this encounter
--- OUTSIDE RECORDS SUMMARY | 2023-12-09 11:37 | XMS_ITS | Encounter Summary ---
Author Organization [facility] [place] [address] Care Team Providers Care Printer Operator Name Role Phone Anisha Neal MD Primary Care Provider [phone] Reason for Referral * Diagnostic Test (Routine) - Closed Specialty Diagnoses / Procedures Referred By Jonny perez Referred To Contact Radiology Diagnoses Encounter to discuss breast reconstruction Pre-op exam Procedures CT Angiogram Abdomen & Pelvis w Contrast (Generic) CT Angiogram Abdomen w Contrast Brady Freedman MD [facility] [place] [address] [facility] [place] [address] Referral ID Status Reason Start Date Expiration Date V isits Requested Visits Authorized [id number] Closed Specialty Service Requested 08/20/2020 11/18/2020 1 1 Reason for Visit * Diagnostic Test (Routine) - Closed Specialty Diagnoses / Procedures Referred By Jonny perez Referred To Contact Radiology Diagnoses Encounter to discuss breast reconstruction Pre-op exam Procedures CT Angiogram Abdomen & Pelvis w Contrast (Generic) CT Angiogram Abdomen w Contrast Brady Freedman MD [facility] [place] [address] [facility] [place] [address] Referral ID Status Reason Start Date Expiration Date V isits Requested Visits Authorized [id number] Closed Specialty Service Requested 08/20/2020 11/18/2020 1 1 Encounter Details Date Type Department Care Team (Latest Contact Info) Description 08/23/2020 3:45 PM EDT - 08/23/2020 11:59 PM EDT Hospital [place] [address] Brady Freedman MD [facility] [place] [address] Encounter to discuss breast reconstruction; Pre-op exam [...] the right of the umbilicus. Medial branch sealing machine operator penetrates the fascia 0.8 cm cranial and 4.1 cm to the right of the umbilicus. Lateral branch sealing machine operator penetrates the fascia 2.3 cm cranial and [...] rise to medial and lateral perforators. Medial sealing machine operator of the medial branch penetrates the fascia 4.9 cm cranial and 2.9 cm to the left of the umbilicus. Lateral sealing machine operator of the medial branch penetrates the fascia [...] who have questions please contact the health childcare worker that requested your imaging first. ? Electronically signed by: Maria Teresa Crain MD, [facility] ([phone]), at 09/02/2020 3:09 PM --------ORIGINAL REPORT -------- [...] who have questions please contact the health childcare worker that requested your imaging first. ? Electronically signed by: Fawad Gar MD, [facility] ([phone]), at 08/24/2020 3:06 PM Impressions 08/24/2020 3:06 PM EDT Normal study Thank you for letting us participate in the care of this patient. ??If you are a health care provider and have any questions regarding this report, please contact the number below. ??For patients who have questions please contact the health childcare worker that requested your imaging first. ? Electronically signed by: Fawad Gar MD, [facility] ([phone]), at 08/24/2020 3:06 PM Narrative 08/24/2020 3:06 [...] reviewed and 3-D images were generated on anindepRMI workstation. COMPARISON: None FINDINGS: VASCULAR FINDINGS Abdominal [...] patients who have questions please contactthe health childcare worker that requested your imaging first. Electronically signed by: Fawad Gar MD, [facility]([phone]), at 08/24/2020 3:06 PM Brady Freedman MD [...] mLs documented in this encounter Care Teams Printer Operator Relationship Specialty Start Date End Date Anisha Neal MD PCP - General Family Medicine 07/10/20 06/28/22 documented as of this encounter
--- OUTSIDE RECORDS SUMMARY | 2023-12-09 11:37 | XMS_ITS | Encounter Summary ---
Author Organization [facility] Address [facility] [place] [address] Care Team Providers Care Equity Analyst Name Role Phone Harmony Cortez RN HOME HEALTH Primary Care Provider [phone] Encounter Details Date Type Department Care Team (Late st Contact Info) Description 04/01/2023 [place] [phone] Susana Castro MD [facility] [place] [address] Social History Tobacco Use Types Packs/Day Years [...] 04/01/23 Referring Provider: Leonidas Arredondo Patient Location: [facility] HPI: 38 F w/ no [...] in the patient condition. Susana Castro MD Manager Education documented in this encounter Plan of Treatment Not on file documented as of this encounter Visit Diagnoses Not on filedocumented in this encounter Care Teams Equity Analyst Relationship Specialty Start Date End Date Harmony Cortez APRN [address] [place] [address] PCP - General Family Medicine 06/29/22 documented as of this encounter
--- OUTSIDE RECORDS SUMMARY | 2023-12-09 11:37 | XMS_ITS | Encounter Summary ---
Author Organization [facility] [place] [address] Care Team Providers Care Field Sales Engineer Name Role Phone Anisha Neal MD Primary Care Provider [phone] Encounter Details Date Type Department Care Team (Late st Contact Info) Description 07/16/2020 Orders Only [place] [address] Brady Freedman MD [facility] [place] [address] Social History Tobacco Use Types Packs/Day Years [...] on filedocumented in this encounter Care Teams Field Sales Engineer Relationship Specialty Start Date End Date Anisha Neal MD PCP - General Family Medicine 07/10/20 06/28/22 documented as of this encounter
--- OUTSIDE RECORDS SUMMARY | 2023-12-09 11:37 | XMS_ITS | Encounter Summary ---
Author Organization [place] [address] Care Team Providers Care Paint And Table Edger Name Role Phone Harmony Cortez APRN Primary Care Provider [phone] Reason for Referral * Consultation (Routine) - Closed Specialty Diagnoses / Procedures Referred By Contcaleb t Referred To Contact Dermatology Diagnoses Genetic susceptibility to other malignant neoplasm Harmony Cortez APRN [address] [place] [address] [facility] Dermatology [address] [place] [address] Referral ID Status Reason Start Date Expiration Date V isits Requested Visits Authorized [id number] Closed Consult, Test & Treat PCP Updated and/or Approved 06/29/2022 06/29/2023 6 6 Encounter Details Date Type Department Care Team (Late st Contact Info) Description 06/29/2022 Transcribe Orders eDH Incoming Referrals [phone] Harmony Cortez APRN [address] [place] [address] Genetic susceptibility to other malignant [...] as of this encounter Plan of Treatment Scheduled Referrals Name Type Priority Associated Diagnoses Orde r Schedule Referral to Dermatology Outpatient Referral Routine Genetic susceptibility to other malignant neoplasm Ordered: 06/29/2022 documented as of this encounter Visit Diagnoses Diagnosis Genetic susceptibility to other malignant neoplasm documented in this encounter Care Teams Paint And Table Edger Relationship Specialty Start Date End Date Harmony Cortez APRN [address] [place] [address] [address] [facility] [address] [place] [address] PCP - General Family Medicine 06/29/22 documented as of this encounter
--- OUTSIDE RECORDS SUMMARY | 2023-12-09 11:37 | XMS_ITS | Encounter Summary ---
[facility] [place] [address] Care Team Providers Care Farm Assistant Name Role Phone Harmony Cortez APRN Primary Care Provider [phone] Encounter Details Date Type Department Care Team (Latest Contact Info) Description 11/30/2023 Travel Social History Tobacco Use Types Packs/Day [...] on filedocumented in this encounter Care Teams Farm Assistant Relationship Specialty Start Date End Date Harmony Cortez APRN [address] [place] [address] PCP - General Family Medicine 06/29/22 documented as of this encounter
--- OUTSIDE RECORDS SUMMARY | 2023-12-09 11:37 | XMS_ITS | Encounter Summary ---
Author Organization [facility] [place] [address] Care Team Providers Care Boilermaker Assembly And Erection Name Role Phone Harriett Goldsmith APRN Primary Care Provid er Reason for Referral * Consultation (Urgent) - Closed Specialty Diagnoses / Procedures Referred By Contac t Referred To Contact Hematology and Oncology Diagnoses clotting Haley Wheeler MD [facility] [place] [address] [facility] Hem Onc [address] [place] [address] Referral ID Status Reason Start Date Expiration Date V isits Requested Visits Authorized [id number] Closed Consult, Test & Treat 07/08/2020 07/08/2021 1 1 Encounter Details Date Type Department Care Team (Latest Contact Info) Description 07/02/2020 4:15 PM EDT TH Visit (TeleHealth) [place] [address] Haley Wheeler MD [facility] [place] [address] BRCA2 gene mutation positive; Encounter [...] resection, possible placement of mesh. CPT: NOE: 19842, 26366 Rib resection: 19723 FNG 66358 Mesh placement: 51150, 11690, 99786 Surgical site: Breast Side: Bilateral Anesthesia: General [...] documented in this encounter Plan of Treatment Scheduled Referrals Name Type Priority Associated Diagnoses Order Schedule Referral to Hematology and Oncology Outpatient Referral Routine BRCA2 gene mutation positive Ordered: 07/08/2020 documented as of this encounter Visit Diagnoses Diagnosis BRCA2 gene mutation positive Encounter to discuss breast reconstruction Other specified counseling documented in this encounter Care Teams Boilermaker Assembly And Erection Relationship Specialty Start Date End Date Harriett Goldsmith APRN [address] [address] PCP - General Family Medicine 11/23/19 07/09/20 documented as of this encounter
--- OUTSIDE RECORDS SUMMARY | 2023-12-09 11:37 | XMS_ITS | Encounter Summary ---
Author Organization [facility] [place] [place] [address] Care Team Providers Care Radial Drill Press Set Up Operator Name Role Phone Anisha Neal MD Primary Care Provider [phone] Reason for Visit * Auth/Cert Specialty Diagnoses [...] Expiration Date Visits Re quested Visits Authorized [id number] 1 1 Encounter Details Date Type Department Care Team (Latest Contact Info) Description 07/24/2020 8:57 AM EDT - 07/24/2020 11:27 AM EDT Hospital [place] [address] [facility] [place] [address] BRCA2 gene mutation positive in female Discharge [...] Care Everywhere. * Ultrasound: Endoscopic (Rectal): Post-op (South Sudanese) documented in this encounter Medications at Time [...] Sanders MD - 07/24/2020 10:20 AM EDT [facility] Operative Note Patient Name: Tori Escobar : [id number] MR#: [id number] Case Date: 07/24/2020 Surgeon: Surgeon(s) and Role: [...] Date/Time Associated Diagnosis Comments Endoscopic Us Exam, Micarachel ([id number]) 07/24/2020 10:05 AM EDT BRCA2 gene mutation positive in female Family history of pancreatic cancer UPPER EUS-ENDOSCOPIC ULTRASOUND Routine 07/24/2020 9:55 AM EDT documented in this encounter Results * UPPER EUS-ENDOSCOPIC ULTRASOUND (07/24/2020 9:55 AM EDT) UPPER ENDOSCOPIC ULTRASOUND [facility] Endoscopy Procedure Date: 07/24/2020 9:55 AM ? Patient Name: Tori Escobar ? Date of : 1985 ? Age: 35 ? Order #: [id number] ? Instrument Name: GF-UE [id number] ? Procedure: ? Upper EUS Indications: ? BRCA +, Family history of pancreas ? cancer Providers: ? Malik Sanders MD, Pricila Murphy, ? India Crawley RN, Blu Ramirez. ? Nash Referring : ?Harriett Goldsmith, Anisha Livingston Requesting Provider: Danya Diez MD Medicines: ? Monitored Anesthesia Care Complications: ? No immediate complications. Procedure: ? Pre-Anesthesia Assessment: ? - [place] Protocol: ? - Pre-procedure Verification: Prior ? [...] by the physician, the nurse, ? the procedures analyst and the lead pharmacy technician in ? the procedure room. ? [...] Procedure Code(s): ?? --- Professional --- ? 77749, Esophagogastroduodenos copy, ? flexible, transoral; with endoscopic ? ultrasound examination, including the ? esophagus, stomach, and either the ? duodenum or a surgically altered ? stomach where the jejunum is examined ? distal to the anastomosis CPT copyright 2019 [employer]. All rights reserved. The codes documented in this report are preliminary and upon rn case manager review may be revised to meet [...] at 1110, Endoscopy (Day of Procedure) 0929 (New Bag - Prov ider: Jarad Scott RN) documented in this encounter Care Teams Radial Drill Press Set Up Operator Relationship Specialty Start Date End Date Anisha Neal MD PCP - General Family Medicine 07/10/20 06/28/22 documented as of this encounter
--- OUTSIDE RECORDS SUMMARY | 2023-12-09 11:37 | XMS_ITS | Encounter Summary ---
Author Organization [facility] [place] [address] Care Team Providers Care Director Utilization Management Name Role Phone Anisha Neal MD Primary [...] Expiration Date Visits Re quested Visits Authorized [id number] 1 1 Encounter Details Date Type Department Care Team (Late st Contact Info) Description 07/24/2020 10:00 AM EDT - 07/24/2020 11:15 AM EDT Surgery [place] [address] Malik Sanders MD [facility] [place] [address] UPPER EUS- ENDOSCOPIC ULTRASOUND (WRVU 3.47) Social [...] Care Everywhere. * Ultrasound: Endoscopic (Rectal): Post-op (Egyptian) documented in this encounter Medications at Time [...] Sanders MD - 07/24/2020 10:20 AM EDT [facility] Operative Note Patient Name: Tori Escobar : [id number] MR#: [id number] Case Date: 07/24/2020 Surgeon: Surgeon(s) and Role: [...] Associated Diagnosis Comments Endoscopic Us Exam, Tarik ([id number]) 07/24/2020 10:05 AM EDT BRCA2 gene mutation positive in female Family history of pancreatic cancer UPPER EUS-ENDOSCOPIC ULTRASOUND Routine 07/24/2020 9:55 AM EDT documented in this encounter Results * UPPER EUS-ENDOSCOPIC ULTRASOUND (07/24/2020 9:55 AM EDT) UPPER ENDOSCOPIC ULTRASOUND [facility] Endoscopy Procedure Date: 07/24/2020 9:55 AM ? Patient Name: Tori Escobar ? Date of : 1985 ? Age: 35 ? Order #: [id number] ? Instrument Name: GF-UE [id number] ? Procedure: ? Upper EUS Indications: ? BRCA +, Family history of pancreas ? cancer Providers: ? Malik Sanders MD, Pricila Murphy, ? India Crawley RN, Blu Ramirez. ? Nash Referring MD: ?Harriett Goldsmith, Anisha Livingston Requesting Provider: Danya Diez MD Medicines: ? Monitored Anesthesia Care Complications: ? No immediate complications. Procedure: ? Pre-Anesthesia Assessment: ? - [place] Protocol: ? - Pre-procedure Verification: Prior ? [...] by the physician, the nurse, ? the supervisor scouring pads and the computer systems technician in ? the procedure room. ? [...] Procedure Code(s): ?? --- Professional --- ? 22777, Esophagogastroduodenos copy, ? flexible, transoral; with endoscopic ? ultrasound examination, including the ? esophagus, stomach, and either the ? duodenum or a surgically altered ? stomach where the jejunum is examined ? distal to the anastomosis CPT copyright 2019 [employer]. All rights reserved. The codes documented in this report are preliminary and upon frozen pie maker review may be revised to meet current [...] Wed07/24/20 at 1110, Endoscopy (Day of Procedure) 09 (New Bag - Prov ider: Jarad Scott RN) documented in this encounter Care Teams Director Utilization Management Relationship Specialty Start Date End Date Anisha Neal MD PCP - General Family Medicine 07/10/20 06/28/22 documented as of this encounter
--- OUTSIDE RECORDS SUMMARY | 2023-12-09 11:37 | XMS_ITS | Encounter Summary ---
Author Organization [facility] [place] [address] Care Team Providers Care Communication Center Coordinator Name Role Phone Anisha Neal MD Primary Care Provider [phone] Reason for Referral * Consultation (Routine) - Duplicate Referral Specialty Diagnoses / Procedures Referred By Contac t Referred To Contact Hematology and Oncology Diagnoses Family history of clotting disorder Brady Freedman MD [facility] [place] [address] [facility] Hem Onc [address] [place] [address] Referral ID Status Reason Start Date Expiration Date Visits Requested Visits Authorized [id number] Duplicate Referral Consult, Test & Treat 07/18/2020 07/18/2021 1 1 Encounter Details Date Type Department Care Team (Late st Contact Info) Description 07/18/2020 Orders [place] [address] Brady Freedman MD [facility] [place] [address] Pre-op testing; Blood clotting disorder; [...] disorders documented in this encounter Care Teams Communication Center Coordinator Relationship Specialty Start Date End Date Anisha Neal MD PCP - General Family Medicine 07/10/20 06/28/22 documented as of this encounter
--- OUTSIDE RECORDS SUMMARY | 2023-12-09 11:37 | XMS_ITS | Encounter Summary ---
Author Organization [facility] Address [facility] [place] [address] Care Team Providers Care Perinatal Breastfeeding Assistant Name Role Phone Harmony Cortez APRN Primary Care Provider [phone] Encounter Details Date Type Department Care Team (Late st Contact Info) Description 11/30/2023 1:40 PM EDT Office Visit Dermatology at [facility] [address] [place] [address] Francisca Chandler MD [facility] DR SASHA [place] [address] Lentigines; Sebaceous hyperplasia Social History Tobacco Use Types Packs/Day Years [...] as of this encounter Progress Notes * Francisca Chandler MD - 11/30/2023 1:40 PM EDT Images from the original note were not included. DEPARTMENT OF DERMATOLOGY Medical Dermatology Clinic Provider: Francisca Chandler MD Patient's preferred name Tori Preferred contact method for results [x]Phone [x]myD-H []Letter Detailed phone message OK? Y Are there any other people with whom we may discuss your care? 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 Patient is new and self-referred to the clinic for a full skin exam. She reports some discoloration on the face and a pimple on the leftupper forehead that has been present for multiple years. Medications: Reviewed in eD-H Allergies: Reviewed in eD-H Skin Examination: Full skin examination: Patient asked to undress to their comfort level. Verbalized that the provider's preference is that patient remove all clothing and that the provider will not examine areas patient elects to keep covered. Examination of the scalp, hair, head, face, ears, neck, chest, axillae, abdomen, back, buttocks, genitalia, and upper and lower extremities was normal with the exception ofthe findings below. Assessment/Plan #. Sebaceous Hyperplasia - Yellowish papules with central umbilication on the left upper forehead. - Discussed diagnosis and etiology (benign growths of sebaceous glands and hair follicle unit). - Provided reassurance. No treatment necessary at this time. - Briefly reviewed cosmetic treatment options including but not limited to: topical tretinoin, electrocautery, and laser therapy. #. Diffuse Lentigines - Scattered light-brown, evenly pigmented, well-demarcated macules on sun-exposed areas of the trunk and extremities. - No worrisome pigmented lesions. Discussed benign nature of lesions and provided reassurance. Willcontinue to monitor. # Hyperkeratotic Plaques - on the posterior heels with fissuring - Recommended applying AmLactin or Urea lotion with sock on top for 2-3 weeks and daily lotion for maintence. Other: Sun protection discussed (protective clothing and SPF30+ broad-spectrum sunscreen) RTC: 1 year for FSE []Note routed to ward secretary [x]Recall placed in scheduling system []Appointment scheduled at checkout Scribe attestation: Monica Bansal has performed the documentation for this encounter in the presence of and acting as a scribe for Francisca Chandler MD. I performed the above scribed service and agree with the accuracy of the documentation in this encounter. Reviewed and signed by: Francisca Chandler MD Dermatology [facility] Staff drywall worker: Quita Munoz MD Dermatology [facility] * Quita Munoz MD - 11/30/2023 1:40 PM EDT I was the supervising physician working with the Dermatology resident, Francisca Chandler MD, in the care of this Dermatology patient in person. For the purposes of billing, the resident provided the care. I have reviewed the encounter note details and level of service. Quita Munoz MD Staff Motor Installer Department of Dermatology [facility] documented in this encounter Plan of Treatment Not on file documented as of this encounter Visit Diagnoses Diagnosis Lentigines Other dyschromia Sebaceous hyperplasia Other specified disease of sebaceous glands documented in this encounter Care Teams Perinatal Breastfeeding Assistant Relationship Specialty Start Date End Date Harmony Cortez APRN [address] [place] [address] PCP - General Family Medicine 06/29/22 documented as of this encounter
--- OUTSIDE RECORDS SUMMARY | 2023-12-09 11:37 | XMS_ITS | Encounter Summary ---
Author Organization [facility] Address [facility] [place] [place] [address] Care Team Providers Care Radiology Technologist Name Role Phone Anisha Neal MD Primary Care Provider [phone] Reason for Visit * Reason Comments Follow-up * Consultation (Urgent) - Closed Specialty Diagnoses / Procedures Referred By Contac t Referred To Contact Hematology and Oncology Diagnoses clotting Brady Freedman MD [facility] [place] [address] [facility] Hem Onc [address] [place] [address] Referral ID Status Reason Start Date Expiration Date V isits Requested Visits Authorized [id number] Closed Consult, Test & Treat 07/08/2020 07/08/2021 1 1 Encounter Details Date Type Department Care Team (Late st Contact Info) Description 08/05/2020 10:30 AM EDT Office Visit Hematology [place] [address] Delicia Powell MD [facility] DR [place] [address] Family history of pulmonary embolism; [...] were not included. [facility] [place] [address] THROMBOSIS CONSULTATION DATE OF VISIT 08/05/2020 Patient [...] She was also seen by Dr. Brito, [facility] ONC to discuss future prophylactic bilateral salpingo-oophorectomy [...] ULTRASOUND performed by Malik Sanders MD at [facility] ENDOSCOPY OBSTETRIC HISTORY Estrogen combined OCP for [...] use+ venous insufficiency. 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
--- OUTSIDE RECORDS SUMMARY | 2023-12-09 11:37 | XMS_ITS | Encounter Summary ---
Author Organization [facility] Address [facility] [place] [address] Care Team Providers Care Ben Day Artist Name Role Phone Harriett Goldsmith APRN Primary Care Provid er Reason for Visit * Consultation (Routine) - Closed Specialty Diagnoses / Procedures Referred By Contac t Referred To Contact Hematology and Oncology Diagnoses BRCA2 gene mutation positive Family history of BRCA2 gene positive Bhavna Mckeon APRN [facility] [place] [address] Aminta Miguel MD [facility] [address] Referral ID Status Reason Start Date Expiration Date V isits Requested Visits Authorized [id number] Closed Consult, Test & Treat 05/21/2020 05/21/2021 1 1 Encounter Details Date Type Department Care Team (Latest Contact Info) Description 06/26/2020 3:45 PM EST TH Visit (TeleHealth) [place] [address] Aminta Miguel MD [facility] [address] [place] [phone] At high risk for breast cancer Social [...] - 06/26/2020 3:45 PM EST Patient ID: Tori Escobar is a 35 [...] Hx: 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 She and her have decided theydo [...] cancer documented in this encounter Care Teams Ben Day Artist Relationship Specialty Start Date End Date Harriett Goldsmith APRN [address] [facility] [address] [place] [address] PCP - General Family Medicine 11/23/19 07/09/20 documented as of this encounter
--- OUTSIDE RECORDS SUMMARY | 2023-12-09 11:37 | XMS_ITS | Encounter Summary ---
Author Organization [facility] Address [facility] [place] [id number] Care Team Providers Care Audograph Operator Name Role Phone Harriett Goldsmith APRN Primary Care Provid er Reason for Referral * Consultation (Routine) - Closed Specialty Diagnoses / Procedures Referred By Jonny perez Referred To Contact Plastic Surgery Diagnoses BRCA2 gene mutation positive Family history of BRCA2 gene positive Bhavna Mckeon APRN [facility] [place] [address] [facility] Plastic Surg [address] [place] [phone] Referral ID Status Reason Start Date Expiration Date V isits Requested Visits Authorized [id number] Closed Specialty Service Requested 05/21/2020 05/21/2021 1 1 * Consultation (Routine) - Closed Specialty Diagnoses / Procedures Referred By Contcaleb t Referred To Contact Hematology and Oncology Diagnoses BRCA2 gene mutation positive Family history of BRCA2 gene positive Bhavna Mckeon APRN [facility] [place] [address] Aminta Miguel MD [facility] [place] [address] Referral ID Status Reason Start Date Expiration Date V isits Requested Visits Authorized [id number] Closed Consult, Test & Treat 05/21/2020 05/21/2021 1 1 Reason for Visit * Reason Comments Establish Care * Consultation (Routine) - Closed Specialty Diagnoses / Procedures Referred By Contcaleb t Referred To Contact Hematology and Oncology Diagnoses BRCA2 gene mutation positive in female Justin Vela MD [facility] DR HEMATOLOGY/[place] [address] [facility] Hem Onc [address] [place] [address] Referral ID Status Reason Start Date Expiration Date V isits Requested Visits Authorized [id number] Closed Consult, Test & Treat 04/17/2020 04/17/2021 1 1 Encounter Details Date Type Department Care Team (Late st Contact Info) Description 05/20/2020 2:00 PM EST Office [place] [address] Bhavna Mckeon APRN [facility] [place] [address] Encounter for screening breast examination and discussion [...] 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 She and her are stillundecided if [...] situation. Results: Imaging performed (bilateral mammogram) at [facility] today shows no evidence of malignancy, BIRADS [...] MRI directed biopsy capability such as the [facility] Radiology Department. ?? Annual mammograms, with consideration [...] onset disease. She has already met with [facility] and has had a TVUS. Those [...] for personal care products are available at [employer] ([employer]) and [employer]. All questions were answered to the patient's satisfaction and they state understanding and agreement with today's treatment plan. They are encouraged to follow up sooner if they develop any new or concerning symptoms. Total time spent [id number] with this patient was 50 minutes with greater than 75% of the time spent in counseling, coordination of care, and discussion of treatment plan. Bhavna Mckeon APRN Surgical Oncology P [phone] F [phone] [facility] documented in this encounter Plan of [...] tract documented in this encounter Care Teams Audograph Operator Relationship Specialty Start Date End Date Harriett Goldsmith APRN [address] [address] PCP - General Family Medicine 11/23/19 07/09/20 documented as of this encounter
--- OUTSIDE RECORDS SUMMARY | 2023-12-09 11:37 | XMS_ITS | Encounter Summary ---
Author Organization [facility] Address [facility] [place] [address] Care Team Providers Care Barking Machine Feeder Name Role Phone Harriett Goldsmith APRN Primary Care Provid er Reason for Visit * Reason Comments Advice Only would like to discus s mastectomy and then reconstruction * Consultation (Routine) - Closed Specialty Diagnoses / Procedures Referred By Jonny perez Referred To Contact Plastic Surgery Diagnoses BRCA2 gene mutation positive Family history of BRCA2 gene positive Bhavna Mckeon APRN [facility] [place] [address] [facility] [address] [place] [address] Referral ID Status Reason Start Date Expiration Date V isits Requested Visits Authorized [id number] Closed Specialty Service Requested 05/21/2020 05/21/2021 1 1 Encounter Details Date Type Department Care Team (Latest Contact Info) Description 06/19/2020 11:30 AM EST Office [place] [address] Haley Freedman MD [facility] [place] [address] BRCA2 gene mutation positive; Encounter [...] to your surgery. Day of Surgery A flatbed company driver is required at time of discharge. [...] assessment and review your history with you. [facility] has instituted the requirement of COVID-19 [...] pm) For an appointment or insurance questions [phone] For questions pertaining to your surgical date [phone] For nursing related questions [phone] On weekends, holidays or after office hours: Call and ask the heel washer stringing machine operator to page the Plastic Surgery Resident snuff container inspector. documented in this encounter Progress Notes * [...] a mammogram recently which was normal. The Surgient informational link on breast reconstruction was received: [...] to her visit today she watched the Surgient informational link on breast reconstruction. I also [...] informed decision 5. Recommended web sites including: www.surgery.med.[facility] www.bsjyvwhzuslmgx444.com www.breastimplantsafety.org www.breasthealthonline.com 6. Brochure on the Section [...] the safety of silicone implants and the Sunflower brochure: Silicone implants, making an informed decision. [...] counseling documented in this encounter Care Teams Barking Machine Feeder Relationship Specialty Start Date End Date Harriett Goldsmith APRN 580 [facility] [address] [place] [address] PCP - General Family Medicine 11/23/19 07/09/20 documented as of this encounter
--- OUTSIDE RECORDS SUMMARY | 2023-12-09 11:37 | XMS_ITS | Encounter Summary ---
Author Organization [facility] Address [facility] [place] [address] Care Team Providers Care Appeals Manager Name Role Phone Harriett Goldsmith APRN Primary Care Provid er Encounter Details Date Type Department Care Team (Latest Contact Info) Description 05/20/2020 12:56 PM EST - 05/20/2020 11:59 PM EST Hospital Encounter Mammography/[place] [address] Bhavna Mckeon APRN [facility] [place] [address] BRCA positive Discharge Disposition: Home Social History [...] breast documented in this encounter Care Teams Appeals Manager Relationship Specialty Start Date End Date Harriett Goldsmith APRN 580 [facility] [address] [place] [id number] PCP - General Family Medicine 11/23/19 07/09/20 documented as of this encounter
--- OUTSIDE RECORDS SUMMARY | 2023-12-09 11:37 | XMS_ITS | Encounter Summary ---
[place] [address] Care Team Providers Care Craps Dealer Name Role Phone Harmony Cortez APRN Primary [...] on filedocumented in this encounter Care Teams Craps Dealer Relationship Specialty Start Date End Date Harmony Cortez APRN [address] [place] [address] PCP - General Family Medicine 06/29/22 documented as of this encounter
--- OUTSIDE RECORDS SUMMARY | 2023-12-09 11:37 | XMS_ITS | Encounter Summary ---
[place] [address] Care Team Providers Care Manager Process Name Role Phone Anisha Neal MD Primary Care Provider [phone] Reason for Visit * Auth/Cert Specialty Diagnoses [...] Expiration Date Visits Re quested Visits Authorized [id number] 1 1 Encounter Details Date Type Department Care Team (Late st Contact Info) Description 07/24/2020 10:05 AM EDT Anesthesia [place] [address] Kamron Frakn MD [facility] [place] [address] Umair Reynoso CRNA [facility] [place] [address] Anesthesia Record Procedure Summary Procedure Name Responsible [...] 927; median cubital vein (antecubital fossa), right; dupz-imf-ptbcru catheter system; Anatomical Landmarks; 22 gauge; Uriah Pittman RN; distraction, intradermal injection, appears comfortable, tolerated well; no longer indicated, removed per policy/procedure; 07/24/20; 9 07/24/20927 by Jarad Scott RN 07/24/20 110 by [...] Procedure Summary Date: 07/24/20 Room / Location: [facility] ENDO 2 / [facility] ENDOSCOPY Anesthesia Start: 1005 Anesthesia Stop: [...] All Anesthesia Providers: Anesthesiologist: Kamron Frank MD DAY CARE ASSISTANT: Reynoso, Umair A, DAY CARE ASSISTANT Vitals Value Taken Time BP 123/87 07/24/20 1110 Temp Pulse Resp 16 07/24/20 1110 SpO2 98 % 07/24/20 1110 Pain Level 0 07/24/20 1110 Patient Location: PACU/[facility] Level of Consciousness: Awake and Alert Pain [...] female Added automatically from request for surgery [id number] ??? Family history of BRCA2 gene positive [...] Adequate IV access Kamron Frank MD PhD #[id number] Region - Other Informed Consent: Anesthetic plan and risks discussed with patient. Plan discussed with DAY CARE ASSISTANT. PAT Clinic Note documented in this encounter [...] mL/hr documented in this encounter Care Teams Manager Process Relationship Specialty Start Date End Date Anisha Neal MD PCP - General Family Medicine 07/10/20 06/28/22 documented as of this encounter
--- OUTSIDE RECORDS SUMMARY | 2023-12-09 11:37 | XMS_ITS | Encounter Summary ---
Author Organization [facility] [place] [address] Care Team Providers Care Dowel Sticker Operator Name Role Phone Harriett Goldsmith APRN Primary Care Provid er Encounter Details Date Type Department Care Team (Late st Contact Info) Description 05/22/2020 Orders [place] [address] Alma Delia Olvera Social History Tobacco Use [...] on filedocumented in this encounter Care Teams Dowel Sticker Operator Relationship Specialty Start Date End Date Harriett Goldsmith APRN [address] [place] [address] [address] [place] [address] PCP - General Family Medicine 11/23/19 07/09/20 documented as of this encounter
--- OUTSIDE RECORDS SUMMARY | 2023-12-09 11:37 | XMS_ITS | Encounter Summary ---
Author Organization [facility] Address [facility] [place] [address] Care Team Providers Care Aircraft Landing Gear Inspector Name Role Phone Harriett Goldsmith APRN Primary Care Provid er Reason for Visit * Consultation (Routine) - Closed Specialty Diagnoses / Procedures Referred By Contac t Referred To Contact Gastroenterology Diagnoses BRCA2 gene mutation positive in female Family history of pancreatic cancer Justin Vela MD [facility] DR HEMATOLOGY/[place] [address] Danya Diez MD [facility] [place] [address] Referral ID Status Reason Start Date Expiration Date V isits Requested Visits Authorized [id number] Closed Consult, Test & Treat 04/17/2020 04/17/2021 1 1 Encounter Details Date Type Department Care Team (Late st Contact Info) Description 06/19/2020 1:00 PM EST Office Visit [place] [address] Danya Diez MD [facility] [place] [address] BRCA2 gene mutation positive in female; Family [...] PRESENT ILLNESS Tori was originally referred by assistant store director for genetic testing based on FH of pancreatic cancer. [facility]'s??BRCA2??analysis showed that??Tori??carries??the??pathogenic variant (mutation) in BRCA2, s pecifically??[id number] ([id number]). Her family history is notable for: Father [...] BRCA2 mutation, she has been seen by head of geography onc for screening and maymeet sooner to [...] few weeks. Sees Dr. Hi (GI) in [place]. 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 Recently re-. [...] adenopathy and no thyromegaly. HEENT: PERRL, EOMI, BEHAVIOR THERAPIST and OP clear without ulceration or lesions. [...] Director, GI [facility] screen printing equipment setter Section of Gastroenterology [place] [address] documented in this encounter Plan of Treatment Scheduled Orders Name Type Priority Associated Diagnoses [...] tract documented in this encounter Care Teams Aircraft Landing Gear Inspector Relationship Specialty Start Date End Date Harriett Goldsmith APRN [address] [address] PCP - General Family Medicine 11/23/19 07/09/20 documented as of this encounter
--- OUTSIDE RECORDS SUMMARY | 2023-12-09 11:38 | XMS_ITS | Encounter Summary ---
Author Organization [facility] Address [address] [place] [address] Care Team Providers Care Driver/Refuse Collector Name Role Phone None, Provider Primary Care Provider Unavailabl e Encounter Details Date Type Department Care Team (Late st Contact Info) Description 06/03/2020 Lab Requisition [facility] Pathology & Laboratory Medicine - [facility] [address] [place] [address] Nathan Wise MD [address] [place] [phone] Encounter for screening for malignant neoplasm of [...] no significant diagnostic abnormalities. 06/04/2020 15:16 EST [facility] Attestation By the signature below, the attending physician certifies that they have 1) personally conducted a gross and/or microscopic examination of the described specimen(s), and/or personally interpreted the results of laboratory testing of the described specimen(s), and 2) personally rendered or confirmed the above diagnosis. 06/04/2020 15:16 [facility] at 1516 Clinical History Normal colon; clinical diagnosis code: Z12.11, K58.1, R10.13, Z80.0 06/04/2020 15:16 [facility] Gross Description A. Received in formalin labelled with proper patient identification (initials G, D) and random colon Bx are 4 whitaker-brown tissues (0.1 x 0.1 x 0.1 cm to 0.5 x 0.2 x 0.1 cm). Entirely submitted in A1. Please note the smallest tissue may not survive processing. ALFRED GOMEZ(ASCP) 06/04/2020 8:09 06/04/2020 15:16 [facility] Performing Lab [facility] 06/04/2020 15:16 [facility] Scanned Images 06/04/2020 15:16 [facility] Tissue ENTIRE COLON / Unknown 06/03/2020 11:53 EST 06/03/2020 22:19 EST Nathan Wise MD PATHOLOGY ORD ERABLES [facility] [address] [place] [address] documented in this encounter Visit Diagnoses Diagnosis Encounter for screening for malignant neoplasm of colon Special screening for malignant neoplasms, colon Epigastric pain Abdominal pain, epigastric Family history of malignant neoplasm of digestive organs Irritable bowel syndrome with constipation Irritable bowel syndrome documented in this encounter Care Teams Driver/Refuse Collector Relationship Specialty Start Date End Date None, Provider PCP - General 06/03/20 documented as of this encounter
--- OUTSIDE RECORDS SUMMARY | 2023-12-09 11:38 | XMS_ITS | Encounter Summary ---
Author Organization [facility] Address [address] [place] [address] Care Team Providers Care Metal Cans Supervisor Name Role Phone Unavailable Primary Care Provider Unavailabl e Encounter Details Date Type Department Care Team (Late st Contact Info) Description 09/13/2007 Results Only [facility] [address] [place] [address] Bobby Daily, TINA [address] [place] [address] Social History Tobacco Use Types [...] LUIS M TORI ? Accession #: ? [id number] : ? 1985 (Age: 22) ??F ?Collect Date: ? 09/13/2007 Location: ? [facility] ? Receive Date: ? 09/15/2007 Provider: ?BOBBY DAILY CURAM DEVELOPER Copy to: ? Specimen/Source: ?ThinPrep Pap Test, Cervix/Endocervix, processed on [employer]oof ThinPrep Imaging System, with manual evaluation Last [...] NP PATHOLOGY ORDERABLES [facility] [address] [place] [address] documented in this encounter Visit Diagnoses Not on filedocumented in this encounter
--- OUTSIDE RECORDS SUMMARY | 2023-12-09 11:38 | XMS_ITS | Encounter Summary ---
Author Organization [facility] [place] [address] Care Team Providers Care Juice Standardizer Name Role Phone Harriett Goldsmith APRN Primary Care Provid er Reason for Visit * Reason Onset Date Comments Results 04/01/2020 Encounter Details Date Type Department Care Team (Late st Contact Info) Description 04/01/2020 Telephone Hematology [place] [address] Susi Mooney LGC [facility] HEMATOLOGY/[place] [address] Results Social History Tobacco Use Types Packs/Day [...] on filedocumented in this encounter Care Teams Juice Standardizer Relationship Specialty Start Date End Date Harriett Goldsmith APRN [address] [facility] 25 [place] [address] PCP - General Family Medicine 11/23/19 07/09/20 documented as of this encounter
--- OUTSIDE RECORDS SUMMARY | 2023-12-09 11:38 | XMS_ITS | Encounter Summary ---
Author Organization [facility] Address [address] [place] [address] Care Team Providers Care Counter Cutter Name Role Phone Denzel Mandel MD Primary Care Provider Unavailabl e Encounter Details Date Type Department Care Team (Late st Contact Info) Description 11/17/2011 Results Only [facility] Laboratory Services - [facility] ([facility]) [address] [place], [place] [phone] Fawad Siddiqui MD [address] [place] [phone] Social History Tobacco Use Types Packs/Day [...] ? TORI ESCOBAR ? Accession #: ? [id number] ? : ? 1985 (Age: 26) ??F ? Collect Date: ? 11/17/2011 ? Location: ? [facility] ? Receive Date: ? 11/18/2011 ? Provider: FAWAD SIDDIQUI MD Copy to: BOBBY BEAVER MOTH EXTERMINATOR ? Final Pathologic Diagnosis: A. ?Terminal ileum, [...] as (A). ?? Received in formalin labelled Shawn, Tori and B ??hepatic flexure is a light whitaker biopsy measuring 0.2 x 0.2 x 0.1 cm. ??The specimen is entirely submitted as (B). Received in formalin labelled Shawn, Tori and C ??splenic flexure is a whitaker-white cylindrical biopsy measuring 0.6 x 0.1 x 0.1 cm. ??The specimen is entirely submitted as (C). ??(Lauren Novak)/mpl End of Report [facility] 11/17/2011 11/18/2011 16: 18 EDT Fawad Siddiqui MD PATHOLOGY ORDERABLE S [facility] [address] [place] [address] documented in this encounter Visit Diagnoses Not on filedocumented in this encounter Care Teams Counter Cutter Relationship Specialty Start Date End Date Denzel Mandel MD PCP - General 07/23/11 06/12/14 documented as of this encounter
--- OUTSIDE RECORDS SUMMARY | 2023-12-09 11:38 | XMS_ITS | Encounter Summary ---
Author Organization [facility] Address [address] [place] [address] Care Team Providers Care Switchboard Receptionist Name Role Phone Unavailable Primary Care Provider Unavailabl e Encounter Details Date Type Department Care Team (Late st Contact Info) Description 10/31/2004 Results Only [facility] [address] [place] [address] Adrienne Giles MD [address] [place] [address] [place] [address] Social History Tobacco Use Types Packs/Day Years [...] ? TORI ESCOBAR ? Accession #: ? [id number] : ? 1985 (Age: 19) ??F ?Collect Date: ? 10/31/2004 Location: ? [facility] ? Receive Date: ? 11/04/2004 Provider: ?ADRIENNE GILES MD Copy to: ? Specimen/Source: ?ThinPrep Pap Test, Cervix/Endocervix, processed on [employer]strips ThinPrep Imaging System, with manual evaluation Last [...] MD PATHOLOGY ORDERABLES [facility] [address] [place] [address] documented in this encounter Visit Diagnoses Not on filedocumented in this encounter
--- OUTSIDE RECORDS SUMMARY | 2023-12-09 11:38 | XMS_ITS | Encounter Summary ---
Author Organization [facility] Address [address] [place] [address] Care Team Providers Care Historical Records Administrator Name Role Phone Unavailable Primary Care Provider Unavailabl e Encounter Details Date Type Department Care Team (Late st Contact Info) Description 07/24/2002 Results Only *[facility] Gastroenterology - [place] [address] [place] [address] Blu Camargo MD Social History Tobacco Use [...] (Positive) ? TEST PERFORMED OR REFERRED BY [facility] ? [address] ? [place] [address] ? Spar Cap Beveler: ? Delroy Benotn M.D. ? [facility] 07/24/2002 9:33 EDT 07/24/2002 9:34 EDT Blu Camargo MD IMMUNOLOGY AND SEROL OGY ORDERABLES [facility] [address] [place] [address] * TSH (07/24/2002 9:33 EDT) TSH 0.97 0.35 - 5.50 uIU/ml [facility] 07/24/2002 9:33 EDT 07/24/2002 9:34 EDT Blu Camargo MD CHEMISTRY & BLOOD GA S ORDERABLES Performing Organization Address [facility] de Phone Number [facility] [address] [place] [address] * IRON (07/24/2002 9:33 EDT) Pathologist [facility] Iron 86 60 - 180 ug/dl [facility] 07/24/2002 9:33 EDT 07/24/2002 9:34 EDT Blu Camargo MD CHEMISTRY & BLOOD GA S ORDERABLES Performing Organization Address [facility] de Phone Number [facility] [address] [place] [address] * IBC (07/24/2002 9:33 EDT) [facility] TIBC 380 225 - 425 ug/dl [facility] 07/24/2002 9:33 EDT 07/24/2002 9:34 EDT Blu Camargo MD CHEMISTRY & BLOOD GA S ORDERABLES Performing Organization Address [facility] de Phone Number [facility] [address] [place] [address] * ANTI GLIADIN AB (07/24/2002 9:33 EDT) [facility] Gliadin IgG Ab 13Unit: EU(Note) -- EXPECTED VALUES -- ? (Ref Range) <25 (Negative) ? 25-50 (Weak Positive) ? >50 (Positive) ? TEST PERFORMED OR REFERRED BY [facility] ? [address] ? [place] [address] ? Spar Cap Beveler: ? Delroy A. Chetan, M.D. ? [facility] Gliadin IgA Ab 20Unit: EU(Note) -- EXPECTED VALUES -- ? (Ref Range) <25 (Negative) ? 25-50 (Weak Positive) ? >50 (Positive) ? TEST PERFORMED OR REFERRED BY [facility] ? [address] ? [place] [address] ? Spar Cap Beveler: ? Delroy Benton M.D. ? [facility] 07/24/2002 9:33 EDT 07/24/2002 9:34 EDT Blu Camargo MD HISTORICAL LAB FOR S Q LOAD Performing Organization Address [facility] de Phone Number [facility] [address] [place] [address] * FERRITIN (07/24/2002 9:33 EDT) Ferritin 37 8 - 151 ng/ml [facility] 07/24/2002 9:33 EDT 07/24/2002 9:34 EDT Blu Camargo MD CHEMISTRY & BLOOD GA S ORDERABLES Performing Organization Address [facility] de Phone Number [facility] [address] [place] [phone] * ENDOMYSIAL ANTIBODY, SERUM (07/24/2002 9:33 EDT) Endomysial Antibodies Negative(Note) -- EXPECTED VALUES -- ? Negative ? TEST PERFORMED OR REFERRED BY [facility] ? [address] ? [place] [address] ? Spar Cap Beveler: ? Delroy Benton M.D. ? [facility] 07/24/2002 9:33 EDT 07/24/2002 9:34 EDT Blu Camargo MD IMMUNOLOGY AND EDNA ORTA ORDERABLES [facility] [address] [place] [address] * COMPREHENSIVE METABOLIC PANEL (CMP) (07/24/2002 9:33 EDT) Potassium 4.2 3.5 - 5.0 mEq/L [facility] Sodium 140 136 - 145 mEq/L [facility] Chloride 106 96 - 110 mEq/L [facility] CO2 25 24 - 30 mEq/L [facility] Total Alkaline Phosphatase 52 38 - 126 U/L [facility] Bilirubin, Total 0.2 0.2 - [...] GA S ORDERABLES [facility] [address] [place] [address] * HEMAGRAM AND DIFFERENTIAL (07/24/2002 9:33 EDT) [...] & DNA PROBE ORDERABLES Performing Organization Address City/State/[facility] Co de Phone Number [facility] [address] [address] documented in this encounter Visit Diagnoses Not on filedocumented in this encounter
--- OUTSIDE RECORDS SUMMARY | 2023-12-09 11:38 | XMS_ITS | Encounter Summary ---
Author Organization [facility] Address [address] [place] [address] Care Team Providers Care Beverage Host Name Role Phone Unavailable Primary Care Provider Unavailabl e Encounter Details Date Type Department Care Team (Late st Contact Info) Description 09/19/2007 Results Only [facility] conversion [address] [place] [address] Sloan [place] MD [address] [place] [address] Social History Tobacco Use Types Packs/Day Years [...] ? TORI ESCOBAR ? Accession #: ? [id number] : ? 1985 (Age: 22) ??F ?Collect Date: ? 09/19/2007 Location: ? [facility] ? Receive Date: ? 09/21/2007 Provider: ?SLOAN HOUSTON MD Copy to: ? Specimen/Source: ?ThinPrep Pap Test, Cervix/Endocervix, processed on [employer] ThinPrep Imaging System, with manual evaluation Last [...] [place] MD PATHOLOGY ORDERABLES Performing Organization Address City/State/[facility] Co de Phone Number [facility] [address] [place] [address] documented in this encounter Visit Diagnoses Not on filedocumented in this encounter
--- OUTSIDE RECORDS SUMMARY | 2023-12-09 11:38 | XMS_ITS | Encounter Summary ---
Author Organization [facility] Address [facility] [place] [address] Care Team Providers Care Diagnostic Tech Name Role Phone Harriett Goldsmith APRN Primary Care Provid er Encounter Details Date Type Department Care Team (Late st Contact Info) Description 03/02/2020 Notes Only H[place]ology [place] [address] Justin Vela MD [facility] DR HEMATOLOGY/[place] [address] Social History Tobacco Use Types Packs/Day Years [...] on filedocumented in this encounter Care Teams Diagnostic Tech Relationship Specialty Start Date End Date Harriett Goldsmith APRN [address] [facility] [address] [place] [address] PCP - General Family Medicine 11/23/19 07/09/20 documented as of this encounter
--- OUTSIDE RECORDS SUMMARY | 2023-12-09 11:38 | XMS_ITS | Referral Summary ---
Author Organization [facility] Address [address] [place] [address] Care Team Providers Care Payroll Coordinator Name Role Phone None, Provider Primary Care Provider Unavailabl e Social History Tobacco Use Types Packs/Day Years Used Date Smoking Tobacco: Never Assessed Sex and Gender Information Value Date Recorded Sex Assigned at Not on file Gender Identity Not on file Sexual Orientation Not on file Plan of Treatment Not on file Care Teams Payroll Coordinator Relationship Specialty Start Date End Date None, Provider PCP - General 06/03/20
--- OUTSIDE RECORDS SUMMARY | 2023-12-09 11:38 | XMS_ITS | Encounter Summary ---
Author Organization [facility] Address [address] [place] [address] Care Team Providers Care Basket Maker Name Role Phone Denzel Mandel MD Primary Care Provider Unavailabl e Encounter Details Date Type Department Care Team (Late st Contact Info) Description 06/12/2014 Results Only [facility] Laboratory Services - [facility] ([facility] [address] [place], [place] [address] Sloan [place] MD [address] [place] [address] Social History Tobacco Use Types Packs/Day Years [...] ? TORI ESCOBAR ? Accession #: ? [id number] ? : ? 1985 (Age: 29) ??F [...] ??Sectioning reveals a central pinpoint lumen. ??Two member services representative cross sections are submitted as A1. B. ?Received in formalin labelled with proper patient identification (initials G, D) and portion of left fallopian tube is a tubular structure (1.4 cm in length and 0.5 cm in diameter). ??The serosal surface is pink-whitaker and glistening. ??Sectioning reveals a central pinpoint lumen. ??Two member services representative cross sections are submitted as B1. Magaly Hsieh 06/13/2014 08:38 AM End of Report [facility] 06/12/2014 20:1 7 EST 06/12/2014 20:17 EST Sloan [place] MD PATHOLOGY ORDERABLES [facility] [address] [place] [address] documented in this encounter Visit Diagnoses Not on filedocumented in this encounter Care Teams Basket Maker Relationship Specialty Start Date End Date Denzel Mandel MD PCP - General 07/23/11 06/12/14 documented as of this encounter
--- OUTSIDE RECORDS SUMMARY | 2023-12-09 11:38 | XMS_ITS | Encounter Summary ---
Author Organization [facility] Address [address] [place] [address] Care Team Providers Care Paste Mixer Liquid Name Role Phone Denzel Mandel MD Primary Care Provider Unavailabl e Encounter Details Date Type Department Care Team (Late st Contact Info) Description 09/18/2011 Results Only [facility] Laboratory Services - [facility] ([facility]) [address] [place], [place] [phone] Fawad Siddiqui MD [address] [place] [phone] Social History Tobacco Use Types Packs/Day [...] ? TORI ESCOBAR ? Accession #: ? [id number] ? : ? 1985 (Age: 26) ??F ? Collect Date: ? 09/18/2011 ? Location: ? [facility] ? Receive Date: ? 09/18/2011 ? Provider: FAWAD SIDDIQUI MD Copy to: BOBBY BEAVER FINGER COBBLER ? Final Pathologic Diagnosis: ? Gallbladder, cholecystectomy: [...] the lumen or in the plastic sleeve. ??Group Exercise Manager sections are submitted in one cassette, including the cystic duct margin, inked black and en face, and two sections of gallbladder wall. ??(Dr. Shepherd)/dione End of Report [facility] 09/18/2011 09/18/2011 15: 20 EDT Fawad Siddiqui MD PATHOLOGY ORDERABLE S Performing Organization Address City/State/[facility] Co de Phone Number [facility] [address] [place] [address] documented in this encounter Visit Diagnoses Not on filedocumented in this encounter Care Teams Paste Mixer Liquid Relationship Specialty Start Date End Date Denzel Mandel MD PCP - General 07/23/11 06/12/14 documented as of this encounter
--- OUTSIDE RECORDS SUMMARY | 2023-12-09 11:38 | XMS_ITS | Encounter Summary ---
Author Organization [facility] Address [address] [place] [address] Care Team Providers Care Compressed Gases Tester Name Role Phone Denzel Mandel MD Primary Care Provider Unavailabl e Encounter Details Date Type Department Care Team (Late st Contact Info) Description 08/17/2012 Results Only [facility] Laboratory Services - [facility] ([facility]) [address] [place], [place] [address] Sloan [place] MD [address] [place] [address] Social History Tobacco Use Types Packs/Day Years [...] ? TORI ESCOBAR ? Accession #: ? [id number] : ? 1985 (Age: 27) ??F ?Collect [...] reviewed and electronically signed by: ? PRERNA Bonilla(ASCP) ? Report Date: ??08/24/2012 10:26 End of Report [facility] 08/17/2012 08/19/2012 Sloan [place] MD PATHOLOGY ORDERABLES Performing Organization Address City/State/[facility] Co de Phone Number [facility] [address] [place] [address] documented in this encounter Visit Diagnoses Not on filedocumented in this encounter Care Teams Compressed Gases Tester Relationship Specialty Start Date End Date Denzel Mandel MD PCP - General 07/23/11 06/12/14 documented as of this encounter
--- OUTSIDE RECORDS SUMMARY | 2023-12-09 11:38 | XMS_ITS | Encounter Summary ---
Author Organization [facility] Address [address] [place] [address] Care Team Providers Care Manager Licensing Name Role Phone None, Provider Primary Care Provider Unavailabl e Encounter Details Date Type Department Care Team (Late st Contact Info) Description 03/01/2022 Lab Requisition [facility] Pathology & Laboratory Medicine - [facility] [address] [place] [address] Outr Resulting Lab, Provider Social History Tobacco [...] Outr Resulting Lab MICROBIOLOGY - GENERAL ORDERABLES [facility] [address] [place] [address] * COVID-19 TESTING (02/28/2022 11:30 EST) COVID-19 rt-PCR Result Negative Negative 03/02/2022 15:09 EST [facility] Comment: This test has not [...] performed using the flaca SARS-CoV-2 assay ([employer] on the Flaca 6800 System Performing Lab Flaca [address] [facility] Lab 03/02/2022 15:09 EST [facility] Swab 02/28/2022 11:3 0 EST 03/01/2022 17:29 EST Provider Outr Resulting Lab MICROBIOLOGY - GENERAL ORDERABLES Performing Organization Address City/State/[facility] Co de Phone Number [facility] [address] [place] [address] documented in this encounter Visit Diagnoses Not on filedocumented in this encounter Care Teams Manager Licensing Relationship Specialty Start Date End Date None, Provider PCP - General 06/03/20 documented as of this encounter
--- OUTSIDE RECORDS SUMMARY | 2023-12-09 11:38 | XMS_ITS | Clinical Summary ---
Author Organization [facility] Address [address] [place] [address] Care Team Providers Care Power House Engineer Name Role Phone None, Provider Primary Care [...] COVID-19 Vaccine ( season) 2022 Care Teams Power House Engineer Relationship Specialty Start Date End Date None, Provider PCP - General 06/03/20
--- OUTSIDE RECORDS SUMMARY | 2023-12-09 11:38 | XMS_ITS | Encounter Summary ---
Author Organization [facility] Address [address] [place] [address] Care Team Providers Care Enrichment Assistant Name Role Phone Unavailable Primary Care Provider Unavailabl e Encounter Details Date Type Department Care Team (Late st Contact Info) Description 07/21/2011 Results Only [facility] - [facility] ([facility]) [address] [place], [place] [phone] Fawad Siddiqui MD [address] [place], [place] [phone] Social History Tobacco Use Types Packs/Day Years [...] ? TORI ESCOBAR ? Accession #: ? [id number] ? : ? 1985 (Age: 26) ??F [...] MD PATHOLOGY ORDERABLE S Performing Organization Address City/State/[facility] Co de Phone Number [facility] [address] [place] [address] documented in this encounter Visit Diagnoses Not on filedocumented in this encounter
--- OUTSIDE RECORDS SUMMARY | 2023-12-09 11:38 | XMS_ITS | Encounter Summary ---
Author Organization [facility] Address [address] [place] [address] Care Team Providers Care Fusing Machine Feeder Name Role Phone Unavailable Primary Care Provider Unavailabl e Encounter Details Date Type Department Care Team (Late st Contact Info) Description 08/14/2005 Results Only [facility] - Maple conversion [address] [place] [address] Bobby Daily, TINA [address] [place] [id number] Social History Tobacco Use Types Packs/Day Years [...] when reading/interpreti ng unformatted reports. Name: ? SHAWN TORI ? Accession #: ? [id number] : ? 1985 (Age: 20) ??F ?Collect Date: ? 08/14/2005 Location: ? [facility] ? Receive Date: ? 08/18/2005 Provider: ?BOBBY DAILY VALVE TECHNICIAN Copy to: ? Specimen/Source: ?ThinPrep Pap Test, Cervix/Endocervix, processed on [employer] ThinPrep Imaging System, with manual evaluation Last [...] NP PATHOLOGY ORDERABLES [facility] [address] [place] [address] documented in this encounter Visit Diagnoses Not on filedocumented in this encounter
--- OUTSIDE RECORDS SUMMARY | 2023-12-09 11:38 | XMS_ITS | Encounter Summary ---
Author Organization [facility] [place] [address] Care Team Providers Care Hat Forming Machine Operator Name Role Phone Harriett Goldsmith APRN Primary Care Provid er Reason for Referral * Consultation (Routine) - Closed Specialty Diagnoses / Procedures Referred By Contac t Referred To Contact Gastroenterology Diagnoses BRCA2 gene mutation positive in female Family history of pancreatic cancer Justin Vela MD [facility] [address] HEMATOLOGY/[place] [address] Danya Diez MD [facility] [place] [address] Referral ID Status Reason Start Date Expiration Date V isits Requested Visits Authorized [id number] Closed Consult, Test & Treat 04/17/2020 04/17/2021 1 1 * Consultation (Routine) - Closed Specialty Diagnoses / Procedures Referred By Contac t Referred To Contact Hematology and Oncology Diagnoses BRCA2 gene mutation positive in female Justin Vela MD [facility] HEMATOLOGY/[place] [address] [facility] Hem Onc [address] [place] [address] Referral ID Status Reason Start Date Expiration Date V isits Requested Visits Authorized [id number] Closed Consult, Test & Treat 04/17/2020 04/17/2021 1 1 * Consultation (Routine) - Closed Specialty Diagnoses / Procedures Referred By Jonny perez Referred To Contact Gynecology Oncology Diagnoses BRCA2 gene mutation positive in female Justin Vela MD [facility] [address] HEMATOLOGY/[place] [address] [facility] Ticket Sales Supervisor [address] [place] [address] Referral ID Status Reason Start Date Expiration Date V isits Requested Visits Authorized [id number] Closed Consult, Test & Treat 04/17/2020 04/17/2021 1 1 Encounter Details Date Type Department Care Team (Latest Contact Info) Description 04/17/2020 11:00 AM EST TH Visit (TeleHealth) [place] [phone] Justin Vela MD [facility] [address] HEMATOLOGY/[place] [address] BRCA2 gene mutation positive in female; Family [...] Progress Notes * Justin Vela MD - 04/17/2020 11:00 AM EST Ms. Escobar christinead a telehealth video visit with me to receive results from genetic testing. I spent all of 25 minutes outlining the test result and its implications. A copy of a letter sent to the patient containing these results is provided below. Please be advised that [place] law requiresthat all health care workers respect the confidentiality of this information and not pass it along to other health care providers, insurance companies, or individuals without the written permission of the patient. The Familial Cancer Program welcomes any questions about these matters. Our phone number is: [phone]. On 03/07/2020, Tori underwent genetic testing for the known BRCA2 mutation previously detected in her father and for the variants of uncertain significance in the CDH1 and RECQL4 genes also detected in her father. Following are the results of this test. ?? Result: Isabelle's BRCA2 analysis showed that Tori carries the pathogenic variant (mutation) in BRCA2, specifically [id number] ([id number]). This is the same mutation previously detected [...] for genetic counseling and testing. Our scheduling board of education secretary can be reached at [phone]. Family members can also go to the [...] MRI directed biopsy capability such as the [facility] Radiology Department. ??? Annual mammograms, with consideration [...] reach the Comprehensive Breast Program by calling [phone]. Ovarian cancer risk management Ovarian cancer (and [...] in addition to pelvic exams with their friction paint machine tender. This could start between the ages of [...] at risk. The gynecological oncology group at [facility] may be reached at [phone] to schedule an appointment.A referral has been placed. Skin cancer screening ??? Annual, or more frequent, dermatologic exams, as recommended by Tori's cement mixer driver Colon cancer screening ?? Baseline colorectal cancer [...] criteria. A referral to Dr. Smith, a adolescent psychiatrist at [facility] in [place] has been placed. She can discuss these screening options with Tori if she desires. Tori can schedule an appointment with her by reaching her board of education secretary at [phone]. Cancer screening FOR MEN ?? Breast self-exam [...] can be accessed at the following URL: [email or web address] Finally, it can be difficult for people [...] a consultation with a psychologist, social media executive, or psychiatristmay be helpful in dealing with [...] tract documented in this encounter Care Teams Hat Forming Machine Operator Relationship Specialty Start Date End Date Harriett Goldsmith APRN [address] [place] [address] PCP - General Family Medicine 8/6/20 3/23/21 documented as of this encounter
--- OUTSIDE RECORDS SUMMARY | 2023-12-09 11:38 | XMS_ITS | Encounter Summary ---
Author Organization [facility] Address [facility] [place] [address] Care Team Providers Care Pit Recorder Name Role Phone LizbethHarmony ibarra TEACHER TUTOR Primary Care Provider [phone] Encounter Details Date Type Department Care Team (Late st Contact Info) Description 06/11/2009 Orders [place] [address] Homero Correa MD [facility] [place] [address] Social History Tobacco Use Types Packs/Day Years [...] 2:58 PM EST) Surgical Pathology Report [id number] ? Location: 4T The signing pathologist has [...] Homero Faustin MD PATHOLOGY/CYTOLO GY ORDERABLES RAY SHAH documented in this encounter Visit Diagnoses Not on filedocumented in this encounter Care Teams Pit Recorder Relationship Specialty Start Date End Date Harmony Cortez APRN [address] [place] [address] [address] [facility] [address] [place] [address] PCP - General Family Medicine 06/29/22 documented as of this encounter
--- OUTSIDE RECORDS SUMMARY | 2023-12-09 11:38 | XMS_ITS | Encounter Summary ---
[place] [address] Care Team Providers Care Green Chain Offbearer Name Role Phone Kristine Daily APRN Primary Care Provider + Encounter Details Date Type Department Care Team (Late st Contact Info) Description 10/09/2010 12:22 PM EDT - 10/09/2010 11:59 PM EDT Hospital [place] [address] Abdominal pain Social History Tobacco Use Types [...] mg documented in this encounter Care Teams Green Chain Offbearer Relationship Specialty Start Date End Date Kristine Daily APRN PCP - General 03/11/10 11/22/19 documented as of this encounter
--- OUTSIDE RECORDS SUMMARY | 2023-12-09 11:38 | XMS_ITS | Encounter Summary ---
Author Organization [facility] Address [facility] [place] [address] Care Team Providers Care Pulling Machine Operator Name Role Phone KushaljeromeMiranda barnettly James MALCOLM Primary Care Provid er Reason for Visit * Reason Onset Date Comments Results 04/01/2020 BRCA2 mutation Encounter Details Date Type Department Care Team (Late st Contact Info) Description 04/01/2020 Telephone Hematology [place] [address] Susi Mooney [facility] HEMATOLOGY/[place] [address] Results (BRCA2 mutation) Social History Tobacco Use [...] Notes * Telephone Encounter - Susi Mooney [facility] - 04/01/2020 6:16 PM EST This test result was discussed with the patient by phone. A copy of the test results have been scanned in the medical record and sent to Tori. A summary of the results is provided below. Please beadvised that [place] law requires that all health care workers respect the confidentiality ofthis information and not pass it along to other health care providers, insurance companies, or individuals without the written permission of the patient. The Familial Cancer Program welcomes any questions about these matters. Our phone number is: [phone]. On 03/07/2020, Tori underwent genetic testing for the known BRCA2 mutation previously detected in her father and for the variants of uncertain significance in the CDH1 and RECQL4 genes also detected in her father. Following are the results of this test. Result: Isabelle's BRCA2 analysis showed that Tori carries the pathogenic variant (mutation) in BRCA2, specifically c.7988A>T ([id number]). This is the same mutation previously detected [...] for genetic counseling and testing. Our scheduling police department secretary can be reached at [phone]. Family members can also go to the [...] report sent to [facility]. Siobhan Smith, Familial Cancer Program police department secretary will be contacting Tori to arrange for a follow-up phone consult with Dr. Justin Vela to discuss specific screening and medical management recommendations. Support Resources: Tori may find the online support organization called [employer]: Facing Our Risk of Cancer Empowered a helpful resource. This can be found at BackTrack.org Learning of this positive result was difficult [...] For some, a consultation with a psychologist, school social worker, or psychiatrist may be helpful in dealing with feelings that may arise from genetic testing. If Tori would like a referral, we can help to try to recommend a therapist who is familiar with issues surrounding genetic conditions. documented in this encounter Plan of Treatment Not on file documented as of this encounter Visit Diagnoses Not on filedocumented in this encounter Care Teams Pulling Machine Operator Relationship Specialty Start Date End Date Harriett Goldsmith APRN [address] [facility] [address] [place] [address] PCP - General Family Medicine 11/23/19 07/09/20 documented as of this encounter
--- OUTSIDE RECORDS SUMMARY | 2023-12-09 11:38 | XMS_ITS | Encounter Summary ---
Author Organization [facility] Address [address] [place] [address] Care Team Providers Care Certified Physical Therapist Assistant Name Role Phone None, Provider Primary Care Provider Unavailabl e Encounter Details Date Type Department Care Team (Late st Contact Info) Description 07/17/2022 Lab Requisition [facility] - [facility] [address] [place] [address] Outr Resulting Lab, Provider Social History Tobacco [...] 7:08 EDT) Hold Hold 07/17/2022 20:31 EDT [facility] Blood VENOUS BLOOD / Unknown 07/17/2022 7:08 EDT 07/17/2022 19:28 EDT Provider Outr Resulting Lab LAB INFO SER VICE AND SUPPORT & PHONE RESULT Performing Organization Address [facility] Co de Phone Number [facility] [address] [place] [address] * THYROID ANTIBODIES (07/17/2022 7:08 EDT) Pathologist [facility] Anti-Thyroglobulin <15 <=60 U/mL 2022 20:52 EDT [facility] Thyroperoxidase Ab <28 <=60 U/mL 2022 20:52 EDT [facility] Blood VENOUS BLOOD / Unknown 07/17/2022 7:08 EDT 07/17/2022 19:27 EDT Provider Outr Resulting Lab CHEMISTRY & BLOOD GAS ORDERABLES Performing Organization Address [facility]/ZIP Co de Phone Number [facility] [address] [place] [address] * LYME AB (07/17/2022 7:08 EDT) Pathologist [facility] Lyme Ab Negative Negative 07/20/2022 11:26 EDT [facility] Blood VENOUS BLOOD / Unknown 07/17/2022 7:08 EDT 07/17/2022 19:27 EDT Provider Outr Resulting Lab IMMUNOLOGY A ND SEROLOGY ORDERABLES Performing Organization Address [facility]/ZIP Co de Phone Number [facility] [address] [place] [address] * ANTI NUCLEAR AB (LILLIAM), IFA (07/17/2022 7:08 EDT) Pathologist [facility] LILLIAM Interpretation Negative Negative 2022 13:56 EDT [facility] Comment:No titer performed, LILLIAM Screen is negative. Blood VENOUS BLOOD / Unknown 07/17/2022 7:08 EDT 07/17/2022 19:27 EDT Narrative [facility] - 07/20/2022 13:56 EDT Results were obtained with the [employer] NOVA Lite HEp-2 LILLIAM Kit by indirect immunofluorescence. Provider Outr Resulting Lab IMMUNOLOGY A ND SEROLOGY ORDERABLES Performing Organization Address [facility] Co de Phone Number [facility] [address] [place] [address] * HIGH SENSITIVITY C-REACTIVE PROTEIN (CARDIOVASCULAR DISEASE) (07/17/2022 7:08 EDT) High Sensitivity CRP 1.30 See Note mg/L 07/17/2022 19:51 EDT [facility] Comment: Reference Range: ??Low Risk: ? <1.0 mg/L ??Average Risk: ?? 1.0 - 3.0 mg/L ??High Risk: ?>3.0 mg/L ??Indeterminate*: >10.0 mg/L ??*May be an indication of another source of inflammation or infection Blood VENOUS BLOOD / Unknown 07/17/2022 7:08 EDT 07/17/2022 19:27 EDT Provider Outr Resulting Lab CHEMISTRY & BLOOD GAS ORDERABLES Performing Organization Address [facility] Co de Phone Number [facility] [address] [place] [address] documented in this encounter Visit Diagnoses Not on filedocumented in this encounter Care Teams Certified Physical Therapist Assistant Relationship Specialty Start Date End Date None, Provider PCP - General 06/03/20 documented as of this encounter
--- OUTSIDE RECORDS SUMMARY | 2023-12-09 11:38 | XMS_ITS | Encounter Summary ---
Author Organization [facility] Address [facility] [place] [address] Care Team Providers Care Aluminum Molder Name Role Phone Harriett Goldsmith APRN Primary Care Provid er Reason for Visit * Reason Comments Genetic Evaluation * Consultation (Routine) - Specialty Diagnoses / Procedures Referred By Jonny perez Referred To Contact Hematology and Oncology Diagnoses FATHER HAD PANCREATIC CANCER AND WAS GENE TESTED Sloan Hurd MD [address],[facility] [address] [place] [address] St Hem Onc Office [address] [place] [phone] Referral ID Status Reason Start Date Expiration Date V isits Requested Visits Authorized [id number] Consult, [facility] PCP Updated and/or Approved 11/21/2019 11/20/2020 10 10 Encounter Details Date Type Department Care Team (Latest Contact Info) Description 03/07/2020 2:00 PM EST TH Visit (TeleHealth) Hematology [place] [address] Susi Mooney, [facility] HEMATOLOGY/[place] [address] FHx: BRCA2 gene positive; Family history of [...] is not known. Paternal ethnic background is French, , [place]an, [place]ish. Genetic risk assessment Based on the known BRCA2 mutation in Tori's father, Tori has a 50% chance of also being a carrier. Genetic testing for the known c.7988A>T mutation is recommended. I was able to review the report from Tori's father's testing in 2018. He was tested with [facility]'s multi-Cancer and pancreatic cancer panels. In addition [...] blood sample was drawn and sent to [facility]. Testing will take up to 3 weeks. [...] tract documented in this encounter Care Teams Aluminum Molder Relationship Specialty Start Date End Date Harriett Goldsmith APRN [address] [facility] [address] [place] [address] PCP - General Family Medicine 11/23/19 07/09/20 documented as of this encounter
--- OUTSIDE RECORDS SUMMARY | 2023-12-09 11:38 | XMS_ITS | Encounter Summary ---
[place] [address] Care Team Providers Care Web Marketing Manager Name Role Phone Kristine Daily APRN Primary Care Provider + Encounter Details Date Type Department Care Team (Late st Contact Info) Description 10/08/2010 Abstract [place] [id number] Veronika Thomas RN Social History Tobacco Use [...] on filedocumented in this encounter Care Teams Web Marketing Manager Relationship Specialty Start Date End Date Kristine Daily APRN PCP - General 03/11/10 11/22/19 documented as of this encounter
--- OUTSIDE RECORDS SUMMARY | 2023-12-09 11:38 | XMS_ITS | Encounter Summary ---
Author Organization [facility] [place] [address] Care Team Providers Care Locomotive Engineer Diesel Name Role Phone Kristine Daily APRN Primary Care Provider + Reason for Visit * Reason Comments Hernia Encounter Details Date Type Department Care Team ([facility] st Contact Info) Description 10/09/2010 10:00 AM EDT Office [place] [address] Arnold Sofia MD [address] [facility] [place] [address] Abdominal pain (Primary Dx) Discharge Disposition: Home [...] site documented in this encounter Care Teams Locomotive Engineer Diesel Relationship Specialty Start Date End Date Brodzinski, Carmona J, SUPERVISOR BYPRODUCTS PCP - General 03/11/10 11/22/19 documented as of this encounter
--- OUTSIDE RECORDS SUMMARY | 2023-12-09 11:38 | XMS_ITS | Encounter Summary ---
Author Organization [facility] Address [address] [place] [address] Care Team Providers Care Hand Trucker Name Role Phone Denzel Mandel MD Primary Care Provider Unavailabl e Encounter Details Date Type Department Care Team (Latest Contact Info) Description 06/12/2014 10:26 EST - 06/12/2014 23:59 EST Hospital Encounter [address] [address] Unknown, Provider, Discharge Disposition: Home or Self Care Social History Tobacco Use Types Packs/Day Years Used Date Smoking Tobacco: Never Assessed Sex and Gender Information Value Date Recorded Sex Assigned at Not on file Gender Identity Not on file Sexual Orientation Not on file documented as of this encounter Discharge Disposition Disposition Code Departure Means Destination Home or Self Prison documented in this encounter Plan of Treatment Not on file documented as of this encounter Visit Diagnoses Not on filedocumented in this encounter Care Teams Hand Trucker Relationship Specialty Start Date End Date Denzel Mandel MD PCP - General 07/23/11 06/12/14 documented as of this encounter
--- OUTSIDE RECORDS SUMMARY | 2023-12-09 11:38 | XMS_ITS | Encounter Summary ---
Author Organization [facility] Address [address] [place] [address] Care Team Providers Care Acoustical Installer Name Role Phone Unavailable Primary Care Provider Unavailabl e Encounter Details Date Type Department Care Team (Late st Contact Info) Description 09/07/2006 Results Only [facility] - [facility] [address] [place] [address] Bobby Daily, TINA [address] [place] [id number] Social History Tobacco Use Types Packs/Day Years [...] ? SHAWN TORI ? Accession #: ? [id number] : ? 1985 (Age: 21) ??F ?Collect Date: ? 09/07/2006 Location: ? [facility] ? Receive Date: ? 09/08/2006 Provider: ?BOBBY DAILY GANG HEAD SAW OPERATOR Copy to: ? Specimen/Source: ?ThinPrep Pap Test, Cervix/Endocervix, processed on LightPole ThinPrep Imaging System, with manual evaluation Last [...] Daily NP PATHOLOGY ORDERABLES Performing Organization Address City/State/[facility] Co de Phone Number [facility] [address] [place] [address] documented in this encounter Visit Diagnoses Not on filedocumented in this encounter
--- OUTSIDE RECORDS SUMMARY | 2023-12-09 11:38 | XMS_ITS | Encounter Summary ---
Author Organization [facility] Address [address] [place] [address] Care Team Providers Care Medical Reimbursement Manager Name Role Phone Unavailable Primary Care Provider Unavailabl e Encounter Details Date Type Department Care Team (Late st Contact Info) Description 09/18/2009 Results Only [facility] - [facility] ([facility]) [address] [place], [place] [address] lSoan Houston MD [address] [place] [address] Social History Tobacco Use Types Packs/Day Years [...] ? TORI ESCOBAR ? Accession #: ? [id number] ? : ? 1985 (Age: 24) ??F [...] MD PATHOLOGY ORDERABLES [facility] [address] [place] [address] documented in this encounter Visit Diagnoses Not on filedocumented in this encounter
--- OUTSIDE RECORDS SUMMARY | 2023-12-09 11:38 | XMS_ITS | Encounter Summary ---
Author Organization [facility] Address [address] [place] [address] Care Team Providers Care Waste Disposal Plant Operator Name Role Phone Unavailable Primary Care Provider Unavailabl e Encounter Details Date Type Department Care Team (Late st Contact Info) Description 07/24/2002 13:19 EDT Hospital Encounter [facility] - Other [address] [place] [address] Blu Camargo MD Unknown, Provider, Social History [...]
[2023-12-09] MEDS: Ondansetron 4 MG/2 ML VIAL IVP (11:40)
[2023-12-09] MEDS: Normal Saline - Diluent 50 ML VIAL IJ (11:52)
[2023-12-09 12:14] VITALS: BP 126/78; PULSE 90; RESP 18; O2SAT 99
[2023-12-09 12:53] VITALS: BP 108/72; PULSE 79; RESP 18; O2SAT 98
[2023-12-10 09:34] LABS: Lyme Ab w Rflx to Lyme Confirm Negative (Negative)
[2023-12-12 15:41] LABS: Anaplasma phagocytophilum Negative (Negative); B. miyamotoi PCR Negative (Negative); Babesia divergens/MO-1 Negative (Negative); Babesia duncani Negative (Negative); Babesia microti Negative (Negative); Ehrlichia chaffeensis Negative (Negative); Ehrlichia ewingii/canis Negative (Negative); Ehrlichia muris eauclairensis Negative (Negative)
--- NOTE | 2023-12-13 15:44 | NUR.NOTE ---
Access chart to print the provider note to fax to [facility] Neurology for referral for follow up. Nursing Note:
== END 2023-12-09 12:55 | disposition home or self-care (01) ==
PROVIDERS: Emergency Provider Physician Assistant; PCP Nurse Practitioner Family
DX: B02.9 Zoster without complications (principal)
CPT/HCPCS: 70496; 70498; 80053; 81025; 85652; 87798; 96374; 96375; 99285; 85025; 86140; 86618; 99284; J0131; J1100; J1885; J2405; J3490

== ENCOUNTER 2024-01-03 03:46 | Outpatient (CLI) | payer BC, SELFPAY ==
--- NOTE | 2024-01-03 07:45 | DI.MRI_ITS ---
Exam(s) MR BRAIN WO/W EXAM: MR BRAIN WO/W CLINICAL HISTORY: unexplained sharp headache,R51.9 TECHNIQUE: Multiplanar multisequence MRI of the brain was performed. Both noninfused and contrast i nfused sequences were performed. IV Contrast injected was 16 cc Dotarem. COMPARISON: CT CT BRAIN NECK CTA from 12/09/2023 FINDINGS: CEREBRAL PARENCHYMA: No evidence of intracranial hemorrhage, mass effect nor shift of midline structu re. No extraaxial fluid collections. Ventricles are not enlarged nor shifted. There is no significant focal signal abnormality in the cerebellar hemispheres nor within the becky, m idbrain, and thalami. There is no abnormal signal abnormality in the periventricular white matter. DWI: No areas of restricted diffusion to suggest acute ischemic event. SWI: No microhemorrhages evident. There are no ring enhancing lesions in the brain. There is no abnormal meningeal enhancement. PITUITARY GLAND: The pituitary gland appears confined to the inferior aspect of the sella turcica con sistent with an element empty sella syndrome. FLOW VOIDS: The expected flow void are noted. No evidence of obvious aneurysm nor obvious vascular ma lformation. No evidence of venous sinus thrombosis. PARANASAL SINUSES: The visualized paranasal sinuses appear unremarkable. ORBITS: No obvious abnormal findings. IMPRESSION: 1. No significant acute intracranial findings on this MRI scan of the brain. 2. No abnormal enhancing intracranial findings. There are no ring enhancing lesions in the brain and there is no abnormal meningeal enhancement. 3. The pituitary gland appears confined to the inferior aspect of the pituitary fossa consistent wit h an element of empty sella syndrome. There is no evidence of pituitary gland mass/lesion DATA REPOSITORY:
[2024-01-03] MEDS: Gadoterate meglumine 20 ML VIAL IVP (11:16)
[2024-01-03] MEDS: Normal Saline Flush 10 ML SYR IJ (11:17)
== END 2024-01-03 04:06 ==
LOC: DI 03:46
PROVIDERS: PCP Nurse Practitioner Family; Visit Provider Nurse Practitioner Family
DX: R51.9 Headache, unspecified (principal)
CPT/HCPCS: 70553

== ENCOUNTER 2024-02-25 00:48 | Outpatient (CLI) | payer BC, SELFPAY ==
--- OUTSIDE RECORDS SUMMARY | 2024-02-25 00:52 | XMS_ITS | Continuity of Care Document ---
Author Organization [facility] Address [address] [place] [address] Care Team Providers Care Solutions Developer Name Role Phone NASREEN RIVERA NP Primary Care Physician Encounter [facility] NBR [id number] Date(s): 02/15/24 - 02/15/24 [facility] [address] [place] [address] us Discharge Disposition: Home Allergies, Adverse Reactions, Alerts Substance Criticality Severity Reaction Reaction Severity Status penicillin High criticality Severe Hives Ac tive cephalosporins Unable to assess criticality Unknown Unknown Active sulfa drugs Unable to assess criticality Unknown stomach pains Active Cipro Unable to assess criticality Unknown Stomach pain Active Assessment and Plan Future Appointments Future Scheduled Tests Laboratory* Cancer Antigen (CA) 125 LC 03/15/23 Immunizations Given and Recorded Vaccine Date Status Refusal Reason influenza virus vaccine, inactivated 1 02/05/14 Re corded 1Result 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: 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: [employer] Medications aspirin 81 mg oral delayed release tablet 1 Unknown, 0 Refill(s) Start Date: 01/23/22 Status: Ordered cannabidiol 0 Refill(s) Start Date: 01/23/22 Status: Ordered docusate sodium 100 mg oral capsule 0 Refill(s) Start Date: 01/23/22 Status: Ordered fluconazole 200 mg oral tablet See Instructions, 1 tab today and repeat in 4 days, # 2 tab, 2 Refill(s), Pharmacy: [facility], 157.48, cm, 03/15/23 15:48:00 EST, Height, 82.6, kg, 11/27/23 15:58:00 EST, Weight Dosing Start Date: 02/15/24 Status: Ordered fluconazole 200 mg oral tablet See Instructions, one tablet today and repeat in 4 days, # 2 tab, 0 Refill(s), Pharmacy: [facility], 157.48, cm, 03/15/23 15:48:00 EST, Height, 82.6, kg, 03/15/23 15:58:00 EST, Weight Dosing Start Date: 12/31/23 Status: Ordered levothyroxine 25 mcg (0.025 mg) oral tablet 0 Refill(s) Start Date: 01/23/22 Status: Ordered Macrobid 100 mg oral capsule 100 mg = 1 cap, Oral, BID, # 14 cap, 0 Refill(s), Pharmacy: [facility], 157.48, cm, 01/23/22 13:09:00 EDT, Height Start Date: 03/04/23 Stop Date: 03/11/23 Status: Ordered Mirena 52 mg intrauteral device 0 Refill(s) Start Date: 01/23/22 Status: Ordered omeprazole 20 mg oral delayed release capsule 20 mg = 1 cap, Oral, BID, # 180 cap, 0 Refill(s) Start Date: 03/15/23 Status: Ordered Tylenol 0 Refill(s) Start Date: 01/23/22 Status: Ordered valACYclovir 500 mg oral tablet 500 mg = 1 tab, Oral, BID, # 10 tab, 6 Refill(s), Pharmacy: [facility], 157.48, cm, 03/15/23 15:48:00 EST, Height, 82.6, kg, 03/15/23 15:58:00 EST, Weight Dosing Start Date: 04/29/23 Stop Date: 06/03/23 Status: Ordered Vitamin C 1000 mg oral tablet 1 Unknown, 0 Refill(s) Start Date: 01/23/22 Status: Ordered Vitamin D3 1 Unknown, 0 Refill(s) Start Date: 01/23/22 Status: Ordered Problem List Condition Confirmation Course Effective Dates Status H ealth Status Informant Abnormal uterine bleeding Confirmed Active Acquired hypothyroidism Confirmed Active Adjustment disorder Confirmed Active Anxiety Confirmed Active BRCA2 positive Confirmed Active Breast cancer genetic marker of susceptibility positive Confirmed Active Chronic pain Confirmed Active Chronic post-traumatic stress disorder Confirmed Active Costal chondritis Confirmed Active Disorder of function of stomach Confirmed Active Dysphagia Confirmed Active Family history of malignant neoplasm of pancreas Confirmed Active 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 Generalized anxiety disorder Confirmed Active Genetic susceptibility to cancer Confirmed Active 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 Insomnia Confirmed Active Irritable bowel syndrome Confirmed Active Irritable bowel syndrome characterized by constipation Confirmed Active Mixed anxiety and depressive disorder Confirmed Active Mixed hyperlipidemia Confirmed Active Panic attack Confirmed Active Procedures Procedure Date Related Diagnosis Body Site Status Bilateral mastectomy 1 06/22/21 Co mpleted Colonoscopy 06/02/20 Completed delivery 2 Compl eted EGD (esophagogastroduodenosc opy) gastric outlet reduction Complet ed Laparoscopic cholecystectomy Completed 1With reconstruction 2She has had 4 deliveries, last with BTL Social History Social History Type Response Tobacco Never tobacco user T obacco Use:. Sex Female Sex Representation Female (finding) Patient Care team information Care Team Personnel Name: NASREEN RIVERA NP Position: No Access Member Role: Primary Care Physician Address: [address] [place] [address]- Care Team Related Persons Name: YOAN ESCOBAR Name: BELKIS ABERNATHY Name: BELKIS ABERNATHY Insurance Providers Guarantor name: GIOVANNY R ANTWERP Health Plan Information #: 1 Payer: [facility] Member Number: NA Policy Number: NA
--- OUTSIDE RECORDS SUMMARY | 2024-02-25 00:53 | XMS_ITS | Encounter Summary ---
Author Organization [facility] [place] [address] Care Team Providers Care Real Time Trader Name Role Phone Anisha Neal MD Primary Care Provider [phone] Reason for Referral * Diagnostic Test (Routine) - Closed Specialty Diagnoses / Procedures Referred By Contac t Referred To Contact Radiology Diagnoses Encounter to discuss breast reconstruction Pre-op exam Procedures CT Angiogram Abdomen & Pelvis w Contrast (Generic) CT Angiogram Abdomen w Contrast Brady Freedman MD [facility] [place] [address] [facility] [place] [address] Referral ID Status Reason Start Date Expiration Date V isits Requested Visits Authorized [id number] Closed Specialty Service Requested 08/20/2020 11/18/2020 1 1 Encounter Details Date Type Department Care Team (Late st Contact Info) Description 08/14/2020 Orders Only [place] [address] Brady Freedman MD [facility] [place] [address] Encounter to discuss breast reconstruction; [...] the right of the umbilicus. Medial branch nuclear medicine officer penetrates the fascia 0.8 cm cranial and 4.1 cm to the right of the umbilicus. Lateral branch nuclear medicine officer penetrates the fascia 2.3 cm cranial and [...] rise to medial and lateral perforators. Medial nuclear medicine officer of the medial branch penetrates the fascia 4.9 cm cranial and 2.9 cm to the left of the umbilicus. Lateral nuclear medicine officer of the medial branch penetrates the fascia [...] have questions please contact the health care companion that requested your imaging first. ? Electronically signed by: Maria Teresa Crain MD, [facility] ([phone]), at 09/02/2020 3:09 PM --------ORIGINAL REPORT -------- [...] have questions please contact the health care companion that requested your imaging first. ? Impressions 08/24/2020 3:06 PM EDT Normal study Thank you for letting us participate in the care of this patient. ??If you are a health care provider and have any questions regarding this report, please contact the number below. ??For patients who have questions please contact the health care companion that requested your imaging first. ? Narrative [...] reviewed and 3-D images were generated on [employer] reQRdos workstation. COMPARISON: None FINDINGS: VASCULAR FINDINGS Abdominal [...] who have questions please contactthe health care companion that requested your imaging first. Brady Freedman MD IMG CT ORDERABLES documented in this encounter Visit Diagnoses Diagnosis Encounter to discuss breast reconstruction Other specified counseling Pre-op exam Preoperative examination, unspecified Encounter to discuss breast reconstruction Other specified counseling Pre-op exam Preoperative examination, unspecified documented in this encounter Care Teams Real Time Trader Relationship Specialty Start Date End Date Anisha Neal MD PCP - General Family Medicine 07/10/20 06/28/22 documented as of this encounter
--- OUTSIDE RECORDS SUMMARY | 2024-02-25 00:53 | XMS_ITS | Encounter Summary ---
Author Organization [facility] Address [facility] [place] [address] Care Team Providers Care Equipment Installation Professional Name Role Phone Harmony Cortez APRN Primary Care Provider [phone] Encounter Details Date Type Department Care Team (Late st Contact Info) Description 11/30/2023 1:40 PM EDT Office Visit Dermatology at [facility] [address] [place] [address] Francisca Chandler MD [facility] [place] [address] Lentigines; Sebaceous hyperplasia Social History Tobacco Use [...] family history Pancreatic cancer Social History 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 I performed the above scribed service and agree with the accuracy of the documentation in this encounter. Reviewed and signed by: Francisca Chandler MD Dermatology [facility] Staff email engineer: Quita Munoz MD Dermatology [facility] * Quita Munoz MD - 11/30/2023 1:40 PM EDT I was the supervising physician working with the Dermatology resident, Francisca Chandler MD, in the care of this Dermatology patient in person. For the purposes of billing, the resident provided the care. I have reviewed the encounter note details and level of service. Quita Munoz MD Staff Detective And Intelligence Analyst Department of Dermatology [facility] documented in this encounter Plan of Treatment Not on file documented as of this encounter Visit Diagnoses Diagnosis Lentigines Other dyschromia Sebaceous hyperplasia Other specified disease of sebaceous glands documented in this encounter Care Teams Equipment Installation Professional Relationship Specialty Start Date End Date Harmony Cortez APRN [address] [place] [address] PCP - General Family Medicine 06/29/22 documented as of this encounter
--- OUTSIDE RECORDS SUMMARY | 2024-02-25 00:53 | XMS_ITS | Encounter Summary ---
Author Organization [facility] [place] [address] Care Team Providers Care Machine Cementer Name Role Phone Anisha Neal MD Primary Care Provider [phone] Reason for Visit * Auth/Cert Specialty Diagnoses [...] Expiration Date Visits Re quested Visits Authorized [id number] 1 1 Encounter Details Date Type Department Care Team (Late st Contact Info) Description 07/24/2020 10:00 AM EDT - 07/24/2020 11:15 AM EDT Surgery [place] [address] Malik Sanders MD [facility] [place] [address] UPPER EUS- ENDOSCOPIC ULTRASOUND (WRVU 3.47) Social [...] Care Everywhere. * Ultrasound: Endoscopic (Rectal): Post-op (Romanian) documented in this encounter Medications at Time [...] Sanders MD - 07/24/2020 10:20 AM EDT [facility] [place] Note Patient Name: Tori Escobar : [id number] MR#: [id number] Case Date: 07/24/2020 Surgeon: Surgeon(s) and Role: [...] Associated Diagnosis Comments Endoscopic Us Exam, Tarik ([id number]) 07/24/2020 10:05 AM EDT BRCA2 gene mutation positive in female Family history of pancreatic cancer UPPER EUS-ENDOSCOPIC ULTRASOUND Routine 07/24/2020 9:55 AM EDT documented in this encounter Results * UPPER EUS-ENDOSCOPIC ULTRASOUND (07/24/2020 9:55 AM EDT) UPPER ENDOSCOPIC ULTRASOUND [facility] Endoscopy Procedure Date: 07/24/2020 9:55 AM ? Patient Name: Tori Escobar ? Date of : 1985 ? Age: 35 ? Order #: [id number] ? Instrument Name: GF-UE [id number] ? Procedure: ? Upper EUS Indications: ? BRCA +, Family history of pancreas ? cancer Providers: ? Malik Sanders MD, Pricila Murphy, ? India Crawley RN, Blu Ramirez. ? Nash Referring MD: ?Harriett Goldsmith, Anisha Livingston Requesting Provider: Danya Diez MD Medicines: ? Monitored Anesthesia Care Complications: ? No immediate complications. Procedure: ? Pre-Anesthesia Assessment: ? - [place] Protocol: ? - Pre-procedure Verification: Prior ? [...] by the physician, the nurse, ? the automotive machinist and the vein access technician in ? the procedure room. ? [...] Procedure Code(s): ?? --- Professional --- ? 05614, Esophagogastroduodenos copy, ? flexible, transoral; with endoscopic ? ultrasound examination, including the ? esophagus, stomach, and either the ? duodenum or a surgically altered ? stomach where the jejunum is examined ? distal to the anastomosis CPT copyright 2019 [employer]. All rights reserved. The codes documented in this report are preliminary and upon customer services supervisor review may be revised to meet current [...] RN) documented in this encounter Care Teams Machine Cementer Relationship Specialty Start Date End Date Anisha Neal MD PCP - General Family Medicine 07/10/20 06/28/22 documented as of this encounter
--- OUTSIDE RECORDS SUMMARY | 2024-02-25 00:53 | XMS_ITS | Encounter Summary ---
Author Organization [facility] [place] [address] Care Team Providers Care Senior Data Quality Analyst Name Role Phone Anisha Neal MD Primary Care Provider [phone] Encounter Details Date Type Department Care Team (Late st Contact Info) Description 07/16/2020 Orders [place] [address] Brady Freedman MD [facility] [place] [address] Social History Tobacco Use Types Packs/Day Years [...] on filedocumented in this encounter Care Teams Senior Data Quality Analyst Relationship Specialty Start Date End Date Anisha Neal MD PCP - General Family Medicine 07/10/20 06/28/22 documented as of this encounter
--- OUTSIDE RECORDS SUMMARY | 2024-02-25 00:53 | XMS_ITS | Encounter Summary ---
Author Organization [facility] [place] [address] Care Team Providers Care Senior Qa Analyst Name Role Phone Harriett Goldsmith APRN Primary Care Provid er Reason for Referral * Consultation (Urgent) - Closed Specialty Diagnoses / Procedures Referred By Contac t Referred To Contact Hematology and Oncology Diagnoses clotting Haley Wheeler MD [facility] [place] [address] [facility] [address] [place] [address] Referral ID Status Reason Start Date Expiration Date V isits Requested Visits Authorized [id number] Closed Consult, Test & Treat 07/08/2020 07/08/2021 1 1 Encounter Details Date Type Department Care Team (Latest Contact Info) Description 07/02/2020 4:15 PM EDT TH Visit (TeleHealth) [place] [address] Haley Wheeler MD [facility] [place] [address] BRCA2 gene mutation positive; Encounter [...] resection, possible placement of mesh. CPT: NOE: 40078, 32954 Rib resection: 47176 FNG 13655 Mesh placement: 62661, 34407, 65483 Surgical site: Breast Side: Bilateral Anesthesia: General [...] counseling documented in this encounter Care Teams Senior Qa Analyst Relationship Specialty Start Date End Date Harriett Goldsmith APRN [address] [address] PCP - General Family Medicine 11/23/19 07/09/20 documented as of this encounter
--- OUTSIDE RECORDS SUMMARY | 2024-02-25 00:53 | XMS_ITS | Encounter Summary ---
Author Organization [facility] [place] [address] Care Team Providers Care Manufacturing Intern Name Role Phone Harmony Cortez APRN Primary Care Provider [phone] Reason for Referral * Consultation (Routine) - Closed Specialty Diagnoses / Procedures Referred By Contcaleb t Referred To Contact Dermatology Diagnoses Genetic susceptibility to other malignant neoplasm Harmony Cortez APRN [address] [place] [address] [facility] Dermatology [address] [place] [address] Referral ID Status Reason Start Date Expiration Date V isits Requested Visits Authorized [id number] Closed Consult, Test & Treat PCP Updated and/or Approved 06/29/2022 06/29/2023 6 6 Encounter Details Date Type Department Care Team (Late st Contact Info) Description 06/29/2022 Transcribe Orders eDH Incoming Referrals [phone] Harmony Cortez APRN [address] [place] [address] Genetic susceptibility to other malignant [...] neoplasm documented in this encounter Care Teams Manufacturing Intern Relationship Specialty Start Date End Date Harmony Cortez APRN [address] [place] [address] [address] [facility] [place] [address] PCP - General Family Medicine 06/29/22 documented as of this encounter
--- OUTSIDE RECORDS SUMMARY | 2024-02-25 00:53 | XMS_ITS | Encounter Summary ---
[place] [address] Care Team Providers Care Expressive Music Therapist Name Role Phone Anisha Neal MD Primary Care Provider [phone] Reason for Visit * Auth/Cert Specialty Diagnoses [...] Expiration Date Visits Re quested Visits Authorized [id number] 1 1 Encounter Details Date Type Department Care Team (Late st Contact Info) Description 07/24/2020 10:05 AM EDT Anesthesia [place] [address] Kamron Frank MD [facility] [place] [address] Umair Reynoso CRNA [facility] [place] [address] Anesthesia Record Procedure Summary Procedure Name Responsible [...] 927; median cubital vein (antecubital fossa), right; pqzh-evd-fxbice catheter system; Anatomical Landmarks; 22 gauge; Uriah [...] Procedure Summary Date: 07/24/20 Room / Location: [facility] ENDO 2 / [facility] ENDOSCOPY Anesthesia Start: 1005 Anesthesia Stop: 1037 [...] All Anesthesia Providers: Anesthesiologist: Kamron Frank MD JUNIOR DATA ANALYST: Reynoso, Umair A, JUNIOR DATA ANALYST Vitals Value Taken Time BP 123/87 07/24/20 1110 Temp Pulse Resp 16 07/24/20 1110 SpO2 98 % 07/24/20 1110 Pain Level 0 07/24/20 1110 Patient Location: PACU/[facility] Level of Consciousness: Awake and Alert [...] female Added automatically from request for surgery [id number] ??? Family history of BRCA2 gene positive [...] Adequate IV access Kamron Frank MD PhD #[id number] Region - Other Informed Consent: Anesthetic plan and risks discussed with patient. Plan discussed with JUNIOR DATA ANALYST. PAT Clinic Note documented in this encounter [...] mL/hr documented in this encounter Care Teams Expressive Music Therapist Relationship Specialty Start Date End Date Anisha Neal MD PCP - General Family Medicine 07/10/20 06/28/22 documented as of this encounter
--- OUTSIDE RECORDS SUMMARY | 2024-02-25 00:53 | XMS_ITS | Encounter Summary ---
Author Organization [facility] [place] [address] Care Team Providers Care Hydrate Thickener Operator Name Role Phone Anisha Neal MD Primary Care Provider [phone] Reason for Referral * Diagnostic Test (Routine) - Closed Specialty Diagnoses / Procedures Referred By Jonny perez Referred To Contact Radiology Diagnoses Encounter to discuss breast reconstruction Pre-op exam Procedures CT Angiogram Abdomen & Pelvis w Contrast (Generic) CT Angiogram Abdomen w Contrast Brady Freedman MD [facility] [place] [address] [facility] [place] [address] Referral ID Status Reason Start Date Expiration Date V isits Requested Visits Authorized [id number] Closed Specialty Service Requested 08/20/2020 11/18/2020 1 1 Reason for Visit * Diagnostic Test (Routine) - Closed Specialty Diagnoses / Procedures Referred By Jonny perez Referred To Contact Radiology Diagnoses Encounter to discuss breast reconstruction Pre-op exam Procedures CT Angiogram Abdomen & Pelvis w Contrast (Generic) CT Angiogram Abdomen w Contrast Brady Freedman MD [facility] [place] [address] [facility] [place] [address] Referral ID Status Reason Start Date Expiration Date V isits Requested Visits Authorized [id number] Closed Specialty Service Requested 08/20/2020 11/18/2020 1 1 Encounter Details Date Type Department Care Team (Latest Contact Info) Description 08/23/2020 3:45 PM EDT - 08/23/2020 11:59 PM EDT Hospital [place] [address] Brady Freedman MD [facility] [place] [address] Encounter to discuss breast reconstruction; Pre-op exam [...] the right of the umbilicus. Medial branch insurance coder penetrates the fascia 0.8 cm cranial and 4.1 cm to the right of the umbilicus. Lateral branch insurance coder penetrates the fascia 2.3 cm cranial and [...] rise to medial and lateral perforators. Medial insurance coder of the medial branch penetrates the fascia 4.9 cm cranial and 2.9 cm to the left of the umbilicus. Lateral insurance coder of the medial branch penetrates the fascia [...] who have questions please contact the health manager career that requested your imaging first. ? Electronically signed by: Maria Teresa Crain MD, [facility] ([phone]), at 09/02/2020 3:09 PM --------ORIGINAL REPORT -------- [...] who have questions please contact the health manager career that requested your imaging first. ? Impressions 08/24/2020 3:06 PM EDT Normal study Thank you for letting us participate in the care of this patient. ??If you are a health care provider and have any questions regarding this report, please contact the number below. ??For patients who have questions please contact the health manager career that requested your imaging first. ? Narrative [...] reviewed and 3-D images were generated on [employer] workstation. COMPARISON: None FINDINGS: VASCULAR FINDINGS Abdominal [...] patients who have questions please contactthe health manager career that requested your imaging first. Brady Freedman [...] mLs documented in this encounter Care Teams Hydrate Thickener Operator Relationship Specialty Start Date End Date Anisha Neal MD PCP - General Family Medicine 07/10/20 06/28/22 documented as of this encounter
--- OUTSIDE RECORDS SUMMARY | 2024-02-25 00:53 | XMS_ITS | Encounter Summary ---
Author Organization [facility] [place] [address] Care Team Providers Care Hospital Technician Name Role Phone Harriett Goldsmith APRN Primary Care Provid er Encounter Details Date Type Department Care Team (Late st Contact Info) Description 06/17/2020 Telephone [place] [address] Peggy Santos Social History Tobacco Use Types [...] on filedocumented in this encounter Care Teams Hospital Technician Relationship Specialty Start Date End Date Harriett Goldsmith APRN [address] [address] PCP - General Family Medicine 11/23/19 07/09/20 documented as of this encounter
--- OUTSIDE RECORDS SUMMARY | 2024-02-25 00:53 | XMS_ITS | Encounter Summary ---
Author Organization [facility] Address [facility] [place] [address] Care Team Providers Care Oracle Database Analyst Name Role Phone Harriett Goldsmith APRN Primary Care Provid er Encounter Details Date Type Department Care Team (Late st Contact Info) Description 04/18/2020 Orders Only [place] [address] Priyanka Brito MD [facility] OBSTETR[place] [address] BRCA positive Social History Tobacco Use Types [...] AM EST) [place] 125 27.8 <=38.1 unit/mL [facility] Comment: CA 125 Reference Interval ??Postmenopausal: 6.2 to 31.5 U/mL. ??Premenopausal: 6.9 to 45.9 U/mL. ??Pre and Postmenopausal subjects combined: 6.4 to 38.1 U/mL. Blood specimen (specimen) 04/18/2020 9:46 AM EST 04/18/2020 9:51 AM EST Narrative Resulting Agency Comment Spec In Lab Priyanka Brito MD CHEMISTRY ORDERABLES [facility] [place] [address] documented in this encounter Visit Diagnoses Diagnosis BRCA positive Genetic susceptibility to malignant neoplasm of breast documented in this encounter Care Teams Oracle Database Analyst Relationship Specialty Start Date End Date Harriett Goldsmith APRN [address] [facility] 25 [place] [address] PCP - General Family Medicine 11/23/19 07/09/20 documented as of this encounter
--- OUTSIDE RECORDS SUMMARY | 2024-02-25 00:53 | XMS_ITS | Encounter Summary ---
Author Organization [facility] Address [facility] [place] [address] Care Team Providers Care Clerical Order Filler Name Role Phone Harriett Goldsmith APRN Primary Care Provid er Encounter Details Date Type Department Care Team (Late st Contact Info) Description 04/18/2020 Orders [place] [address] Bhavna Mckeon APRN [facility] [place] [place] [address] BRCA positive Social History Tobacco Use Types [...] breast documented in this encounter Care Teams Clerical Order Filler Relationship Specialty Start Date End Date Harriett Goldsmith APRN [address] [facility] [address] [place] [address] PCP - General Family Medicine 11/23/19 07/09/20 documented as of this encounter
--- OUTSIDE RECORDS SUMMARY | 2024-02-25 00:53 | XMS_ITS | Encounter Summary ---
[place] [address] Care Team Providers Care Cartographic Designer Name Role Phone Harmony Cortez APRN Primary Care Provider Encounter Details Date Type Department Care Team (Late st Contact Info) Description 01/04/2023 Orders [place] [address] Denzel Fisher, [facility] [place] [address] Social History Tobacco Use Types Packs/Day Years [...] on filedocumented in this encounter Care Teams Cartographic Designer Relationship Specialty Start Date End Date Harmony Cortez APRN [address] [place] [address] PCP - General Family Medicine 06/29/22 documented as of this encounter
--- OUTSIDE RECORDS SUMMARY | 2024-02-25 00:53 | XMS_ITS | Encounter Summary ---
Author Organization Replaced By [facility] Address [facility] [place] [address] Care Team Providers Care Emery Wheel Molder Name Role Phone Harriett Goldsmith APRN Primary Care Provid er Encounter Details Date Type Department Care Team (Late st Contact Info) Description 07/08/2020 Notes Only [place] [address] Caren Hsu MSW Social History Tobacco Use [...] Dr. Freedman was their plastic surgeon. [facility] will continue to provide support and resources to pt as needed. documented in this encounter Plan of Treatment Not on file documented as of this encounter Visit Diagnoses Not on filedocumented in this encounter Care Teams Emery Wheel Molder Relationship Specialty Start Date End Date Harriett Goldsmith APRN [address] [place] [address] [address] [place] [address] PCP - General Family Medicine 11/23/19 07/09/20 documented as of this encounter
--- OUTSIDE RECORDS SUMMARY | 2024-02-25 00:53 | XMS_ITS | Encounter Summary ---
Author Organization [facility] Address [facility] [place] [address] Care Team Providers Care Hand Singer Name Role Phone Harriett Goldsmith APRN Primary Care Provid er Reason for Visit * Reason Comments Advice Only would like to discus s mastectomy and then reconstruction * Consultation (Routine) - Closed Specialty Diagnoses / Procedures Referred By Jonny perez Referred To Contact Plastic Surgery Diagnoses BRCA2 gene mutation positive Family history of BRCA2 gene positive Bhavna Mckeon APRN [facility] [place] [address] [facility] [address] [place] [address] Referral ID Status Reason Start Date Expiration Date V isits Requested Visits Authorized [id number] Closed Specialty Service Requested 05/21/2020 05/21/2021 1 1 Encounter Details Date Type Department Care Team (Latest Contact Info) Description 06/19/2020 11:30 AM EST Office [place] [address] Haley Freedman MD [facility] [place] [address] BRCA2 gene mutation positive; Encounter [...] to your surgery. Day of Surgery A carrier driver is required at time of discharge. [...] assessment and review your history with you. [facility] has instituted the requirement of COVID-19 [...] pm) For an appointment or insurance questions For questions pertaining to your surgical date [phone] For nursing related questions [phone] On weekends, holidays or after office hours: Call [phone] and ask the casting operator helper to page the Plastic Surgery Resident director of business continuity. documented in this encounter Progress Notes * [...] a mammogram recently which was normal. The [employer] informational link on breast reconstruction was received: [...] to her visit today she watched the [employer] informational link on breast reconstruction. I also [...] informed decision 5. Recommended web sites including: www.surgery.med.[facility] www.keepyyuoubyhcq859.com www.breastimplantsafety.org www.breasthealthonline.com 6. Brochure on the Section [...] the safety of silicone implants and the [place] brochure: Silicone implants, making an informed decision. [...] counseling documented in this encounter Care Teams Hand Singer Relationship Specialty Start Date End Date Harriett Goldsmith APRN [address] [facility] 25 [place] [address] PCP - General Family Medicine 11/23/19 07/09/20 documented as of this encounter
--- OUTSIDE RECORDS SUMMARY | 2024-02-25 00:53 | XMS_ITS | Encounter Summary ---
Author Organization [facility] Address [facility] [place] [address] Care Team Providers Care Director Of Child Welfare Services Name Role Phone Harriett Goldsmith APRN Primary Care Provid er Encounter Details Date Type Department Care Team (Latest Contact Info) Description 05/20/2020 12:56 PM EST - 05/20/2020 11:59 PM EST Hospital Encounter Mammography/[place] [address] Bhavna Mckeon APRN [facility] [place] [address] BRCA positive Discharge Disposition: Home Social History [...] breast documented in this encounter Care Teams Director Of Child Welfare Services Relationship Specialty Start Date End Date Harriett Goldsimth APRN [address] [facility] 25 [place] [id number] PCP - General Family Medicine 11/23/19 07/09/20 documented as of this encounter
--- OUTSIDE RECORDS SUMMARY | 2024-02-25 00:53 | XMS_ITS | Encounter Summary ---
Author Organization [facility] [place] [address] Care Team Providers Care Cap Blocker Name Role Phone Harriett Goldsmith APRN Primary Care Provid er Encounter Details Date Type Department Care Team ([facility] st Contact Info) Description 07/01/2020 Notes [place] [address] Caren Hsu MSW Social History Tobacco Use [...] on filedocumented in this encounter Care Teams Cap Blocker Relationship Specialty Start Date End Date Harriett Goldsmith APRN 580 [facility] [address] [place] [address] PCP - General Family Medicine 11/23/19 07/09/20 documented as of this encounter
--- OUTSIDE RECORDS SUMMARY | 2024-02-25 00:53 | XMS_ITS | Encounter Summary ---
Author Organization [facility] Address [facility] [place] [id number] Care Team Providers Care Improvement Rn Name Role Phone Harriett Goldsmith APRN Primary Care Provid er Reason for Referral * Consultation (Routine) - Closed Specialty Diagnoses / Procedures Referred By Jonny perez Referred To Contact Plastic Surgery Diagnoses BRCA2 gene mutation positive Family history of BRCA2 gene positive Bhavna Mckeon APRN [facility] [place] [address] [facility] Surg [address] [place] [phone] Referral ID Status Reason Start Date Expiration Date V isits Requested Visits Authorized [id number] Closed Specialty Service Requested 05/21/2020 05/21/2021 1 1 * Consultation (Routine) - Closed Specialty Diagnoses / Procedures Referred By Contcaleb t Referred To Contact Hematology and Oncology Diagnoses BRCA2 gene mutation positive Family history of BRCA2 gene positive Bhavna Mckeon APRN [facility] [place] [address] Aminta Miguel MD [facility] [place] [address] Referral ID Status Reason Start Date Expiration Date V isits Requested Visits Authorized [id number] Closed Consult, Test & Treat 05/21/2020 05/21/2021 1 1 Reason for Visit * Reason Comments Establish Care * Consultation (Routine) - Closed Specialty Diagnoses / Procedures Referred By Contcaleb t Referred To Contact Hematology and Oncology Diagnoses BRCA2 gene mutation positive in female Justin Vela MD [facility] [address] HEMATOLOGY/[place] [address] [facility] Hem Onc [address] [place] [address] Referral ID Status Reason Start Date Expiration Date V isits Requested Visits Authorized [id number] Closed Consult, Test & Treat 04/17/2020 04/17/2021 1 1 Encounter Details Date Type Department Care Team (Late st Contact Info) Description 05/20/2020 2:00 PM EST Office [place] [address] Bhavna Mckeon APRN [facility] [place] [address] Encounter for screening breast examination and discussion [...] 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 She and her are stillundecided if [...] situation. Results: Imaging performed (bilateral mammogram) at [facility] today shows no evidence of malignancy, BIRADS [...] MRI directed biopsy capability such as the [facility] Radiology Department. ?? Annual mammograms, with consideration [...] onset disease. She has already met with [facility] and has had a TVUS. Those [...] for personal care products are available at [employer]) and [employer]. All questions were answered to the patient's satisfaction and they state understanding and agreement with today's treatment plan. They are encouraged to follow up sooner if they develop any new or concerning symptoms. Total time spent [id number] with this patient was 50 minutes with greater than 75% of the time spent in counseling, coordination of care, and discussion of treatment plan. Bhavna Mckeon APRN Surgical Oncology P [phone] F [phone] [facility] documented in this encounter Plan of [...] examination and discussion of breast self examination BRCA2 gene mutation positive Family history of BRCA2 gene positive Family history of genetic disease carrier Breast cancer screening, high risk patient Screening mammogram for high-risk patient Family history of pancreatic cancer Family history of malignant neoplasm of gastrointestinal tract documented in this encounter Care Teams Improvement Rn Relationship Specialty Start Date End Date Harriett Goldsmith APRN [address] [address] PCP - General Family Medicine 11/23/19 07/09/20 documented as of this encounter
--- OUTSIDE RECORDS SUMMARY | 2024-02-25 00:53 | XMS_ITS | Encounter Summary ---
Author Organization [facility] Address [facility] [place] [address] Care Team Providers Care Scow Derrick Operator Name Role Phone Harriett Goldsmith APRN Primary Care Provid er Reason for Visit * Reason Onset Date Comments Other 04/18/2020 Encounter Details Date Type Department Care Team (Late st Contact Info) Description 04/18/2020 Telephone Obstetrics [place] [address] Priyanka Brito MD [facility] OBSTETRICS [place] [address] Other Social History Tobacco Use Types Packs/Day [...] AM EST Please sign. Going to local [facility]. errol documented in this encounter Plan of Treatment Not on file documented as of this encounter Visit Diagnoses Diagnosis BRCA2 positive- Primary Genetic susceptibility to malignant neoplasm of breast documented in this encounter Care Teams Scow Derrick Operator Relationship Specialty Start Date End Date Harriett Goldsmith APRN [facility] [address] [place] [address] PCP - General Family Medicine 11/23/19 07/09/20 documented as of this encounter
--- OUTSIDE RECORDS SUMMARY | 2024-02-25 00:53 | XMS_ITS | Encounter Summary ---
Author Organization [facility] Address [facility] [place] [address] Care Team Providers Care Spout Tender Name Role Phone Anisha Neal MD Primary Care Provider Reason for Visit * Reason Comments Follow-up * Consultation (Urgent) - Closed Specialty Diagnoses / Procedures Referred By Contac t Referred To Contact Hematology and Oncology Diagnoses clotting Brady Freedman MD [facility] [place] [place] [address] [facility] Hem Onc [address] [place] [address] Referral ID Status Reason Start Date Expiration Date V isits Requested Visits Authorized [id number] Closed Consult, Test & Treat 07/08/2020 07/08/2021 1 1 Encounter Details Date Type Department Care Team (Late st Contact Info) Description 08/05/2020 10:30 AM EDT Office Visit Hematology [place] [address] Delicia Powell MD [facility] [place] [address] Family history of pulmonary embolism; [...] were not included. [facility] [place] [address] THROMBOSIS CONSULTATION DATE OF VISIT 08/05/2020 Patient [...] She was also seen by Dr. Brito, [facility] to discuss future prophylactic bilateral salpingo-oophorectomy [...] ULTRASOUND performed by Malik Sanders MD at [facility] ENDOSCOPY OBSTETRIC HISTORY Estrogen combined OCP for [...] use+ venous insufficiency. 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
--- OUTSIDE RECORDS SUMMARY | 2024-02-25 00:53 | XMS_ITS | Encounter Summary ---
Author Organization [facility] Address [facility] [place] [address] Care Team Providers Care Barrel Coater Name Role Phone Harriett Goldsmith APRN Primary Care Provid er Encounter Details Date Type Department Care Team (Late st Contact Info) Description 03/02/2020 Notes Only [place] [address] Justin Vela MD [facility] DR HEMATOLOGY/[place] [address] Social History Tobacco Use Types Packs/Day Years [...] on filedocumented in this encounter Care Teams Barrel Coater Relationship Specialty Start Date End Date Harriett Goldsmith APRN 580 [facility] [address] [place] [address] PCP - General Family Medicine 11/23/19 07/09/20 documented as of this encounter
--- OUTSIDE RECORDS SUMMARY | 2024-02-25 00:53 | XMS_ITS | Encounter Summary ---
Author Organization [facility] Address [facility] [place] [address] Care Team Providers Care Mica Layer Name Role Phone KushaljeromeMiranda barnettly James MALCOLM Primary Care Provid er Reason for Visit * Reason Onset Date Comments Results 04/01/2020 BRCA2 mutation Encounter Details Date Type Department Care Team (Late st Contact Info) Description 04/01/2020 Telephone Hematology [place] [address] Susi Mooney [facility] HEMATOLOGY/[place] [address] Results (BRCA2 mutation) Social History Tobacco Use [...] Notes * Telephone Encounter - Susi Mooney [facility] - 04/01/2020 6:16 PM EST This test result was discussed with the patient by phone. A copy of the test results have been scanned in the medical record and sent to Tori. A summary of the results is provided below. Please beadvised that [place] law requires that all health care workers respect the confidentiality ofthis information and not pass it along to other health care providers, insurance companies, or individuals without the written permission of the patient. The Familial Cancer Program welcomes any questions about these matters. Our phone number is: [phone]. On 03/07/2020, Tori underwent genetic testing for the known BRCA2 mutation previously detected in her father and for the variants of uncertain significance in the CDH1 and RECQL4 genes also detected in her father. Following are the results of this test. Result: Isabelle's BRCA2 analysis showed that Tori carries the pathogenic variant (mutation) in BRCA2, specifically c.7988A>T ([id number]). This is the same mutation previously detected [...] for genetic counseling and testing. Our scheduling inspector aluminum boat can be reached at [phone]. Family members can also go to the [...] report sent to Tori and [facility]. Siobhan Smith, Familial Cancer Program inspector aluminum boat will be contacting Tori to arrange for a follow-up phone consult with Dr. Justin Vela to discuss specific screening and medical management recommendations. Support Resources: Tori may find the online support organization called [employer]: Facing Our Risk of Cancer Empowered a helpful resource. This can be found at [email or web address] Learning of this positive result was difficult [...] on filedocumented in this encounter Care Teams Mica Layer Relationship Specialty Start Date End Date Harriett Goldsmith APRN 580 [facility] [address] [place] [address] PCP - General Family Medicine 11/23/19 07/09/20 documented as of this encounter
--- OUTSIDE RECORDS SUMMARY | 2024-02-25 00:53 | XMS_ITS | Encounter Summary ---
Author Organization [facility] Address [facility] [place] [address] Care Team Providers Care Swim Coach Name Role Phone LizbethHarmony ibarra RESTORATIVE AIDE Primary Care Provider Encounter Details Date Type Department Care Team (Late st Contact Info) Description 04/01/2023 [place]phone [place] [phone] Susana Castro MD [facility] [place] [address] Social History Tobacco Use Types Packs/Day Years [...] 04/01/23 Referring Provider: Leonidas Arredondo Patient [facility]: [facility] HPI: 38 F w/ no known medical [...] in the patient condition. Susana Castro MD Telesales Specialist documented in this encounter Plan of Treatment Not on file documented as of this encounter Visit Diagnoses Not on filedocumented in this encounter Care Teams Swim Coach Relationship Specialty Start Date End Date Harmony Cortez APRN [address] [place] [address] PCP - General Family Medicine 06/29/22 documented as of this encounter
--- OUTSIDE RECORDS SUMMARY | 2024-02-25 00:53 | XMS_ITS | Encounter Summary ---
Author Organization [facility] [place] [address] Care Team Providers Care Chocolate Finisher Name Role Phone Anisha Neal MD Primary Care Provider [phone] Reason for Referral * Consultation (Routine) - Duplicate Referral Specialty Diagnoses / Procedures Referred By Contac t Referred To Contact Hematology and Oncology Diagnoses Family history of clotting disorder Brady Freedman MD [facility] [place] [address] [facility] Hem Onc [address] [place] [address] Referral ID Status Reason Start Date Expiration Date Visits Requested Visits Authorized [id number] Duplicate Referral Consult, Test & Treat 07/18/2020 07/18/2021 1 1 Encounter Details Date Type Department Care Team (Late st Contact Info) Description 07/18/2020 Orders [place] [address] [facility] [place] [address] Pre-op testing; Blood clotting disorder; [...] disorders documented in this encounter Care Teams Chocolate Finisher Relationship Specialty Start Date End Date Anisha Neal MD PCP - General Family Medicine 07/10/20 06/28/22 documented as of this encounter
--- OUTSIDE RECORDS SUMMARY | 2024-02-25 00:53 | XMS_ITS | Encounter Summary ---
Author Organization [facility] Address [facility] [place] [address] Care Team Providers Care Cigar Bander Name Role Phone Harriett Goldsmith APRN Primary Care Provid er Reason for Visit * Reason Comments Established BRCA2 * Consultation (Routine) - Closed Specialty Diagnoses / Procedures Referred By Jonny perez Referred To Contact Gynecology Oncology Diagnoses BRCA2 gene mutation positive in female Justin Vela MD [facility] DR HEMATOLOGY/[place] [address] [facility] Special Weapons And Tactics Officer [address] [place] [address] Referral ID Status Reason Start Date Expiration Date V isits Requested Visits Authorized [id number] Closed Consult, Test & Treat 04/17/2020 04/17/2021 1 1 Encounter Details Date Type Department Care Team (Late st Contact Info) Description 04/18/2020 8:00 AM EST Office Visit [place] [address] Priyanka Brito MD [facility] [place] [address] BRCA positive; Periumbilical abdominal pain; [...] 04/18/2020 Name: Tori Escobar : 1985 CSN: [id number] Patient Care Team: Patient Care Team: Harriett Goldsmith APRN as PCP - General (Family Medicine) Radha Valles CEMENT TILE MAKER Dr Rafael Vela, Genetics Program ASSESSMENT/PLAN Assessment BRCA2 mutation Family planning advice fam hist pancreatic cancer C/S x 3 S/p BTL Chronic constipation Abdominal pain IUD in place - CA 125 ordered today - SHANDA referral today - Breast cancer screening, gave patient names of breast surgeons - TVS with her CEMENT TILE MAKER We had a lengthy conversation with patient [...] we further recommend ongoing evaluation with her director nursing service to devise the best screening plan for [...] her partner and consider a consultation with copra processor. The patient's history of chronic constipation and [...] 5.5 years Last Pap: 2019 Dr Hurd CEMENT TILE MAKER Last Mammogram: in Last Colorectal Screen: endoscopy twice and colonoscopy within 5 years IMAGING AND LAB REVIEW I personally reviewed labs/radiology reports/pathology tests and other supporting records as part of my consultation today with the patient. 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 PELVIC EXAM: Vulva: Normal female external genitalia. Normal urethra. Vagina: Normal pink mucosa. No discharge. Cervix: No lesions, non-tender. IUD string in place Uterus: Mobile, non-tender. Adnexa: No palpable masses. Rectal: Rectovaginal septum smooth. No masses. Normal rectal tone. Genetic Testing 03/08 nvitae's??BRCA2??analysis showed that??Tori??carries??the??pathogenic variant (mutation) in BRCA2, specifically??c.7988A>T ([id number]). ??This is the same mutation previously detected [...] AM EST) CA 125 27.8 <=38.1 unit/mL [facility] Comment: CA 125 Reference Interval ??Postmenopausal: 6.2 to 31.5 U/mL. ??Premenopausal: 6.9 to 45.9 U/mL. ??Pre and Postmenopausal subjects combined: 6.4 to 38.1 U/mL. Blood specimen (specimen) 04/18/2020 9:46 AM EST 04/18/2020 9:51 AM EST Narrative Resulting Agency Comment Spec In Lab Priyanka Brito MD CHEMISTRY ORDERABLES [facility] [place] [address] documented in this encounter Visit Diagnoses Diagnosis [...] device documented in this encounter Care Teams Cigar Bander Relationship Specialty Start Date End Date Harriett Goldsmith APRN [address] [address] PCP - General Family Medicine 11/23/19 07/09/20 documented as of this encounter
--- OUTSIDE RECORDS SUMMARY | 2024-02-25 00:53 | XMS_ITS | Encounter Summary ---
Author Organization [facility] Address [place] [address] Care Team Providers Care Surveillance Technician Name Role Phone Harriett Goldsmith APRN Primary Care Provid er Reason for Visit * Reason Comments Genetic Evaluation * Consultation (Routine) - Specialty Diagnoses / Procedures Referred By Jonny perez Referred To Contact Hematology and Oncology Diagnoses FATHER HAD PANCREATIC CANCER AND WAS GENE TESTED Sloan Hurd MD [address] [facility] [address],[facility] [address] [place] [address] St Hem Onc Office [address] [place] [address] Referral ID Status Reason Start Date Expiration Date V isits Requested Visits Authorized [id number] Consult, Test & Treat Connection Center PCP Updated and/or Approved 11/21/2019 11/20/2020 10 10 Encounter Details Date Type Department Care Team (Latest Contact Info) Description 03/07/2020 2:00 PM EST TH Visit (TeleHealth) [place]ematology [place] [address] Susi Mooney, [facility] HEMATOLOGY/[place] [address] FHx: BRCA2 gene positive; Family history of [...] is not known. Paternal ethnic background is English, , [place]er, [place]z. Genetic risk assessment Based on the known BRCA2 mutation in Tori's father, Tori has a 50% chance of also being a carrier. Genetic testing for the known c.7988A>T mutation is recommended. I was able to review the report from Tori's father's testing in 2018. He was tested with [facility]'s multi-Cancer and pancreatic cancer panels. In addition [...] companies and employers based on genetic information. RAIS does not apply to life insurance, disability [...] blood sample was drawn and sent to [facility]. Testing will take up to 3 weeks. [...] tract documented in this encounter Care Teams Surveillance Technician Relationship Specialty Start Date End Date Harriett Goldsmith APRN 580 [facility] [address] [place] [address] PCP - General Family Medicine 11/23/19 07/09/20 documented as of this encounter
--- OUTSIDE RECORDS SUMMARY | 2024-02-25 00:53 | XMS_ITS | Encounter Summary ---
Author Organization [facility] [place] [address] Care Team Providers Care Pigment And Lacquer Mixer Name Role Phone Harmony Cortez APRN Primary [...] on filedocumented in this encounter Care Teams Pigment And Lacquer Mixer Relationship Specialty Start Date End Date Harmony Cortez APRN [address] [place] [address] PCP - General Family Medicine 06/29/22 documented as of this encounter
--- OUTSIDE RECORDS SUMMARY | 2024-02-25 00:53 | XMS_ITS | Encounter Summary ---
Author Organization [facility] [place] [address] Care Team Providers Care Cable Operator Name Role Phone Harmony Cortez APRN Primary Care Provider Encounter Details Date Type Department Care Team (Late st Contact Info) Description 04/01/2023 [place] [address] Social History Tobacco Use Types Packs/Day Years [...] on filedocumented in this encounter Care Teams Cable Operator Relationship Specialty Start Date End Date Harmony Cortez APRN [address] [place] [address] PCP - General Family Medicine 06/29/22 documented as of this encounter
--- OUTSIDE RECORDS SUMMARY | 2024-02-25 00:53 | XMS_ITS | Encounter Summary ---
Author Organization [facility] [place] [address] Care Team Providers Care Er Rn Name Role Phone Harriett Goldsmith APRN Primary Care Provid er Encounter Details Date Type Department Care Team (Late st Contact Info) Description 05/22/2020 Orders [place] [address] Alma Delia Olvera Social History Tobacco Use [...] on filedocumented in this encounter Care Teams Er Rn Relationship Specialty Start Date End Date Harriett Goldsmith APRN [address] [place] [address] [address] [place] [address] PCP - General Family Medicine 11/23/19 07/09/20 documented as of this encounter
--- OUTSIDE RECORDS SUMMARY | 2024-02-25 00:53 | XMS_ITS | Encounter Summary ---
Author Organization [facility] [place] [address] Care Team Providers Care General Administrator Name Role Phone Harriett Goldsmith APRN Primary Care Provid er Encounter Details Date Type Department Care Team (Late st Contact Info) Description 06/19/2020 Telephone [place] [address] Nathaly Cisneros, [facility] Social History Tobacco Use Types Packs/Day Years [...] - 06/19/2020 2:10 PM EST Tori Escobar [id number] Diagnosis/Indication: 1. Do you take any blood [...] to patient: You must have a responsible green party who will drive you to your [...] on filedocumented in this encounter Care Teams General Administrator Relationship Specialty Start Date End Date Harriett Goldsmith APRN [address] [facility] [address] [place] [address] PCP - General Family Medicine 11/23/19 07/09/20 documented as of this encounter
--- OUTSIDE RECORDS SUMMARY | 2024-02-25 00:53 | XMS_ITS | Encounter Summary ---
Author Organization [facility] [place] [address] Care Team Providers Care Director Search Marketing Strategies Name Role Phone Harmony Cortez APRN Primary [...] on filedocumented in this encounter Care Teams Director Search Marketing Strategies Relationship Specialty Start Date End Date Harmony Cortez APRN [address] [place] [address] PCP - General Family Medicine 06/29/22 documented as of this encounter
--- OUTSIDE RECORDS SUMMARY | 2024-02-25 00:53 | XMS_ITS | Encounter Summary ---
[place] [address] Care Team Providers Care Geek Squad Manager Name Role Phone Harmony Cortez APRN Primary Care Provider Reason for Visit * Reason Comments Abdominal Pain Encounter Details Date Type Department Care Team (Late st Contact Info) Description 01/04/2023 3:59 PM EDT - 01/04/2023 8:02 PM [place]T [place] [address] Epigastric pain Discharge Disposition: Home Social History [...] Please follow-up with your primary careprovider and billing typist for further evaluation and management. Please return to the ED immediately for any new or worsening symptoms * Attachments The following attachments cannot be sent through Care Everywhere. * Abdominal Pain (Divehi) documented in this encounter Medications at Time [...] up with her primary care provider and billing typist for further outpatient evaluation and management. Instructed [...] up with her primary care provider and billing typist for further outpatient evaluation and management. Instructed [...] software and may inherently contain errors in physician practice administrator. Some sounds may be transcribed incorrectly by [...] been screened for pancreatic cancer by the [facility] because of significant family history. [...] (Bezet) 452 ms MUSE SYSTEM Calculated P [place] 26 degrees MUSE SYSTEM Calculated R [place] 85 degrees MUSE SYSTEM Calculated T [place] 14 degrees MUSE SYSTEM INTERPRETATION Normal sinus [...] who have questions please contact the health customer care assistant that requested your imaging first. ? Electronically signed by: Blu Dalal MD, [facility] ??([phone]), at 01/04/2023 6:55 PM Narrative 01/04/2023 6:55 [...] patients who have questions please contactthe health customer care assistant that requested your imaging first. Electronically signed by: Blu Dalal MD, [facility]([phone]), at 01/04/2023 6:55 PM Jensen Arroyo MD IMG CT ORDERABLES * POCT urine (01/04/2023 6:13 PM EDT) POC Urine HCG Negative Negative - Negative POC Control Internal Controls Acceptable Jensen Arroyo MD POINT OF CARE TEST O RDERABLES * (ABNORMAL) Urinalysis with reflex Culture (01/04/2023 6:06 PM EDT) Glucose, Urine Dipstick Negative Negative mg/dL [facility] Protein, Urine Dipstick Negative Negative mg/dL [facility] Bilirubin, Urine Dipstick Negative Negative mg/dL [facility] Comment: Clinical correlation required for positive Urine Bilirubin results as false positive may occur with some drugs and drug related products. If a false positive is suspected a serum total bilirubin should be considered if clinically indicated. Urobilinogen, Urine Dipstick Normal Normal mg/dL [facility] pH, Urn (dipstick) 6.0 5.0 - 8.0 [facility] Blood, Urine Dipstick Negative Negative mg/dL [facility] Ketone, Urine Dipstick 15(A) Negative mg/dL [facility] Nitrite, Urine Dipstick Negative Negative [facility] Leukocytes, Urine Dipstick Negative Negative mcL [facility] Appearance, Urine Dipstick Clear Clear [facility] Specific [place] Urine Automated 1.006 1.005 - 1.030 [facility] Color, Urine Dipstick Yellow Yellow [facility] Reflex to Culture No [facility] Clean Catch Urine 01/04/2023 6:06 PM EDT 01/04/2023 6:25 PM EDT Narrative Resulting Agency Comment Spec In Lab Jensen Arroyo MD URINE ORDERABLES [facility] [place] [address] * Gold Tube HOLD (01/04/2023 3:20 PM EDT) Gold Hold Sample in lab. [facility] Blood Venous Draw / Unknown 01/04/2023 3:20 PM EDT 01/04/2023 3:56 PM EDT Mike SIMON CHEMISTRY ORDERABLE S [facility] [place] [address] * Differential, Automated (01/04/2023 3:20 PM EDT) Neutrophil % 61.0 % [facility] Neutrophil Absolute 4.23 1.70 - 6.10 x10(3)/[facility] Lymph % 33.0 % [facility] Lymphocytes Abs 2.3 0.9 - 3.2 x10(3)/[facility] Monocyte % 5.0 % [facility] Monocyte Abs 0.4 0.3 - 0.9 x10(3)/[facility] Eos % 0.6 % [facility] Eosinophils Abs 0.0 0.0 - 0.4 x10(3)/[facility] Basophil % 0.1 % [facility] Baso Absolute 0.0 0.0 - 0.1 x10(3)/[facility] Immature Gran % 0.30 % [facility] Comment: Immature granulocytes(IG's)percentage and absolute count will include metamyelocytes, myelocytes, and promyelocytes. Blood smears from CBCs yielding IG's will be scanned manually for concordance. If this scan disagrees with the automated IG or if promyelocytes are noted, a manual differential will be performed. Immature Gran Absolute 0.02 0.00 - 0.04 x10(3)/[facility] Blood 01/04/2023 3:20 PM EDT 01/04/2023 3:56 PM EDT Narrative Resulting Agency Comment Spec In Lab Mike SIMON HEMATOLOGY ORDERABL ES Performing Organization Address [facility]/ZIP Co de Phone Number [facility] [place] [address] * Hemogram (01/04/2023 3:20 PM EDT) White Blood Cell 6.9 4.0 - 9.5 x10(3)/[facility] Red Blood Cell 4.07 4.00 - 5.21 x10(6)/[facility] Hemoglobin 12.8 11.7 - 15.5 g/dL [facility] Hematocrit 36.7 35.7 - 45.8 % [facility] Mean Cell Volume 90.2 82.6 - 94.4 fL [facility] Mean Cell Hemoglobin 31.4 27.1 - 32.0 pg [facility] Mean Cell Hemoglobin Concentration 34.9 31.7 - 35.0 g/dL [facility] Platelet 255 145 - 357 x10(3)/[facility] RDW Standard Deviation 39.6 37.0 - 46.0 fL [facility] RDW coefficient of variation 12.1 11.5 - 14.1 % [facility] Mean Platelet Volume 9.5 7.6 - 12.9 fL [facility] NRBC% auto 0.0 % [facility] NRBC Absolute 0.000 0.000 - 0.000 x10(3)/[facility] Blood 01/04/2023 3:20 PM EDT 01/04/2023 3:56 PM EDT Narrative Resulting Agency Comment Spec In Lab Mike SIMON HEMATOLOGY ORDERABL ES Performing Organization Address City/[facility] Co de Phone Number [facility] [place] [address] * Lipase (01/04/2023 3:20 PM EDT) Lipase 32 0 - 60 unit/L [facility] Blood 01/04/2023 3:20 PM EDT 01/04/2023 3:56 PM EDT Narrative Resulting Agency Comment Spec In Lab Jensen Arroyo MD CHEMISTRY ORDERABLES Performing Organization Address City/[facility]/ZIP Co de Phone Number [facility] [place] [address] * Comprehensive metabolic panel (non-fasting) (01/04/2023 3:20 PM EDT) Glucose 91 65 - 199 mg/dL [facility] Comment:Diabetes: >=200 mg/d L plus symptoms Blood Urea Nitrogen 11 8 - 18 mg/dL [facility] Creatinine 0.74 0.70 - 1.20 mg/dL [facility] Sodium 138 135 - 145 mmol/L [facility] Potassium 3.6 3.5 - 5.0 mmol/L [facility] Comment: Please note: ??Patients with WBC >100,000 may have falsely elevated Potassium levels. ??For accurate Potassium quantification in these patients send serum separator tube (gold top) for subsequent determinations. ??Contact the Clinical Chemistry Laboratory if there are any questions. Chloride 102 98 - 107 mmol/L [facility] Carbon Dioxide 23 22 - 31 mmol/L [facility] Anion Gap 13 5 - 15 mmol/L [facility] Calcium 9.8 8.5 - 10.5 mg/dL [facility] Protein, Total 8.0 6.1 - 8.0 g/dL [facility] Albumin 4.9 3.2 - 5.2 g/dL [facility] Aspartate Aminotransferase 11 0 - 30 unit/L [facility] Alanine Aminotransferase 10 0 - 30 unit/L [facility] Alkaline Phosphatase 63 35 - 105 unit/L [facility] Bilirubin, Total 0.6 0.2 - 1.3 mg/dL [facility] Est Glomerular Filtration Rate 106 >=60 mL/min/1. 73 m?? [facility] Comment: This patient's estimated [...] In Lab Jensen Arroyo MD CHEMISTRY ORDERABLES [facility] [place] [address] documented in this encounter Visit Diagnoses Diagnosis [...] Rahman) documented in this encounter Care Teams Geek Squad Manager Relationship Specialty Start Date End Date Harmony Cortez, [address] [place] [address] PCP - General Family Medicine 06/29/22 documented as of this encounter
--- OUTSIDE RECORDS SUMMARY | 2024-02-25 00:53 | XMS_ITS | Encounter Summary ---
Author Organization [facility] [place] [address] Care Team Providers Care Sand Miller Name Role Phone Harriett Goldsmith APRN Primary Care Provid er Reason for Visit * Reason Onset Date Comments Results 04/01/2020 Encounter Details Date Type Department Care Team (Late st Contact Info) Description 04/01/2020 Telephone Hematology [place] [address] Susi Mooney [facility] HEMATOLOGY/[place] [address] Results Social History Tobacco Use Types Packs/Day [...] on filedocumented in this encounter Care Teams Sand Miller Relationship Specialty Start Date End Date Harriett Goldsmith APRN [address] [facility] [address] [place] [address] PCP - General Family Medicine 11/23/19 07/09/20 documented as of this encounter
--- OUTSIDE RECORDS SUMMARY | 2024-02-25 00:53 | XMS_ITS | Encounter Summary ---
Author Organization [facility] Address [facility] [place] [address] Care Team Providers Care Linoleum Layer Helper Name Role Phone Harriett Goldsmith APRN Primary Care Provid er Encounter Details Date Type Department Care Team (Late st Contact Info) Description 05/22/2020 Telephone [place] [id number] Val Duran Social History Tobacco Use Types [...] on filedocumented in this encounter Care Teams Linoleum Layer Helper Relationship Specialty Start Date End Date Harriett Goldsmith APRN [address] [place] [address] PCP - General Family Medicine 11/23/19 07/09/20 documented as of this encounter
--- OUTSIDE RECORDS SUMMARY | 2024-02-25 00:53 | XMS_ITS | Encounter Summary ---
Author Organization [facility] Address [facility] [place] [address] Care Team Providers Care Special Education Superintendent Name Role Phone Anisha Neal MD Primary Care Provider Reason for Visit * Reason Comments Follow-up finalize surgical pl ans for breast recon Encounter Details Date Type Department Care Team (Latest Contact Info) Description 07/23/2020 11:45 AM EDT Office [place] [address] Haley Wheeler MD [facility] [place] [address] Encounter to discuss breast reconstruction Social History [...] viable intraoperatively? In this instance a tissue junior brand manager would be placed to maintain the space. [...] resection, possible placement of mesh. CPT: NOE: 75453, 42312 Rib resection: 80933 FNG 93314 Mesh placement: 28196, 96227, 96905 Surgical site: Breast Side: Bilateral Anesthesia: General [...] counseling documented in this encounter Care Teams Special Education Superintendent Relationship Specialty Start Date End Date Anisha Neal MD PCP - General Family Medicine 07/10/20 06/28/22 documented as of this encounter
--- OUTSIDE RECORDS SUMMARY | 2024-02-25 00:53 | XMS_ITS | Encounter Summary ---
Author Organization [facility] [place] [address] Care Team Providers Care Sleeping Car Porter Name Role Phone Anisha Neal MD Primary Care Provider [phone] Reason for Visit * Auth/Cert Specialty Diagnoses [...] Expiration Date Visits Re quested Visits Authorized [id number] 1 1 Encounter Details Date Type Department Care Team (Latest Contact Info) Description 07/24/2020 8:57 AM EDT - 07/24/2020 11:27 AM EDT Hospital En[place] [address] Malik Sanders MD [facility] [place] [address] BRCA2 gene mutation positive in female Discharge [...] Care Everywhere. * Ultrasound: Endoscopic (Rectal): Post-op (Arabic) documented in this encounter Medications at Time [...] Sanders MD - 07/24/2020 10:20 AM EDT [facility] Operative Note Patient Name: Tori Escobar : [id number] MR#: [id number] Case Date: 07/24/2020 Surgeon: Surgeon(s) and Role: [...] Associated Diagnosis Comments Endoscopic Us Exam, Micarachel ([id number]) 07/24/2020 10:05 AM EDT BRCA2 gene mutation positive in female Family history of pancreatic cancer UPPER EUS-ENDOSCOPIC ULTRASOUND Routine 07/24/2020 9:55 AM EDT documented in this encounter Results * UPPER EUS-ENDOSCOPIC ULTRASOUND (07/24/2020 9:55 AM EDT) UPPER ENDOSCOPIC ULTRASOUND [facility] Endoscopy Procedure Date: 07/24/2020 9:55 AM ? Patient Name: Tori Escobar ? Date of : 1985 ? Age: 35 ? Order #: [id number] ? Instrument Name: GF-UE [id number] ? Procedure: ? Upper EUS Indications: ? BRCA +, Family history of pancreas ? cancer Providers: ? Malik Sanders MD, Pricila Murphy, ? India Crawley RN, Blu Ramirez. ? Nash Referring : ?Harriett Goldsmith, Anisha [place] Requesting Provider: Danya Diez MD Medicines: ? Monitored Anesthesia Care Complications: ? No immediate complications. Procedure: ? Pre-Anesthesia Assessment: ? - [place] Protocol: ? - Pre-procedure Verification: Prior ? [...] by the physician, the nurse, ? the music researcher and the technician submarine cable equipment in ? the procedure room. ? The [...] Procedure Code(s): ?? --- Professional --- ? 28186, Esophagogastroduodenos copy, ? flexible, transoral; with endoscopic ? ultrasound examination, including the ? esophagus, stomach, and either the ? duodenum or a surgically altered ? stomach where the jejunum is examined ? distal to the anastomosis CPT copyright 2019 [employer]. All rights reserved. The codes documented in this report are preliminary and upon division toll wire chief review may be revised to meet current [...] RN) documented in this encounter Care Teams Sleeping Car Porter Relationship Specialty Start Date End Date Anisha Neal MD PCP - General Family Medicine 07/10/20 06/28/22 documented as of this encounter
--- OUTSIDE RECORDS SUMMARY | 2024-02-25 00:53 | XMS_ITS | Encounter Summary ---
Author Organization [facility] [place] [address] Care Team Providers Care Shell Trim Operator Name Role Phone Harriett Goldsmith APRN Primary Care Provid er Reason for Referral * Consultation (Routine) - Closed Specialty Diagnoses / Procedures Referred By Contac t Referred To Contact Gastroenterology Diagnoses BRCA2 gene mutation positive in female Family history of pancreatic cancer Justin Vela MD [facility] DR HEMATOLOGY/[place] [address] Danya Diez MD [facility] [place] [address] Referral ID Status Reason Start Date Expiration Date V isits Requested Visits Authorized [id number] Closed Consult, Test & Treat 04/17/2020 04/17/2021 1 1 * Consultation (Routine) - Closed Specialty Diagnoses / Procedures Referred By Contac t Referred To Contact Hematology and Oncology Diagnoses BRCA2 gene mutation positive in female Justin Vela MD [facility] HEMATOLOGY/[place] [address] [facility] [address] [place] [address] Referral ID Status Reason Start Date Expiration Date V isits Requested Visits Authorized [id number] Closed Consult, Test & Treat 04/17/2020 04/17/2021 1 1 * Consultation (Routine) - Closed Specialty Diagnoses / Procedures Referred By Jonny perez Referred To Contact Gynecology Oncology Diagnoses BRCA2 gene mutation positive in female Justin Vela MD [facility] [address] HEMATOLOGY/[place] [address] [facility] [employer] [address] [place] [address] Referral ID Status Reason Start Date Expiration Date V isits Requested Visits Authorized [id number] Closed Consult, Test & Treat 04/17/2020 04/17/2021 1 1 Encounter Details Date Type Department Care Team (Latest Contact Info) Description 04/17/2020 11:00 AM EST TH Visit (TeleHealth) H[place]ology [place] [phone] Justin Vela MD [facility] DR HEMATOLOGY/[place] [address] BRCA2 gene mutation positive in female; Family [...] is provided below. Please be advised that [place] law requiresthat all health care workers respect the confidentiality of this information and not pass it along to other health care providers, insurance companies, or individuals without the written permission of the patient. The Familial Cancer Program welcomes any questions about these matters. Our phone number is: [phone]. On 03/07/2020, Tori underwent genetic testing for the known BRCA2 mutation previously detected in her father and for the variants of uncertain significance in the CDH1 and RECQL4 genes also detected in her father. Following are the results of this test. ?? Result: Isabelle's BRCA2 analysis showed that Tori carries the pathogenic variant (mutation) in BRCA2, specifically c.[id number]>T ([id number]). This is the same mutation previously detected [...] for genetic counseling and testing. Our scheduling clerk secretary can be reached at [phone]. Family members can also go to the [...] MRI directed biopsy capability such as the [facility] Radiology Department. ??? Annual mammograms, with consideration [...] reach the Comprehensive Breast Program by calling [phone]. Ovarian cancer risk management Ovarian cancer (and [...] in addition to pelvic exams with their licensed marine engineer. This could start between the ages of [...] at risk. The gynecological oncology group at [facility] may be reached at [phone] to schedule an appointment.A referral has been placed. Skin cancer screening ??? Annual, or more frequent, dermatologic exams, as recommended by Tori's major assembly inspector Colon cancer screening ?? Baseline colorectal cancer [...] criteria. A referral to Dr. Smith, a roll machine operator at [facility] in [place] has been placed. She can discuss these screening options with Tori if she desires. Tori can schedule an appointment with her by reaching her clerk secretary at [phone]. Cancer screening FOR MEN ?? Breast self-exam [...] can be accessed at the following URL: [email or web address] Finally, it can be difficult for people [...] a consultation with a psychologist, social media designer, or psychiatristmay be helpful in dealing with [...] tract documented in this encounter Care Teams Shell Trim Operator Relationship Specialty Start Date End Date Harriett Goldsmith APRN [address] [place] [address] PCP - General Family Medicine 8/6/20 3/23/21 documented as of this encounter
--- OUTSIDE RECORDS SUMMARY | 2024-02-25 00:53 | XMS_ITS | Encounter Summary ---
Author Organization [facility] [place] [address] Care Team Providers Care Secondary Set Up Man Name Role Phone Anisha Neal MD Primary Care Provider [phone] Reason for Visit * Reason Onset Date Comments Prior Authorization 07/16/2020 BRCA Outpati ent surgery coverage and auth - Pending scheduling Encounter Details Date Type Department Care Team (Late st Contact Info) Description 07/16/2020 Tele[place] [address] Nany Dao Prior Authorization ([facility] Outpatient surgery [...] on filedocumented in this encounter Care Teams Secondary Set Up Man Relationship Specialty Start Date End Date Anisha Neal MD PCP - General Family Medicine 07/10/20 06/28/22 documented as of this encounter
--- OUTSIDE RECORDS SUMMARY | 2024-02-25 00:53 | XMS_ITS | Encounter Summary ---
Author Organization [facility] Address [facility] [place] [address] Care Team Providers Care Kiln Tester Name Role Phone Harriett Goldsmith APRN Primary Care Provid er Reason for Visit * Consultation (Routine) - Closed Specialty Diagnoses / Procedures Referred By Contac t Referred To Contact Hematology and Oncology Diagnoses BRCA2 gene mutation positive Family history of BRCA2 gene positive Bhavna Mckeon APRN [facility] [place] [address] Aminta Miguel MD [facility] [place] [address] Referral ID Status Reason Start Date Expiration Date V isits Requested Visits Authorized [id number] Closed Consult, Test & Treat 05/21/2020 05/21/2021 1 1 Encounter Details Date Type Department Care Team (Latest Contact Info) Description 06/26/2020 3:45 PM EST TH Visit (TeleHealth) [place] [address] Aminta Miguel MD [facility] [address] [place] [phone] At high risk for breast cancer Social [...] Hx: 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 She and her have decided theydo [...] cancer documented in this encounter Care Teams Kiln Tester Relationship Specialty Start Date End Date Harriett Goldsmith APRN [address] [facility] [address] [place] [address] PCP - General Family Medicine 11/23/19 07/09/20 documented as of this encounter
--- OUTSIDE RECORDS SUMMARY | 2024-02-25 00:53 | XMS_ITS | Encounter Summary ---
Author Organization [facility] Address [facility] [place] [address] Care Team Providers Care Lan Specialist Name Role Phone Harriett Goldsmith APRN Primary Care Provid er Reason for Visit * Consultation (Routine) - Closed Specialty Diagnoses / Procedures Referred By Contac t Referred To Contact Gastroenterology Diagnoses BRCA2 gene mutation positive in female Family history of pancreatic cancer Justin Vela MD [facility] DR HEMATOLOGY/[place] [address] Danya Diez MD [facility] [place] [address] Referral ID Status Reason Start Date Expiration Date V isits Requested Visits Authorized [id number] Closed Consult, Test & Treat 04/17/2020 04/17/2021 1 1 Encounter Details Date Type Department Care Team (Late st Contact Info) Description 06/19/2020 1:00 PM EST Office [place] [address] Danya Diez MD [facility] [place] [address] BRCA2 gene mutation positive in female; Family [...] PRESENT ILLNESS Tori was originally referred by tab card press operator for genetic testing based on FH of pancreatic cancer. [facility]'s??BRCA2??analysis showed that??Tori??carries??the??pathogenic variant (mutation) in BRCA2, s pecifically??[id number] ([id number]). Her family history is notable for: Father [...] BRCA2 mutation, she has been seen by lean consultant onc for screening and maymeet sooner to [...] few weeks. Sees Dr. Hi (GI) in [place]. 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 Recently re-. [...] adenopathy and no thyromegaly. HEENT: PERRL, EOMI, BORING AND FILLING MACHINE OPERATOR and OP clear without ulceration or lesions. [...] Director, GI [facility] morgue keeper Section of [place]astroenter[place] [address] documented in this encounter Plan of Treatment [...] tract documented in this encounter Care Teams Lan Specialist Relationship Specialty Start Date End Date Harriett Goldsmith APRN [address] [address] PCP - General Family Medicine 11/23/19 07/09/20 documented as of this encounter
--- OUTSIDE RECORDS SUMMARY | 2024-02-25 00:53 | XMS_ITS | Encounter Summary ---
[place] [address] Care Team Providers Care Content Curator Name Role Phone Lizbethstacey Harmony GOLD Primary Care Provider Reason for Visit * Reason Comments Chest Pain Encounter Details Date Type Department Care Team (Late st Contact Info) Description 11/09/2023 8:01 AM EDT - 11/09/2023 11:47 AM EDT [place] [address] Chest pain, unspecified type Discharge Disposition: Home Social History Tobacco Use Types Packs/Day Years Used Date Smoking Tobacco: Never Smokeless Tobacco: Never Alcohol Use Standard Drinks/Week Comments Not Currently 0 (1 standard drink = 0.6 oz pur e alcohol) [facility] Inpatient Questions Answer Date Recorded Does Anyone [...] sent through Care Everywhere. * Chest Pain (Bulgarian) documented in this encounter Medications at Time [...] EDT) Glucose, Urine Dipstick Negative Negative mg/dL [facility] Protein, Urine Dipstick Negative Negative mg/dL [facility] Bilirubin, Urine Dipstick Negative Negative mg/dL [facility] Comment: Clinical correlation required for positive Urine Bilirubin results as false positive may occur with some drugs and drug related products. If a false positive is suspected a serum total bilirubin should be considered if clinically indicated. Urobilinogen, Urine Dipstick Normal Normal mg/dL [facility] pH, Urn (dipstick) 8.5(H) 5.0 - 8.0 [facility] Blood, Urine Dipstick Negative Negative mg/dL [facility] Ketone, Urine Dipstick Negative Negative mg/dL [facility] Nitrite, Urine Dipstick Negative Negative [facility] Leukocytes, Urine Dipstick Negative Negative [facility] Appearance, Urine Dipstick Clear Clear [facility] Specific [place] Urine Automated 1.013 1.005 - 1.030 [facility] Color, Urine Dipstick Yellow Yellow [facility] Reflex to Culture No [facility] Clean Catch Urine 11/09/2023 9:35 AM EDT 11/09/2023 9:46 AM EDT Narrative Resulting Agency Comment Spec In Lab Nazanin Ruano DO URINE ORDER KANNAN [facility] [place] [address] * Troponin (11/09/2023 9:28 AM EDT) Troponin-T, High Sensitivity <6 <=14 ng/L [facility] Comment: This patient's troponin T concentration [...] troponin value can be found in the Replaced By [facility] Test Catalog Troponin - Replaced By [facility] Test Catalog Reference: Fourth Byron Definition of Myocardial Infarction. Journal of the [employer] College [employer] 2018;72:9030-9454 Blood 11/09/2023 9:28 AM EDT 11/09/2023 9:47 AM EDT Narrative Resulting Agency Comment Spec In Lab Nazanin Ruano DO CHEMISTRY O RDERABLES [facility] [place] [address] * Gold Tube HOLD (11/09/2023 8:30 AM EDT) Gold Hold Sample in lab. [facility] Blood Venous Draw / Unknown 11/09/2023 8:30 AM EDT 11/09/2023 8:45 AM EDT Juan Jose SIMON CHEMISTRY ORDERABLES Performing Organization Address City/[facility] Co de Phone Number [facility] [place] [address] * Blue Tube HOLD (11/09/2023 8:30 AM EDT) [facility] Blue Hold Sample in lab. [facility] Blood Venous Draw / Unknown 11/09/2023 8:30 AM EDT 11/09/2023 8:45 AM EDT Juan Jose SIMON HEMATOLOGY ORDERABLE S Performing Organization Address [facility] de Phone Number [facility] [place] [address] * Differential, Automated (11/09/2023 8:30 AM EDT) [facility] Neutrophil % 55.3 % [facility] Neutrophil Absolute 2.70 1.70 - 6.10 x10(3)/[facility] Lymph % 35.7 % [facility] Lymphocytes Abs 1.7 0.9 - 3.2 x10(3)/[facility] Monocyte % 6.8 % [facility] Monocyte Abs 0.3 0.3 - 0.9 x10(3)/[facility] Eos % 1.4 % [facility] Eosinophils Abs 0.1 0.0 - 0.4 x10(3)/[facility] Basophil % 0.4 % [facility] Baso Absolute 0.0 0.0 - 0.1 x10(3)/[facility] Immature Gran % 0.40 % [facility] Comment: Immature granulocytes(IG's)percentage and absolute count will include metamyelocytes, myelocytes, and promyelocytes. Blood smears from CBCs yielding IG's will be scanned manually for concordance. If this scan disagrees with the automated IG or if promyelocytes are noted, a manual differential will be performed. Immature Gran Absolute 0.02 0.00 - 0.04 x10(3)/[facility] Blood 11/09/2023 8:30 AM EDT 11/09/2023 8:41 AM EDT Narrative Resulting Agency Comment Spec In Lab Juan Jose SIMON HEMATOLOGY ORDERABLE S [facility] [place] [address] * (ABNORMAL) Hemogram (11/09/2023 8:30 AM EDT) White Blood Cell 4.9 4.0 - 9.5 x10(3)/[facility] Red Blood Cell 4.07 4.00 - 5.21 x10(6)/[facility] Hemoglobin 13.1 11.7 - 15.5 g/dL [facility] Hematocrit 37.2 35.7 - 45.8 % [facility] Mean Cell Volume 91.4 82.6 - 94.4 fL [facility] Mean Cell Hemoglobin 32.2(H) 27.1 - 32.0 pg [facility] Mean Cell Hemoglobin Concentration 35.2(H) 31.7 - 35.0 g/dL [facility] Platelet 247 145 - 357 x10(3)/[facility] RDW Standard Deviation 39.9 37.0 - 46.0 [facility] RDW coefficient of variation 11.9 11.5 - 14.1 % [facility] Mean Platelet Volume 9.2 7.6 - 12.9 [facility] NRBC% auto 0.0 % [facility] NRBC Absolute 0.000 0.000 - 0.000 x10(3)/[facility] Blood 11/09/2023 8:30 AM EDT 11/09/2023 8:41 AM EDT Narrative Resulting Agency Comment Spec In Lab Juan Jose SIMON HEMATOLOGY ORDERABLE S Performing Organization Address City/[facility]/ZIP Co de Phone Number [facility] [place] [address] * Troponin (11/09/2023 8:30 AM EDT) Troponin-T, High Sensitivity <6 <=14 ng/L [facility] Comment: This patient's troponin T concentration [...] troponin value can be found in the Replaced By [facility] Test Catalog Troponin - Replaced By [facility] Test Catalog Reference: Fourth Byron Definition of Myocardial Infarction. Journal of the [place] College [employer] 2018;72:2928-7888 Blood 11/09/2023 8:30 AM EDT 11/09/2023 8:41 AM EDT Narrative Resulting Agency Comment Spec In Lab Nazanin Ruano DO CHEMISTRY O RDERABLES Performing Organization Address City/[facility]/ZIP Co de Phone Number [facility] [place] [address] * Lipase (11/09/2023 8:30 AM EDT) Lipase 26 0 - 60 unit/L [facility] Blood 11/09/2023 8:30 AM EDT 11/09/2023 8:41 AM EDT Narrative Resulting Agency Comment Spec In Lab Nazanin Ruano DO CHEMISTRY O RDERABLES [facility] [place] [address] * Comprehensive metabolic panel (non-fasting) (11/09/2023 8:30 AM EDT) Glucose 104 65 - 199 mg/dL [facility] Comment:Diabetes: >=200 mg/d L plus symptoms Blood Urea Nitrogen 10 8 - 18 mg/dL [facility] Creatinine 0.80 0.70 - 1.20 mg/dL [facility] Sodium 142 135 - 145 mmol/L [facility] Potassium 4.0 3.5 - 5.0 mmol/L [facility] Comment: Please note: ??Patients with WBC >100,000 may have falsely elevated Potassium levels. ??For accurate Potassium quantification in these patients send serum separator tube (gold top) for subsequent determinations. ??Contact the Clinical Chemistry Laboratory if there are any questions. Chloride 107 98 - 107 mmol/L [facility] Carbon Dioxide 22 22 - 31 mmol/L [facility] Anion Gap 13 5 - 15 mmol/L [facility] Calcium 9.7 8.5 - 10.5 mg/dL [facility] Protein, Total 7.6 6.1 - 8.0 g/dL [facility] Albumin 4.7 3.2 - 5.2 g/dL [facility] Aspartate Aminotransferase 16 0 - 30 unit/L [facility] Alanine Aminotransferase 12 0 - 30 unit/L [facility] Alkaline Phosphatase 64 35 - 105 unit/L [facility] Bilirubin, Total 0.3 0.2 - 1.3 mg/dL [facility] Est Glomerular Filtration Rate 96 >=60 mL/min/1. 73 m?? [facility] Comment: This patient's estimated [...] DO CHEMISTRY O RDERABLES Performing Organization Address City/[facility] Co de Phone Number [facility] [place] [phone] * EKG 12 Lead (11/09/2023 8:10 AM EDT) Ventricular rate 101 BPM MUSE SYSTEM Atrial Rate 101 BPM MUSE SYSTEM P-R Interval 162 ms MUSE SYSTEM QRS Duration 92 ms MUSE SYSTEM Q-T Interval 366 ms MUSE SYSTEM QTC Calculated (Bezet) 474 ms MUSE SYSTEM Calculated P Dray[place] 34 degrees MUSE SYSTEM Calculated R [place] 141 degrees MUSE SYSTEM Calculated T [place]ray[place] 42 degrees MUSE SYSTEM INTERPRETATION Sinus tachycardia [...] type documented in this encounter Care Teams Content Curator Relationship Specialty Start Date End Date Diego GOLD Antunez [address] [facility] [address] [place] [address] PCP - General Family Medicine 06/29/22 documented as of this encounter
--- OUTSIDE RECORDS SUMMARY | 2024-02-25 00:53 | XMS_ITS | Clinical Summary ---
Author Organization [facility] Address [facility] [place] [address] Care Team Providers Care Investment Director Name Role Phone Lizbethstacey Harmony GOLD Primary [...] (06/19/2020): Added automatically from request for surgery [id number] Family history of BRCA2 gene positive 05/16/2020 Overview (05/16/2020): Father Family history of pancreatic cancer 05/16/2020 Overview (05/16/2020): Father (BRCA2+) Paternal aunt BRCA2 gene mutation positive 05/15/2020 Abdominal pain 10/09/2010 Hiatal hernia 10/08/2010 Encounters Date Type Department Care Team Description 11/30/2023 1:40 PM EDT Office Visit Dermatology at [address] [place] [address] Francisca Chandler MD Lentigines; Sebaceous hyperplasia 11/30/2023 Travel from Last 3 Months Family History [...] Hepatitis B vaccine (0-59 yrs) (1) 2003 Tetanus/Diphtheria/Pertussis Vaccines (1 - Tdap) 03/16 HPV test 2014 PAP Smear 2014 Covid-19 Vaccine (1 - season) 2023 Influenza (Flu) vaccine (1 o f 1 - Influenza standard series) 12/19/2023 Care Teams Investment Director Relationship Specialty Start Date End Date Harmony Cortez APRN [address] [place] [address] [address] [place], [place] [id number] PCP - General Family Medicine 06/29/22
--- OUTSIDE RECORDS SUMMARY | 2024-02-25 00:54 | XMS_ITS | Encounter Summary ---
Author Organization [facility] Address [address] [place] [address] Care Team Providers Care Freezer Worker Name Role Phone Unavailable Primary Care Provider Unavailabl e Encounter Details Date Type Department Care Team (Late st Contact Info) Description 09/18/2009 Results Only [facility] Laboratory Services - [facility] ([facility]) [address] [place], [place] [address] Sloan Houston MD [address] [place] [address] Social History Tobacco Use Types Packs/Day Years [...] ? TORI ESCOBAR ? Accession #: ? [id number] ? : ? 1985 (Age: 24) ??F [...] MD PATHOLOGY ORDERABLES [facility] [address] [place] [address] documented in this encounter Visit Diagnoses Not on filedocumented in this encounter
--- OUTSIDE RECORDS SUMMARY | 2024-02-25 00:54 | XMS_ITS | Encounter Summary ---
[place] [address] Care Team Providers Care Harness Maker Name Role Phone Kristine Daily APRN Primary Care Provider + Encounter Details Date Type Department Care Team (Late st Contact Info) Description 10/08/2010 Abstract [place] [id number] Veronika Thomas RN Social History Tobacco Use [...] on filedocumented in this encounter Care Teams Harness Maker Relationship Specialty Start Date End Date Kristine Daily APRN PCP - General 03/11/10 11/22/19 documented as of this encounter
--- OUTSIDE RECORDS SUMMARY | 2024-02-25 00:54 | XMS_ITS | Encounter Summary ---
[place] [address] Care Team Providers Care Ethnology Professor Name Role Phone Kristine Daily APRN Primary Care Provider + Encounter Details Date Type Department Care Team (Late st Contact Info) Description 10/09/2010 12:22 PM EDT - 10/09/2010 11:59 PM EDT Hospital [place] [address] Abdominal pain Social History Tobacco Use Types [...] mg documented in this encounter Care Teams Ethnology Professor Relationship Specialty Start Date End Date Kristine Daily APRN PCP - General 03/11/10 11/22/19 documented as of this encounter
--- OUTSIDE RECORDS SUMMARY | 2024-02-25 00:54 | XMS_ITS | Encounter Summary ---
Author Organization [facility] Address [address] [place] [address] Care Team Providers Care Jewelry Bench Worker Name Role Phone Unavailable Primary Care Provider Unavailabl e Encounter Details Date Type Department Care Team (Late st Contact Info) Description 09/07/2006 Results Only [facility] - [facility] [address] [place] [address] Bobby Daily, TINA [address] [place] [id number] Social History Tobacco Use Types Packs/Day Years [...] when reading/interpreti ng unformatted reports. Name: ? ULIS M TORI ? Accession #: ? [id number] : ? 1985 (Age: 21) ??F ?Collect Date: ? 09/07/2006 Location: ? [facility] ? Receive Date: ? 09/08/2006 Provider: ?BOBBY DAILY SENIOR SALES ASSOCIATE Copy to: ? Specimen/Source: ?ThinPrep Pap Test, Cervix/Endocervix, processed on [employer] MD ThinPrep Imaging System, with manual evaluation Last [...] Daily NP PATHOLOGY ORDERABLES Performing Organization Address City/State/[facility] Co de Phone Number [facility] [address] [place] [address] documented in this encounter Visit Diagnoses Not on filedocumented in this encounter
--- OUTSIDE RECORDS SUMMARY | 2024-02-25 00:54 | XMS_ITS | Encounter Summary ---
Author Organization [facility] Address [address] [place] [address] Care Team Providers Care Plaster Molder Name Role Phone None, Provider Primary Care Provider Unavailabl e Encounter Details Date Type Department Care Team (Late st Contact Info) Description 12/09/2023 Lab Requisition [facility] Pathology & Laboratory Medicine - [facility] [address] [place], [place] [address] Outr Resulting Lab, Provider Social History Tobacco [...] Procedure Name Priority Date/Time Associated Diagnosis Comments LYME AB Routine 12/09/2023 10:40 EDT documented in this encounter Results * LYME AB (12/09/2023 10:40 EDT) Lyme Ab Negative Negative 12/10/2023 9:29 EDT [facility] Blood VENOUS BLOOD / Unknown 12/09/2023 10:40 EDT 12/09/2023 19:39 EDT Provider Outr Resulting Lab IMMUNOLOGY A ND SEROLOGY ORDERABLES [facility] [address] [place] [address] documented in this encounter Visit Diagnoses Not on filedocumented in this encounter Care Teams Plaster Molder Relationship Specialty Start Date End Date None, Provider PCP - General 06/03/20 documented as of this encounter
--- OUTSIDE RECORDS SUMMARY | 2024-02-25 00:54 | XMS_ITS | Encounter Summary ---
Author Organization [facility] Address [address] [place] [address] Care Team Providers Care Industrial Organizational Psychologist Name Role Phone Unavailable Primary Care Provider Unavailabl e Encounter Details Date Type Department Care Team (Late st Contact Info) Description 09/19/2007 Results Only [facility] - Maple conversion [address] [place] [address] Sloan Houston MD [address] [place] [address] Social History Tobacco Use Types Packs/Day Years [...] ? TORI ESCOBAR ? Accession #: ? [id number] : ? 1985 (Age: 22) ??F ?Collect Date: ? 09/19/2007 Location: ? [facility] ? Receive Date: ? 09/21/2007 Provider: ?SLOAN HOUSTON MD Copy to: ? Specimen/Source: ?ThinPrep Pap Test, Cervix/Endocervix, processed on [employer] ThinPrep Imaging System, with manual evaluation Last [...] Houston MD PATHOLOGY ORDERABLES Performing Organization Address City/State/[place] Co de Phone Number [facility] [address] [place] [address] documented in this encounter Visit Diagnoses Not on filedocumented in this encounter
--- OUTSIDE RECORDS SUMMARY | 2024-02-25 00:54 | XMS_ITS | Encounter Summary ---
Author Organization [facility] Address [address] [place] [address] Care Team Providers Care Elementary Spanish Teacher Name Role Phone None, Provider Primary Care Provider Unavailabl e Encounter Details Date Type Department Care Team (Late st Contact Info) Description 07/17/2022 Lab Requisition [facility] Pathology & Laboratory Medicine - [facility] [address] [place] [address] Outr Resulting Lab, Provider Social History Tobacco [...] 7:08 EDT) Hold Hold 07/17/2022 20:31 EDT [facility] Blood VENOUS BLOOD / Unknown 07/17/2022 7:08 EDT 07/17/2022 19:28 EDT Provider Outr Resulting Lab LAB INFO SER VICE AND SUPPORT & PHONE RESULT Performing Organization Address [facility] Co de Phone Number [facility] [address] [place] [address] * THYROID ANTIBODIES (07/17/2022 7:08 EDT) Pathologist [facility] Anti-Thyroglobulin <15 <=60 U/mL 2022 20:52 EDT [facility] Thyroperoxidase Ab <28 <=60 U/mL 2022 20:52 EDT [facility] Blood VENOUS BLOOD / Unknown 07/17/2022 7:08 EDT 07/17/2022 19:27 EDT Provider Outr Resulting Lab CHEMISTRY & BLOOD GAS ORDERABLES Performing Organization Address [facility]/ZIP Co de Phone Number [facility] [address] [place] [address] * LYME AB (07/17/2022 7:08 EDT) Pathologist [facility] Lyme Ab Negative Negative 07/20/2022 11:26 EDT [facility] Blood VENOUS BLOOD / Unknown 07/17/2022 7:08 EDT 07/17/2022 19:27 EDT Provider Outr Resulting Lab IMMUNOLOGY A ND SEROLOGY ORDERABLES Performing Organization Address [facility]/ZIP Co de Phone Number [facility] [address] [place] [address] * ANTI NUCLEAR AB (LILLIAM), IFA (07/17/2022 7:08 EDT) Pathologist [facility] LILLIAM Interpretation Negative Negative 2022 13:56 EDT [facility] Comment:No titer performed, LILLIAM Screen is negative. Blood VENOUS BLOOD / Unknown 07/17/2022 7:08 EDT 07/17/2022 19:27 EDT Narrative [facility] - 07/20/2022 13:56 EDT Results were obtained with the [employer] NOVA Lite HEp-2 LILLIAM Kit by indirect immunofluorescence. Provider Outr Resulting Lab IMMUNOLOGY A ND SEROLOGY ORDERABLES Performing Organization Address [facility] Co de Phone Number [facility] [address] [place] [address] * HIGH SENSITIVITY C-REACTIVE PROTEIN (CARDIOVASCULAR DISEASE) (07/17/2022 7:08 EDT) High Sensitivity CRP 1.30 See Note mg/L 07/17/2022 19:51 EDT [facility] Comment: Reference Range: ??Low Risk: ? <1.0 mg/L ??Average Risk: ?? 1.0 - 3.0 mg/L ??High Risk: ?>3.0 mg/L ??Indeterminate*: >10.0 mg/L ??*May be an indication of another source of inflammation or infection Blood VENOUS BLOOD / Unknown 07/17/2022 7:08 EDT 07/17/2022 19:27 EDT Provider Outr Resulting Lab CHEMISTRY & BLOOD GAS ORDERABLES Performing Organization Address [facility] Co de Phone Number [facility] [address] [place] [address] documented in this encounter Visit Diagnoses Not on filedocumented in this encounter Care Teams Elementary Spanish Teacher Relationship Specialty Start Date End Date None, Provider PCP - General 06/03/20 documented as of this encounter
--- OUTSIDE RECORDS SUMMARY | 2024-02-25 00:54 | XMS_ITS | Encounter Summary ---
Author Organization [facility] Address [address] [place] [address] Care Team Providers Care Vice President Of Contracts Name Role Phone None, Provider Primary Care Provider Unavailabl e Encounter Details Date Type Department Care Team (Late st Contact Info) Description 06/03/[address] [facility] Pathology & Laboratory Medicine - [facility] [address] [place] [address] Nathan Wise MD [address] [place] [phone] Encounter for screening for malignant neoplasm of [...] no significant diagnostic abnormalities. 06/04/2020 15:16 EST [facility] Attestation By the signature below, the attending physician certifies that they have 1) personally conducted a gross and/or microscopic examination of the described specimen(s), and/or personally interpreted the results of laboratory testing of the described specimen(s), and 2) personally rendered or confirmed the above diagnosis. 06/04/2020 15:16 [facility] at 1516 Clinical History Normal colon; clinical diagnosis code: Z12.11, K58.1, R10.13, Z80.0 06/04/2020 15:16 [facility] Gross Description A. Received in formalin labelled with proper patient identification (initials G, D) and random colon Bx are 4 whitaker-brown tissues (0.1 x 0.1 x 0.1 cm to 0.5 x 0.2 x 0.1 cm). Entirely submitted in A1. Please note the smallest tissue may not survive processing. ALFRED GOMEZ(ASCP) 06/04/2020 8:09 06/04/2020 15:16 [facility] Performing Lab [facility] 06/04/2020 15:16 [facility] Scanned Images 06/04/2020 15:16 [facility] Tissue ENTIRE COLON / Unknown 06/03/2020 11:53 EST 06/03/2020 22:19 EST Nathan Wise MD PATHOLOGY ORD ERABLES [facility] [address] [place] [address] documented in this encounter Visit Diagnoses Diagnosis Encounter for screening for malignant neoplasm of colon Special screening for malignant neoplasms, colon Epigastric pain Abdominal pain, epigastric Family history of malignant neoplasm of digestive organs Irritable bowel syndrome with constipation Irritable bowel syndrome documented in this encounter Care Teams Vice President Of Contracts Relationship Specialty Start Date End Date None, Provider PCP - General 06/03/20 documented as of this encounter
--- OUTSIDE RECORDS SUMMARY | 2024-02-25 00:54 | XMS_ITS | Encounter Summary ---
Author Organization [facility] Address [address] [place] [address] Care Team Providers Care Wheel Cleaner Name Role Phone Unavailable Primary Care Provider Unavailabl e Encounter Details Date Type Department Care Team (Late st Contact Info) Description 07/24/2002 13:19 EDT Hospital Encounter [facility] - Other [address] [place] [address] Blu Camargo MD Unknown, Provider, Social History [...]
--- OUTSIDE RECORDS SUMMARY | 2024-02-25 00:54 | XMS_ITS | Encounter Summary ---
Author Organization [facility] Address [address] [place] [address] Care Team Providers Care Business Mail Entry Clerk Name Role Phone Unavailable Primary Care Provider Unavailabl e Encounter Details Date Type Department Care Team (Late st Contact Info) Description 07/21/2011 Results Only [facility] Laboratory Services - [facility] ([facility]) [address] [place], [place] [phone] Fawad Siddiqui MD [address] [place], [place] [phone] Social History Tobacco Use Types Packs/Day Years [...] ? TORI ESCOBAR ? Accession #: ? [id number] ? : ? 1985 (Age: 26) ??F [...] MD PATHOLOGY ORDERABLE S Performing Organization Address City/State/[facility] Co de Phone Number [facility] [address] [place] [address] documented in this encounter Visit Diagnoses Not on filedocumented in this encounter
--- OUTSIDE RECORDS SUMMARY | 2024-02-25 00:54 | XMS_ITS | Encounter Summary ---
Author Organization [facility] Address [address] [place] [address] Care Team Providers Care Entry Level Machine Operator Name Role Phone Unavailable Primary Care Provider Unavailabl e Encounter Details Date Type Department Care Team (Late st Contact Info) Description 09/13/2007 Results Only [facility] [address] [place] [address] Bobby Daily, TINA [address] [place] [address] Social History Tobacco Use Types [...] LUIS M TORI ? Accession #: ? [id number] : ? 1985 (Age: 22) ??F ?Collect Date: ? 09/13/2007 Location: ? [facility] ? Receive Date: ? 09/15/2007 Provider: ?BOBBY DAILY DRYWALL CONTRACTOR Copy to: ? Specimen/Source: ?ThinPrep Pap Test, Cervix/Endocervix, processed on [employer] ThinPrep Imaging System, with manual evaluation Last [...] NP PATHOLOGY ORDERABLES [facility] [address] [place] [address] documented in this encounter Visit Diagnoses Not on filedocumented in this encounter
--- OUTSIDE RECORDS SUMMARY | 2024-02-25 00:54 | XMS_ITS | Referral Summary ---
Author Organization [facility] Address [address] [place] [address] Care Team Providers Care Associate Professor Of History Name Role Phone None, Provider Primary Care Provider Unavailabl e Encounters Date Type Department Care Team Description 12/09/2023 Lab Requisition [facility] Pathology & Laboratory Medicine - [facility] [address] [place] [address] Outr Resulting Lab, Provider from Last 3 Months Social History Tobacco Use Types Packs/Day Years Used Date Smoking Tobacco: Never Assessed Sex and Gender Information Value Date Recorded Sex Assigned at Not on file Gender Identity Not on file Sexual Orientation Not on file Plan of Treatment Not on file Procedures Procedure Name Priority Date/Time Associated Diagnosis Comments LYME AB Routine 12/09/2023 10:40 EDT from Last 3 Months Results * LYME AB (12/09/2023 10:40 EDT) Lyme Ab Negative Negative 12/10/2023 9:29 EDT [facility] Blood VENOUS BLOOD / Unknown 12/09/2023 10:40 EDT 12/09/2023 19:39 EDT Provider Outr Resulting Lab IMMUNOLOGY A ND SEROLOGY ORDERABLES [facility] [address] [place] [address] from Last 3 Months Care Teams Associate Professor Of History Relationship Specialty Start Date End Date None, Provider PCP - General 06/03/20
--- OUTSIDE RECORDS SUMMARY | 2024-02-25 00:54 | XMS_ITS | Encounter Summary ---
Author Organization [facility] Address [address] [place] [address] Care Team Providers Care Building Materials Sales Attendant Name Role Phone Unavailable Primary Care Provider Unavailabl e Encounter Details Date Type Department Care Team (Late st Contact Info) Description 10/31/2004 Results Only [facility] - Maple conversion [address] [place] [address] Adrienne Giles MD [address] [place] [address] [place] [address] Social History Tobacco Use Types Packs/Day Years [...] ? TORI ESCOBAR ? Accession #: ? [id number] : ? 1985 (Age: 19) ??F ?Collect Date: ? 10/31/2004 Location: ? [facility] ? Receive Date: ? 11/04/2004 Provider: ?ADRIENNE GILES MD Copy to: ? Specimen/Source: ?ThinPrep Pap Test, Cervix/Endocervix, processed on [employer] ThinPrep Imaging System, with manual evaluation Last [...] MD PATHOLOGY ORDERABLES [facility] [address] [place] [address] documented in this encounter Visit Diagnoses Not on filedocumented in this encounter
--- OUTSIDE RECORDS SUMMARY | 2024-02-25 00:54 | XMS_ITS | Encounter Summary ---
Author Organization [facility] Address [address] [place] [address] Care Team Providers Care Rounding Machine Operator Name Role Phone Denzel Mandel MD Primary Care Provider Unavailabl e Encounter Details Date Type Department Care Team (Late st Contact Info) Description 08/17/2012 Results Only [facility] Laboratory Services - [facility] ([facility]) [address] [place], [place] [address] Sloan Houston MD [address] [place] [address] Social History Tobacco Use Types Packs/Day Years [...] ? TORI ESCOBAR ? Accession #: ? [id number] : ? 1985 (Age: 27) ??F ?Collect [...] Houston MD PATHOLOGY ORDERABLES Performing Organization Address City/State/[facility] Co de Phone Number [facility] [address] [place] [address] documented in this encounter Visit Diagnoses Not on filedocumented in this encounter Care Teams Rounding Machine Operator Relationship Specialty Start Date End Date Denzel Mandel MD PCP - General 07/23/11 06/12/14 documented as of this encounter
--- OUTSIDE RECORDS SUMMARY | 2024-02-25 00:54 | XMS_ITS | Clinical Summary ---
Author Organization [facility] Address [address] [place] [address] Care Team Providers Care Business Center Representative Name Role Phone None, Provider Primary Care Provider Unavailabl e Encounters Date Type Department Care Team Description 12/09/2023 Lab Requisition [facility] Pathology & Laboratory Medicine - [facility] [address] [place] [address] Outr Resulting Lab, Provider from Last 3 [...] - 19+ 3-dose series) 03/16 COVID-19 Vaccine (2022- season) 2022 Procedures Procedure Name Priority Date/Time Associated Diagnosis Comments LYME AB Routine 12/09/2023 10:40 EDT from Last 3 Months Results * LYME AB (12/09/2023 10:40 EDT) Lyme Ab Negative Negative 12/10/2023 9:29 EDT [facility] Blood VENOUS BLOOD / Unknown 12/09/2023 10:40 EDT 12/09/2023 19:39 EDT Provider Outr Resulting Lab IMMUNOLOGY A ND SEROLOGY ORDERABLES [facility] [address] [place] [address] from Last 3 Months Care Teams Business Center Representative Relationship Specialty Start Date End Date None, Provider PCP - General 06/03/20
--- OUTSIDE RECORDS SUMMARY | 2024-02-25 00:54 | XMS_ITS | Encounter Summary ---
Author Organization [facility] Address [address] [place] [address] Care Team Providers Care Dairy Feed Mixing Operator Name Role Phone Denzel Mandel MD Primary Care Provider Unavailabl e Encounter Details Date Type Department Care Team (Late st Contact Info) Description 11/17/2011 Results Only [facility] Laboratory Services - [facility] ([facility]) [address] [place], [place] [phone] Fawad Siddiqui MD [address] [place] [phone] Social History Tobacco Use Types Packs/Day [...] ? TORI ESCOBAR ? Accession #: ? [id number] ? : ? 1985 (Age: 26) ??F ? Collect Date: ? 11/17/2011 ? Location: ? [facility] ? Receive Date: ? 11/18/2011 ? Provider: FAWAD SIDDIQUI MD Copy to: BOBBY BEAVER DRY DRUG WORKER ? Final Pathologic Diagnosis: A. ?Terminal ileum, [...] MD PATHOLOGY ORDERABLE S [facility] [address] [place] [address] documented in this encounter Visit Diagnoses Not on filedocumented in this encounter Care Teams Dairy Feed Mixing Operator Relationship Specialty Start Date End Date Denzel Mandel MD PCP - General 07/23/11 06/12/14 documented as of this encounter
--- OUTSIDE RECORDS SUMMARY | 2024-02-25 00:54 | XMS_ITS | Encounter Summary ---
Author Organization [facility] Address [address] [place] [address] Care Team Providers Care Heating Unit Installer Name Role Phone Denzel Mandel MD Primary Care Provider Unavailabl e Encounter Details Date Type Department Care Team (Latest Contact Info) Description 06/12/2014 10:26 EST - 06/12/2014 23:59 EST Hospital Encounter [address] [address] Unknown, Provider, Discharge Disposition: Home or Self [...] on filedocumented in this encounter Care Teams Heating Unit Installer Relationship Specialty Start Date End Date Denzel Mandel MD PCP - General 07/23/11 06/12/14 documented as of this encounter
--- OUTSIDE RECORDS SUMMARY | 2024-02-25 00:54 | XMS_ITS | Encounter Summary ---
Author Organization [facility] [place] [address] Care Team Providers Care Nurse Aide Name Role Phone Kristine Daily APRN Primary Care Provider + Reason for Visit * Reason Comments Hernia Encounter Details Date Type Department Care Team ([facility] st Contact Info) Description 10/09/2010 10:00 AM EDT Office [place] [address] Arnold Sofia MD [address] [facility] [place] [address] Abdominal pain (Primary Dx) Discharge Disposition: Home [...] site documented in this encounter Care Teams Nurse Aide Relationship Specialty Start Date End Date Brodzinski, Carmona J, HIGH DENSITY PRESS OPERATOR PCP - General 03/11/10 11/22/19 documented as of this encounter
--- OUTSIDE RECORDS SUMMARY | 2024-02-25 00:54 | XMS_ITS | Encounter Summary ---
Author Organization [facility] Address [address] [place] [address] Care Team Providers Care Sexer Name Role Phone Denzel Mandel MD Primary Care Provider Unavailabl e Encounter Details Date Type Department Care Team (Late st Contact Info) Description 09/18/2011 Results Only [facility] Laboratory Services - [facility] ([facility]) [address] [place], [place] [phone] Fawad Siddiqui MD [address] [place] [phone] Social History Tobacco Use Types Packs/Day [...] ? TORI ESCOBAR ? Accession #: ? [id number] ? : ? 1985 (Age: 26) ??F ? Collect Date: ? 09/18/2011 ? Location: ? [facility] ? Receive Date: ? 09/18/2011 ? Provider: FAWAD SIDDIQUI MD Copy to: BOBBY BEAVER WASHING MACHINE LOADER ? Final Pathologic Diagnosis: ? Gallbladder, cholecystectomy: [...] the lumen or in the plastic sleeve. ??Artist Relationship Manager sections are submitted in one cassette, including the cystic duct margin, inked black and en face, and two sections of gallbladder wall. ??(Dr. Shepherd)/dione End of Report [facility] 09/18/2011 09/18/2011 15: 20 EDT Fawad Siddiqui MD PATHOLOGY ORDERABLE S Performing Organization Address City/State/[facility] Co de Phone Number [facility] [address] [place] [address] documented in this encounter Visit Diagnoses Not on filedocumented in this encounter Care Teams Sexer Relationship Specialty Start Date End Date Denzel Mandel MD PCP - General 07/23/11 06/12/14 documented as of this encounter
--- OUTSIDE RECORDS SUMMARY | 2024-02-25 00:54 | XMS_ITS | Encounter Summary ---
Author Organization [facility] Address [address] [place] [address] Care Team Providers Care Water Truck Driver Name Role Phone Unavailable Primary Care Provider Unavailabl e Encounter Details Date Type Department Care Team (Late st Contact Info) Description 07/24/2002 Results Only *[facility] Gastroenterology - [place] [address] [place] [address] Blu Camargo MD Social History Tobacco Use [...] (Positive) ? TEST PERFORMED OR REFERRED BY [email or web address] ? [address] ? [place] [address] ? Vendor Management Associate: ? Delroy Benton M.D. ? [facility] 07/24/2002 9:33 EDT 07/24/2002 9:34 EDT Blu Camargo MD IMMUNOLOGY AND SEROL OGY ORDERABLES [facility] [address] [place] [address] * TSH (07/24/2002 9:33 EDT) TSH 0.97 0.35 - 5.50 uIU/ml [facility] 07/24/2002 9:33 EDT 07/24/2002 9:34 EDT Blu Camargo MD CHEMISTRY & BLOOD GA S ORDERABLES Performing Organization Address [facility] de Phone Number [facility] [address] [place] [address] * IRON (07/24/2002 9:33 EDT) Pathologist [facility] Iron 86 60 - 180 ug/dl [facility] 07/24/2002 9:33 EDT 07/24/2002 9:34 EDT Blu Camargo MD CHEMISTRY & BLOOD GA S ORDERABLES Performing Organization Address [facility] de Phone Number [facility] [address] [place] [address] * IBC (07/24/2002 9:33 EDT) [facility] TIBC 380 225 - 425 ug/dl [facility] 07/24/2002 9:33 EDT 07/24/2002 9:34 EDT Blu Camargo MD CHEMISTRY & BLOOD GA S ORDERABLES Performing Organization Address [facility] de Phone Number [facility] [address] [place] [address] * ANTI GLIADIN AB (07/24/2002 9:33 EDT) [facility] Gliadin IgG Ab 13Unit: EU(Note) -- EXPECTED VALUES -- ? (Ref Range) <25 (Negative) ? 25-50 (Weak Positive) ? >50 (Positive) ? TEST PERFORMED OR REFERRED BY [facility] ? [address] ? [place] [address] ? Vendor Management Associate: ? Delroy A. Chetan, M.D. ? [facility] Gliadin IgA Ab 20Unit: EU(Note) -- EXPECTED VALUES -- ? (Ref Range) <25 (Negative) ? 25-50 (Weak Positive) ? >50 (Positive) ? TEST PERFORMED OR REFERRED BY [facility] ? [address] ? [place] [address] ? Vendor Management Associate: ? Delroy Benton M.D. ? [facility] 07/24/2002 9:33 EDT 07/24/2002 9:34 EDT Blu Camargo MD HISTORICAL LAB FOR S Q LOAD Performing Organization Address [facility] de Phone Number [facility] [address] [place] [address] * FERRITIN (07/24/2002 9:33 EDT) Ferritin 37 8 - 151 ng/ml [facility] 07/24/2002 9:33 EDT 07/24/2002 9:34 EDT Blu Camargo MD CHEMISTRY & BLOOD GA S ORDERABLES Performing Organization Address [facility] de Phone Number [facility] [address] [place] [phone] * ENDOMYSIAL ANTIBODY, SERUM (07/24/2002 9:33 EDT) Endomysial Antibodies Negative(Note) -- EXPECTED VALUES -- ? Negative ? TEST PERFORMED OR REFERRED BY [facility] ? [address] ? [place] [address] ? Vendor Management Associate: ? Delroy Benton M.D. ? [facility] 07/24/2002 9:33 EDT 07/24/2002 9:34 EDT Blu Camargo MD IMMUNOLOGY AND EDNA ORTA ORDERABLES [facility] [address] [place] [address] * COMPREHENSIVE METABOLIC PANEL (CMP) (07/24/2002 9:33 [...] GA S ORDERABLES [facility] [address] [place] [address] * HEMAGRAM AND DIFFERENTIAL (07/24/2002 9:33 EDT) [...] & DNA PROBE ORDERABLES Performing Organization Address City/State/[facility] Co de Phone Number [facility] [address] [address] documented in this encounter Visit Diagnoses Not on filedocumented in this encounter
--- OUTSIDE RECORDS SUMMARY | 2024-02-25 00:54 | XMS_ITS | Encounter Summary ---
Author Organization [facility] Address [facility] [place] [address] Care Team Providers Care Beaver Trapper Name Role Phone LizbethHarmony ibarra WILD OYSTER HARVESTER Primary Care Provider [phone] Encounter Details Date Type Department Care Team (Late st Contact Info) Description 06/11/2009 Orders Only [place] [address] Homero Correa MD [facility] [place] [address] Social History Tobacco Use Types Packs/Day Years [...] 2:58 PM EST) Surgical Pathology Report [id number] ? Location: 4T The signing pathologist has [...] on filedocumented in this encounter Care Teams Beaver Trapper Relationship Specialty Start Date End Date Harmony Cortez APRN [address] [place] [address] [address] [facility] [address] [place] [address] PCP - General Family Medicine 06/29/22 documented as of this encounter
--- OUTSIDE RECORDS SUMMARY | 2024-02-25 00:54 | XMS_ITS | Encounter Summary ---
Author Organization [facility] Address [address] [place] [address] Care Team Providers Care Epic Beacon Specialists Name Role Phone Denzel Mandel MD Primary Care Provider Unavailabl e Encounter Details Date Type Department Care Team (Late st Contact Info) Description 06/12/2014 Results Only [facility] Laboratory Services - [facility] ([facility] [address] [place], [place] [address] Sloan Houston MD [address] [place] [address] Social History Tobacco Use Types Packs/Day Years [...] ? TORI ESCOBAR ? Accession #: ? [id number] ? : ? 1985 (Age: 29) ??F [...] ??Sectioning reveals a central pinpoint lumen. ??Two software support representative cross sections are submitted as A1. B. ?Received in formalin labelled with proper patient identification (initials G, D) and portion of left fallopian tube is a tubular structure (1.4 cm in length and 0.5 cm in diameter). ??The serosal surface is pink-whitaker and glistening. ??Sectioning reveals a central pinpoint lumen. ??Two software support representative cross sections are submitted as B1. Magaly Hsieh 06/13/2014 08:38 AM End of Report [facility] 06/12/2014 20:1 7 EST 06/12/2014 20:17 EST Sloan Houston MD PATHOLOGY ORDERABLES [facility] [address] [place] [address] documented in this encounter Visit Diagnoses Not on filedocumented in this encounter Care Teams Epic Beacon Specialists Relationship Specialty Start Date End Date Denzel Mandel MD PCP - General 07/23/11 06/12/14 documented as of this encounter
--- OUTSIDE RECORDS SUMMARY | 2024-02-25 00:54 | XMS_ITS | Encounter Summary ---
Author Organization [facility] Address [address] [place] [address] Care Team Providers Care Combat Rifle Crewmember Name Role Phone Unavailable Primary Care Provider Unavailabl e Encounter Details Date Type Department Care Team (Late st Contact Info) Description 08/14/2005 Results Only [facility] - Maple conversion [address] [place] [address] Bobby Daily, TINA [address] [place] [phone] Social History Tobacco Use Types Packs/Day Years [...] LUIS M TORI ? Accession #: ? [id number] : ? 1985 (Age: 20) ??F ?Collect Date: ? 08/14/2005 Location: ? [facility] ? Receive Date: ? 08/18/2005 Provider: ?BOBBY DAILY ASSISTANT PURCHASING MANAGER Copy to: ? Specimen/Source: ?ThinPrep Pap Test, Cervix/Endocervix, processed on [employer] ThinPrep Imaging System, with manual evaluation Last [...] NP PATHOLOGY ORDERABLES [facility] [address] [place] [address] documented in this encounter Visit Diagnoses Not on filedocumented in this encounter
--- OUTSIDE RECORDS SUMMARY | 2024-02-25 00:54 | XMS_ITS | Encounter Summary ---
Author Organization [facility] Address [address] [place] [address] Care Team Providers Care Teller Vault Name Role Phone None, Provider Primary Care Provider Unavailabl e Encounter Details Date Type Department Care Team (Late st Contact Info) Description 03/01/2022 Lab Requisition [facility] Pathology & Laboratory Medicine - [facility] [address] [place] [address] Outr Resulting Lab, Provider Social History Tobacco [...] Outr Resulting Lab MICROBIOLOGY - GENERAL ORDERABLES [facility] [address] [place] [address] * COVID-19 TESTING (02/28/2022 11:30 EST) COVID-19 rt-PCR Result Negative Negative 03/02/2022 15:[address] [facility] Comment: This test has [...] performed using the flaca SARS-CoV-2 assay ([employer] on the Flaca 6800 System Performing Lab Flaca [address] [facility] 03/02/2022 15:[address] [facility] Swab 02/28/2022 11:3 0 EST 03/01/2022 17:29 EST Provider Outr Resulting Lab MICROBIOLOGY - GENERAL ORDERABLES Performing Organization Address City/State/[facility] Co de Phone Number [facility] [address] [place] [address] documented in this encounter Visit Diagnoses Not on filedocumented in this encounter Care Teams Teller Vault Relationship Specialty Start Date End Date None, Provider PCP - General 06/03/20 documented as of this encounter
--- NOTE | 2024-02-25 11:15 | DI.RAD_ITS ---
Exam(s) RF BARIUM SWALLOW EXAM: RF BARIUM SWALLOW CLINICAL HISTORY: food stuck upper chest,FOREIGN BODY SENSATION,R09.A2 TECHNIQUE: 2D and realtime digital imaging was performed. CONTRAST MATERIAL: Oral barium contrast was administered. COMPARISON: CT CT BRAIN NECK CTA from 12/09/2023 FINDINGS: CHEST X-RAY: The heart and pulmonary vasculature are within normal limits. The lungs are clear. No pl eural effusion or pneumothorax is present. The bones are within normal limits for the patient's age. Mild degenerative changes are seen at C5-C6. Small anterior osteophytes are present. ESOPHAGRAM: The esophagus is patent with no evidence for erosions, fold thickening, strictures, or ma sses. With regards to the motility, there is a normal primary stripping wave. No tertiary contraction s were noted. There is no hiatal hernia or gastroesophageal reflux. The patient swallowed a barium ta blet which passed into the stomach without difficulty. IMPRESSION: Normal esophagram RADIATION DOSE DELIVERED: charly Galeas=11.1 mGy
[2024-02-25] MEDS: Barium Sulfate 60% W/V 355 ML BTL PO (11:18)
[2024-02-25] MEDS: Barium Sulfate 98% W/W 140 ML BTL PO (11:18)
[2024-02-25] MEDS: Barium Sulfate 700 MG TAB PO (11:18)
== END 2024-02-25 01:08 ==
LOC: DI 00:49
PROVIDERS: PCP Nurse Practitioner Family; Visit Provider Physician Assistant
DX: R09.A2 Foreign body sensation, throat (principal)
CPT/HCPCS: 74221; J3490

== ENCOUNTER 2024-05-17 09:47 | Emergency (ER) | payer OTHER, SELFPAY ==
--- NOTE | 2024-05-17 09:51 | ED.GENADUL_ITS ---
Discharge Plan Disposition Patient Disposition: Home Condition: Good Discharge Details Clinical Impression: Injury of left elbow Primary Care Provider: Harmony Cortez ED Provider: Rula Kent Home Meds and New Rx's Prescriptions: Continued Mirena 21 mcg/24 hours (8 yrs) 52 mg intrauterine device 1 device intrauterine ONCE Rx Instructions: as a single dose paroxetine HCl 10 mg tablet 10 mg PO DAILY Qty: 90 0RF sumatriptan succinate [Imitrex] 50 mg tablet 50 mg PO ONCE PRN (Reason: migraine headache) Qty: 60 0RF Rx Instructions: take 1 tab at onset of headache; if no relief may repeat 1 tab after at least 2 hrs; max = 4 tabs/24 hr PO Discharge Instructions Additional Instructions: There is no sign of fracture on x-ray. I recommend he follow-up with your primary care provider if your elbow is not feeling better by Wednesday. Rest, ice, Tylenol and ibuprofen as needed. Return to emergency care if you develop new color change, severe pain, numbness in your arm, or if you are very worried and need to be rechecked again immediately Referrals: Harmony Cortez, TINA [Primary Care Provider] - [facility] General Date/Time Provider Initiated Documentation: 05/17/24 09:49 . HPI Narrative: Tori is a 39-year-old female who presents to the emergency department today for evaluation of left elbow pain after injury. She reports that she slipped on ice at work, causing her to land directly on her left elbow. She has had tingling down the arm and pain in the elbow since; discomfort radiates up to her shoulder. She denies head injury, neck pain, back pain, shortness of breath, chest injury. She is right-handed. No previous injury to this elbow. Physical exam reassuring. No obvious deformity or point tenderness, patient has diffuse tenderness all over her elbow. No overlying skin tears/abrasions or obvious ecchymosis. Radial and ulnar pulses intact. 5 out of 5 muscle strength to hand. No shoulder pain with palpation or proximal humerus/distal forearm discomfort. DDx includes but is not limited to: Fracture, dislocation, sprain, contusion, other soft tissue injury I independently interpreted the following tests: Left elbow x-ray, no obvious abnormalities noted. This was confirmed by radiologist. Overall workup today reassuring, likely contusion/soft tissue injury. Reviewed discharge instructions with patient, Including symptomatic management. She is agreeable with plan of care. Related Data Home Medications ?Medication ?Instructions ?Recorded ?Confirmed levonorgestrel 21 mcg/24 hr (up to 1 device intrauterine ONCE 06/26/22 03/08/24 8 years) 52 mg intrauterine device (Mirena) sumatriptan succinate 50 mg tablet 50 mg PO ONCE PRN migraine 12/29/23 03/08/24 (Imitrex) headache #60 tabs paroxetine HCl 10 mg tablet 10 mg PO DAILY #90 tabs 03/08/24 03/08/24 Previous Rx's ?Medication ?Instructions ?Recorded sumatriptan succinate 50 mg tablet 50 mg PO ONCE PRN migraine 12/29/23 (Imitrex) headache #60 tabs paroxetine HCl 10 mg tablet 10 mg PO DAILY #90 tabs 03/08/24 Allergies Allergy/AdvReac Type Severity Reaction Status Date / Time Penicillins Allergy Hives Verified 03/08/24 08:00 Sulfa (Sulfonamide AdvReac Severe Diarrhea Verified 03/08/24 08:00 Antibiotics) Cephalosporins AdvReac Unknown GI Verified 03/08/24 08:00 ciprofloxacin (From Cipro) AdvReac Unknown GI Verified 03/08/24 08:00 General NEENA: 3 Review of Systems Narrative: See HPI Exam Const General: cooperative, healthy appearing, no acute distress, well developed and well groomed Nutritional Appearance: average body habitus Orientation: alert and oriented x3 Resp Effort & Inspection: normal respiratory effort and able to speak in complete sentences Skin General skin exam: no rashes or lesions noted Neuro General: patient alert, patient oriented x3 and tone normal Cognition: normal cognition Speech: speech normal Gait: normal gait Motor: muscle tone normal throughout and strength 5/5 throughout Sensory Exam: no sensory deficits noted Extrem Left upper extremity: normal to inspection, no joint enlargement and elbow/forearm Details: tenderness, abnormal ROM Details: held in an abnormal fashion Details: in flexion and distal pulses intact; no swelling, no unusual warmth, no abrasions, no lacerations, no ecchymosis, no crepitus, no foreign bodies and no deformity; no edema Medical Decision Making Imaging Data Radiologic Study: Radiologist's impression: Exam(s) XR ELBOW LT COMPLETE EXAM: XR ELBOW LT COMPLETE CLINICAL HISTORY: fall, elbow injury. TECHNIQUE: 2D digital imaging was performed of the left elbow. Three images were obtained. AP, lateral and oblique views were obtained. COMPARISON: No exams were available for comparison FINDINGS: BONES: No acute fracture is present. No bony destructive lesion is seen. JOINTS: The elbow is normally aligned. No joint effusion is seen. SOFT TISSUE: Normal. IMPRESSION: Unremarkable radiographs of the left elbow. Quality:SDOH Health Related Social Needs: No Data to Display PFSH All Active Problems (Updated 05/17/24 @ 11:10 by Rula Doyle) Injury of left elbow (Acute) Primary stabbing headache (Acute) Migraine headache without aura (Acute) BRCA2 positive (Chronic) Followed by [facility] Generalized anxiety disorder with panic attacks (Chronic) PTSD (post-traumatic stress disorder) (Chronic) Insomnia (Chronic) Hyperlipidemia (Chronic) IBS (irritable bowel syndrome) (Chronic) GERD (gastroesophageal reflux disease) (Chronic) Hiatal hernia (Chronic) IUD surveillance (Chronic) Mirena IUD 03/15/23 Polyarthralgia (Chronic) Obesity (BMI 30-39.9) (Chronic) Medical History (Updated 05/17/24 @ 11:10 by Rula Doyle) Bochdalek hernia Herpes Abnormal uterine bleeding Surgical History (Updated 04/25/24 @ 21:08 by Harmony Cortez NP) Status post bilateral breast reconstruction History of bilateral tubal ligation Hx laparoscopic cholecystectomy Hx of esophagogastroduodenoscopy Hx of section Hx of colonoscopy (~06/03/20) H/O bilateral mastectomy (06/23/21) Family History Mother Depression Father , 58 Diabetes Pancreatic cancer Maternal Grandfather , 72 Diabetes Paternal Grandfather Prostate cancer Atrial fibrillation Maternal Grandmother , 84 No problems noted. Paternal Grandmother , 54 Heart disease Myocardial infarction Lupus (systemic lupus erythematosus) Sister BRCA2 positive Daughter No problems noted. Daughter No problems noted. Daughter No problems noted. Son No problems noted. Social History Smoking/Tobacco Use Status: Never Second Hand Exposure: Yes Smoking risk assessment performed?: Yes Alcohol Intake: current Alcohol Intake frequency: a few times a month Alcohol type: beer Drug use: Never Substance use type: does not use Caregiver/Support person: No Household members: spouse and children Housing: house Communication Needs: None Do you need help understanding health information?: Rarely Pets and animals: Yes Pets and animals: dog(s) Sexually active: Yes Do you think of yourself as: straight/heterosexual Current gender identity: female What is your relationship status?: How often do you talk on the phone with friends or family?: three or more times per week How often do you get together with friends or relatives?: once per week How often do you attend congregational or yazdanism services?: decline to answer Do you belong to any clubs or organized social groups?: no Panel score (0-1 are the most socially isolated patients): 2 What type of physical activity do you participate in: none Frequency: does not exercise Ericka/Scientologist: None Special ericka needs: No Seatbelt use: sometimes Helmet use: Yes Helmet use: sometimes Do you feel safe at home: Yes Do you feel safe in your relationship?: Yes Female Reproductive History Menstrual control method: progestin IUCD
[2024-05-17 09:58] VITALS: BP 132/91; PULSE 94; RESP 18; TEMP 36.8; O2SAT 99
--- OUTSIDE RECORDS SUMMARY | 2024-05-17 09:58 | XMS_ITS | Encounter Summary ---
Author Organization [facility] Address [facility] [place] [address] Care Team Providers Care Mophead Sewer Name Role Phone Harriett Goldsmith APRN Primary Care Provid er Encounter Details Date Type Department Care Team (Late st Contact Info) Description 05/22/2020 Telephone [place] [phone] Val Duran Social History Tobacco Use Types [...] on filedocumented in this encounter Care Teams Mophead Sewer Relationship Specialty Start Date End Date Harriett Goldsmith APRN [address] [place] [address] PCP - General Family Medicine 11/23/19 07/09/20 documented as of this encounter
--- OUTSIDE RECORDS SUMMARY | 2024-05-17 09:58 | XMS_ITS | Encounter Summary ---
Author Organization [facility] [place] [address] Care Team Providers Care Food Truck Caterer Name Role Phone Harriett Goldsmith APRN Primary Care Provid er Encounter Details Date Type Department Care Team (Late st Contact Info) Description 05/22/2020 Orders [place] [address] Alma Delia Olvera Social History Tobacco Use [...] on filedocumented in this encounter Care Teams Food Truck Caterer Relationship Specialty Start Date End Date Harriett Goldsmith APRN [address] [place] [address] [address] [place] [address] PCP - General Family Medicine 11/23/19 07/09/20 documented as of this encounter
--- OUTSIDE RECORDS SUMMARY | 2024-05-17 09:58 | XMS_ITS | Encounter Summary ---
Author Organization [facility] Address [facility] [place] [id number] Care Team Providers Care Director Of Rehabilitation Name Role Phone Harriett Goldsmith APRN Primary Care Provid er Reason for Referral * Consultation (Routine) - Closed Specialty Diagnoses / Procedures Referred By Jonny perez Referred To Contact Plastic Surgery Diagnoses BRCA2 gene mutation positive Family history of BRCA2 gene positive Bhavna Mckeon APRN [facility] [place] [address] [facility] Plastic Surg [address] [place] [phone] Referral ID Status Reason Start Date Expiration Date V isits Requested Visits Authorized [id number] Closed Specialty Service Requested 05/21/2020 05/21/2021 1 1 * Consultation (Routine) - Closed Specialty Diagnoses / Procedures Referred By Contcaleb t Referred To Contact Hematology and Oncology Diagnoses BRCA2 gene mutation positive Family history of BRCA2 gene positive Bhavna Mckeon APRN [facility] [place] [address] Aminta Miguel MD [facility] [place] [address] Referral ID Status Reason Start Date Expiration Date V isits Requested Visits Authorized [id number] Closed Consult, Test & Treat 05/21/2020 05/21/2021 1 1 Reason for Visit * Reason Comments Establish Care * Consultation (Routine) - Closed Specialty Diagnoses / Procedures Referred By Contcaleb t Referred To Contact Hematology and Oncology Diagnoses BRCA2 gene mutation positive in female Justin Vela MD [facility] DR HEMATOLOGY/ONCOLOGY [address] [place] [address] Referral ID Status Reason Start Date Expiration Date V isits Requested Visits Authorized [id number] Closed Consult, Test & Treat 04/17/2020 04/17/2021 1 1 Encounter Details Date Type Department Care Team (Late st Contact Info) Description 05/20/2020 2:00 PM EST Office Visit [place] [address] Bhavna Mckeon APRN [facility] [place] [address] Encounter for screening breast examination and discussion [...] 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 She and her are stillundecided if they [...] situation. Results: Imaging performed (bilateral mammogram) at [facility] today shows no evidence of malignancy, BIRADS [...] MRI directed biopsy capability such as the [facility] Radiology Department. ?? Annual mammograms, with consideration [...] onset disease. She has already met with [facility] and has had a TVUS. Those [...] for personal care products are available at [employer] ([employer]) and [employer]. All questions were answered to the patient's satisfaction and they state understanding and agreement with today's treatment plan. They are encouraged to follow up sooner if they develop any new or concerning symptoms. Total time spent [id number] with this patient was 50 minutes with greater than 75% of the time spent in counseling, coordination of care, and discussion of treatment plan. Bhavna Mckeon APRN Surgical Oncology P [phone] F [phone] [facility] documented in this encounter Plan of [...] tract documented in this encounter Care Teams Director Of Rehabilitation Relationship Specialty Start Date End Date Harriett Goldsmith APRN [address] [facility] [address] [place] [address] PCP - General Family Medicine 11/23/19 07/09/20 documented as of this encounter
--- OUTSIDE RECORDS SUMMARY | 2024-05-17 09:58 | XMS_ITS | Encounter Summary ---
Author Organization [facility] Address [facility] [place] [address] Care Team Providers Care Inspector Pawnshop Detail Name Role Phone Harmony Cortez APRN Primary Care Provider [phone] Encounter Details Date Type Department Care Team (Late st Contact Info) Description 11/30/2023 1:40 PM EDT Office Visit Dermatology at 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 I performed the above scribed service and agree with the accuracy of the documentation in this encounter. Reviewed and signed by: Francisca Chandler MD Dermatology [facility] Staff garment sorter: Quita Munoz MD Dermatology [facility] * Quita Munoz MD - 11/30/2023 1:40 PM EDT I was the supervising physician working with the Dermatology resident, Francisca Chandler MD, in the care of this Dermatology patient in person. For the purposes of billing, the resident provided the care. I have reviewed the encounter note details and level of service. Quita Munoz MD Staff Cover Machine Operator Department of Dermatology [facility] documented in this encounter Plan of Treatment Not on file documented as of this encounter Visit Diagnoses Diagnosis Lentigines Other dyschromia Sebaceous hyperplasia Other specified disease of sebaceous glands documented in this encounter Care Teams Inspector Pawnshop Detail Relationship Specialty Start Date End Date Harmony Cortez APRN [address] [place] [address] PCP - General Family Medicine 06/29/22 documented as of this encounter
--- OUTSIDE RECORDS SUMMARY | 2024-05-17 09:58 | XMS_ITS | Encounter Summary ---
Author Organization [facility] [place] [address] Care Team Providers Care Multi Needle Machine Operator Name Role Phone Anisha Neal MD Primary Care Provider [phone] Reason for Visit * Auth/Cert Specialty Diagnoses [...] Expiration Date Visits Re quested Visits Authorized [id number] 1 1 Encounter Details Date Type Department Care Team (Latest Contact Info) Description 07/24/2020 8:57 AM EDT - 07/24/2020 11:27 AM EDT Hospital Encounter [place] [address] Malik Sanders MD [facility] [place] [address] BRCA2 gene mutation positive in female Discharge [...] Care Everywhere. * Ultrasound: Endoscopic (Rectal): Post-op (Nepali) documented in this encounter Medications at Time [...] Sanders MD - 07/24/2020 10:20 AM EDT [facility] [place] Note Patient Name: Tori Escobar : [id number] MR#: [id number] Case Date: 07/24/2020 Surgeon: Surgeon(s) and Role: [...] Associated Diagnosis Comments Endoscopic Us Exam, Micarachel ([id number]) 07/24/2020 10:05 AM EDT BRCA2 gene mutation positive in female Family history of pancreatic cancer UPPER EUS-ENDOSCOPIC ULTRASOUND Routine 07/24/2020 9:55 AM EDT documented in this encounter Results * UPPER EUS-ENDOSCOPIC ULTRASOUND (07/24/2020 9:55 AM EDT) UPPER ENDOSCOPIC ULTRASOUND [facility] Endoscopy Procedure Date: 07/24/2020 9:55 AM ? Patient Name: Tori Escobar ? Date of : 1985 ? Age: 35 ? Order #: [id number] ? Instrument Name: [id number] ? Procedure: ? Upper EUS Indications: ? BRCA +, Family history of pancreas ? cancer Providers: ? Malik Sanders MD, Pricila Murphy, ? India Crawley RN, Blu Ramirez. ? Nash Referring : ?Harriett Goldsmith, Anisha Livingston Requesting Provider: Danya Diez MD Medicines: ? Monitored Anesthesia Care Complications: ? No immediate complications. Procedure: ? Pre-Anesthesia Assessment: ? - [place] Protocol: ? - Pre-procedure Verification: Prior ? [...] by the physician, the nurse, ? the bilingual loan processor and the solar fabrication technician in ? the procedure room. ? [...] Procedure Code(s): ?? --- Professional --- ? 12598, Esophagogastroduodenos copy, ? flexible, transoral; with endoscopic ? ultrasound examination, including the ? esophagus, stomach, and either the ? duodenum or a surgically altered ? stomach where the jejunum is examined ? distal to the anastomosis CPT copyright 2019 [employer]. All rights reserved. The codes documented in this report are preliminary and upon production team member review may be revised to meet current [...] RN) documented in this encounter Care Teams Multi Needle Machine Operator Relationship Specialty Start Date End Date Anisha Neal MD PCP - General Family Medicine 07/10/20 06/28/22 documented as of this encounter
--- OUTSIDE RECORDS SUMMARY | 2024-05-17 09:58 | XMS_ITS | Encounter Summary ---
Author Organization [facility] Address [facility] [place] [address] Care Team Providers Care Heavy Media Operator Name Role Phone LizbethHarmony ibarra BILL RECAPITULATION CLERK Primary Care Provider [phone] Encounter Details Date Type Department Care Team (Late st Contact Info) Description 04/01/2023 [place] [phone] Susana Castro MD [facility] [place] [address] Social History Tobacco Use Types Packs/Day Years [...] 04/01/23 Referring Provider: Leonidas Arredondo Patient Location: [facility] HPI: 38 F w/ no known medical [...] in the patient condition. Susana Castro MD Turf Keeper documented in this encounter Plan of Treatment Not on file documented as of this encounter Visit Diagnoses Not on filedocumented in this encounter Care Teams Heavy Media Operator Relationship Specialty Start Date End Date Harmony Cortez APRN [address] [place] [address] PCP - General Family Medicine 06/29/22 documented as of this encounter
--- OUTSIDE RECORDS SUMMARY | 2024-05-17 09:58 | XMS_ITS | Encounter Summary ---
Author Organization [facility] Address [facility] [place] [address] Care Team Providers Care Commercial Stripper Name Role Phone Harriett Goldsmith APRN Primary Care Provid er Encounter Details Date Type Department Care Team (Late st Contact Info) Description 04/18/2020 Orders Only [place] [address] Priyanka Brito MD [facility] [place] [address] BRCA positive Social History Tobacco Use Types [...] AM EST) CA 125 27.8 <=38.1 unit/mL [facility] Comment: CA 125 Reference Interval ??Postmenopausal: 6.2 to 31.5 U/mL. ??Premenopausal: 6.9 to 45.9 U/mL. ??Pre and Postmenopausal subjects combined: 6.4 to 38.1 U/mL. Blood specimen (specimen) 04/18/2020 9:46 AM EST 04/18/2020 9:51 AM EST Narrative Resulting Agency Comment Spec In Lab Priyanka Brito MD CHEMISTRY ORDERABLES [facility] [place] [address] documented in this encounter Visit Diagnoses Diagnosis BRCA positive Genetic susceptibility to malignant neoplasm of breast documented in this encounter Care Teams Commercial Stripper Relationship Specialty Start Date End Date Harriett Goldsmith APRN [address] [facility] [address] [place] [address] PCP - General Family Medicine 11/23/19 07/09/20 documented as of this encounter
--- OUTSIDE RECORDS SUMMARY | 2024-05-17 09:58 | XMS_ITS | Continuity of Care Document ---
Author Organization [facility] Ambulatory Clinics Address [address] [place] [address] Care Team Providers Care Appraiser Timber Name Role Phone NASREEN RIVERA NP Primary Care Physician Encounter [facility] NBR [id number] Date(s): 03/30/24 - 03/30/24 [facility] Ambulatory Clinics [address] [place] [address] us Encounter Diagnosis Genetic susceptibility to other malignant neoplasm(Discharge Diagnosis) - 03/30/24 IUD (intrauterine device) in place(Discharge Diagnosis) - 03/30/24 Abnormal uterine bleeding(Discharge Diagnosis) - 03/30/24 BRCA2 positive(Discharge Diagnosis) - 03/30/24 Post-operative nausea and vomiting(Discharge Diagnosis) - 03/31/24 Other specified postprocedural states(Discharge Diagnosis) - 03/30/24 Discharge Disposition: Home or Self Care Attending Physician: Sloan Hurd MD Allergies, Adverse Reactions, Alerts Substance Criticality Severity Reaction Reaction Severity Status penicillin High criticality Severe Hives Ac tive cephalosporins Unable to assess criticality Unknown Unknown Active sulfa drugs Unable to assess criticality Unknown stomach pains Active Cipro Unable to assess criticality Unknown Stomach pain Active Assessment and Plan Extracted from: Title:Clinic - Office Visit Note Author:Sloan Hurd MD Date:03/30/24 1.??BRCA2 positive??Z15.01 ??The patient would like to move forward with??scheduling her hysterectomy.?? I spent time reviewing how this type of hysterectomy is done.?? She should be able to have the case completed laparoscopically with a laparoscopic hysterectomy with bilateral salpingo-oophorectomy.?? The technique was reviewed at length.?? I also reviewed the risks of bleeding, infection, and damage to surrounding pelvic organs.?? I reviewed that patients often notice things are a bit different after a hysterectomy when it comes to sex.?? Typically there is no significant impact with libido or sexual experience.?? She may note some long-term, intermittent sense of regret from a removal of the uterus as well as it does prevent women from becoming in the future.?? Understanding these issues she would like to move forward with getting the case scheduled.?I asked her to stop by at some point to??picker and packer the chlorhexidine wipes. ??She is to use 1 in the evening prior to her surgery and 1 in the morning of.? 2.??Abnormal uterine bleeding??N93.9 3.??IUD (intrauterine device) in place??Z97.5 Genetic susceptibility to other malignant neoplasm??Z15.09 Additional Actions: DISCONTINUED - fluconazole, See Instructions, 1 tab today and repeat in 4 days, # 2 tab, 2 Refill(s), Pharmacy: [facility], 157.48, cm, 03/15/23 15:48:00 EST, Height, 82.6, kg, 03/15/23 15:58:00 EST, Weight Dosing, 1 tab today and repeat in 4 days DISCONTINUED - fluconazole, See Instructions, one tablet today and repeat in 4 days, # 2 tab, 0 Refill(s), Pharmacy: [facility], 157.48, cm, 03/15/23 15:48:00 EST, Height, 82.6, kg, 03/15/23 15:58:00 EST, Weight Dosing, one tablet today and repeat in 4 days DISCONTINUED - nitrofurantoin, 100 mg = 1 cap, Oral, BID, # 14 cap, 0 Refill(s), Pharmacy: [facility], 157.48, cm, 01/23/22 13:09:00 EDT, Height Future Appointments Immunizations Given and Recorded Vaccine Date Status Refusal Reason influenza virus vaccine, inactivated 1 02/05/14 Re corded 1Result Comment: [employer] Driver: [employer] Mirena 52 mg intrauteral device 0 Refill(s) Start Date: 01/23/22 Status: Ordered valACYclovir 500 mg oral tablet 500 mg = 1 tab, Oral, BID, # 10 tab, 6 Refill(s), Pharmacy: [email or web address], 157.48, cm, 03/15/23 15:48:00 EST, Height, 82.6, kg, 03/15/23 15:58:00 EST, Weight Dosing Start Date: 04/29/23 Stop Date: 06/03/23 Status: Ordered Problem List Condition Confirmation Course [...] of malignant neoplasm of pancreas Confirmed Active Generalized anxiety disorder Confirmed Active Genetic susceptibility to cancer Confirmed Active 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 Insomnia Confirmed Active IUD (intrauterine device) in place Confirmed Active Irritable bowel syndrome Confirmed Active Irritable bowel syndrome characterized by constipation Confirmed Active Mixed anxiety and depressive disorder Confirmed Active Mixed hyperlipidemia Confirmed Active Panic attack Confirmed Active Post-operative nausea and vomiting Confirmed Active Procedures Procedure Date Related Diagnosis Body Site Status Bilateral mastectomy 1 06/22/21 Co mpleted Colonoscopy 06/02/20 Completed delivery 2 Compl eted EGD (esophagogastroduodenosc opy) gastric outlet reduction Complet ed Laparoscopic cholecystectomy Completed 1With reconstruction 2She has had 4 deliveries, last with BTL Social History Social History Type Response Tobacco Never tobacco user T obacco Use:. Sex Female Sex Representation Female (finding) Physician Outpatient Note * Sloan Hurd MD: PERFORM Event Display: Office Clinic Note Physician Authored Date: [id number] GIOVANNY ASENCIO :1985 Age:39 years Sex:Female Visit Date:03/30/2024 Primary Care Physician: NASREEN RIVERA NP Chief Complaint Preop for laparoscopic hysterectomy with bilateral salpingo-oophorectomy History of Present Illness The patient presents in follow-up well-known to me.?? She has been found to have the BRCA2 gene mutation and has seen oncology.?? Recommendations were put in place for her to have bilateral mastectomies which has already been done.?? It was also recommended that when she is 39 years old she have her uterus, fallopian tubes, and ovaries removed prophylactically.?? She would like to move forward with getting this scheduled.?? Her last Pap was gathered November 20, 2019.?? It was negative with negative high-risk HPV testing.?? Cultures were done at the same time which were negative as well.She had an ultrasound 03/26/2023 that noted her uterus to measure 4.4 x 11.9 x 6.2 cm.?? No focal uterine lesions were noted.?? The IUD was in the appropriate position.?? Her adnexal structures were within normal limits.? Review of Systems Constitutional:?No??fevers,?No??chills,?No??sweats Eye:?No??recent visual problems ENT:?No??ear pain,?No??nasal congestion,?No??sore throat Respiratory:?No??shortness of breath,?No??cough Cardiovascular:?No??Chest pain,?No??palpitations,?No??syncope Gastrointestinal:?Nonausea,?No??vomiting,?No??diarrhea Genitourinary:?No??hematuria Twan/Lymph:?No??bruising tendency,?No??swollen lymph glands Endocrine:?No??excessive thirst,??No??excessive hunger Musculoskeletal:??No??back pain,??No??neck pain,??No??joint pain,??No??muscle pain,??No??decreased range of motion Integumentary:?No??rash,?No??pruritus,?No??abrasions Neurologic: Alert & oriented X 4 Psychiatric:?No??anxiety,?No??depression Physical Exam Televisit Clinic Assessment/Plan 1.??BRCA2 positive??Z15.01 ??The patient would like to move forward with??scheduling her hysterectomy.?? I spent time reviewing how this type of hysterectomy is done.?? She should be able to have the case completed laparoscopically with a laparoscopic hysterectomy with bilateral salpingo-oophorectomy.?? The technique was reviewed at length.?? I also reviewed the risks of bleeding, infection, and damage to surrounding pelvic organs.?? I reviewed that patients often notice things are a bit different after a hysterectomy when it comes to sex.?? Typically there is no significant impact with libido or sexual experience.?? She may note some long- term, intermittent sense of regret from a removal of the uterus as well as it d oes prevent women from becoming in the future.?? Understanding these issues she would liketo move forward with getting the case scheduled.?I asked her to stop by at some point to??picker and packer the chlorhexidine wipes. ??She is to use 1 in the evening prior to her surgery and 1 in the morning of.? 2.??Abnormal uterine bleeding??N93.9 3.??IUD (intrauterine device) in place??Z97.5 Genetic susceptibility to other malignant neoplasm??Z15.09 Additional Actions: DISCONTINUED - fluconazole, See Instructions, 1 tab today and repeat in 4 days, # 2 tab, 2 Refill(s), Pharmacy: [facility], 157.48, cm, 03/15/23 15:48:00 EST, Height, 82.6, kg, 03/15/23 15:58:00 EST, Weight Dosing, 1 tab today and repeat in 4 days DISCONTINUED - fluconazole, See Instructions, one tablet today and repeat in 4 days, # 2 tab, 0 Refill(s), Pharmacy: [facility], 157.48, cm, 03/15/23 15:48:00 EST, Height, 82.6, kg, 03/15/23 15:58:00 EST, Weight Dosing, one tablet today and repeat in 4 days DISCONTINUED - nitrofurantoin, 100 mg = 1 cap, Oral, BID, # 14 cap, 0 Refill(s), Pharmacy: [facility], 157.48, cm, 01/23/22 13:09:00 EDT, Height Problem List/Past Medical History Ongoing Abnormal uterine bleeding Acquired hypothyroidism Adjustment disorder Anxiety BRCA2 positive Breast cancer genetic marker of susceptibility positive Chronic pain Chronic post-traumatic stress disorder Costal chondritis Disorder of function of stomach Dysphagia Family history of malignant neoplasm of pancreas Generalized anxiety disorder 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 delivery???EGD (esophagogastroduodenoscopy) gastric outlet reduction???Laparoscopic cholecystectomy Medications What How Much When Instructions Unchanged levonorgestrel (Mirena 52 mg intrauteral device) Unchanged valACYclovir (valACYclovir 500 mg oral tablet) 1 tab Oral (given by mouth) 2 times a day Duration: 5 Days ?? What How Much When Why Comments Stop Taking acetaminophen (Tylenol) Stop Taking ascorbic acid (Vitamin C 1000 mg oral tablet) 1 Unknown ?? Stop Taking aspirin (aspirin 81 mg oral delayed release tablet) 1 Unknown ?? Stop Taking cannabidiol Stop Taking cholecalciferol (Vitamin D3) 1 Unknown ?? Stop Taking docusate (docusate sodium 100 mg oral capsule) Stop Taking fluconazole (fluconazole 200 mg oral tablet) See instructions one tablet today and repeat in 4 days ?? Stop Taking fluconazole (fluconazole 200 mg oral tablet) See instructions 1 tab today and repeat in 4 days ?? Stop Taking levothyroxine (levothyroxine 25 mcg (0.025 mg) oral tablet) Stop Taking nitrofurantoin (Macrobid 100 mg oral capsule) 1 Capsules Oral (given by mouth) 2 times a day Dysuria Duration: 7 Days Stop Taking omeprazole (omeprazole 20 mg oral delayed release capsule) 1 Capsules Oral (given by mouth) 2 times a day Allergies penicillin??(Hives) Cipro??(Stomach pain) cephalosporins??(Unknown) sulfa drugs??(stomach pains) Social History Alcohol Current, Liquor, 1-2 times per month Electronic Cigarette/Vaping Electronic Cigarette Use: Never. Employment/School Employed, Work/School description: [employer]. Highest education level: Some college. Home/Environment Lives with Children, Spouse. Living situation: Home/Independent. Sexual Sexually active: Yes. Substance Use Current, Marijuana Tobacco Never tobacco user Tobacco Use:. Family History Healthy adult: Mother and Sister. Healthy child: Daughter, Daughter, Daughter and Son. Family Member(s): ?? FATHER, at age: Unknown. Cause of : Pancreatic cancer Immunizations Vaccine Date Status influenza virus vaccine, inactivated 02/05/2014 Recorded Comments : [employer] Driver: [employer] Electronically Signed on 03/30/2024 16:57 EST Sloan Hurd MD Patient Care team information Care Team Personnel Name: NASREEN RIVERA NP Position: No Access Member Role: Primary Care Physician Address: [address] [place] [address] Care Team Related Persons Name: YOAN ESCOBAR Name: BELKIS ABERNATHY Name: BELKIS ABERNATHY Insurance Providers Guarantor name: GIOVANNY ASENCIO Health Plan Information #: 1 Payer: [facility] Member Number: [id number] Policy Number: NA Health Plan Information #: 2 Payer: [facility] Member Number: [id number] Policy Number: NA
--- OUTSIDE RECORDS SUMMARY | 2024-05-17 09:58 | XMS_ITS | Encounter Summary ---
Author Organization [facility] Address [facility] [place] [address] Care Team Providers Care Chemical Recovery Operator Name Role Phone Anisha Neal MD Primary Care Provider [phone] Reason for Visit * Reason Comments Follow-up finalize surgical pl ans for breast recon Encounter Details Date Type Department Care Team (Latest Contact Info) Description 07/23/2020 11:45 AM EDT Office [place] [address] Haley Wheeler MD [facility] [place] [address] Encounter to discuss breast reconstruction Social History [...] viable intraoperatively? In this instance a tissue video game maker would be placed to maintain the space. [...] resection, possible placement of mesh. CPT: NOE: 51441, 02843 Rib resection: 18636 FNG 72172 Mesh placement: 07259, 62773, 71167 Surgical site: Breast Side: Bilateral Anesthesia: General [...] counseling documented in this encounter Care Teams Chemical Recovery Operator Relationship Specialty Start Date End Date Anisha Neal MD PCP - General Family Medicine 07/10/20 06/28/22 documented as of this encounter
--- OUTSIDE RECORDS SUMMARY | 2024-05-17 09:58 | XMS_ITS | Encounter Summary ---
Author Organization [facility] [place] [address] Care Team Providers Care Chief Development Officer Name Role Phone Anisha Neal MD Primary Care Provider [phone] Reason for Visit * Auth/Cert Specialty Diagnoses [...] Expiration Date Visits Re quested Visits Authorized [id number] 1 1 Encounter Details Date Type Department Care Team (Late st Contact Info) Description 07/24/2020 10:05 AM EDT Anesthesia [place] [address] Kamron Frank MD [facility] [place] [address] Umair Reynoso CRNA Anesthesia Record Procedure Summary Procedure Name Responsible [...] Peripheral IV Line - Single Lumen 07/24/20; 09; median cubital vein (antecubital fossa), right; [id number] catheter system; Anatomical Landmarks; 22 gauge; Uriah Pittman RN; distraction, intradermal injection, appears comfortable, tolerated well; no longer indicated, removed per policy/procedure; 07/24/20; 1109 07/24/20 0928 by Jarad Scott RN 07/24/20 110 by [...] Procedure Summary Date: 07/24/20 Room / Location: [facility] ENDO 2 / [facility]OSCOPY Anesthesia Start: 1005 Anesthesia Stop: [...] All Anesthesia Providers: Anesthesiologist: Kamron Frank MD PRECISION ASSEMBLY INSPECTOR: Umair Reynoso CRNA Vitals Value Taken Time BP 123/87 07/24/20 1110 Temp Pulse Resp 16 07/24/20 1110 SpO2 98 % 07/24/20 1110 Pain Level 0 07/24/20 1110 Patient Location: PACU/[facility] Level of Consciousness: Awake and Alert Pain [...] female Added automatically from request for surgery [id number] ??? Family history of BRCA2 gene positive [...] Adequate IV access Kamron Frank MD PhD #[id number] Region - Other Informed Consent: Anesthetic plan and risks discussed with patient. Plan discussed with PRECISION ASSEMBLY INSPECTOR. PAT Clinic Note documented in this encounter [...] mL/hr documented in this encounter Care Teams Chief Development Officer Relationship Specialty Start Date End Date Anisha Neal MD PCP - General Family Medicine 07/10/20 06/28/22 documented as of this encounter
--- OUTSIDE RECORDS SUMMARY | 2024-05-17 09:58 | XMS_ITS | Encounter Summary ---
Author Organization [facility] [address] Care Team Providers Care Supervisor Contingents Name Role Phone Anisha Neal MD Primary Care Provider [phone] Reason for Visit * Reason Onset Date Comments Prior Authorization 07/16/2020 BRCA Outpati ent surgery coverage and auth - Pending scheduling Encounter Details Date Type Department Care Team (Late st Contact Info) Description 07/16/2020 Telephone [place] [address] Nany Dao Prior Authorization (BRCA Outpatient surgery [...] Pending scheduling: I received a voicemail from aCren Hsu asking that I review coverage and [...] on filedocumented in this encounter Care Teams Supervisor Contingents Relationship Specialty Start Date End Date Anisha Neal MD PCP - General Family Medicine 07/10/20 06/28/22 documented as of this encounter
--- OUTSIDE RECORDS SUMMARY | 2024-05-17 09:58 | XMS_ITS | Clinical Summary ---
Author Organization [facility] Address [place] [address] Care Team Providers Care Crawler Crane Operator Name Role Phone Lizbethstacey Harmony GOLD Primary [...] (06/19/2020): Added automatically from request for surgery [id number] Family history of BRCA2 gene positive 05/16/2020 Overview (05/16/2020): Father Family history of pancreatic cancer 05/16/2020 Overview (05/16/2020): Father (BRCA2+) Paternal aunt BRCA2 gene mutation positive 05/15/2020 Abdominal pain 10/09/2010 Hiatal hernia 10/08/2010 Family History Medical History Relation Comments Pancreatic [...] (1) 2003 Tetanus/Diphtheria/Pertussis Vaccines (1 - Tdap) 2003 HPV test 2014 PAP Smear 2014 Covid-19 Vaccine ( - season) 2023 Influenza (Flu) vaccine (1 o f 1 - Influenza standard series) 12/19/2023 Breast Cancer Share Decision Needed 2024 Breast Cancer screening 2024 05/20/2020 Diabetes Screening (HgbA1C or Glucose) 11/08/2026, 01/04/2023 Procedures Procedure Name Priority Date/Time Associated Diagnosis Comments COMPREHENSIVE METABOLIC PANEL STAT 11/09/2023 8:30 AM EDT MAMMO SCREENING CAD AND JALEN BILATERAL Routine 05/20/2020 1:25 PM EST BRCA positive from Last 3 Months or Most Recently Relevant to Health Maintenance Results * Comprehensive metabolic panel (non-fasting) (11/09/2023 8:30 AM EDT) Glucose 104 65 - 199 mg/dL [facility] Comment:Diabetes: >=200 mg/d L plus symptoms Blood Urea Nitrogen 10 8 - 18 mg/dL [facility] Creatinine 0.80 0.70 - 1.20 mg/dL [facility] Sodium 142 135 - 145 mmol/L [facility] Potassium 4.0 3.5 - 5.0 mmol/L [facility] Comment: Please note: ??Patients with WBC >100,000 may have falsely elevated Potassium levels. ??For accurate Potassium quantification in these patients send serum separator tube (gold top) for subsequent determinations. ??Contact the Clinical Chemistry Laboratory if there are any questions. Chloride 107 98 - 107 mmol/L [facility] Carbon Dioxide 22 22 - 31 mmol/L [facility] Anion Gap 13 5 - 15 mmol/L [facility] Calcium 9.7 8.5 - 10.5 mg/dL [facility] Protein, Total 7.6 6.1 - 8.0 g/dL [facility] Albumin 4.7 3.2 - 5.2 g/dL [facility] Aspartate Aminotransferase 16 0 - 30 unit/L [facility] Alanine Aminotransferase 12 0 - 30 unit/L [facility] Alkaline Phosphatase 64 35 - 105 unit/L [facility] Bilirubin, Total 0.3 0.2 - 1.3 mg/dL [facility] Est Glomerular Filtration Rate 96 >=60 mL/min/1. 73 m?? [facility] Comment: This patient's estimated [...] Lab Nazanin Ruano DO CHEMISTRY O RDERABLES [facility] [place] [address] * Mammo Screening Cad and Jalen Bilateral [...] Bhavna Mckeon APRN IMG MAMMO ORD ERABLES from Last 3 Months or Most Recently Relevant to Health Maintenance Care Teams Crawler Crane Operator Relationship Specialty Start Date End Date Harmony Cortez APRN [address] [place], [place] [id number] PCP - General Family Medicine 06/29/22
--- OUTSIDE RECORDS SUMMARY | 2024-05-17 09:58 | XMS_ITS | Encounter Summary ---
Author Organization [facility] [place] [address] Care Team Providers Care Processing Analyst Name Role Phone Anisha Neal MD Primary Care Provider [phone] Reason for Referral * Consultation (Routine) - Duplicate Referral Specialty Diagnoses / Procedures Referred By Contac t Referred To Contact Hematology and Oncology Diagnoses Family history of clotting disorder Brady Freedman MD [facility] [place] [address] [facility] [address] [place] [address] Referral ID Status Reason Start Date Expiration Date Visits Requested Visits Authorized [id number] Duplicate Referral Consult, Test & Treat 07/18/2020 07/18/2021 1 1 Encounter Details Date Type Department Care Team (Late st Contact Info) Description 07/18/2020 Orders [place] [address] Brady Freedman MD [facility] [place] [address] Pre-op testing; Blood clotting disorder; [...] disorders documented in this encounter Care Teams Processing Analyst Relationship Specialty Start Date End Date Anisha Neal MD PCP - General Family Medicine 07/10/20 06/28/22 documented as of this encounter
--- OUTSIDE RECORDS SUMMARY | 2024-05-17 09:58 | XMS_ITS | Encounter Summary ---
Author Organization [facility] Address [facility] [place] [address] Care Team Providers Care Telephoner Name Role Phone Harriett Goldsmith APRN Primary Care Provid er Encounter Details Date Type Department Care Team (Latest Contact Info) Description 05/20/2020 12:56 PM EST - 05/20/2020 11:59 PM EST Hospital Encounter Mammography/[place] [address] Bhavna Mckeon APRN [facility] [place] [address] BRCA positive Discharge Disposition: Home Social History [...] breast documented in this encounter Care Teams Telephoner Relationship Specialty Start Date End Date Harriett Goldsmith APRN [address] [facility] [address] [place] [place] [id number] PCP - General Family Medicine 11/23/19 07/09/20 documented as of this encounter
--- OUTSIDE RECORDS SUMMARY | 2024-05-17 09:58 | XMS_ITS | Encounter Summary ---
[place] [address] Care Team Providers Care Outside Sales Representative Insurance Name Role Phone Lizbethstacey Harmony GOLD Primary Care Provider [phone] Reason for Visit * Reason Comments Chest Pain Encounter Details Date Type Department Care Team (Late st Contact Info) Description 11/09/2023 8:01 AM EDT - 11/09/2023 11:47 AM EDT [place] [address] Chest pain, unspecified type Discharge Disposition: Home Social History Tobacco Use Types Packs/Day Years Used Date Smoking Tobacco: Never Smokeless Tobacco: Never Alcohol Use Standard Drinks/Week Comments Not Currently 0 (1 standard drink = 0.6 oz pur e alcohol) [facility] Inpatient Questions Answer Date Recorded Does [...] sent through Care Everywhere. * Chest Pain ([place]) documented in this encounter Medications at Time [...] EDT) Glucose, Urine Dipstick Negative Negative mg/dL [facility] Protein, Urine Dipstick Negative Negative mg/dL [facility] Bilirubin, Urine Dipstick Negative Negative mg/dL [facility] Comment: Clinical correlation required for positive Urine Bilirubin results as false positive may occur with some drugs and drug related products. If a false positive is suspected a serum total bilirubin should be considered if clinically indicated. Urobilinogen, Urine Dipstick Normal Normal mg/dL [facility] pH, Urn (dipstick) 8.5(H) 5.0 - 8.0 [facility] Blood, Urine Dipstick Negative Negative mg/dL [facility] Ketone, Urine Dipstick Negative Negative mg/dL [facility] Nitrite, Urine Dipstick Negative Negative [facility] Leukocytes, Urine Dipstick Negative Negative [facility] Appearance, Urine Dipstick Clear Clear [facility] Specific Norris Urine Automated 1.013 1.005 - 1.030 [facility] Color, Urine Dipstick Yellow Yellow [facility] Reflex to Culture No [facility] Clean Catch Urine 11/09/2023 9:35 AM EDT 11/09/2023 9:46 AM EDT Narrative Resulting Agency Comment Spec In Lab Nazanin Ruano DO URINE ORDER KANNAN [facility] [place] [address] * Troponin (11/09/2023 9:28 AM EDT) Troponin-T, High Sensitivity <6 <=14 ng/L [facility] Comment: This patient's troponin T [...] troponin value can be found in the [facility] Laboratory Test Catalog Troponin - [facility] Laboratory Test Catalog Reference: Fourth [place] Definition of Myocardial Infarction. Journal of the [place] College [employer] 2018;72:5463-0228 Blood 11/09/2023 9:28 AM EDT 11/09/2023 9:47 AM EDT Narrative Resulting Agency Comment Spec In Lab Nazanin Ruano DO CHEMISTRY O RDERABLES [facility] [place] [address] * Gold Tube HOLD (11/09/2023 8:30 AM EDT) Gold Hold Sample in lab. [facility] Blood Venous Draw / Unknown 11/09/2023 8:30 AM EDT 11/09/2023 8:45 AM EDT Juan Jose SIMON CHEMISTRY ORDERABLES Performing Organization Address City/[facility] Co de Phone Number [facility] [place] [address] * Blue Tube HOLD (11/09/2023 8:30 AM EDT) [facility] Blue Hold Sample in lab. [facility] Blood Venous Draw / Unknown 11/09/2023 8:30 AM EDT 11/09/2023 8:45 AM EDT Juan Jose SIMON HEMATOLOGY ORDERABLE S Performing Organization Address [facility] de Phone Number [facility] [place] [address] * Differential, Automated (11/09/2023 8:30 AM EDT) [facility] Neutrophil % 55.3 % [facility] Neutrophil Absolute 2.70 1.70 - 6.10 x10(3)/[facility] Lymph % 35.7 % [facility] Lymphocytes Abs 1.7 0.9 - 3.2 x10(3)/[facility] Monocyte % 6.8 % [facility] Monocyte Abs 0.3 0.3 - 0.9 x10(3)/[facility] Eos % 1.4 % [facility] Eosinophils Abs 0.1 0.0 - 0.4 x10(3)/[facility] Basophil % 0.4 % [facility] Baso Absolute 0.0 0.0 - 0.1 x10(3)/[facility] Immature Gran % 0.40 % [facility] Comment: Immature granulocytes(IG's)percentage and absolute count will include metamyelocytes, myelocytes, and promyelocytes. Blood smears from CBCs yielding IG's will be scanned manually for concordance. If this scan disagrees with the automated IG or if promyelocytes are noted, a manual differential will be performed. Immature Gran Absolute 0.02 0.00 - 0.04 x10(3)/[facility] Blood 11/09/2023 8:30 AM EDT 11/09/2023 8:41 AM EDT Narrative Resulting Agency Comment Spec In Lab Juan Jose SIMON HEMATOLOGY ORDERABLE S [facility] [place] [address] * (ABNORMAL) Hemogram (11/09/2023 8:30 AM EDT) White Blood Cell 4.9 4.0 - 9.5 x10(3)/[facility] Red Blood Cell 4.07 4.00 - 5.21 x10(6)/[facility] Hemoglobin 13.1 11.7 - 15.5 g/dL [facility] Hematocrit 37.2 35.7 - 45.8 % [facility] Mean Cell Volume 91.4 82.6 - 94.4 fL [facility] Mean Cell Hemoglobin 32.2(H) 27.1 - 32.0 pg [facility] Mean Cell Hemoglobin Concentration 35.2(H) 31.7 - 35.0 g/dL [facility] Platelet 247 145 - 357 x10(3)/[facility] RDW Standard Deviation 39.9 37.0 - 46.0 [facility] RDW coefficient of variation 11.9 11.5 - 14.1 % [facility] Mean Platelet Volume 9.2 7.6 - 12.9 [facility] NRBC% auto 0.0 % [facility] NRBC Absolute 0.000 0.000 - 0.000 x10(3)/[facility] Blood 11/09/2023 8:30 AM EDT 11/09/2023 8:41 AM EDT Narrative Resulting Agency Comment Spec In Lab Juan Jose SIMON HEMATOLOGY ORDERABLE S Performing Organization Address City/[facility]/ZIP Co de Phone Number [facility] [place] [address] * Troponin (11/09/2023 8:30 AM EDT) Troponin-T, High Sensitivity <6 <=14 ng/L [facility] Comment: This patient's troponin T [...] troponin value can be found in the [facility] Laboratory Test Catalog Troponin - [facility] Laboratory Test Catalog Reference: Fourth [place] Definition of Myocardial Infarction. Journal of the [place] College [employer]iology 2018;72:6307-9656 Blood 11/09/2023 8:30 AM EDT 11/09/2023 8:41 AM EDT Narrative Resulting Agency Comment Spec In Lab Nazanin Ruano DO CHEMISTRY O RDERABLES Performing Organization Address City/[facility]/ZIP Co de Phone Number [facility] [place] [address] * Lipase (11/09/2023 8:30 AM EDT) Lipase 26 0 - 60 unit/L [facility] Blood 11/09/2023 8:30 AM EDT 11/09/2023 8:41 AM EDT Narrative Resulting Agency Comment Spec In Lab Nazanin Ruano DO CHEMISTRY O RDERABLES [facility] [place] [address] * Comprehensive metabolic panel (non-fasting) (11/09/2023 8:30 AM EDT) Glucose 104 65 - 199 mg/dL [facility] Comment:Diabetes: >=200 mg/d L plus symptoms Blood Urea Nitrogen 10 8 - 18 mg/dL [facility] Creatinine 0.80 0.70 - 1.20 mg/dL [facility] Sodium 142 135 - 145 mmol/L [facility] Potassium 4.0 3.5 - 5.0 mmol/L [facility] Comment: Please note: ??Patients with WBC >100,000 may have falsely elevated Potassium levels. ??For accurate Potassium quantification in these patients send serum separator tube (gold top) for subsequent determinations. ??Contact the Clinical Chemistry Laboratory if there are any questions. Chloride 107 98 - 107 mmol/L [facility] Carbon Dioxide 22 22 - 31 mmol/L [facility] Anion Gap 13 5 - 15 mmol/L [facility] Calcium 9.7 8.5 - 10.5 mg/dL [facility] Protein, Total 7.6 6.1 - 8.0 g/dL [facility] Albumin 4.7 3.2 - 5.2 g/dL [facility] Aspartate Aminotransferase 16 0 - 30 unit/L [facility] Alanine Aminotransferase 12 0 - 30 unit/L [facility] Alkaline Phosphatase 64 35 - 105 unit/L [facility] Bilirubin, Total 0.3 0.2 - 1.3 mg/dL [facility] Est Glomerular Filtration Rate 96 >=60 mL/min/1. 73 m?? [facility] Comment: This patient's estimated [...] DO CHEMISTRY O RDERABLES Performing Organization Address City/[facility] Co de Phone Number [facility] [place] [phone] * EKG 12 Lead (11/09/2023 8:10 AM EDT) Ventricular rate 101 BPM MUSE SYSTEM Atrial Rate 101 BPM MUSE SYSTEM P-R Interval 162 ms MUSE SYSTEM QRS Duration 92 ms MUSE SYSTEM Q-T Interval 366 ms MUSE SYSTEM QTC Calculated (Bezet) 474 ms MUSE SYSTEM Calculated P [place] 34 degrees MUSE SYSTEM Calculated R [place] 141 degrees MUSE SYSTEM Calculated T [place] 42 degrees MUSE SYSTEM INTERPRETATION Sinus tachycardia [...] type documented in this encounter Care Teams Outside Sales Representative Insurance Relationship Specialty Start Date End Date Diego GOLD Antunez [address] [facility] [place] [address] PCP - General Family Medicine 06/29/22 documented as of this encounter
--- OUTSIDE RECORDS SUMMARY | 2024-05-17 09:58 | XMS_ITS | Encounter Summary ---
Author Organization [facility] Address [facility] [place] [address] Care Team Providers Care Call Center Agent Name Role Phone Harriett Goldmsith APRN Primary Care Provid er Reason for Visit * Reason Comments Established BRCA2 * Consultation (Routine) - Closed Specialty Diagnoses / Procedures Referred By Jonny t Referred To Contact Gynecology Oncology Diagnoses BRCA2 gene mutation positive in female Justin Vela MD [facility] DR HEMATOLOGY/[place] [address] [facility] [address] [place] [address] Referral ID Status Reason Start Date Expiration Date V isits Requested Visits Authorized [id number] Closed Consult, Test & Treat 04/17/2020 04/17/2021 1 1 Encounter Details Date Type Department Care Team (Late st Contact Info) Description 04/18/2020 8:00 AM EST Office Visit Gynecology [place] [phone] Priyanka Brito MD [facility] DR OBSTETRICS [place] [address] BRCA positive; Periumbilical abdominal pain; Family history [...] 04/18/2020 Name: Tori Escobar : 1985 CSN: [id number] Patient Care Team: Patient Care Team: Harriett Goldsmith APRN as PCP - General (Family Medicine) Radha Valles AUTOMOBILE PAINTER Dr Rafael Vela, Genetics Program ASSESSMENT/PLAN Assessment BRCA2 mutation Family planning advice fam hist pancreatic cancer C/S x 3 S/p BTL Chronic constipation Abdominal pain IUD in place - CA 125 ordered today - SHANDA referral today - Breast cancer screening, gave patient names of breast surgeons - TVS with her AUTOMOBILE PAINTER We had a lengthy conversation with patient [...] we further recommend ongoing evaluation with her manager wealth management to devise the best screening plan for [...] her partner and consider a consultation with design printing machine set up operator. The patient's history of chronic constipation and [...] multiple times a week. Patient sees Dr Kaila WELSH) jose for chronic constipation. Doing better with [...] 5.5 years Last Pap: 2019 Dr Hurd AUTOMOBILE PAINTER Last Mammogram: in Last Colorectal Screen: endoscopy twice and colonoscopy within 5 years IMAGING AND LAB REVIEW I personally reviewed labs/radiology reports/pathology tests and other supporting records as part of my consultation today with the patient. [facility] PELVIS: An intrauterine device is noted. [...] SECTION x 3 x 1 BTL Past CREDENTIALER History Menstrual History: 11 Dysplasia History: none [...] the patient responds to questions appropriately in Belgian. PELVIC EXAM: Vulva: Normal female external genitalia. Normal urethra. Vagina: Normal pink mucosa. No discharge. Cervix: No lesions, non-tender. IUD string in place Uterus: Mobile, non-tender. Adnexa: No palpable masses. Rectal: Rectovaginal septum smooth. No masses. Normal rectal tone. Genetic Testing 03/08 [employer]ae's??BRCA2??analysis showed that??Tori??carries??the??pathogenic variant (mutation) in BRCA2, specifically??[id number].[id number]>T ([id number]). ??This is the same mutation previously detected [...] MD CHEMISTRY ORDERABLES [facility] [place] [address] documented in this encounter Visit Diagnoses Diagnosis [...] device documented in this encounter Care Teams Call Center Agent Relationship Specialty Start Date End Date Harriett Goldsmith APRN [address] [address] PCP - General Family Medicine 11/23/19 07/09/20 documented as of this encounter
--- OUTSIDE RECORDS SUMMARY | 2024-05-17 09:58 | XMS_ITS | Encounter Summary ---
Author Organization [facility] [place] [address] Care Team Providers Care Radiologic Technician Name Role Phone Harriett Goldsmith APRN Primary Care Provid er Encounter Details Date Type Department Care Team ([facility] st Contact Info) Description 07/01/2020 Notes [place] [address] Caren Hsu MSW Social History Tobacco Use [...] on filedocumented in this encounter Care Teams Radiologic Technician Relationship Specialty Start Date End Date Harriett Goldsmith APRN [address] [facility] [address] [place] [address] PCP - General Family Medicine 11/23/19 07/09/20 documented as of this encounter
--- OUTSIDE RECORDS SUMMARY | 2024-05-17 09:58 | XMS_ITS | Encounter Summary ---
Author Organization [facility] Address [facility] [place] [address] Care Team Providers Care Screener And Blender Operator Name Role Phone Harriett Goldsmith APRN Primary Care Provid er Reason for Visit * Consultation (Routine) - Closed Specialty Diagnoses / Procedures Referred By Contcaleb t Referred To Contact Gastroenterology Diagnoses BRCA2 gene mutation positive in female Family history of pancreatic cancer Justin Vela MD [facility] DR HEMATOLOGY/[place] [address] Danya Diez MD [facility] [place] [address] Referral ID Status Reason Start Date Expiration Date V isits Requested Visits Authorized [id number] Closed Consult, Test & Treat 04/17/2020 04/17/2021 1 1 Encounter Details Date Type Department Care Team (Late st Contact Info) Description 06/19/2020 1:00 PM EST Office Visit [place] [address] Danya Diez MD [facility] [place] [address] BRCA2 gene mutation positive in female; Family [...] PRESENT ILLNESS Tori was originally referred by medical receptionist for genetic testing based on FH of pancreatic cancer. [employer]'s??BRCA2??analysis showed that??Tori??carries??the??pathogenic variant (mutation) in BRCA2, s pecifically??c.7988A>T ([id number]). Her family history is notable for: Father [...] BRCA2 mutation, she has been seen by [facility] onc for screening and maymeet sooner to [...] few weeks. Sees Dr. Hi (GI) in [place]. 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 Recently re-. [...] adenopathy and no thyromegaly. HEENT: PERRL, EOMI, DOUBLE NEEDLE OPERATOR and OP clear without ulceration or [...] Director, GI [facility] Risk [facility] Prevention [facility] instrument technician Section of Gastroenterology [place] [address] documented in this encounter Plan of Treatment [...] tract documented in this encounter Care Teams Screener And Blender Operator Relationship Specialty Start Date End Date Harriett Goldsmith APRN [address] [place] [phone] PCP - General Family Medicine 11/23/19 07/09/20 documented as of this encounter
--- OUTSIDE RECORDS SUMMARY | 2024-05-17 09:58 | XMS_ITS | Encounter Summary ---
Author Organization [place] [address] Care Team Providers Care Craft Artist Name Role Phone Harriett Goldsmith APRN Primary Care Provid er Encounter Details Date Type Department Care Team (Late st Contact Info) Description 06/17/2020 Telephone [place] [phone] Peggy Santos Social History Tobacco Use Types [...] on filedocumented in this encounter Care Teams Craft Artist Relationship Specialty Start Date End Date Harriett Goldsmith APRN [address] [address] PCP - General Family Medicine 11/23/19 07/09/20 documented as of this encounter
--- OUTSIDE RECORDS SUMMARY | 2024-05-17 09:58 | XMS_ITS | Encounter Summary ---
[place] [address] Care Team Providers Care Pharmacy Scheduler Name Role Phone Harmony Cortez APRN Primary [...] on filedocumented in this encounter Care Teams Pharmacy Scheduler Relationship Specialty Start Date End Date Harmony Cortez APRN [address] [place] [address] PCP - General Family Medicine 06/29/22 documented as of this encounter
--- OUTSIDE RECORDS SUMMARY | 2024-05-17 09:58 | XMS_ITS | Encounter Summary ---
[place] [address] Care Team Providers Care Restaurant Operations Manager Name Role Phone Harmony Cortez APRN Primary Care Provider Reason for Visit * Reason Comments Abdominal Pain Encounter Details Date Type Department Care Team (Late st Contact Info) Description 01/04/2023 3:59 PM EDT - 01/04/2023 8:02 PM EDT [place] [address] Epigastric pain Discharge Disposition: Home Social History [...] Please follow-up with your primary careprovider and airplane fueler for further evaluation and management. Please return to the ED immediately for any new or worsening symptoms * Attachments The following attachments cannot be sent through Care Everywhere. * Abdominal Pain (Macedonian) documented in this encounter Medications at Time [...] up with her primary care provider and airplane fueler for further outpatient evaluation and management. Instructed [...] up with her primary care provider and airplane fueler for further outpatient evaluation and management. Instructed [...] software and may inherently contain errors in duty manager. Some sounds may be transcribed incorrectly by [...] been screened for pancreatic cancer by the [facility] because of significant family history. Was [...] (Bezet) 452 ms MUSE SYSTEM Calculated P Kemp 26 degrees MUSE SYSTEM Calculated R Kemp 85 degrees MUSE SYSTEM Calculated T Kemp 14 degrees MUSE SYSTEM INTERPRETATION Normal sinus [...] who have questions please contact the health senior care assistant that requested your imaging first. ? Electronically signed by: Blu Dalal MD, [facility] ??([phone]), at 01/04/2023 6:55 PM Narrative 01/04/2023 6:55 [...] patients who have questions please contactthe health senior care assistant that requested your imaging first. Electronically signed by: Blu Dalal MD, [facility]([phone]), at 01/04/2023 6:55 PM Jensen Arroyo MD IMG CT ORDERABLES * POCT urine (01/04/2023 6:13 PM EDT) POC Urine HCG Negative Negative - Negative POC Control Internal Controls Acceptable Jensen Arroyo MD POINT OF CARE TEST O RDERABLES * (ABNORMAL) Urinalysis with reflex Culture (01/04/2023 6:06 PM EDT) Glucose, Urine Dipstick Negative Negative mg/dL [facility] Protein, Urine Dipstick Negative Negative mg/dL [facility] Bilirubin, Urine Dipstick Negative Negative mg/dL [facility] Comment: Clinical correlation required for positive Urine Bilirubin results as false positive may occur with some drugs and drug related products. If a false positive is suspected a serum total bilirubin should be considered if clinically indicated. Urobilinogen, Urine Dipstick Normal Normal mg/dL [facility] pH, Urn (dipstick) 6.0 5.0 - 8.0 [facility] Blood, Urine Dipstick Negative Negative mg/dL [facility] Ketone, Urine Dipstick 15(A) Negative mg/dL [facility] Nitrite, Urine Dipstick Negative Negative [facility] Leukocytes, Urine Dipstick Negative Negative mcL [facility] Appearance, Urine Dipstick Clear Clear [facility] Specific [place] Urine Automated 1.006 1.005 - 1.030 [facility] Color, Urine Dipstick Yellow Yellow [facility] Reflex to Culture No [facility] Clean Catch Urine 01/04/2023 6:06 PM EDT 01/04/2023 6:25 PM EDT Narrative Resulting Agency Comment Spec In Lab Jensen Arroyo MD URINE ORDERABLES [facility] [place] [address] * Gold Tube HOLD (01/04/2023 3:20 PM EDT) Gold Hold Sample in lab. [facility] Blood Venous Draw / Unknown 01/04/2023 3:20 PM EDT 01/04/2023 3:56 PM EDT Mike SIMNO CHEMISTRY ORDERABLE S [facility] [place] [address] * Differential, Automated (01/04/2023 3:20 PM EDT) Neutrophil % 61.0 % [facility] Neutrophil Absolute 4.23 1.70 - 6.10 x10(3)/[facility] Lymph % 33.0 % [facility] Lymphocytes Abs 2.3 0.9 - 3.2 x10(3)/[facility] Monocyte % 5.0 % [facility] Monocyte Abs 0.4 0.3 - 0.9 x10(3)/[facility] Eos % 0.6 % [facility] Eosinophils Abs 0.0 0.0 - 0.4 x10(3)/[facility] Basophil % 0.1 % [facility] Baso Absolute 0.0 0.0 - 0.1 x10(3)/[facility] Immature Gran % 0.30 % [facility] Comment: Immature granulocytes(IG's)percentage and absolute count will include metamyelocytes, myelocytes, and promyelocytes. Blood smears from CBCs yielding IG's will be scanned manually for concordance. If this scan disagrees with the automated IG or if promyelocytes are noted, a manual differential will be performed. Immature Gran Absolute 0.02 0.00 - 0.04 x10(3)/[facility] Blood 01/04/2023 3:20 PM EDT 01/04/2023 3:56 PM EDT Narrative Resulting Agency Comment Spec In Lab Mike SIMON HEMATOLOGY ORDERABL ES Performing Organization Address [facility]/ZIP Co de Phone Number [facility] [place] [address] * Hemogram (01/04/2023 3:20 PM EDT) White Blood Cell 6.9 4.0 - 9.5 x10(3)/[facility] Red Blood Cell 4.07 4.00 - 5.21 x10(6)/[facility] Hemoglobin 12.8 11.7 - 15.5 g/dL [facility] Hematocrit 36.7 35.7 - 45.8 % [facility] Mean Cell Volume 90.2 82.6 - 94.4 fL [facility] Mean Cell Hemoglobin 31.4 27.1 - 32.0 pg [facility] Mean Cell Hemoglobin Concentration 34.9 31.7 - 35.0 g/dL [facility] Platelet 255 145 - 357 x10(3)/[facility] RDW Standard Deviation 39.6 37.0 - 46.0 fL [facility] RDW coefficient of variation 12.1 11.5 - 14.1 % [facility] Mean Platelet Volume 9.5 7.6 - 12.9 fL [facility] NRBC% auto 0.0 % [facility] NRBC Absolute 0.000 0.000 - 0.000 x10(3)/[facility] Blood 01/04/2023 3:20 PM EDT 01/04/2023 3:56 PM EDT Narrative Resulting Agency Comment Spec In Lab Mike SIMON HEMATOLOGY ORDERABL ES Performing Organization Address City/[facility] Co de Phone Number [facility] [place] [address] * Lipase (01/04/2023 3:20 PM EDT) Lipase 32 0 - 60 unit/L [facility] Blood 01/04/2023 3:20 PM EDT 01/04/2023 3:56 PM EDT Narrative Resulting Agency Comment Spec In Lab Jensen Arroyo MD CHEMISTRY ORDERABLES Performing Organization Address City/[facility]/ZIP Co de Phone Number [facility] [place] [address] * Comprehensive metabolic panel (non-fasting) (01/04/2023 3:20 PM EDT) Glucose 91 65 - 199 mg/dL [facility] Comment:Diabetes: >=200 mg/d L plus symptoms Blood Urea Nitrogen 11 8 - 18 mg/dL [facility] Creatinine 0.74 0.70 - 1.20 mg/dL [facility] Sodium 138 135 - 145 mmol/L [facility] Potassium 3.6 3.5 - 5.0 mmol/L [facility] Comment: Please note: ??Patients with WBC >100,000 may have falsely elevated Potassium levels. ??For accurate Potassium quantification in these patients send serum separator tube (gold top) for subsequent determinations. ??Contact the Clinical Chemistry Laboratory if there are any questions. Chloride 102 98 - 107 mmol/L [facility] Carbon Dioxide 23 22 - 31 mmol/L [facility] Anion Gap 13 5 - 15 mmol/L [facility] Calcium 9.8 8.5 - 10.5 mg/dL [facility] Protein, Total 8.0 6.1 - 8.0 g/dL [facility] Albumin 4.9 3.2 - 5.2 g/dL [facility] Aspartate Aminotransferase 11 0 - 30 unit/L [facility] Alanine Aminotransferase 10 0 - 30 unit/L [facility] Alkaline Phosphatase 63 35 - 105 unit/L [facility] Bilirubin, Total 0.6 0.2 - 1.3 mg/dL [facility] Est Glomerular Filtration Rate 106 >=60 mL/min/1. 73 m?? [facility] Comment: This patient's estimated GFR [...] In Lab Jensen Arroyo MD CHEMISTRY ORDERABLES [facility] [place] [address] documented in this encounter Visit Diagnoses Diagnosis [...] Rahman) documented in this encounter Care Teams Restaurant Operations Manager Relationship Specialty Start Date End Date Harmony Cortez, [address] [place] [address] PCP - General Family Medicine 06/29/22 documented as of this encounter
--- OUTSIDE RECORDS SUMMARY | 2024-05-17 09:58 | XMS_ITS | Encounter Summary ---
Author Organization [facility] [place] [address] Care Team Providers Care Crossbar Frame Wirer Name Role Phone Harriett Goldsmith APRN Primary Care Provid er Encounter Details Date Type Department Care Team (Late st Contact Info) Description 06/19/2020 Telephone [place] [phone] Nathaly Cisneros, [facility] Social History Tobacco Use Types Packs/Day [...] - 06/19/2020 2:10 PM EST Tori Escobar [id number] Diagnosis/Indication: 1. Do you take any blood [...] to patient: You must have a responsible alliance party who will drive you to your [...] on filedocumented in this encounter Care Teams Crossbar Frame Wirer Relationship Specialty Start Date End Date Harriett Goldsmith APRN [address] [facility] [address] [place] [address] PCP - General Family Medicine 11/23/19 07/09/20 documented as of this encounter
--- OUTSIDE RECORDS SUMMARY | 2024-05-17 09:58 | XMS_ITS | Encounter Summary ---
Author Organization [facility] [place] [address] Care Team Providers Care Cryptologic Technician Name Role Phone Harriett Goldsmith APRN Primary Care Provid er Reason for Referral * Consultation (Routine) - Closed Specialty Diagnoses / Procedures Referred By Jonny t Referred To Contact Gastroenterology Diagnoses BRCA2 gene mutation positive in female Family history of pancreatic cancer Justin Vela MD [facility] DR HEMATOLOGY/[place] [address] Danya Diez MD [facility] [place] [address] Referral ID Status Reason Start Date Expiration Date V isits Requested Visits Authorized [id number] Closed Consult, Test & Treat 04/17/2020 04/17/2021 1 1 * Consultation (Routine) - Closed Specialty Diagnoses / Procedures Referred By Jonny perez Referred To Contact Hematology and Oncology Diagnoses BRCA2 gene mutation positive in female Justin Vela MD [facility] HEMATOLOGY/[place] [address] [facility] Onc [address] [place] [address] Referral ID Status Reason Start Date Expiration Date V isits Requested Visits Authorized [id number] Closed Consult, Test & Treat 04/17/2020 04/17/2021 1 1 * Consultation (Routine) - Closed Specialty Diagnoses / Procedures Referred By Jonny perez Referred To Contact Gynecology Oncology Diagnoses BRCA2 gene mutation positive in female Justin Vela MD [facility] DR HEMATOLOGY/ONCOLOGY [place], [place] [id number] [place] [address] Green Marketing Specialist [address] [place] [address] Referral ID Status Reason Start Date Expiration Date V isits Requested Visits Authorized [id number] Closed Consult, Test & Treat 04/17/2020 04/17/2021 1 1 Encounter Details Date Type Department Care Team (Latest Contact Info) Description 04/17/2020 11:00 AM EST TH Visit (TeleHealth) Hematology [place] [phone] Justin Vela MD BRCA2 gene mutation positive in female; Family [...] - 04/17/2020 11:00 AM EST Ms. Escobar whad a telehealth video visit with me to receive results from genetic testing. I spent all of 25 minutes outlining the test result and its implications. A copy of a letter sent to the patient containing these results is provided below. Please be advised that [place] law requiresthat all health care workers respect the confidentiality of this information and not pass it along to other health care providers, insurance companies, or individuals without the written permission of the patient. The Familial Cancer Program welcomes any questions about these matters. Our phone number is: [phone]. On 03/07/2020, Tori underwent genetic testing for the known BRCA2 mutation previously detected in her father and for the variants of uncertain significance in the CDH1 and RECQL4 genes also detected in her father. Following are the results of this test. ?? Result: [facility] BRCA2 analysis showed that Tori carries the pathogenic variant (mutation) in BRCA2, specifically c.[id number]>T ([id number]). This is the same mutation previously detected [...] for genetic counseling and testing. Our scheduling paralegal secretary can be reached at [phone]. Family members can also go to the [...] MRI directed biopsy capability such as the [facility] Radiology Department. ??? Annual mammograms, with consideration [...] reach the Comprehensive Breast Program by calling [phone]. Ovarian cancer risk management Ovarian cancer (and [...] in addition to pelvic exams with their press brake operator. This could start between the ages of [...] at risk. The gynecological oncology group at [facility] may be reached at [phone] to schedule an appointment.A referral has been placed. Skin cancer screening ??? Annual, or more frequent, dermatologic exams, as recommended by Tori's toxicology supervisor Colon cancer screening ?? Baseline colorectal cancer [...] criteria. A referral to Dr. Smith, a front loader residential driver at [facility] in [place] has been placed. She can discuss these screening options with Tori if she desires. Tori can schedule an appointment with her by reaching her paralegal secretary at [phone]. Cancer screening FOR MEN ?? Breast self-exam [...] can be accessed at the following URL: [email or web address] Finally, it can be difficult for people [...] For some, a consultation with a psychologist, manager social services, or psychiatristmay be helpful in dealing with [...] tract documented in this encounter Care Teams Cryptologic Technician Relationship Specialty Start Date End Date Harriett Goldsmith APRN [address] [place] [address] PCP - General Family Medicine 11/23/19 07/09/20 documented as of this encounter
--- OUTSIDE RECORDS SUMMARY | 2024-05-17 09:58 | XMS_ITS | Encounter Summary ---
Author Organization [facility] [place] [address] Care Team Providers Care Airport Operations Crew Member Name Role Phone Harmony Cortez APRN Primary Care Provider [phone] Reason for Referral * Consultation (Routine) - Closed Specialty Diagnoses / Procedures Referred By Contcaleb t Referred To Contact Dermatology Diagnoses Genetic susceptibility to other malignant neoplasm Harmony Cortez APRN [address] [place] [address] [facility] Dermatology [address] [place] [address] Referral ID Status Reason Start Date Expiration Date V isits Requested Visits Authorized [id number] Closed Consult, Test & Treat PCP Updated and/or Approved 06/29/2022 06/29/2023 6 6 Encounter Details Date Type Department Care Team (Late st Contact Info) Description 06/29/2022 Transcribe Orders eDH Incoming Referrals [phone] Harmony Cortez APRN [address] [place] [address] Genetic susceptibility to other malignant [...] neoplasm documented in this encounter Care Teams Airport Operations Crew Member Relationship Specialty Start Date End Date Harmony Cortez APRN [address] [place] [address] [address] [facility] [address] [place] [address] PCP - General Family Medicine 06/29/22 documented as of this encounter
--- OUTSIDE RECORDS SUMMARY | 2024-05-17 09:58 | XMS_ITS | Encounter Summary ---
Author Organization [facility] [place] [address] Care Team Providers Care Furniture Duster Name Role Phone Harmony Cortez APRN Primary [...] on filedocumented in this encounter Care Teams Furniture Duster Relationship Specialty Start Date End Date Harmony Cortez APRN [address] [place] [address] PCP - General Family Medicine 06/29/22 documented as of this encounter
--- OUTSIDE RECORDS SUMMARY | 2024-05-17 09:58 | XMS_ITS | Encounter Summary ---
Author Organization [facility] [place] [address] Care Team Providers Care Chief Controller Name Role Phone Anisha Neal MD Primary Care Provider [phone] Encounter Details Date Type Department Care Team (Late st Contact Info) Description 07/16/2020 Orders [place] [address] Brady Freedman MD [facility] [place] [address] Social History Tobacco Use Types Packs/Day Years [...] on filedocumented in this encounter Care Teams Chief Controller Relationship Specialty Start Date End Date Anisha Neal MD PCP - General Family Medicine 07/10/20 06/28/22 documented as of this encounter
--- OUTSIDE RECORDS SUMMARY | 2024-05-17 09:58 | XMS_ITS | Encounter Summary ---
Author Organization [facility] Address [facility] [place] [address] Care Team Providers Care Forest Fire Lookout Name Role Phone Harriett Goldsmith APRN Primary Care Provid er Encounter Details Date Type Department Care Team (Late st Contact Info) Description 04/18/2020 Orders Only [place] [address] Bhavna Mckeon APRN [facility] [place] [address] BRCA positive Social History Tobacco Use Types [...] breast documented in this encounter Care Teams Forest [employer] Lookout Relationship Specialty Start Date End Date Harriett Goldsmith APRN [address] [facility] [address] [place] [address] PCP - General Family Medicine 11/23/19 07/09/20 documented as of this encounter
--- OUTSIDE RECORDS SUMMARY | 2024-05-17 09:58 | XMS_ITS | Encounter Summary ---
[place] [address] Care Team Providers Care Director Manufacturing Engineering Name Role Phone Harmony Cortez APRN Primary Care Provider Encounter Details Date Type Department Care Team (Late st Contact Info) Description 01/04/2023 Orders [place] [address] Denzel Fisher, [facility] [place] [address] Social History Tobacco Use Types Packs/Day Years [...] filedocumented in this encounter Care Teams Director Manufacturing Engineering Relationship Specialty Start Date End Date Harmony Cortez APRN [address] [place] [address] PCP - General Family Medicine 06/29/22 documented as of this encounter
--- OUTSIDE RECORDS SUMMARY | 2024-05-17 09:58 | XMS_ITS | Encounter Summary ---
Author Organization Counts Include [facility] Address [facility] [place] [address] Care Team Providers Care Transportation Museum Helper Name Role Phone Harriett Goldsmith APRN Primary Care Provid er Reason for Visit * Reason Onset Date Comments Other 04/18/2020 Encounter Details Date Type Department Care Team (Late st Contact Info) Description 04/18/2020 Telephone Obstetrics [place] [address] Priyanka Brito MD [facility] OBSTETRICS AND [place] [address] Other Social History Tobacco Use Types Packs/Day [...] AM EST Please sign. Going to local [facility] [place] documented in this encounter Plan of Treatment Not on file documented as of this encounter Visit Diagnoses Diagnosis BRCA2 positive- Primary Genetic susceptibility to malignant neoplasm of breast documented in this encounter Care Teams Transportation Museum Helper Relationship Specialty Start Date End Date Harriett Goldsmith APRN [facility] [address] [place] [address] PCP - General Family Medicine 11/23/19 07/09/20 documented as of this encounter
--- OUTSIDE RECORDS SUMMARY | 2024-05-17 09:58 | XMS_ITS | Encounter Summary ---
Author Organization [facility] Address [facility] [place] [address] Care Team Providers Care Physician Intensivist Name Role Phone Harriett Goldsmith APRN Primary Care Provid er Reason for Visit * Reason Comments Advice Only would like to discus s mastectomy and then reconstruction * Consultation (Routine) - Closed Specialty Diagnoses / Procedures Referred By Jonny perez Referred To Contact Plastic Surgery Diagnoses BRCA2 gene mutation positive Family history of BRCA2 gene positive Bhavna Mckeon APRN [facility] [place] [address] [facility] [address] [place] [address] Referral ID Status Reason Start Date Expiration Date V isits Requested Visits Authorized [id number] Closed Specialty Service Requested 05/21/2020 05/21/2021 1 1 Encounter Details Date Type Department Care Team (Latest Contact Info) Description 06/19/2020 11:30 AM EST Office Visit [place] [address] Haley Freedman MD [facility] [place] [address] BRCA2 gene mutation positive; Encounter [...] to your surgery. Day of Surgery A driver/refuse collector is required at time of discharge. If [...] assessment and review your history with you. [facility] has instituted the requirement of COVID-19 [...] For questions pertaining to your surgical date [phone] For nursing related questions [phone] On weekends, holidays or after office hours: Call and ask the sweatband decorating machine operator to page the Plastic Surgery Resident access control officer. documented in this encounter Progress Notes * Haley Freedman MD - 06/19/2020 11:30 AM EST Plastic Surgery Consultation Note Haley Freedman MD. PCP: Harriett Goldsmith APRN Requesting surgeon: Bhavan Mckeon APRN. CC: To discuss breast reconstruction [...] a mammogram recently which was normal. The [employer] informational link on breast reconstruction was received: [...] to her visit today she watched the [employer] informational link on breast reconstruction. I also [...] informed decision 5. Recommended web sites including: www.surgery.med.[facility] www.[email or web address] www.breastimplantsafety.org www.breasthealthonline.com 6. Brochure on the Section [...] the safety of silicone implants and the [place] brochure: Silicone implants, making an informed decision. [...] counseling documented in this encounter Care Teams Physician Intensivist Relationship Specialty Start Date End Date Harriett Goldsmith APRN [address] [facility] [address] [place] [address] PCP - General Family Medicine 11/23/19 07/09/20 documented as of this encounter
--- OUTSIDE RECORDS SUMMARY | 2024-05-17 09:58 | XMS_ITS | Encounter Summary ---
Author Organization [facility] [place] [address] Care Team Providers Care Trimmer Tailer Name Role Phone Anisha Neal MD Primary Care Provider [phone] Reason for Referral * Diagnostic Test (Routine) - Closed Specialty Diagnoses / Procedures Referred By Jonny perez Referred To Contact Radiology Diagnoses Encounter to discuss breast reconstruction Pre-op exam Procedures CT Angiogram Abdomen & Pelvis w Contrast (Generic) CT Angiogram Abdomen w Contrast Brady Freedman MD [facility] [place] [address] [facility] [place] [address] Referral ID Status Reason Start Date Expiration Date V isits Requested Visits Authorized [id number] Closed Specialty Service Requested 08/20/2020 11/18/2020 1 1 Reason for Visit * Diagnostic Test (Routine) - Closed Specialty Diagnoses / Procedures Referred By Jonny perez Referred To Contact Radiology Diagnoses Encounter to discuss breast reconstruction Pre-op exam Procedures CT Angiogram Abdomen & Pelvis w Contrast (Generic) CT Angiogram Abdomen w Contrast Brady Freedman MD [facility] [place] [address] [facility] [place] [address] Referral ID Status Reason Start Date Expiration Date V isits Requested Visits Authorized [id number] Closed Specialty Service Requested 08/20/2020 11/18/2020 1 1 Encounter Details Date Type Department Care Team (Latest Contact Info) Description 08/23/2020 3:45 PM EDT - 08/23/2020 11:59 PM EDT Hospital [place] [address] Brady Freedman MD [facility] [place] [address] Encounter to discuss breast reconstruction; Pre-op exam [...] the right of the umbilicus. Medial branch lithograph press feeder penetrates the fascia 0.8 cm cranial and 4.1 cm to the right of the umbilicus. Lateral branch lithograph press feeder penetrates the fascia 2.3 cm cranial and [...] rise to medial and lateral perforators. Medial lithograph press feeder of the medial branch penetrates the fascia 4.9 cm cranial and 2.9 cm to the left of the umbilicus. Lateral lithograph press feeder of the medial branch penetrates the fascia [...] who have questions please contact the health post acute care nurse practitioner that requested your imaging first. ? Electronically signed by: Maria Teresa Crain MD, [facility] ([phone]), at 09/02/2020 3:09 PM --------ORIGINAL REPORT -------- [...] who have questions please contact the health post acute care nurse practitioner that requested your imaging first. ? Impressions 08/24/2020 3:06 PM EDT Normal study Thank you for letting us participate in the care of this patient. ??If you are a health care provider and have any questions regarding this report, please contact the number below. ??For patients who have questions please contact the health post acute care nurse practitioner that requested your imaging first. ? Narrative [...] reviewed and 3-D images were generated on [employer] workstation. COMPARISON: None FINDINGS: VASCULAR FINDINGS Abdominal [...] patients who have questions please contactthe health post acute care nurse practitioner that requested your imaging first. Brady Freedman [...] mLs documented in this encounter Care Teams Trimmer Tailer Relationship Specialty Start Date End Date Anisha Neal MD PCP - General Family Medicine 07/10/20 06/28/22 documented as of this encounter
--- OUTSIDE RECORDS SUMMARY | 2024-05-17 09:58 | XMS_ITS | Encounter Summary ---
Author Organization [facility] [place] [address] Care Team Providers Care Supervisory Lifeguard Name Role Phone Harmony Cortez APRN Primary Care Provider [phone] Encounter Details Date Type Department Care Team (Late st Contact Info) Description 04/01/2023 External [place] [address] Social History Tobacco Use Types Packs/Day Years [...] on filedocumented in this encounter Care Teams Supervisory Lifeguard Relationship Specialty Start Date End Date Harmony Cortez APRN [address] [place] [address] PCP - General Family Medicine 06/29/22 documented as of this encounter
--- OUTSIDE RECORDS SUMMARY | 2024-05-17 09:58 | XMS_ITS | Encounter Summary ---
Author Organization Formerly [facility], [facility] [place] [address] Care Team Providers Care Facility Sales And Admin Name Role Phone Anisha Neal MD Primary Care Provider Reason for Referral * Diagnostic Test (Routine) - Closed Specialty Diagnoses / Procedures Referred By Contac t Referred To Contact Radiology Diagnoses Encounter to discuss breast reconstruction Pre-op exam Procedures CT Angiogram Abdomen & Pelvis w Contrast (Generic) CT Angiogram Abdomen w Contrast Brady Freedman MD [facility] [place] [address] [facility] [place] [address] Referral ID Status Reason Start Date Expiration Date V isits Requested Visits Authorized [id number] Closed Specialty Service Requested 08/20/2020 11/18/2020 1 1 Encounter Details Date Type Department Care Team (Late st Contact Info) Description 08/14/2020 Orders [place] [address] Brady Freedman MD [facility] [place] [address] Encounter to discuss breast reconstruction; [...] the right of the umbilicus. Medial branch headliner installer penetrates the fascia 0.8 cm cranial and 4.1 cm to the right of the umbilicus. Lateral branch headliner installer penetrates the fascia 2.3 cm cranial and [...] rise to medial and lateral perforators. Medial headliner installer of the medial branch penetrates the fascia 4.9 cm cranial and 2.9 cm to the left of the umbilicus. Lateral headliner installer of the medial branch penetrates the fascia [...] who have questions please contact the health pet care assistant that requested your imaging first. ? Electronically signed by: Maria Teresa Crain MD, [facility] ([phone]), at 09/02/2020 3:09 PM --------ORIGINAL REPORT -------- [...] who have questions please contact the health pet care assistant that requested your imaging first. ? Impressions 08/24/2020 3:06 PM EDT Normal study Thank you for letting us participate in the care of this patient. ??If you are a health care provider and have any questions regarding this report, please contact the number below. ??For patients who have questions please contact the health pet care assistant that requested your imaging first. ? Narrative [...] reviewed and 3-D images were generated on [employer] workstation. COMPARISON: None FINDINGS: VASCULAR FINDINGS Abdominal [...] patients who have questions please contactthe health pet care assistant that requested your imaging first. Brady Freedman MD IMG CT ORDERABLES documented in this encounter Visit Diagnoses Diagnosis Encounter to discuss breast reconstruction Other specified counseling Pre-op exam Preoperative examination, unspecified Encounter to discuss breast reconstruction Other specified counseling Pre-op exam Preoperative examination, unspecified documented in this encounter Care Teams Facility Sales And Admin Relationship Specialty Start Date End Date Anisha Neal MD PCP - General Family Medicine 07/10/20 06/28/22 documented as of this encounter
--- OUTSIDE RECORDS SUMMARY | 2024-05-17 09:58 | XMS_ITS | Encounter Summary ---
Author Organization [facility] Address [facility] [place] [address] Care Team Providers Care Compressed Gas Equipment Mechanic Name Role Phone Harriett Goldsmith APRN Primary Care Provid er Reason for Visit * Consultation (Routine) - Closed Specialty Diagnoses / Procedures Referred By Contac t Referred To Contact Hematology and Oncology Diagnoses BRCA2 gene mutation positive Family history of BRCA2 gene positive Bhavna Mckeon APRN [facility] [place] [address] Aminta Miguel MD [facility] [place] [address] Referral ID Status Reason Start Date Expiration Date V isits Requested Visits Authorized [id number] Closed Consult, Test & Treat 05/21/2020 05/21/2021 1 1 Encounter Details Date Type Department Care Team (Latest Contact Info) Description 06/26/2020 3:45 PM EST TH Visit (TeleHealth) [place] [address] Aminta Miguel MD [facility] [address] [phone] At high risk for breast cancer Social [...] Hx: 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 She and her have decided theydo [...] cancer documented in this encounter Care Teams Compressed Gas Equipment Mechanic Relationship Specialty Start Date End Date Harriett Goldsmith APRN [address] [facility] [address] [place] [address] PCP - General Family Medicine 11/23/19 07/09/20 documented as of this encounter
--- OUTSIDE RECORDS SUMMARY | 2024-05-17 09:58 | XMS_ITS | Encounter Summary ---
Author Organization [facility] Address [facility] [place] [address] Care Team Providers Care Nurse Companion Name Role Phone Anisha Neal MD Primary Care Provider [phone] Reason for Visit * Reason Comments Follow-up * Consultation (Urgent) - Closed Specialty Diagnoses / Procedures Referred By Contac t Referred To Contact Hematology and Oncology Diagnoses clotting Brady Freedman MD [facility] [place] [address] [facility] Hem Onc [address] [place] [address] Referral ID Status Reason Start Date Expiration Date V isits Requested Visits Authorized [id number] Closed Consult, Test & Treat 07/08/2020 07/08/2021 1 1 Encounter Details Date Type Department Care Team (Late st Contact Info) Description 08/05/2020 10:30 AM EDT Office Visit [place]ology [place] [address] Delicia Powell MD [facility] [address] HEMATOLOGY [place] [address] Family history of pulmonary embolism; [...] were not included. [facility] [place] [address] THROMBOSIS CONSULTATION DATE OF VISIT 08/05/2020 Patient [...] She was also seen by Dr. Brito, [employer]EL[employer] ONC to discuss future prophylactic bilateral salpingo-oophorectomy [...] ULTRASOUND performed by Malik Sanders MD at [facility] ENDOSCOPY OBSTETRIC HISTORY Estrogen combined [...] use+ venous insufficiency. 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
--- OUTSIDE RECORDS SUMMARY | 2024-05-17 09:58 | XMS_ITS | Encounter Summary ---
Author Organization [facility] Address [facility] [place] [address] Care Team Providers Care Community Education Coordinator Name Role Phone Harriett Goldsmith APRN Primary Care Provid er Encounter Details Date Type Department Care Team (Late st Contact Info) Description 07/08/2020 [place] [address] Caren Hsu MSW Social History Tobacco Use [...] Dr. Freedman was their plastic surgeon. P [facility] will continue to provide support and resources to pt as needed. documented in this encounter Plan of Treatment Not on file documented as of this encounter Visit Diagnoses Not on filedocumented in this encounter Care Teams Community Education Coordinator Relationship Specialty Start Date End Date Harriett Goldsmith APRN [address] [place] [address] [address] [place] [address] PCP - General Family Medicine 11/23/19 07/09/20 documented as of this encounter
--- OUTSIDE RECORDS SUMMARY | 2024-05-17 09:58 | XMS_ITS | Encounter Summary ---
Author Organization [facility] [place] [address] Care Team Providers Care Spring Assembler Name Role Phone Harriett Goldsmith APRN Primary Care Provid er Reason for Referral * Consultation (Urgent) - Closed Specialty Diagnoses / Procedures Referred By Contac t Referred To Contact Hematology and Oncology Diagnoses clotting Haley Wheeler MD [facility] [place] [address] [facility] Hem Onc [address] [place] [address] Referral ID Status Reason Start Date Expiration Date V isits Requested Visits Authorized [id number] Closed Consult, Test & Treat 07/08/2020 07/08/2021 1 1 Encounter Details Date Type Department Care Team (Latest Contact Info) Description 07/02/2020 4:15 PM EDT TH Visit (TeleHealth) [place] [address] Haley Wheeler MD [facility] [place] [address] BRCA2 gene mutation positive; Encounter [...] resection, possible placement of mesh. CPT: NOE: 70027, 06320 Rib resection: 87947 FNG 54423 Mesh placement: 13031, 37693, 16721 Surgical site: Breast Side: Bilateral Anesthesia: General [...] counseling documented in this encounter Care Teams Spring Assembler Relationship Specialty Start Date End Date Harriett Goldsmith APRN [address] [address] PCP - General Family Medicine 11/23/19 07/09/20 documented as of this encounter
--- OUTSIDE RECORDS SUMMARY | 2024-05-17 09:58 | XMS_ITS | Encounter Summary ---
Author Organization [facility] [place] [address] Care Team Providers Care Business Practices Officer Name Role Phone Anisha Neal MD Primary Care Provider [phone] Reason for Visit * Auth/Cert Specialty Diagnoses [...] Expiration Date Visits Re quested Visits Authorized [id number] 1 1 Encounter Details Date Type Department Care Team (Late st Contact Info) Description 07/24/2020 10:00 AM EDT - 07/24/2020 11:15 AM EDT [place] [address] Malik Sanders MD [facility] [place] [address] UPPER EUS- ENDOSCOPIC ULTRASOUND (WRVU 3.47) Social [...] Care Everywhere. * Ultrasound: Endoscopic (Rectal): Post-op (Danish) documented in this encounter Medications at Time [...] Sanders MD - 07/24/2020 10:20 AM EDT [facility] Operative Note Patient Name: Tori Escobar : [id number] MR#: [id number] Case Date: 07/24/2020 Surgeon: Surgeon(s) and Role: [...] Associated Diagnosis Comments Endoscopic Us Exam, Tarik ([id number]) 07/24/2020 10:05 AM EDT BRCA2 gene mutation positive in female Family history of pancreatic cancer UPPER EUS-ENDOSCOPIC ULTRASOUND Routine 07/24/2020 9:55 AM EDT documented in this encounter Results * UPPER EUS-ENDOSCOPIC ULTRASOUND (07/24/2020 9:55 AM EDT) UPPER ENDOSCOPIC ULTRASOUND [facility] Endoscopy Procedure Date: 07/24/2020 9:55 AM ? Patient Name: Tori Escobar ? Date of : 1985 ? Age: 35 ? Order #: [id number] ? Instrument Name: GF-UE [id number] ? Procedure: ? Upper EUS Indications: ? BRCA +, Family history of pancreas ? cancer Providers: ? Malik Sanders MD, Pricila Murphy, ? India Crawley RN, Blu Ramirez. ? Nash Referring MD: ?Harriett Goldsmith, Anisha Livingston Requesting Provider: Danya Diez MD Medicines: ? Monitored Anesthesia Care Complications: ? No immediate complications. Procedure: ? Pre-Anesthesia Assessment: ? - [place] Protocol: ? - Pre-procedure Verification: Prior ? [...] by the physician, the nurse, ? the sales operations associate and the biomedical engineering technician in ? the procedure room. ? [...] Procedure Code(s): ?? --- Professional --- ? 91450, Esophagogastroduodenos copy, ? flexible, transoral; with endoscopic ? ultrasound examination, including the ? esophagus, stomach, and either the ? duodenum or a surgically altered ? stomach where the jejunum is examined ? distal to the anastomosis CPT copyright 2019 [employer]. All rights reserved. The codes documented in this report are preliminary and upon mitigation supervisor review may be revised to meet [...] RN) documented in this encounter Care Teams Business Practices Officer Relationship Specialty Start Date End Date Anisha Neal MD PCP - General Family Medicine 07/10/20 06/28/22 documented as of this encounter
--- OUTSIDE RECORDS SUMMARY | 2024-05-17 09:59 | XMS_ITS | Encounter Summary ---
Author Organization [facility] [place] [address] Care Team Providers Care Credit Card Interviewer Name Role Phone Kristine Daily APRN Primary Care Provider + Reason for Visit * Reason Comments Hernia Encounter Details Date Type Department Care Team ([facility] st Contact Info) Description 10/09/2010 10:00 AM EDT [place] [address] Arnold Sofia MD [address] [facility] [place] [address] Abdominal pain (Primary Dx) Discharge Disposition: Home [...] site documented in this encounter Care Teams Credit Card Interviewer Relationship Specialty Start Date End Date Brodzinski, Carmona J, YARN REWINDER PCP - General 03/11/10 11/22/19 documented as of this encounter
--- OUTSIDE RECORDS SUMMARY | 2024-05-17 09:59 | XMS_ITS | Encounter Summary ---
Author Organization [facility] Address [facility] [place] [address] Care Team Providers Care Street Commissioner Name Role Phone LizbethHarmony ibarra CLINICAL DOCUMENTATION SPEC Primary Care Provider [phone] Encounter Details Date Type Department Care Team (Late st Contact Info) Description 06/11/2009 Orders [place] [address] [facility] [place] [address] Social History Tobacco Use Types Packs/Day Years [...] 2:58 PM EST) Surgical Pathology Report [id number] ? Location: 4T The signing pathologist has [...] on filedocumented in this encounter Care Teams Street Commissioner Relationship Specialty Start Date End Date Harmony Cortez APRN [address] [place] [address] [address] [facility] [address] [place] [address] PCP - General Family Medicine 06/29/22 documented as of this encounter
--- OUTSIDE RECORDS SUMMARY | 2024-05-17 09:59 | XMS_ITS | Referral Summary ---
Author Organization [facility] Address [address] [place] [address] Care Team Providers Care General Labor Name Role Phone None, Provider Primary Care Provider Unavailabl e Social History Tobacco Use Types Packs/Day Years Used Date Smoking Tobacco: Never Assessed Comments Unknown Sex and Gender Information Value Date Recorded Sex Assigned at Not on file Legal Sex Female 18:30 EST Gender Identity Not on file Sexual Orientation Not on file Plan of Treatment Not on file Care Teams General Labor Relationship Specialty Start Date End Date None, Provider PCP - General 06/03/20
--- OUTSIDE RECORDS SUMMARY | 2024-05-17 09:59 | XMS_ITS | Encounter Summary ---
Author Organization [facility] Address [address] [place] [address] Care Team Providers Care Medical Education Coordinator Name Role Phone Unavailable Primary Care Provider Unavailabl e Encounter Details Date Type Department Care Team (Late st Contact Info) Description 10/31/[address] [facility] [address] [place] [address] Adrienne Giles MD [address] [place] [address] [place] [address] Social History Tobacco Use Types Packs/Day Years [...] ? TORI ESCOBAR ? Accession #: ? [id number] : ? 1985 (Age: 19) ??F ?Collect Date: ? 10/31/2004 Location: ? [facility] ? Receive Date: ? 11/04/2004 Provider: ?ADRIENNE GILES MD Copy to: ? Specimen/Source: ?ThinPrep Pap Test, Cervix/Endocervix, processed on ROVOP ThinPrep Imaging System, with manual evaluation Last [...] Date: ??11/12/2004 09:19 End of Report [facility] 10/31/2004 11/04/2004 us Adrienne Giles MD PATHOLOGY ORDERABLES Final Resu lt [facility] [address] [place] [address] documented in this encounter Visit Diagnoses Not on filedocumented in this encounter
--- OUTSIDE RECORDS SUMMARY | 2024-05-17 09:59 | XMS_ITS | Encounter Summary ---
Author Organization [facility] Address [address] [place] [address] Care Team Providers Care [place] Utility Worker Name Role Phone Unavailable Primary Care Provider Unavailabl e Encounter Details Date Type Department Care Team (Late st Contact Info) Description 07/24/2002 13:19 EDT Hospital Encounter [facility] - Other [address] [place] [address] Blu Camargo MD Unknown, Provider, Social History [...]
--- OUTSIDE RECORDS SUMMARY | 2024-05-17 09:59 | XMS_ITS | Encounter Summary ---
Author Organization [facility] Address [address] [place] [address] Care Team Providers Care Fiction And Nonfiction Author Name Role Phone Denzel Mandel MD Primary Care Provider Unavailabl e Encounter Details Date Type Department Care Team (Latest Contact Info) Description 06/12/2014 10:26 EST - 06/12/2014 23:59 EST Hospital Encounter [address] [address] Unknown, Provider, Discharge Disposition: Home or Self [...] Code Departure Means Destination Home or Self [facility] documented in this encounter Plan of Treatment Not on file documented as of this encounter Visit Diagnoses Not on filedocumented in this encounter Care Teams Fiction And Nonfiction Author Relationship Specialty Start Date End Date Denzel Mandel MD PCP - General 07/23/11 06/12/14 documented as of this encounter
--- OUTSIDE RECORDS SUMMARY | 2024-05-17 09:59 | XMS_ITS | Encounter Summary ---
Author Organization [facility] Address [address] [place] [address] Care Team Providers Care Automatic Coil Machine Operator Name Role Phone Unavailable Primary Care Provider Unavailabl e Encounter Details Date Type Department Care Team (Late st Contact Info) Description 09/13/2007 Results Only [facility] [address] [place] [address] Bobby Daily, TINA [address] [place] [address] Social History Tobacco Use Types [...] ? TORI ESCOBAR ? Accession #: ? [id number] : ? 1985 (Age: 22) ??F ?Collect Date: ? 09/13/2007 Location: ? [facility] ? Receive Date: ? 09/15/2007 Provider: ?BOBBY DAILY AREA LOSS PREVENTION MANAGER Copy to: ? Specimen/Source: ?ThinPrep Pap Test, Cervix/Endocervix, processed on [employer] ThinPrep Imaging System, with manual evaluation Last [...] Document reviewed and electronically signed by: ? Robert Christopher, PRERNA(ASCP) ? Report Date: ??09/16/2007 13:49 End of Report [facility] 09/13/2007 09/15/2007 us Bobby Daily AREA LOSS PREVENTION MANAGER PATHOLOGY ORDERABLES Final R esult [facility] [address] [place] [address] documented in this encounter Visit Diagnoses Not on filedocumented in this encounter
--- OUTSIDE RECORDS SUMMARY | 2024-05-17 09:59 | XMS_ITS | Encounter Summary ---
Author Organization [facility] Address [address] [place] [address] Care Team Providers Care Shift Manager Name Role Phone Unavailable Primary Care Provider Unavailabl e Encounter Details Date Type Department Care Team (Late st Contact Info) Description 09/18/2009 Results Only [facility] - [facility] ([facility] [address] [place], [place] [id number] Sloan Houston MD [address] [place] [address] Social History Tobacco Use Types Packs/Day Years [...] ng unformatted reports. ? Name: ? TORI ASENCIO ? Accession #: ? [id number] ? : ? 1985 (Age: 24) ??F [...] 16:08 ? End of Report ? [facility] 09/18/2009 09/20/2009 us Sloan Houston MD PATHOLOGY ORDERABLES Final Res ult [facility] [address] [place] [address] documented in this encounter Visit Diagnoses Not on filedocumented in this encounter
--- OUTSIDE RECORDS SUMMARY | 2024-05-17 09:59 | XMS_ITS | Encounter Summary ---
Author Organization [facility] Address [address] [place] [address] Care Team Providers Care Transfer Engineer Name Role Phone None, Provider Primary Care Provider Unavailabl e Encounter Details Date Type Department Care Team (Late st Contact Info) Description 03/01/2022 Lab Requisition [facility] Pathology & Laboratory Medicine - [facility] [address] [place] [address] Outr Resulting Lab, Provider Social History Tobacco [...] Priority Date/Time Associated Diagnosis Comments ZZCOVID-19 TEST [facility] PCR Today 02/28/2022 11:30 EST COVID-19 TESTING Routine 02/28/2022 11:3 0 EST documented in this encounter Results * COVID-19 TEST [facility] PCR (02/28/2022 11:30 EST) Swab 02/28/2022 11:3 0 EST 03/01/2022 17:29 EST us Provider Outr Resulting Lab MICROBIOLOGY - GENER AL ORDERABLES Final Result [facility] [address] [place] [address] * COVID-19 TESTING (02/28/2022 11:30 EST) COVID-19 rt-PCR Result Negative Negative 03/02/2022 15:09 EST [facility] Comment: This test has [...] performed using the flaca SARS-CoV-2 assay ([employer] on the Flaca 6800 System Performing Lab [facility] [address] [facility] 03/02/2022 15:09 EST [facility] Swab 02/28/2022 11:3 0 EST 03/01/2022 17:29 EST us Provider Outr Resulting Lab MICROBIOLOGY - GENER AL ORDERABLES Final Result [facility] [address] [place] [address] documented in this encounter Visit Diagnoses Not on filedocumented in this encounter Care Teams Transfer Engineer Relationship Specialty Start Date End Date None, Provider PCP - General 06/03/20 documented as of this encounter
--- OUTSIDE RECORDS SUMMARY | 2024-05-17 09:59 | XMS_ITS | Encounter Summary ---
Author Organization [facility] Address [address] [place] [address] Care Team Providers Care Art Editor Name Role Phone Denzel Mandel MD Primary Care Provider Unavailabl e Encounter Details Date Type Department Care Team (Late st Contact Info) Description 11/17/2011 Results Only [facility] Laboratory Services - [facility] ([facility]) [address] [place], [place] [phone] Fawad Siddiqui MD [address] [place] [phone] Social History Tobacco Use Types Packs/Day [...] ? TORI ESCOBAR ? Accession #: ? [id number] ? : ? 1985 (Age: 26) ??F ? Collect Date: ? 11/17/2011 ? Location: ? [facility] ? Receive Date: ? 11/18/2011 ? Provider: FAWAD SIDDIQUI MD Copy to: BOBBY BEAVER CONCRETE SCULPTOR ? Final Pathologic Diagnosis: A. ?Terminal ileum, [...] Gross Description: ? Received in formalin labelled [place]car[place], Tori and A ??terminal ileum is a light whitaker biopsy measuring 0.7 x 0.2 x 0.1 cm. ??The specimen is submitted intact as (A). ?? Received in formalin labelled [place]car[place], Tori and B ??hepatic flexure is a [...] ROSIO FORTE 11/17/2011 11/18/2011 16: 18 EDT us Fawad Siddiqui MD PATHOLOGY ORDERABLES Final Result Performing Organization Address City/State/[facility] Co de Phone Number ROSIO FORTE [address] [place] [address] documented in this encounter Visit Diagnoses Not on filedocumented in this encounter Care Teams Art Editor Relationship Specialty Start Date End Date Denzel Mandel MD PCP - General 07/23/11 06/12/14 documented as of this encounter
--- OUTSIDE RECORDS SUMMARY | 2024-05-17 09:59 | XMS_ITS | Encounter Summary ---
[place] [address] Care Team Providers Care Meat Boner And Slicer Name Role Phone Harriett Goldsmith APRN Primary Care Provid er Reason for Visit * Reason Onset Date Comments Results 04/01/2020 BRCA2 mutation Encounter Details Date Type Department Care Team (Late st Contact Info) Description 04/01/2020 Telephone [place]ology [place] [phone] Susi Mooney LGC Results (BRCA2 mutation) Social History Tobacco Use [...] Encounter - Susi Mooney LGC - 04/01/2020 6:16 PM EST This test result was discussed with the patient by phone. A copy of the test results have been scanned in the medical record and sent to Tori. A summary of the results is provided below. Please beadvised that [place] law requires that all health care workers respect the confidentiality ofthis information and not pass it along to other health care providers, insurance companies, or individuals without the written permission of the patient. The Familial Cancer Program welcomes any questions about these matters. Our phone number is: [phone]. On 03/07/2020, Tori underwent genetic testing for the known BRCA2 mutation previously detected in her father and for the variants of uncertain significance in the CDH1 and RECQL4 genes also detected in her father. Following are the results of this test. Result: Isabelle's BRCA2 analysis showed that Tori carries the pathogenic variant (mutation) in BRCA2, specifically c.7988A>T ([id number]). This is the same mutation previously detected [...] for genetic counseling and testing. Our scheduling departmental secretary can be reached at [phone]. Family members can also go to the [...] report sent to Tor[facility] and [facility] Siobhan Smith, Familial Cancer Program departmental secretary will be contacting Tori to arrange for a follow-up phone consult with Dr. Justin Vela to discuss specific screening and medical management recommendations. Support Resources: Tori may find the online support organization called [employer]: Facing Our Risk of Cancer Empowered a helpful resource. This can be found at [email or web address] Learning of this positive result was difficult [...] some, a consultation with a psychologist, social sciences professor, or psychiatrist may be helpful in dealing with feelings that may arise from genetic testing. If Tori would like a referral, we can help to try to recommend a therapist who is familiar with issues surrounding genetic conditions. documented in this encounter Plan of Treatment Not on file documented as of this encounter Visit Diagnoses Not on filedocumented in this encounter Care Teams Meat Boner And Slicer Relationship Specialty Start Date End Date Harriett Goldsmith APRN [address] [facility] [address] [place] [address] PCP - General Family Medicine 11/23/19 07/09/20 documented as of this encounter
--- OUTSIDE RECORDS SUMMARY | 2024-05-17 09:59 | XMS_ITS | Encounter Summary ---
Author Organization [facility] [place] [address] Care Team Providers Care Tread Booker Name Role Phone Harriett Goldsmith APRN Primary Care Provid er Reason for Visit * Reason Comments Genetic Evaluation * Consultation (Routine) - Specialty Diagnoses / Procedures Referred By Jonny t Referred To Contact Hematology and Oncology Diagnoses FATHER HAD PANCREATIC CANCER AND WAS GENE TESTED Sloan Hurd MD [address],[facility] [address] [place] [address] [address] [facility] On[facility] Office [address] [place] [phone] Referral ID Status Reason Start Date Expiration Date V isits Requested Visits Authorized [id number] Consult, [facility] PCP Updated and/or Approved 11/21/2019 11/20/2020 10 10 Encounter Details Date Type Department Care Team (Latest Contact Info) Description 03/07/2020 2:00 PM EST TH Visit (TeleHealth) Hematology [place] [address] Susi Mooney, [facility] FHx: BRCA2 gene positive; Family history of [...] is not known. Paternal ethnic background is Maltese, , [place], [place]. Genetic risk assessment Based on the known BRCA2 mutation in Tori's father, Tori has a 50% chance of also being a carrier. Genetic testing for the known c.7988A>T mutation is recommended. I was able to review the report from Tori's father's testing in 2018. He was tested with [employer] [facility] multi-Cancer and pancreatic cancer panels. In addition [...] blood sample was drawn and sent to [facility]. Testing will take up to 3 weeks. [...] tract documented in this encounter Care Teams Tread Booker Relationship Specialty Start Date End Date Harriett Goldsmith APRN [address] [facility] [address] [place] [address] PCP - General Family Medicine 11/23/19 07/09/20 documented as of this encounter
--- OUTSIDE RECORDS SUMMARY | 2024-05-17 09:59 | XMS_ITS | Encounter Summary ---
Author Organization [facility] Address [facility] [place] [address] Care Team Providers Care Stars Specialist Name Role Phone Harriett Goldsmith APRN Primary Care Provid er Encounter Details Date Type Department Care Team (Late st Contact Info) Description 03/02/2020 Notes Only Hematology [place] [address] Justin Vela MD Social History Tobacco Use Types Packs/Day [...] on filedocumented in this encounter Care Teams Stars Specialist Relationship Specialty Start Date End Date Harriett Goldsmith APRN [address] [place] [address] [address] [place] [address] PCP - General Family Medicine 11/23/19 07/09/20 documented as of this encounter
--- OUTSIDE RECORDS SUMMARY | 2024-05-17 09:59 | XMS_ITS | Encounter Summary ---
Author Organization [facility] Address [address] [place] [address] Care Team Providers Care Systems Programmer Name Role Phone None, Provider Primary Care Provider Unavailabl e Encounter Details Date Type Department Care Team (Late st Contact Info) Description 06/03/2020 Lab Requisition [facility] Pathology & Laboratory Medicine - [address] [address] Nathan Wise MD [address] [place] [phone] Encounter for screening for malignant neoplasm of [...] with no significant diagnostic abnormalities. 06/04/2020 15:16 [facility] Attestation By the signature below, the attending physician certifies that they have 1) personally conducted a gross and/or microscopic examination of the described specimen(s), and/or personally interpreted the results of laboratory testing of the described specimen(s), and 2) personally rendered or confirmed the above diagnosis. 06/04/2020 15:16 [facility] at [address]16 Clinical History Normal colon; clinical diagnosis code: Z12.11, K58.1, R10.13, Z80.0 06/04/2020 15:16 [facility] Gross Description A. Received in formalin labelled with proper patient identification (initials G, D) and random colon Bx are 4 whitaker-brown tissues (0.1 x 0.1 x 0.1 cm to 0.5 x 0.2 x 0.1 cm). Entirely submitted in A1. Please note the smallest tissue may not survive processing. ALFRED GOMEZ(ASCP) 06/04/2020 8:09 06/04/2020 15:16 [facility] Performing Lab [facility] 06/04/2020 15:16 [facility] Scanned Images 06/04/2020 15:16 [facility] Tissue ENTIRE COLON / Unknown 06/03/2020 11:53 EST 06/03/2020 22:19 EST us Nathan Wise MD PATHOLOGY ORDERABLES Final Result [facility] [address] [place] [address] documented in this encounter Visit Diagnoses Diagnosis Encounter for screening for malignant neoplasm of colon Special screening for malignant neoplasms, colon Epigastric pain Abdominal pain, epigastric Family history of malignant neoplasm of digestive organs Irritable bowel syndrome with constipation Irritable bowel syndrome documented in this encounter Care Teams Systems Programmer Relationship Specialty Start Date End Date None, Provider PCP - General 06/03/20 documented as of this encounter
--- OUTSIDE RECORDS SUMMARY | 2024-05-17 09:59 | XMS_ITS | Encounter Summary ---
Author Organization [facility] Address [address] [place] [address] Care Team Providers Care Construction Project Mgr Name Role Phone Denzel Mandel MD Primary Care Provider Unavailabl e Encounter Details Date Type Department Care Team (Late st Contact Info) Description 08/17/2012 Results Only [facility] Laboratory Services - [facility] ([facility]) [address] [place], [place] [phone] Sloan Houston MD [address] [place] [address] Social History Tobacco Use Types Packs/Day Years [...] LUIS M TORI ? Accession #: ? [id number] : ? 1985 (Age: 27) ??F ?Collect [...] End of Report ROSIO FORTE 08/17/2012 08/19/2012 us Sloan Houston MD PATHOLOGY ORDERABLES Final Res ult [facility] [address] [place] [address] documented in this encounter Visit Diagnoses Not on filedocumented in this encounter Care Teams Construction Project Mgr Relationship Specialty Start Date End Date Denzel Mandel MD PCP - General 07/23/11 06/12/14 documented as of this encounter
--- OUTSIDE RECORDS SUMMARY | 2024-05-17 09:59 | XMS_ITS | Clinical Summary ---
Author Organization [facility] Address [address] [place] [address] Care Team Providers Care Chemical Equipment Controller Name Role Phone None, Provider Primary Care [...] 3-dose series) 03/16 COVID-19 Vaccine ( season) 2023 Care Teams Chemical Equipment Controller Relationship Specialty Start Date End Date None, Provider PCP - General 06/03/20
--- OUTSIDE RECORDS SUMMARY | 2024-05-17 09:59 | XMS_ITS | Encounter Summary ---
Author Organization [facility] [place] [address] Care Team Providers Care Assistant Golf Professional Name Role Phone Harriett Goldsmith APRN Primary Care Provid er Reason for Visit * Reason Onset Date Comments Results 04/01/2020 Encounter Details Date Type Department Care Team ([facility] Contact Info) Description 04/01/2020 Telephone Hematology [place] [address] Susi Mooney LGC Results Social History Tobacco Use Types Packs/Day [...] on filedocumented in this encounter Care Teams Assistant Golf Professional Relationship Specialty Start Date End Date Harriett Goldsmith APRN [address] [place] [address] [address] [place] [address] PCP - General Family Medicine 11/23/19 07/09/20 documented as of this encounter
--- OUTSIDE RECORDS SUMMARY | 2024-05-17 09:59 | XMS_ITS | Encounter Summary ---
Author Organization [facility] Address [address] [place] [address] Care Team Providers Care Inspector Returned Materials Name Role Phone Unavailable Primary Care Provider Unavailabl e Encounter Details Date Type Department Care Team (Late st Contact Info) Description 09/19/2007 Results Only [facility] [address] [place] [address] lSoan Houston MD [address] [place] [id number] Social History Tobacco Use Types Packs/Day Years [...] ? TORI ESCOBAR ? Accession #: ? [id number] : ? 1985 (Age: 22) ??F ?Collect Date: ? 09/19/2007 Location: ? [facility] ? Receive Date: ? 09/21/2007 Provider: ?SLOAN HOUSTON MD Copy to: ? Specimen/Source: ?ThinPrep Pap Test, Cervix/Endocervix, processed on [employer] ThinPrep Imaging System, with manual evaluation Last [...] Date: ??09/22/2007 09:15 End of Report ROSIO FOTRE 09/19/2007 09/21/2007 us Sloan Houston MD PATHOLOGY ORDERABLES Final Res ult [facility] [address] [place] [address] documented in this encounter Visit Diagnoses Not on filedocumented in this encounter
--- OUTSIDE RECORDS SUMMARY | 2024-05-17 09:59 | XMS_ITS | Encounter Summary ---
Author Organization [facility] Address [address] [place] [address] Care Team Providers Care Grade And Center Marker Name Role Phone Unavailable Primary Care Provider Unavailabl e Encounter Details Date Type Department Care Team (Late st Contact Info) Description 08/14/2005 Results Only [facility] [address] [place] [address] Bobby Daily, TINA [address] [place] [address] Social History Tobacco Use Types [...] ? TORI ESCOBAR ? Accession #: ? [id number] : ? 1985 (Age: 20) ??F ?Collect Date: ? 08/14/2005 Location: ? [facility] ? Receive Date: ? 08/18/2005 Provider: ?BOBBY DAILY AQUATIC HABITAT BIOLOGIST Copy to: ? Specimen/Source: ?ThinPrep Pap Test, Cervix/Endocervix, processed on [employer] ThinPrep Imaging System, with manual evaluation Last [...] End of Report ROSIO FORTE 08/14/2005 08/18/2005 us Bobby Daily NP PATHOLOGY ORDERABLES Final R esult [facility] FORTE [address] [place] [address] documented in this encounter Visit Diagnoses Not on filedocumented in this encounter
--- OUTSIDE RECORDS SUMMARY | 2024-05-17 09:59 | XMS_ITS | Encounter Summary ---
Author Organization [facility] Address [address] [place] [address] Care Team Providers Care Licsw Name Role Phone Unavailable Primary Care Provider Unavailabl e Encounter Details Date Type Department Care Team (Late st Contact Info) Description 07/21/2011 Results Only [facility] Laboratory Services - [facility] ([facility]) [address] [place] [phone] Fawad Siddiqui MD [address] [place], [place] [phone] Social History Tobacco Use Types Packs/Day Years [...] LUIS M TORI ? Accession #: ? [id number] ? : ? 1985 (Age: 26) ??F [...] as (A). Received in formalin labelled Tori sEcobar and antrum is a 0.4 x 0.2 x 0.1 cm, light whitaker biopsy. ??The specimen is submitted intact as (B). Received in formalin labelled Tori Escobar and EG junction is a 0.6 x 0.1 x 0.1 cm, whitaker-brown biopsy. ??The specimen is submitted intact as (C). ??(Patrick Wagner/kassandra ?? End of Report ROSIO FORTE 07/21/2011 07/21/2011 16: 43 EDT us Fawad Siddiqui MD PATHOLOGY ORDERABLES Final Result Performing Organization Address City/State/[facility] Co de Phone Number ROSIO FORTE [address] [place] [address] documented in this encounter Visit Diagnoses Not on filedocumented in this encounter
--- OUTSIDE RECORDS SUMMARY | 2024-05-17 09:59 | XMS_ITS | Encounter Summary ---
Author Organization [facility] Address [address] [place] [address] Care Team Providers Care Dining Room Maid Name Role Phone Denzel Mandel MD Primary Care Provider Unavailabl e Encounter Details Date Type Department Care Team (Late st Contact Info) Description 06/12/2014 Results Only [facility] - [facility] ([facility] [address] [place], [place] [phone] Sloan Houston MD [address] [place] [address] Social History Tobacco Use Types Packs/Day Years [...] ? TORI ESCOBAR ? Accession #: ? [id number] ? : ? 1985 (Age: 29) ??F [...] ??Sectioning reveals a central pinpoint lumen. ??Two claim service representative cross sections are submitted as A1. B. ?Received in formalin labelled with proper patient identification (initials G, D) and portion of left fallopian tube is a tubular structure (1.4 cm in length and 0.5 cm in diameter). ??The serosal surface is pink-whitaker and glistening. ??Sectioning reveals a central pinpoint lumen. ??Two claim service representative cross sections are submitted as B1. Magaly Hsieh 06/13/2014 08:38 AM End of Report [facility] 06/12/2014 20:1 7 EST 06/12/2014 20:17 EST us Sloan Houston MD PATHOLOGY ORDERABLES Final Res ult [facility] [address] [place] [address] documented in this encounter Visit Diagnoses Not on filedocumented in this encounter Care Teams Dining Room Maid Relationship Specialty Start Date End Date Denzel Mandel MD PCP - General 07/23/11 06/12/14 documented as of this encounter
--- OUTSIDE RECORDS SUMMARY | 2024-05-17 09:59 | XMS_ITS | Encounter Summary ---
Author Organization [facility] Address [address] [place] [address] Care Team Providers Care Gold Stamper Name Role Phone None, Provider Primary Care Provider Unavailabl e Encounter Details Date Type Department Care Team (Late st Contact Info) Description 12/09/2023 Lab Requisition [facility] Pathology & Laboratory Medicine - [facility] [address] [place] [address] Outr Resulting Lab, Provider Social History Tobacco [...] Lyme Ab Negative Negative 12/10/2023 9:29 EDT [facility] Blood VENOUS BLOOD / Unknown 12/09/2023 10:40 EDT 12/09/2023 19:39 EDT us Provider Outr Resulting Lab IMMUNOLOGY AND SEROL OGY ORDERABLES Final Result [facility] [address] [place] [phone] documented in this encounter Visit Diagnoses Not on filedocumented in this encounter Care Teams Gold Stamper Relationship Specialty Start Date End Date None, Provider PCP - General 06/03/20 documented as of this encounter
--- OUTSIDE RECORDS SUMMARY | 2024-05-17 09:59 | XMS_ITS | Encounter Summary ---
Author Organization [facility] Address [address] [place] [address] Care Team Providers Care Director Revenue Name Role Phone None, Provider Primary Care Provider Unavailabl e Encounter Details Date Type Department Care Team (Late st Contact Info) Description 07/17/2022 Lab Requisition [facility] - [facility] [address] [place] [address] Outr Resulting Lab, Provider Social History Tobacco [...] Results * HOLD SST (07/17/2022 7:08 EDT) [facility] Hold Hold 07/17/2022 20:31 EDT [facility] Blood VENOUS BLOOD / Unknown 07/17/2022 7:08 EDT 07/17/2022 19:28 EDT us Provider Outr Resulting Lab LAB INFO SERVICE AND SUPPORT & PHONE RESULT Final Result Performing Organization Address City/[facility]/ZIP Co de Phone Number [facility] [address] [place] [address] * THYROID ANTIBODIES (07/17/2022 7:08 EDT) [facility] Anti-Thyroglobulin <15 <=60 U/mL 2022 20:52 EDT [facility] Thyroperoxidase Ab <28 <=60 U/mL 2022 20:52 EDT [facility] Blood VENOUS BLOOD / Unknown 07/17/2022 7:08 EDT 07/17/2022 19:27 EDT us Provider Outr Resulting Lab CHEMISTRY & BLOOD GA S ORDERABLES Final Result Performing Organization Address [facility] Co de Phone Number [facility] [address] [place] [phone] * LYME AB (07/17/2022 7:08 EDT) [facility] Lyme Ab Negative Negative 07/20/2022 11:26 EDT [facility] Blood VENOUS BLOOD / Unknown 07/17/2022 7:08 EDT 07/17/2022 19:27 EDT us Provider Outr Resulting Lab IMMUNOLOGY AND SEROL OGY ORDERABLES Final Result Performing Organization Address [facility]/ZIP Co de Phone Number [facility] [address] [place] [address] * ANTI NUCLEAR AB (LILLIAM), IFA (07/17/2022 7:08 EDT) [facility] LILLIAM Interpretation Negative Negative 2022 13:56 EDT [facility] Comment:No titer performed, LILLIAM Screen is negative. Blood VENOUS BLOOD / Unknown 07/17/2022 7:08 EDT 07/17/2022 19:27 EDT Narrative [facility] - 07/20/2022 13:56 EDT Results were obtained with the INOVA NOVA Lite HEp-2 LILLIAM Kit by indirect immunofluorescence. us Provider Outr Resulting Lab IMMUNOLOGY AND SEROL OGY ORDERABLES Final Result Performing Organization Address [facility] Co de Phone Number [facility] [address] [place] [address] * HIGH SENSITIVITY C-REACTIVE PROTEIN (CARDIOVASCULAR DISEASE) (07/17/2022 7:08 EDT) High Sensitivity CRP 1.30 See Note mg/L 07/17/2022 19:51 EDT [facility] Comment: Reference Range: ??Low Risk: ? <1.0 mg/L ??Average Risk: ?? 1.0 - 3.0 mg/L ??High Risk: ?>3.0 mg/L ??Indeterminate*: >10.0 mg/L ??*May be an indication of another source of inflammation or infection Blood VENOUS BLOOD / Unknown 07/17/2022 7:08 EDT 07/17/2022 19:27 EDT us Provider Outr Resulting Lab CHEMISTRY & BLOOD GA S ORDERABLES Final Result Performing Organization Address [facility]/ZIP Co de Phone Number [facility] [address] [place] [address] documented in this encounter Visit Diagnoses Not on filedocumented in this encounter Care Teams Director Revenue Relationship Specialty Start Date End Date None, Provider PCP - General 06/03/20 documented as of this encounter
--- OUTSIDE RECORDS SUMMARY | 2024-05-17 09:59 | XMS_ITS | Encounter Summary ---
Author Organization [facility] Address [address] [place] [address] Care Team Providers Care Corporate Aircraft Mechanic Name Role Phone Unavailable Primary Care Provider Unavailabl e Encounter Details Date Type Department Care Team (Late st Contact Info) Description 07/24/2002 Results Only *[facility] - [place] [address] [place] [address] Blu Camargo MD Social History Tobacco Use [...] (Positive) ? TEST PERFORMED OR REFERRED BY [facility] ? [address] ? [place] [address] ? Resident Care Coordinator: ? Delroy Benton M.D. ? [facility] 07/24/2002 9:33 EDT 07/24/2002 9:34 EDT us Blu Camargo MD IMMUNOLOGY AND SEROLOGY ORDER KANNAN Final Result [facility] [address] [place] [address] * TSH (07/24/2002 9:33 EDT) TSH 0.97 0.35 - 5.50 uIU/ml [facility] 07/24/2002 9:33 EDT 07/24/2002 9:34 EDT us Blu Camargo MD CHEMISTRY & BLOOD GAS ORDERAB LES Final Result Performing Organization Address [facility] de Phone Number [facility] [address] [place] [address] * IRON (07/24/2002 9:33 EDT) Iron 86 60 - 180 ug/dl [facility] 07/24/2002 9:33 EDT 07/24/2002 9:34 EDT us Blu Camargo MD CHEMISTRY & BLOOD GAS ORDERAB LES Final Result Performing Organization Address [facility] de Phone Number [facility] [address] [place] [address] * IBC (07/24/2002 9:33 EDT) Pathologist [facility] TIBC 380 225 - 425 ug/dl [facility] 07/24/2002 9:33 EDT 07/24/2002 9:34 EDT us Blu Camargo MD CHEMISTRY & BLOOD GAS ORDERAB LES Final Result Performing Organization Address [facility] Phone Number [facility] [address] [place] [address] * ANTI GLIADIN AB (07/24/2002 9:33 EDT) Pathologist [facility] Gliadin IgG Ab 13Unit: EU(Note) -- EXPECTED VALUES -- ? (Ref Range) <25 (Negative) ? 25-50 (Weak Positive) ? >50 (Positive) ? TEST PERFORMED OR REFERRED BY [facility] ? [address] ? [place] [address] ? Resident Care Coordinator: ? Delroy Benton M.D. ? [facility] Gliadin IgA Ab 20Unit: EU(Note) -- EXPECTED VALUES -- ? (Ref Range) <25 (Negative) ? 25-50 (Weak Positive) ? >50 (Positive) ? TEST PERFORMED OR REFERRED BY [facility] ? [address] ? [place] [address] ? Resident Care Coordinator: ? Delroy Benton M.D. ? [facility] 07/24/2002 9:33 EDT 07/24/2002 9:34 EDT us Blu Camargo MD HISTORICAL LAB FOR SQ LOAD Fi nal Result [facility] [address] [place] [address] * FERRITIN (07/24/2002 9:33 EDT) Pathologist [facility] Ferritin 37 8 - 151 ng/ml [facility] 07/24/2002 9:33 EDT 07/24/2002 9:34 EDT us Blu Camargo MD CHEMISTRY & BLOOD GAS ORDERAB LES Final Result [facility] [address] [place] [address] * ENDOMYSIAL ANTIBODY, SERUM (07/24/2002 9:33 EDT) Endomysial Antibodies Negative(Note) -- EXPECTED VALUES -- ? Negative ? TEST PERFORMED OR REFERRED BY [facility] ? [address] ? [place] [address] ? Resident Care Coordinator: ? Delroy Benton M.D. ? [facility] 07/24/2002 9:33 EDT 07/24/2002 9:34 EDT Blu Camargo MD IMMUNOLOGY AND SEROLOGY ORDER KANNAN Final Result [facility] [address] [place] [address] * COMPREHENSIVE METABOLIC PANEL (CMP) (07/24/2002 9:33 EDT) Potassium 4.2 3.5 - 5.0 mEq/L [facility] Sodium 140 136 - 145 mEq/L [facility] Chloride 106 96 - 110 mEq/L [facility] CO2 25 24 - 30 mEq/L [facility] Total Alkaline Phosphatase 52 38 - 126 U/L [facility] Bilirubin, Total 0.2 0.2 - 1.3 mg/dl [facility] AST 20 8 - 50 U/L [facility] ALT 18 15 - 75 U/L [facility] Albumin 4.3 3.0 - 5.5 g/dl [...] LAB 07/24/2002 9:33 EDT 07/24/2002 9:34 EDT us Blu Camargo MD CHEMISTRY & BLOOD GAS ORDERAB LES Final Result [facility] [address] [place] [address] * HEMAGRAM AND DIFFERENTIAL (07/24/2002 9:33 EDT) [...] ABS Basophils 0.06 0.01 - 0.11 K/cmm [facility] Type of Diff: Automated [facility] 07/24/2002 9:33 EDT 07/24/2002 9:34 EDT us Blu Camargo MD PACKAGES & DNA PROBE ORDERABL ES Final Result [facility] [address] [place] [address] documented in this encounter Visit Diagnoses Not on filedocumented in this encounter
--- OUTSIDE RECORDS SUMMARY | 2024-05-17 09:59 | XMS_ITS | Encounter Summary ---
[place] [address] Care Team Providers Care Traffic Or System Dispatcher Name Role Phone Kristine Daily APRN Primary Care Provider + Encounter Details Date Type Department Care Team (Late st Contact Info) Description 10/09/2010 12:22 PM EDT - 10/09/2010 11:59 PM EDT Hospital [place] [address] Abdominal pain Social History Tobacco Use Types [...] mg documented in this encounter Care Teams Traffic Or System Dispatcher Relationship Specialty Start Date End Date Kristine Daily APRN PCP - General 03/11/10 11/22/19 documented as of this encounter
--- OUTSIDE RECORDS SUMMARY | 2024-05-17 09:59 | XMS_ITS | Encounter Summary ---
Author Organization [facility] Address [address] [place] [address] Care Team Providers Care Coal Wheeler Name Role Phone Unavailable Primary Care Provider Unavailabl e Encounter Details Date Type Department Care Team (Late st Contact Info) Description 09/07/2006 Results Only [facility] - [place] [facility] [address] [place] [address] Bobby Daily, TINA [address] [place] [address] Social History Tobacco Use Types [...] ? TORI ESCOBAR ? Accession #: ? [id number] : ? 1985 (Age: 21) ??F ?Collect Date: ? 09/07/2006 Location: ? [facility] ? Receive Date: ? 09/08/2006 Provider: ?BOBBY DAILY NP Copy to: ? Specimen/Source: ?ThinPrep Pap Test, Cervix/Endocervix, processed on [employer] ThinPrep Imaging System, with manual evaluation Last Menstrual Period: ? Other: ? HPVA - HPV testing requested if ASC-US on the current ThinPrep Pap test. ? SPECIMEN ADEQUACY ? Satisfactory for Evaluation - transformation zone component present GENERAL CATEGORIZATION ? Negative for Intraepithelial Lesion or Malignancy ? Document reviewed and electronically signed by: ? PRERNA Stevens(ASCP) ? Report Date: ??09/15/2006 08:27 End of Report [facility] 09/07/2006 09/08/2006 us Bobby Daily NP PATHOLOGY ORDERABLES Final R esult [facility] [address] [place] [address] documented in this encounter Visit Diagnoses Not on filedocumented in this encounter
--- OUTSIDE RECORDS SUMMARY | 2024-05-17 09:59 | XMS_ITS | Encounter Summary ---
Author Organization [facility] Address [address] [place] [address] Care Team Providers Care Boardinghouse Keeper Name Role Phone Denzel Mandel MD Primary Care Provider Unavailabl e Encounter Details Date Type Department Care Team (Late st Contact Info) Description 09/18/2011 Results Only [facility] Services - [facility] ([facility] [address] [place], [place] [id number] Fawad Siddiqui MD [address] [place] [phone] Social History Tobacco Use Types Packs/Day [...] ? TORI ESCOBAR ? Accession #: ? [id number] ? : ? 1985 (Age: 26) ??F ? Collect Date: ? 09/18/2011 ? Location: ? [facility] ? Receive Date: ? 09/18/2011 ? Provider: FAWAD SIDDIQUI MD Copy to: [facility] [employer] ? Final Pathologic Diagnosis: ? Gallbladder, cholecystectomy: [...] the lumen or in the plastic sleeve. ??Consumer Advocate sections are submitted in one cassette, including the cystic duct margin, inked black and en face, and two sections of gallbladder wall. ??(Dr. Shepherd)/dione End of Report [facility] 09/18/2011 09/18/2011 15: 20 EDT us Fawad Siddiqui MD PATHOLOGY ORDERABLES Final Result [facility] [address] [place] [address] documented in this encounter Visit Diagnoses Not on filedocumented in this encounter Care Teams Boardinghouse Keeper Relationship Specialty Start Date End Date Denzel Mandel MD PCP - General 07/23/11 06/12/14 documented as of this encounter
--- OUTSIDE RECORDS SUMMARY | 2024-05-17 09:59 | XMS_ITS | Encounter Summary ---
[place] [address] Care Team Providers Care Central Supply Tech Name Role Phone Kristine Daily APRN Primary Care Provider + Encounter Details Date Type Department Care Team (Late st Contact Info) Description 10/08/2010 Abstract [place] [id number] Veroinka Thomas RN Social History Tobacco Use Types [...] on filedocumented in this encounter Care Teams Central Supply Tech Relationship Specialty Start Date End Date Kristine Daily APRN PCP - General 03/11/10 11/22/19 documented as of this encounter
--- NOTE | 2024-05-17 10:00 | DI.RAD_ITS ---
Exam(s) XR ELBOW LT COMPLETE EXAM: XR ELBOW LT COMPLETE CLINICAL HISTORY: fall, elbow injury. TECHNIQUE: 2D digital imaging was performed of the left elbow. Three images were obtained. AP, lat eral and oblique views were obtained. COMPARISON: No exams were available for comparison FINDINGS: BONES: No acute fracture is present. No bony destructive lesion is seen. JOINTS: The elbow is normally aligned. No joint effusion is seen. SOFT TISSUE: Normal. IMPRESSION: Unremarkable radiographs of the left elbow. DATA REPOSITORY: RADIATION DOSE DELIVERED:
[2024-05-17 10:20] VITALS: BP 123/86; PULSE 88; RESP 14; O2SAT 98
[2024-05-17] MEDS: Acetaminophen 325 MG TAB 650 MG PO (10:21)
== END 2024-05-17 11:41 | disposition home or self-care (01) ==
PROVIDERS: Emergency Provider Nurse Practitioner Family; PCP Nurse Practitioner Family
DX: M25.552 Pain in left hip (principal)
CPT/HCPCS: 99283; 73080

== ENCOUNTER 2024-07-24 16:04 | Emergency (ER) | payer BC, SELFPAY ==
[2024-07-24] VITALS (20 sets, daily range): BP systolic 115–144; BP diastolic 73–83; PULSE 85–126; RESP 10–26; TEMP 36.2; O2SAT 97–100
--- NOTE | 2024-07-24 16:00 | RT.EKG_ITS ---
APPROVED REPORT Exam: Resting ECG Reason for Exam: chest pain Patient Location: E HR:115 bpm ECG Measurements Heart Rate 115 AXIS CO 171 P 41 QRSd 98 QRS 111 QT 337 T 17 QTc 467 Conclusion Sinus tachycardia, rate 115 No interval abnormalities No STEMI Right axis deviation, no significant change from priors
[2024-07-24 16:35] LABS: Abs Immature Grans 0.01 10^3/uL (0.0-0.06); Absolute Basophil Count 0.02 10^3/uL (0.0-0.2); Absolute Eosinophil Count 0.12 10^3/uL (0.0-0.7); Absolute Lymphocyte Count 3.53 10^3/uL (1.2-3.4); Absolute Monocyte Count 0.37 10^3/uL (0.1-0.8); Absolute Neutrophil Count 2.46 10^3/uL (1.2-6.7); Basophils % 0.3 %; Eosinophils % 1.8 %; HCT 38.5 % (36.0-46.0); Immature Grans % 0.2 %; Lymphocytes % 54.2 %; MCH 31.3 pg (27.0-33.0); MCHC 33.8 % (32.0-36.0); MCV 93 fL (80-95); MPV 9.1 fL (8.0-11.0); Monocytes % 5.7 %; Neutrophils % 37.8 %; Platelet Count 219 10^3/uL (130-400); RBC 4.15 10^6/uL (3.93-5.22); RDW 11.9 % (11.7-14.6); RDW-SD 40.9 fL; WBC 6.51 10^3/uL (4.4-10.8)
[2024-07-24] MEDS: LORazepam 1 MG TAB PO (16:36)
--- NOTE | 2024-07-24 16:57 | W.ED.GENAD ---
Discharge Plan Disposition Patient Disposition: Home Discharge Details Clinical Impression: Chest pain Primary Care Provider: Harmony Cortez ED Provider: Dana Rodriguez Home Meds and New Rx's Prescriptions: Continued lorazepam 0.5 mg tablet 0.5 mg PO DAILY PRN lorazepam 1 mg tablet 1 mg PO DAILY PRN (Reason: anxiety) Qty: 20 0RF Mirena 21 mcg/24 hours (8 yrs) 52 mg intrauterine device 1 device intrauterine ONCE Rx Instructions: as a single dose paroxetine HCl 10 mg tablet 10 mg PO DAILY Qty: 90 0RF sumatriptan succinate [Imitrex] 50 mg tablet 50 mg PO ONCE PRN (Reason: migraine headache) Qty: 60 0RF Rx Instructions: take 1 tab at onset of headache; if no relief may repeat 1 tab after at least 2 hrs; max = 4 tabs/24 hr PO Discharge Instructions Instructions: Chest Pain (DC) Additional Instructions: take motrin and tylenol as needed for pain recheck with pcpin 2-3 days with persistent symptoms your heart and lung evaluation today are reassuring please return earlier shoulder you have new or worsening complaints Stand Alone Forms: Work Release Referrals: Harmony Cortez, TINA [Primary Care Provider] - 1 day HPI General Date/Time Provider Initiated Documentation: 07/24/24 16:20. HPI Narrative: The patient is a 39-year-old female with left-sided chest pain that started in the shower, worse with deep breathing. She wore a new bra earlier today. No fever, chills, illness, cough, calf pain, tenderness, or similar symptoms. No early cardiac history, smoking, alcohol, illicit substance use, , exogenous estrogen use, recent flights, surgeries, or long drives. Underwent double mastectomy in 2021 due to positive BRCA gene status. Related Data Home Medications ?Medication ?Instructions ?Recorded ?Confirmed levonorgestrel 21 mcg/24 hr (up to 1 device intrauterine ONCE 06/26/22 07/24/24 8 years) 52 mg intrauterine device (Mirena) sumatriptan succinate 50 mg tablet 50 mg PO ONCE PRN migraine 12/29/23 07/24/24 (Imitrex) headache #60 tabs paroxetine HCl 10 mg tablet 10 mg PO DAILY #90 tabs 03/08/24 07/24/24 lorazepam 0.5 mg tablet 0.5 mg PO DAILY PRN 07/13/24 07/24/24 lorazepam 1 mg tablet 1 mg PO DAILY PRN anxiety #20 tabs 07/13/24 07/24/24 Previous Rx's ?Medication ?Instructions ?Recorded sumatriptan succinate 50 mg tablet 50 mg PO ONCE PRN migraine 12/29/23 (Imitrex) headache #60 tabs paroxetine HCl 10 mg tablet 10 mg PO DAILY #90 tabs 03/08/24 lorazepam 1 mg tablet 1 mg PO DAILY PRN anxiety #20 tabs 07/13/24 Allergies Allergy/AdvReac Type Severity Reaction Status Date / Time Penicillins Allergy Hives Verified 07/24/24 16:21 Sulfa (Sulfonamide AdvReac Severe Diarrhea Verified 07/24/24 16:21 Antibiotics) Cephalosporins AdvReac Unknown GI Verified 07/24/24 16:21 ciprofloxacin (From Cipro) AdvReac Unknown GI Verified 07/24/24 16:21 General Stated Complaint: Chest Pain NEENA: 3 Exam Narrative Exam Narrative: Alert and oriented no acute distress reproducible tenderness along the left mid axillary region, no crepitus, lungs clear to auscultation cardiac rate rhythm regular no calf swelling or tenderness no abdominal tenderness specifically no left upper quadrant tenderness Course Vital Signs Vital signs: Vital Signs Temperature 36.2 C L 07/24/24 16:05 Pulse 126 H 07/24/24 16:05 Respiratory Rate 23 07/24/24 16:05 Blood Pressure 144/83 H 07/24/24 16:05 Pulse Oximetry 100 07/24/24 16:05 Temperature 36.2 C L 07/24/24 16:05 Temperature Source Tympanic 07/24/24 16:05 Pulse 126 H 07/24/24 16:05 Respiratory Rate 23 07/24/24 16:33 Respiratory Effort Normal 07/24/24 16:33 Respiratory Depth Normal 07/24/24 16:33 Respiratory Pattern Normal 07/24/24 16:33 Blood Pressure 144/83 H 07/24/24 16:05 Blood Pressure Position Sitting 07/24/24 16:05 Pulse Oximetry 100 07/24/24 16:05 Oxygen Delivery Method Room Air 07/24/24 16:05 Oxygen Flow Rate 0 07/24/24 16:05 Pain Level 4 07/24/24 16:33 Lab/Test Results Lab/Test Results: Laboratory Tests Range/Units 04/07/25 16:30 WBC (4.4-10.8) 10^3/uL 6.51 RBC (3.93-5.22) 10^6/uL 4.15 Hgb (11.2-15.7) g/dL 13.0 Hct (36.0-46.0) % 38.5 MCV (80-95) fL 93 MCH (27.0-33.0) pg 31.3 MCHC (32.0-36.0) % 33.8 RDW (11.7-14.6) % 11.9 Plt Count (130-400) 10^3/uL 219 MPV (8.0-11.0) fL 9.1 Immature Gran % % 0.2 Neutrophils % % 37.8 Lymphocytes % % 54.2 Monocytes % % 5.7 Eosinophils % % 1.8 Basophils % % 0.3 Nucleated RBC % (0.0-0.3) % 0.0 Absolute Neutrophils (1.2-6.7) 10^3/uL 2.46 Absolute Lymphocytes (1.2-3.4) 10^3/uL 3.53 H Absolute Monocytes (0.1-0.8) 10^3/uL 0.37 Absolute Eosinophils (0.0-0.7) 10^3/uL 0.12 Absolute Basophils (0.0-0.2) 10^3/uL 0.02 Medical Decision Making D-dimer and two troponins negative. Chest x-ray shows no acute abnormality. EKG shows sinus tachycardia without ischemia. Initial Assessment: 39-year-old female with left-sided chest pain, worse with deep breathing, started in the shower. Status post double mastectomy in 2021 secondary to BRCA gene positive prophylactically. Denies fever, chills, illness, cough, calf pain, tenderness, early cardiac history, smoking, alcohol, illicit substance use, , exogenous estrogen, recent flights, surgeries, long drives. ED Course: - EKG shows sinus tachycardia without ischemia. - D-dimer ordered. - Two troponins ordered. - Diagnostic blood work ordered. - Urinalysis ordered. - Single dose of Ativan given for stress. - D-dimer negative. - Two troponins negative. - Chest x-ray read by radiology and reviewed by me, shows no acute abnormality. Final Assessment: Patient's chest pain is not suspected to be cardiac or pulmonary in nature. Diagnostic tests including EKG, D-dimer, troponins, and chest x-ray show no acute abnormalities. Ativan given for stress. Clinical Impression: - Chest pain Disposition: - Discharge - Follow-Up: Follow up with PCP in 1-2 days for reassessment. Patient Education: Work note supplied and return precautions reviewed. MDM Components Evaluation: - Number of Differential Diagnoses or Management Options: Chest pain - Amount and Complexity of Data Reviewed: EKG, D-dimer, two troponins, chest x-ray, diagnostic blood work, urinalysis - Risk of Complication and Morbidity or Mortality: Low suspicion of cardiac or pulmonary complications based on diagnostic tests. Quality:SDOH Health Related Social Needs: No Data to Display PFSH All Active Problems (Updated 07/24/24 @ 19:08 by ALFRED Marrufo) Chest pain (Acute) Primary stabbing headache (Acute) Migraine headache without aura (Acute) BRCA2 positive (Chronic) Followed by [facility] Generalized anxiety disorder with panic attacks (Chronic) PTSD (post-traumatic stress disorder) (Chronic) Insomnia (Chronic) Hyperlipidemia (Chronic) IBS (irritable bowel syndrome) (Chronic) GERD (gastroesophageal reflux disease) (Chronic) Hiatal hernia (Chronic) IUD surveillance (Chronic) Mirena IUD 03/15/23 Polyarthralgia (Chronic) Obesity (BMI 30-39.9) (Chronic) Medical History (Updated 07/24/24 @ 19:08 by ALFRED Marrufo) Bochdalek hernia Herpes Abnormal uterine bleeding Surgical History (Updated 04/25/24 @ 21:08 by Harmony Cortez NP) Status post bilateral breast reconstruction History of bilateral tubal ligation Hx laparoscopic cholecystectomy Hx of esophagogastroduodenoscopy Hx of section Hx of colonoscopy (~06/03/20) H/O bilateral mastectomy (06/23/21) Family History Mother Depression Father , 58 Diabetes Pancreatic cancer Maternal Grandfather , 72 Diabetes Paternal Grandfather Prostate cancer Atrial fibrillation Maternal Grandmother , 84 No problems noted. Paternal Grandmother , 54 Heart disease Myocardial infarction Lupus (systemic lupus erythematosus) Sister BRCA2 positive Daughter No problems noted. Daughter No problems noted. Daughter No problems noted. Son No problems noted. Social History Smoking/Tobacco Use Status: Never Second Hand Exposure: Yes Smoking risk assessment performed?: Yes Alcohol Intake: current Alcohol Intake frequency: a few times a month Alcohol type: beer Drug use: Never Substance use type: does not use Caregiver/Support person: No Household members: spouse and children Housing: house Communication Needs: None Do you need help understanding health information?: Rarely Pets and animals: Yes Pets and animals: dog(s) Sexually active: Yes Do you think of yourself as: straight/heterosexual Current gender identity: female What is your relationship status?: How often do you talk on the phone with friends or family?: three or more times per week How often do you get together with friends or relatives?: once per week How often do you attend druze or yarsanism services?: decline to answer Do you belong to any clubs or organized social groups?: no Panel score (0-1 are the most socially isolated patients): 2 What type of physical activity do you participate in: none Frequency: does not exercise Ericka/Christianity: None Special ericka needs: No Seatbelt use: sometimes Helmet use: Yes Helmet use: sometimes Do you feel safe at home: Yes Do you feel safe in your relationship?: Yes Female Reproductive History Menstrual control method: progestin IUCD
[2024-07-24 16:58] LABS: ALT 22 U/L (14-59); AST 14 U/L (15-37); Albumin 4.5 g/dL (3.4-5.0); Alkaline Phosphatase 62 U/L (46-116); Anion Gap 11.1 mmol/L (3-11); BUN 8 mg/dL (7-18); Bilirubin, Total 0.4 mg/dL (0.2-1.0); CO2 24.9 mmol/L (21.0-32.0); CREATININE 0.7 mg/dL (0.55-1.02); Calcium 9.5 mg/dL (8.5-10.1); Chloride 105 mmol/L (98-107); Estimated GFR 112.05 (mL/min/1.73m2); Glucose 94 mg/dL (74-106); Lipase 36 U/L (<78); Potassium 3.2 mmol/L (3.5-5.1); Sodium 141 mmol/L (136-145); Troponin I 9 ng/L (<or=51)
[2024-07-24 17:01] LABS: D-Dimer 202 ng/mlFEU (<500)
--- NOTE | 2024-07-24 17:30 | DI.RAD_ITS ---
Exam(s) XR CHEST 2V PA LATERAL EXAM: XR CHEST 2V PA LATERAL CLINICAL HISTORY: chest godoy TECHNIQUE: 2D digital imaging was performed of the chest. Two images were obtained. PA and lateral views were obtained. COMPARISON: CR,XR XR PORTABLE CHEST AP from 12/10/2020 CR,RF RF BARIUM SWALLOW from 02/25/2024 FINDINGS: MEDIASTINUM: Normal. HEART: Normal. PULMONARY VASCULATURE: Normal. LUNGS: Clear. PLEURAL SPACE: No pleural effusion or pneumothorax. BONE:Within normal limits for the patient's age. OTHER FINDINGS:There are surgical clips in the soft tissues of the anterior chest wall. IMPRESSION: No acute pulmonary findings. DATA REPOSITORY: RADIATION DOSE DELIVERED:
[2024-07-24] MEDS: Ketorolac 15 MG/ML VIAL 7.5 MG IVP (18:19)
[2024-07-24 18:33] LABS: Troponin I 10 ng/L (<or=51)
[2024-07-24] MEDS: Potassium Chloride 20 MEQ TABCR PO (19:20)
== END 2024-07-24 19:26 | disposition home or self-care (01) ==
PROVIDERS: Emergency Provider Physician Assistant; PCP Nurse Practitioner Family
DX: R07.9 Chest pain, unspecified (principal)
CPT/HCPCS: 36415; 80053; 83690; 93005; 96374; 99284; 71046; 84484; 85025; 85379; 93010; 99283; J1885

== ENCOUNTER 2025-02-05 03:55 | Outpatient (CLI) | payer BC, SELFPAY ==
[2025-02-05 09:28] LABS: Anion Gap 10.6 mmol/L (3-11); BUN 13 mg/dL (7-18); CO2 25.4 mmol/L (21.0-32.0); Calcium 8.9 mg/dL (8.5-10.1); Chloride 103 mmol/L (98-107); Estimated GFR 116.30 (mL/min/1.73m2); Glucose 91 mg/dL (74-106); Magnesium 2.0 mg/dL (1.8-2.4); Potassium 4.5 mmol/L (3.5-5.1); Sodium 139 mmol/L (136-145)
[2025-02-05 17:28] LABS: HBs Antibody, Quant 86.8 mIU/mL (See Note); Hepatitis B Surface Ab Positive (See Note)
[2025-02-05 18:10] LABS: Hep B Core Antibody Negative (Negative)
[2025-02-05 18:11] LABS: Hepatitis C Ab w Rflx HCV PCR Negative (Negative)
[2025-02-05 18:16] LABS: HIV-1/2 Ag & Ab Screen Negative (Negative)
== END 2025-02-05 03:56 | disposition home or self-care (01) ==
LOC: LBO 03:55
PROVIDERS: PCP Nurse Practitioner Family; Visit Provider Nurse Practitioner Family
DX: Z11.59 Encounter for screening for other viral diseases (principal); Z11.4 Encounter for screening for human immunodeficiency virus [HIV]; R25.2 Cramp and spasm
CPT/HCPCS: 36415; 80048; 86704; 86706; 86803; 87340; 87389; 83735